=== PATIENT | female | born 1940 | race Caucasian/White ===

== ENCOUNTER → 2016-06-17 | Outpatient (CLI) | payer OTHER ==
[~2016-06-17] MED LIST: ALBU1AER9 PO; ATOR10TA82 PO; CLCC1250 PO; ERGO1CAP35 PO; FLM4 PO; LEVO100T PO; LOSA100T33 PO; METF1000 PO; PXL20 PO; SENN-65 PO
--- NOTE | 2016-06-18 12:46 | MAMMOGRAPHY REPORT ---
BILATERAL DIGITAL SCREENING MAMMOGRAM TOMOSYNTHESIS WITH CAD: 06/17/2016 CLINICAL HISTORY: Asymptomatic. Personal history of breast cancer. TECHNIQUE: Breast tomosynthesis in addition to standard 2D mammography was performed. Current study was also evaluated with a Computer Aided Detection (CAD) system. COMPARISON: Comparison is made to exams dated: 07/10/2015 mammogram, 07/10/2015 stereotactic biopsy, mammogram, 06/15/2015 mammogram, and 06/14/2014 mammogram - [facility]. BREAST COMPOSITION: The tissue of both breasts is almost entirely fatty. FINDINGS: A linear scar marker overlies the upper outer quadrant of the left breast. There is expec abiodun architectural distortion at the site of prior lumpectomy. A metallic biopsy marker is seen with in the architecture distortion, denoting the site of recent benign biopsy of calcifications. There is stable nodularity in the upper outer quadrant of the right breast. No new suspicious mass, archi tectural distortion or cluster of microcalcifications is seen. IMPRESSION: ACR BI-RADS CATEGORY 1: NEGATIVE There is no mammographic evidence of malignancy. A 1 year screening mammogram is recommended. The p atient will receive written notification of the results. Approximately 10% of breast cancers are not detected with mammography. A negative mammographic repor t should not delay biopsy if a clinically suggestive mass is present. Mitzi Encarnacion M.D. ay/:06/17/2016 16:51:39 Judge: Mary Jane ADAME(Rik)(Sherif), [facility] letter sent: Normal 1/2 BI-RADS Code: ACR BI-RADS Category 1: Negative
== END | disposition home or self-care (01) ==
LOC: C.MAMM 08:16
PROVIDERS: ATTEND Family Medicine
DX: Z12.31 Encounter for screening mammogram for malignant neoplasm of breast (principal); Z85.3 Personal history of malignant neoplasm of breast

== ENCOUNTER → 2017-06-19 | Outpatient (CLI) | payer OTHER ==
--- NOTE | 2017-06-22 07:45 | MAMMOGRAPHY REPORT ---
BILATERAL DIGITAL SCREENING MAMMOGRAM TOMOSYNTHESIS WITH CAD: 06/19/2017 CLINICAL HISTORY: Routine screening. Patient has no complaints. TECHNIQUE: Breast tomosynthesis in addition to standard 2D mammography was performed. Current study was also evaluated with a Computer Aided Detection (CAD) system. COMPARISON: Comparison is made to exams dated: 06/17/2016 mammogram, 07/10/2015 mammogram, 07/10/2015 surinder reotactic biopsy, 07/02/2015 mammogram, 06/15/2015 mammogram, and 06/14/2014 mammogram - [facility]. BREAST COMPOSITION: The tissue of both breasts is almost entirely fatty. FINDINGS: No suspicious masses, calcifications, or areas of architectural distortion are noted in ei ther breast. There has been no significant interval change compared to prior exams. There are stable postsurgical changes in the left upper outer quadrant from prior lumpectomy. A biopsy clip is also noted in the left upper outer quadrant. Scattered bilateral benign-appearing calcifications are note d. Small circumscribed benign-appearing masses within the right upper outer quadrant are stable. IMPRESSION: ACR BI-RADS CATEGORY 2: BENIGN There is no mammographic evidence of malignancy. A 1 year screening mammogram is recommended. The pa tient will receive written notification of the results. Approximately 10% of breast cancers are not detected with mammography. A negative mammographic report should not delay biopsy if a clinically suggestive mass is present. Madhavi Sun M.D. /:06/19/2017 13:01:29 Fourdrinier Machine Operator: Camelia MORENO)(Sherif), [facility] letter sent: Normal 1/2 BI-RADS Code: ACR BI-RADS Category 2: Benign
== END | disposition home or self-care (01) ==
LOC: C.MAMM 08:22
PROVIDERS: ATTEND Family Medicine
DX: Z12.31 Encounter for screening mammogram for malignant neoplasm of breast (principal)

== ENCOUNTER 2024-03-09 23:06 | Observation (INO) ==
--- OUTSIDE RECORDS SUMMARY | 2024-03-09 23:13 | External Medical Summary | Summary of Care ---
Author Name Unknown Organization [facility] Address [address] [place] [address] Phone [phone] Care Team Providers Care Medical Record Coder Name Role Phone Briseno Wing Edwardschelo Primary Care Provider Reason for Visit * Reason Comments Outpatient Testing Encounter Details Date Type Department Care Team (Late st Contact Info) Description 01/28/2024 11:10 AM EST Laboratory Laboratory, [facility] [address] [place] [address] [facility] [address] [place] [address] DYSLIPIDEMIA, GOAL LDL BELOW 100; Type 2 diabetes mellitus with hemoglobin A1c goal of less than 7.0% ([facility]); Stage 3b chronic kidney disease ([facility]); Vitamin D deficiency; Hypothyroidism due to acquired atrophy of thyroid; Routine medical exam; Encounter for long-term (current) use of medications; Hyperparathyroidism, secondary renal ([facility]); Type 2 diabetes mellitus with diabetic neuropathy, without long-term current use of insulin ([facility]) Allergies Active Allergy Reactions Criticality Noted Date Comments Mayur Inhibitors 12/25/2003 Made her head funny Bupropion Hcl Hives Low 01/07/2008 documented as of this encounter (statuses as of 01/29/2024) Medications LORAzepam (ATIVAN) 0.5 MG TabletIndication s:Panic disorder 1/2 pill by mouth 3 times a day as needed for anxiety 20 Tab 0 6 Active Aspirin 81 MG Tablet Take 1 Tablet by mouth in the morning. Active Blood Glucose Monitoring Suppl ([address] ST[address]IO) w/Device KIT Use as directed. 1 Kit 8 Active ONETOUCH DELICA LANCETS 33G MISC TEST ONCE DAILY UNLESS READING IS TOO HIGH, THEN TEST TWICE DAILY. DX: E11.9 & E11.40 100 Each 5 8 Active Additional Information Patient not taking.Reported on 01/28/2024 Azelaic Acid (FINACEA) 15 % gelIndications:R osacea Apply daily to skin 50 g 10 0 Active Additional Information Patient not taking.Reported on 01/28/2024 Magnesium 500 MG Oral Capsule Take 1 Capsule by mouth in the morning. Active DermLinkTouch Verio In Vitro Strip (Glucose Blood) TEST ONCE DAILY UNLESS READING IS TOO HIGH, THEN TEST TWICE DAILY 100 Strip 2 3 Active Additional Information Patient not taking.Reported on 01/28/2024 Levothyroxine Sodium 100 MCG Oral Tablet (Levoxyl)Indicat ions:Hypothyroid ism due to acquired atrophy of thyroid TAKE 1 TABLET BY MOUTH ONCE DAILY (AT LEAST 30 MINUTES PRIOR TO BREAKFAST OR OTHER MEDS) 90 Tablet 3 4 Active Losartan Potassium 50 MG Oral Tablet (Cozaar) Take 1 Tablet by mouth in the morning. 90 Tablet 2 4 Active Atorvastatin Calcium 40 MG Oral Tablet (Lipitor) Take 1 Tablet by mouth in the morning. 90 Tablet 2 4 Active PARoxetine HCl 20 MG Oral Tablet (pAXil) TAKE 1 TABLET BY MOUTH IN THE MORNING 90 Tablet 3 4 Active hydroCHLOROthiaz rebeca 12.5 MG Oral Tablet TAKE 1 TABLET BY MOUTH EVERY MORNING 90 Tablet 1 4 Active Potassium Citrate ER 10 MEQ (1080 MG) Oral Tablet Extended Release (Urocit-K) TAKE 2 TABLETS BY MOUTH IN THE MORNING 180 Tablet 2 4 Active Ozempic (1 MG/DOSE) 4 MG/3ML Subcutaneous Solution Pen-injector (Semaglutide (1 MG/DOSE))Indicat ions:Type 2 diabetes mellitus with hemoglobin A1c goal of less than 7.0% ([facility]),Type 2 diabetes mellitus with diabetic neuropathy, without long-term current use of insulin ([facility]),Type 2 diabetes mellitus with stage 4 chronic kidney disease, without long-term current use of insulin (HCC) Inject 1 mg under the skin once a week. 9 mL 3 4 Active Allopurinol 100 MG Oral Tablet (Zyloprim)Indica tions:Elevated uric acid in blood Take 1 Tablet by mouth in the morning. 90 Tablet 3 4 Active documented as of this encounter (statuses as of 01/29/2024) Active Problems Problem Noted Date Diagnosed Date Moderate episode of recurrent major depressive d isorder 07/31/2022 Stage 3b chronic kidney disease 05/31/2020 Type 2 diabetes mellitus wit h diabetic neuropathy, without long-term current use of insulin 08/17/2018 Hypertensive kidney disease with stage 4 chronic kidney disease 08/17/2018 History of breast cancer 08/06/2018 Type 2 diabetes mellitus wit h stage 4 chronic kidney disease, without long-term current use of insulin 06/01/2018 Essential tremor 02/26/2018 Personal history of fall 02/26/2018 Hyperparathyroidism, secondary renal 12/23/2017 Hypothyroidism due to acquired atrophy of thyroi d 08/18/2016 Essential and other specified forms of tremor DYSLIPIDEMIA, GOAL LDL BELOW 100 02/15/2009 Overview (02/15/2009): Per Lipid Taxonomy. Type 2 diabetes mellitus wit h hemoglobin A1c goal of less than 7.0% 01/04/2009 Overview (07/03/2015): Per Diabetes Taxonomy. ICD-10 update of inactive term lactose intolerance Panic disorder Gout Nephrolithiasis, uric acid Diabetic neuropathy associat ed with type 2 diabetes mellitus documented as of this encounter (statuses as of 01/29/2024) Resolved Problems Problem Noted Date Diagnosed Date Resolved Date CKD (chronic kidney disease) stage 4, GFR 15-29 ml/min 02/20/2016 07/21/2018 KIDNEY DZ,CHRONIC (GFR>30-59) STAGE III 06/11/2010 02/20/2016 CKD (chronic kidney disease) stage 4, GFR 15-29 ml/min 04/01/2007 06/11/2010 Overview (04/01/2007): Based on GFR of 52.5 on 12/02/06. ADVANCE DIRECTIVE INFORMATION 11/24/2006 01/11/2024 Overview (10/06/2006): No, Advance Directive brochure given to patient at a previous visit. Carcinoma in situ of breast 10/06/2006 08/06/2018 Type 1 diabetes mellitus wit h hemoglobin A1c goal of less than 8.5% 09/03/1999 01/04/2009 Overview (07/03/2015): Per Diabetes Taxonomy. ICD-10 update of inactive term BENIGN HYPERTENSION 05/25/19 08 HYPERLIPIDEMIA NEC-NOS 02/15 Overview (02/15/2009): Per Lipid Taxonomy. Type 2 diabetes mellitus wit h goal of symptom management 02/22/2019 documented as of this encounter (statuses as of 01/29/2024) Immunizations Name Administration Dates Next Due COVID-19 mRNA, LNP-s, No Pre serve, 2-Dose Series (Kashless) 06/22/2020,06/01/2020 Diptheria/Tetanus (Adult) 03/09/1993 Pneumococcal Conjugate Vacc, 13 Valent (Prevnar) 08/17/2014 Pneumococcal Polysaccharide PPV23 (Pneumovax) 11/27/2003 Seasonal Influenza Vac., MDV , IM, 0.5 mL (Fluzone) 01/06/2014,01/03/2013,12/19/2011,12/16,12/28/2009 Seasonal Influenza, High Dos e, Trivalent, PF, IM (Fluzone HD) 01/28/2024 Seasonal Influenza, PF, 6 M & above, IM , (FluLaval or Fluzone) 02/26/2018,02/23/2017 Seasonal Influenza, Quadriva lent Hd (Fluzone Hd) 03/23/2023,01/17/2022,01/08/2021 Seasonal Influenza, Quadriva lent Hd, 65+ Yrs 12/16/2019 Seasonal Influenza, Quadriva lent, No Preserve, IM 02/18/2016,01/08/2015 Seasonal Influenza, Trivalen t, Adjuvanted, 65+ YRS, PF, (Fluad) 03/07/2019 TD, Preservative Free 06/08/2009 TDAP (age 10 and older)(Boostrix) 08/25/2017 Zoster Vaccine Recombinant (Shingrix) 03/07/2019 ,02/26/2018 documented as of this encounter Social History Tobacco Use Types Packs/Day Years Used Date Smoking Tobacco: Never Smokeless Tobacco: Never Alcohol Use Standard Drinks/Week Comments No 0 (1 standard drink = 0.6 oz pur e alcohol) PHQ-2 Answer Date Recorded PHQ Adult Total Score 0 01/28/2024 Hunger Vital Sign Answer Date Recorded Worried About Running Out of Food in the Last Ye ar Never true 09/12/2019 Ran Out of Food in the Last Year Never true 09/12/2019 Comments No Sex and Gender Information Value Date Recorded Sex Assigned at Female 09/12/2019 1:54 PM EDT Legal Sex Female 6:01 AM EST Gender Identity Female 09/12/2019 1:54 PM EDT Sexual Orientation Straight 09/12/2019 1: 54 PM EDT documented as of this encounter Plan of Treatment Upcoming Encounters Date Type Department Care Team (Late st Contact Info) Description 02/10/2024 9:40 AM EST Office Visit [facility] [address] [place] [address] Lj Gill MD [address] [place] [address] 07/28/2024 10:20 AM EDT Office Visit [facility] [address] [address] Wing Briseno, [address] [address] 02/06/2025 11:40 AM EST Office Visit [facility] [address] [address] Wing Brisneo, [address] [address] Pending Results Name Type Priority Associated Diagnoses Date /Time ALBUMIN / CREATININE RATIO, URINE Lab Routine Stage 3b chronic kidney disease (HCC) 01/29/2024 7:18 AM EST Health Maintenance Due Date Last Done Comments Adult Wellness Visit 2004 Diabetic Eye Exam 01/15/2023 01/15/2022, , 12/28/2019, Additional history exists COVID-19 Vaccine ( season) 2023 06/22/2020, 06/01/2020 Albumin/Creatinine Ratio 04/14/2024 024, 09/22/2022, 01/17/2022, Additional history exists HbA1c 07/27/2024 01/28/2024, 02/0 08/2023, 01/17/2022, Additional history exists Depression Monitoring 01/27/2025 01/28/2024 Diabetic Foot Exam 01/27/2025 01/28/2024, 0 07/31/2022, 07/09/2021, Additional history exists TSH 01/27/2025 01/28/2024, 02/0 08/2023, 07/04/2021, Additional history exists DTap/Tdap Vaccines (2 - Td or Tdap) 08/26/2027 08/25/2017, 06/08/2009, 03/09/1993 Pneumococcal Vaccine: 65+ Years Completed 08/17/2014, 11/27/2003 Zoster Vaccines Completed 03/07/2019, 02/26/2018 Nephrology Referral Discontinued 02/10/2023 Influenza Vaccine (FLU shot) Completed 01/28/2024, 03/23/2023, 01/17/2022, Additional history exists HPV (Gardasil) Vaccine Aged Out No lo nger eligible based on patient's age to complete this topic Hepatitis B Vaccine Aged Out No longe r eligible based on patient's age to complete this topic MENINGOCOCCAL (MENACTRA/MENVEO) Aged Out No longer eligible based on patient's age to complete this topic documented as of this encounter Medical Devices Implanted Type Area Trestle Mechanic Device Identifier Shelf Expiration Date Model / Serial / Lot Inlay [place] Ureteral Stent Implanted:Qty: 1 on 04/07/2014 by Sigrid Zhang MD at OR [facility] Left: Ureter [employer] 06/06/2018 [id number] / / [id number] Lens Intraoc 23.0 - [id number] - [id number] Implanted:Qty: 1 on 06/08/2018 by Wolfgang Powers MD at OR [facility] Left: Eye [employer] 11/06/2022 [id number] / [id number] / Lens Intraoc 19.5 - [id number] - [id number] Implanted:Qty: 1 on 06/22/2018 by Wolfgang Powers MD at OR [facility] Right: Eye [employer] 01/06/2023 [id number] / [id number] / documented as of this encounter Procedures Procedure Name Priority Date/Time Associated Diagnosis Comments TSH WITH FREE T4 IF INDICATED Routine 01/28/2024 10:37 AM EST Hypothyroidism due to acquired atrophy of thyroid LIPID PANEL WITH DIRECT LDL IF TG IS HIGH Routine 01/28/2024 10:37 AM EST DYSLIPIDEMIA, GOAL LDL BELOW 100 25-HYDROXY VITAMIN D Routine 01/28/2024 10:37 AM EST Vitamin D deficiency HEMOGLOBIN A1C Routine 01/28/2024 10:37 AM EST Type 2 diabetes mellitus with hemoglobin A1c goal of less than 7.0% (HCC) COMPREHENSIVE METABOLIC PANEL Routine 01/28/2024 10:37 AM EST DYSLIPIDEMIA, GOAL LDL BELOW 100 PHOSPHORUS Routine 01/28/2024 10:37 AM EST Hyperparathyroidis m, secondary renal (HCC) PTH Routine 01/28/2024 10:37 AM EST Hypothyroidism due to acquired atrophy of thyroid MAGNESIUM Routine 01/28/2024 10:37 AM EST Stage 3b chronic kidney disease (HCC) documented in this encounter Results * PHOSPHORUS (01/28/2024 10:37 AM EST) Phosphorus 3.2 2.5 - 4.8 mg/dL 01/28/2024 10:32 PM EST [facility] Blood Venous blood specimen / Unknown Venipuncture / Unknown 01/28/2024 10:37 AM EST 01/28/2024 10:37 AM EST us Wing Briseno DO LAB BLOOD ORDERABLES Fi nal Result Performing Organization Address [facility] de Phone Number [facility] [address] [place] [address] * TSH WITH FREE T4 IF INDICATED (01/28/2024 10:37 AM EST) TSH 0.41 0.27 - 4.20 uIU/mL 01/28/2024 11:34 PM EST [facility] Blood Venous blood specimen / Unknown Venipuncture / Unknown 01/28/2024 10:37 AM EST 01/28/2024 10:37 AM EST us Wing Briseno DO LAB BLOOD ORDERABLES Fi nal Result Performing Organization Address [facility] Phone Number [facility] [address] [place] [address] * PTH (01/28/2024 10:37 AM EST) PTH 65 15 - 65 pg/mL 01/28/2024 11:34 PM EST [facility] Blood Venous blood specimen / Unknown Venipuncture / Unknown 01/28/2024 10:37 AM EST 01/28/2024 10:37 AM EST Wing Briseno DO LAB BLOOD ORDERABLES Fi nal Result Performing Organization Address [facility] Co de Phone Number [facility] [address] [place] [address] * 25-HYDROXY VITAMIN D (01/28/2024 10:37 AM EST) 25-Hydroxy Vitamin D 28 >19 ng/mL 01/28/2024 11:34 PM EST [facility] Blood Venous blood specimen / Unknown Venipuncture / Unknown 01/28/2024 10:37 AM EST 01/28/2024 10:37 AM EST Narrative [facility] - 01/28/2024 11:34 PM EST Deficient: <20 ng/mL Insufficient: 20-29 ng/mL Recommended/Optimum:30-50 ng/mL Vitamin D intoxication is rare. If suspicious of Vitamin D toxicity, evaluation of serum Calcium and PTH is recommended. Wing Briseno DO LAB BLOOD ORDERABLES Fi nal Result Performing Organization Address City/[facility]/ZIP Co de Phone Number LABORATORY [address] [address] * MAGNESIUM (01/28/2024 10:37 AM EST) Magnesium 1.7 1.5 - 2.6 mg/dL 01/28/2024 10:32 PM EST [facility] Blood Venous blood specimen / Unknown Venipuncture / Unknown 01/28/2024 10:37 AM EST 01/28/2024 10:37 AM EST Wing Briseno DO LAB BLOOD ORDERABLES Fi nal Result Performing Organization Address [facility]/ZIP Co de Phone Number LABORATORY [address] [address] * (ABNORMAL) LIPID PANEL WITH DIRECT LDL IF TG IS HIGH (01/28/2024 10:37 AM EST) Triglycerides 138 <=174 mg/dL 01/28/2024 10:32 PM EST [facility] Comment: Triglyceride Reference Ranges (mg/dL): <150 Acceptable 150-174 Borderline high 175-499 High >=500 Very high Cholesterol 147 <200 mg/dL 01/28/2024 10:32 PM EST [facility] Comment: Total Cholesterol Reference Ranges (mg/dL): <200 Desirable 200-239 Borderline high >=240 High HDL Cholesterol 49(L) >49 mg/dL 10:32 PM EST [facility] Comment: HDL Cholesterol Reference Ranges (mg/dL): >=60 High (Desirable) <50 Low (Undesirable) For Females <40 Low (Undesirable) For Males Non-HDL Cholesterol 98 <=159 mg/dL 01/28/2024 10:32 PM EST [facility] Comment: Non-HDL Cholesterol Reference Range (mg/dL): <100 Target level for high risk ASCVD patient <130 Optimal for general population 130-159 Near optimal for general population 160-189 Borderline High 190-219 High >=220 Very High LDL Cholesterol 70 <=129 mg/dL 01/28/2024 10:32 PM EST [facility] Comment: LDL Cholesterol Reference Ranges (mg/dL): <70 Target level for high risk ASCVD patient <100 Optimal for general population 100-129 Near optimal for general population 130-159 Borderline high 160-189 High >=190 Very high Blood Venous blood specimen / Unknown Venipuncture / Unknown 01/28/2024 10:37 AM EST 01/28/2024 10:37 AM EST Wing Briseno DO LAB BLOOD ORDERABLES Fi nal Result Performing Organization Address [facility] Phone Number [facility] [place] [address] [place] [address] * (ABNORMAL) HEMOGLOBIN A1C (01/28/2024 10:37 AM EST) Hemoglobin A1C 6.9(H) 4.0 - 5.6 % 01/28/2024 7:56 PM EST [facility] Comment:The use of HbA1c to monitor glycemic status is based on normal hemoglobin and HbA composition. This test should not be used in patients with abnormal hemoglobin that affects the half life of the red blood cell or the in vivo glycation rates. Estimated Average Glucose 151(H) <126 mg/dL 01/28/2024 7:56 PM EST [facility] Blood Venous blood specimen / Unknown Venipuncture / Unknown 01/28/2024 10:37 AM EST 01/28/2024 10:37 AM EST Wing Briseno DO LAB BLOOD ORDERABLES Fi nal Result Performing Organization Address [facility] de Phone Number [facility] [place] [address] [place] [address] * (ABNORMAL) COMPREHENSIVE METABOLIC PANEL (01/28/2024 10:37 AM EST) BUN 22(H) 6 - 20 mg/dL 01/28/2024 12:54 PM EST [facility] [place] 57-10 CREATININE 1.6(H) 0.5 - 1.0 mg/dL 01/28/2024 12:54 PM EST [facility] [place] 57-10 EGFR 32(L) >=60 mL/min 01/28/2024 12:54 PM EST [facility] [place] 57-10 Comment:eGFR is calculated b ased on the CKD-EPI 2020 equation. SODIUM 139 135 - 146 mmol/L 01/28/2024 12:54 PM EST [facility] [place] [facility]-10 POTASSIUM 4.4 3.5 - 5.1 mmol/L 01/28/2024 12:54 PM EST [facility] [place] 57-10 CHLORIDE 100 98 - 107 mmol/L 01/28/2024 12:54 PM EST [facility] [place] 57-10 CO2 31 22 - 32 mmol/L 01/28/2024 12:54 PM EST [facility] [place] 57-10 ANION GAP 8 7 - 15 mmol/L 01/28/2024 12:54 PM EST [facility] [place] 57-10 GLUCOSE 109 70 - 120 mg/dL 01/28/2024 12:54 PM EST [facility] [place] 57-10 Albumin 4.1 3.8 - 5.0 g/dL 01/28/2024 12:54 PM EST [facility] [place] 57-10 AST 18 10 - 35 U/L 01/28/2024 12:54 PM EST [facility] [place] 57-10 Alkaline Phosphatase 102 35 - 130 U/L 01/28/2024 12:54 PM EST [facility] [place] 57-10 Bilirubin, Total 0.8 <=1.2 mg/dL 01/28/2024 12:54 PM EST [facility] [place] 57-10 CALCIUM 9.6 8.4 - 10.2 mg/dL 01/28/2024 12:54 PM EST [facility] [place] 57-10 Protein 7.3 6.0 - 8.3 g/dL 01/28/2024 12:54 PM EST [facility] [place] 57-10 ALT 15 10 - 35 U/L 01/28/2024 12:54 PM EST [facility] [place] 57-10 Blood Venous blood specimen / Unknown Venipuncture / Unknown 01/28/2024 10:37 AM EST 01/28/2024 10:37 AM EST Wing Briseno DO LAB BLOOD ORDERABLES Fi nal Result [facility] [place] [address] documented in this encounter Visit Diagnoses Diagnosis DYSLIPIDEMIA, GOAL LDL BELOW 100 Other and unspecified hyperlipidemia Type 2 diabetes mellitus with hemoglobin A1c goal of less than 7.0% (HCC) Stage 3b chronic kidney disease (HCC) Vitamin D deficiency Unspecified vitamin D deficiency Hypothyroidism due to acquired atrophy of thyroid Routine medical exam Routine general medical examination at a health care facility Encounter for long-term (current) use of medications Encounter for long-term (current) use of other medications Hyperparathyroidism, secondary renal (HCC) Secondary hyperparathyroidism (of renal origin) Type 2 diabetes mellitus with diabetic neuropathy, without long-term current use of insulin (HCC) documented in this encounter Advance Directives * Full Code (Latest Code Status on File) Date Activated Date Inactivated Comments 04/07/2014 7:37 AM 04/07/2014 3:40 PM This order r eflects the patients wishes and were consensually agreed upon. Care Teams Medical Record Coder Relationship Specialty Start Date End Date Wing Briseno DO [address] [place] [address] PCP - General Family Medicine 04/04/19 documented as of this encounter
--- OUTSIDE RECORDS SUMMARY | 2024-03-09 23:13 | External Medical Summary | Summary of Care ---
Author Name Unknown Organization [facility] Address [address] [place] [address] Phone [phone] Care Team Providers Care Technical Solutions Engineer Name Role Phone Navin Briseno DO Primary Care Provider Reason for Visit * Reason Comments eRx-Medication Refill Encounter Details Date Type Department Care Team (Late st Contact Info) Description 02/09/2024 Refill Family Practice [facility] [address] [place] [id number] Navin Briseno DO [address] [place] [id number] Allergies Active Allergy Reactions Criticality Noted Date Comments Mayur Inhibitors 12/25/2003 Made her head funny Bupropion Hcl Hives Low 01/07/2008 documented as of this encounter (statuses as of 02/10/2024) Medications LORAzepam (ATIVAN) 0.5 MG TabletIndicatio ns:Panic disorder 1/2 pill by mouth 3 times a day as needed for anxiety 20 Tab 0 04/06/19 Active Aspirin 81 MG Tablet Take 1 Tablet by mouth in the morning. Active Blood Glucose Monitoring Suppl (ONETOUCH VERIO) w/Device KIT Use as directed. 1 Kit 01/23/20 Active ONETOUCH DELICA LANCETS 33G MISC TEST ONCE DAILY UNLESS READING IS TOO HIGH, THEN TEST TWICE DAILY. DX: E11.9 & E11.40 100 Each 5 01/23/20 Active Additional Information Patient not taking.Reported on 01/28/2024 Azelaic Acid (FINACEA) 15 % gelIndications: Rosacea Apply daily to skin 50 g 10 03/21/19 Active Additional Information Patient not taking.Reported on 01/28/2024 Magnesium 500 MG Oral Capsule Take 1 Capsule by mouth in the morning. Active OneTouch Verio In Vitro Strip (Glucose Blood) TEST ONCE DAILY UNLESS READING IS TOO HIGH, THEN TEST TWICE DAILY 100 Strip 2 01/18/20 23 Active Additional Information Patient not taking.Reported on 01/28/2024 Atorvastatin Calcium 40 MG Oral Tablet (Lipitor) Take 1 Tablet by mouth in the morning. 90 Tablet 2 08/18/19 24 Active PARoxetine HCl 20 MG Oral Tablet (pAXil) TAKE 1 TABLET BY MOUTH IN THE MORNING 90 Tablet 3 11/11/19 24 Active hydroCHLOROthia zide 12.5 MG Oral Tablet TAKE 1 TABLET BY MOUTH EVERY MORNING 90 Tablet 1 11/24/19 24 Active Potassium Citrate ER 10 MEQ (1080 MG) Oral Tablet Extended Release (Urocit-K) TAKE 2 TABLETS BY MOUTH IN THE MORNING 180 Tablet 2 01/26/20 24 Active Ozempic (1 MG/DOSE) 4 MG/3ML Subcutaneous Solution Pen-injector (Semaglutide (1 MG/DOSE))Indica tions:Type 2 diabetes mellitus with hemoglobin A1c goal of less than 7.0% (HCC),Type 2 diabetes mellitus with diabetic neuropathy, without long-term current use of insulin (HCC),Type 2 diabetes mellitus with stage 4 chronic kidney disease, without long-term current use of insulin ([facility]) Inject 1 mg under the skin once a week. 9 mL 3 01/28/20 24 Active Allopurinol 100 MG Oral Tablet (Zyloprim)Indic ations:Elevated uric acid in blood Take 1 Tablet by mouth in the morning. 90 Tablet 3 01/28/20 24 Active Levothyroxine Sodium 100 MCG Oral Tablet (Levoxyl)Indica tions:Hypothyro idism due to acquired atrophy of thyroid TAKE 1 TABLET BY MOUTH ONCE DAILY (AT LEAST 30 MINUTES PRIOR TO BREAKFAST OR OTHER MEDS) 90 Tablet 3 02/01/20 24 Active Losartan Potassium 50 MG Oral Tablet (Cozaar) Take 1 Tablet by mouth in the morning. 90 Tablet 3 02/10/20 24 Active Losartan Potassium 50 MG Oral Tablet (Cozaar) Take 1 Tablet by mouth in the morning. 90 Tablet 2 08/11/19 24 024 Discontinued documented as of this encounter (statuses as of 02/10/2024) Active Problems Problem Noted Date Diagnosed Date [...] as of this encounter (statuses as of 02/10/2024) Resolved Problems Problem Noted Date Diagnosed Date [...] as of this encounter (statuses as of 02/10/2024) Immunizations Name Administration Dates Next Due COVID-19 mRNA, LNP-s, No Pre serve, 2-Dose Series (Pfizer) 06/22/2020,06/01/2020 Pneumococcal Conjugate Vacc, 13 Valent (Prevnar) 08/17/2014 Seasonal Influenza Vac., MDV , IM, 0.5 mL (Fluzone) 01/06/2014,01/03/2013,12/19/2011,2010,12/28/2009 Seasonal Influenza, High Dos e, Trivalent, PF, [...] PM EDT documented as of this encounter Miscellaneous Notes * Telephone Encounter - Suzanna Millan RPh - 02/10/2024 8:19 PM ESTSigned Prescriptions: Disp Refills Losartan Potassium 50 MG Oral Tablet (Coza*90 Tab*3 Sig: Take 1Tablet by mouth in the morning.Authorizing Provider: NAVIN BRISENOOrderxochitl User: Bebo MILLAN documented in this encounter Plan of Treatment Upcoming Encounters Date Type Department Care Team (Late st Contact Info) Description 07/28/2024 10:20 AM EDT Office Visit [facility] [address] [place] [address] Navin Briseno, [address] [place] [address] 01/12/2025 2:20 PM EST [facility] [address] [place] [address] Lj Gill MD [address] [place] [address] 02/06/2025 11:40 AM EST Office Visit [facility] [address] [place] [address] Navin Briseno, [address] [place] [address] Health Maintenance Due Date Last Done Comments Adult Wellness Visit 2004 Diabetic Eye Exam 01/15/2023 01/15/2022, , 12/28/2019, Additional history exists COVID-19 Vaccine ( season) 2023 06/22/2020, 06/01/2020 HbA1c 07/27/2024 01/28/2024, 02/0 08/2023, 01/17/2022, Additional history exists Depression Monitoring 01/27/2025 01/28/2024 Diabetic Foot Exam 01/27/2025 01/28/2024, 0 07/31/2022, 07/09/2021, Additional history exists TSH 01/27/2025 01/28/2024, 02/0 08/2023, 07/04/2021, Additional history exists Albumin/Creatinine Ratio 01/28/2025 024, 04/14/2023, 09/22/2022, Additional history exists DTap/Tdap Vaccines (2 - Td or Tdap) 08/26/2027 08/25/2017, 06/08/2009, 03/09/1993 Pneumococcal Vaccine: 65+ Years Completed 08/17/2014, 11/27/2003 Zoster Vaccines Completed 03/07/2019, 02/26/2018 Influenza Vaccine (FLU shot) Completed 01/28/2024, 03/23/2023, 01/17/2022, Additional history exists Nephrology Referral Discontinued 02/10/2024 HPV (Gardasil) Vaccine Aged Out No lo nger eligible based on patient's age to complete this topic Hepatitis B Vaccine Aged Out No longe r eligible based on patient's age to complete this topic MENINGOCOCCAL (MENACTRA/MENVEO) Aged Out No longer eligible based on patient's age to complete this topic documented as of this encounter Medical Devices Implanted Type Area Artist Mannequin Coloring Device Identifier Shelf Expiration Date Model / Serial / Lot Inlay [place] Ureteral Stent Implanted:Qty: 1 on 04/07/2014 by Sigrid Zhang MD at OR [facility] Left: Ureter [employer] 06/06/2018 [id number] / / [id number] Lens Intraoc 23.0 - [id number] - [id number] Implanted:Qty: 1 on 06/08/2018 by Wolfgang Powers MD at OR [facility] Left: Eye [employer] 11/06/2022 [id number] / [id number] / Lens Intraoc 19.5 - [id number] - [id number] Implanted:Qty: 1 on 06/22/2018 by Wolfgang Powers MD at OR [facility] Right: Eye [employer] 01/06/2023 [id number] / [id number] / documented as of this encounter Advance Directives * Full Code (Latest Code Status on File) Date Activated Date Inactivated Comments 04/07/2014 7:37 AM 04/07/2014 3:40 PM This order r eflects the patients wishes and were consensually agreed upon. Care Teams Technical Solutions Engineer Relationship Specialty Start Date End Date Navin Briseno DO [address] [place] [id number] PCP - General Family Medicine 04/04/19 documented as of this encounter
--- OUTSIDE RECORDS SUMMARY | 2024-03-09 23:13 | External Medical Summary | Summary of Care ---
Author Name Unknown Organization [facility] Address [address] [place] [address] Phone [phone] Care Team Providers Care Adjunct Sociology Professor Name Role Phone Finn Wing Edwardschelo Primary Care Provider Reason for Visit * Reason Comments Chronic Kidney Disease (CKD) Encounter Details Date Type Department Care Team (Late st Contact Info) Description 02/10/2024 9:40 AM EST Office Visit [facility] [address] [place] [address] Lj Gill MD [address] [place] [address] Stage 3b chronic kidney disease (HCC)*; Type 2 diabetes mellitus with stage 4 chronic kidney disease, without long-term current use of insulin (HCC); Nephrolithiasis, uric acid Allergies Active Allergy Reactions Criticality Noted Date Comments Mayur Inhibitors 12/25/2003 Made her head funny Bupropion Hcl Hives Low 01/07/2008 documented as of this encounter (statuses as of 02/10/2024) Medications LORAzepam (ATIVAN) 0.5 MG TabletIndication s:Panic [...] Additional Information Patient not taking.Reported on 01/28/2024 Losartan Potassium 50 MG Oral Tablet (Cozaar) [...] hemoglobin A1c goal of less than 7.0% ([facility]),Type 2 diabetes mellitus with diabetic neuropathy, without long-term current use of insulin ([facility]),Type 2 diabetes mellitus with stage 4 chronic kidney disease, without long-term current use of insulin ([facility]) Inject 1 mg under the skin once a week. 9 mL 3 4 Active Allopurinol 100 MG Oral Tablet (Zyloprim)Indica tions:Elevated uric acid in blood Take 1 Tablet by mouth in the morning. 90 Tablet 3 4 Active Levothyroxine Sodium 100 MCG Oral Tablet (Levoxyl)Indicat ions:Hypothyroid ism due to acquired atrophy of thyroid TAKE 1 TABLET BY MOUTH ONCE DAILY (AT LEAST 30 MINUTES PRIOR TO BREAKFAST OR OTHER MEDS) 90 Tablet 3 4 Active documented as [...] PM EDT documented as of this encounter Last Filed Vital Signs Vital Sign Reading Time Taken Comments Blood Pressure 150/63 02/10/2024 9:58 AM EST Pulse 61 02/10/2024 9:58 AM EST Temperature 36.6 C (97.8 F) 02/10/2024 9:58 AM ES T Respiratory Rate 18 02/10/2024 9:58 AM EST Oxygen Saturation 98% 02/10/2024 9:58 AM EST Inhaled Oxygen Concentration - - Weight 70.8 kg (156 lb) 02/10/2024 9:58 AM EST Height - - Body Mass Index 24.43 03/23/2023 11:48 AM EST documented in this encounter Progress Notes * Lj Gill MD - 02/10/2024 10:02 AM EST REASON FOR VISIT: CKD 3B HPI: Lorelei Gil is a 83 year old female seen in follow-up in the [facility] Nephrology office. Past medical history of CKD stage 3B without proteinuria secondary to DM and HTN here for follow up. Patient with dm and hypertension for 25 years-without retinopathy. Checks bp at home occasionally. PMH also includes nephrolithiasis with uric acid stones-on potassium citrate and no more stones. Also withgout and on allopurinol. H/o BRCA with partial masectomy 6 years ago. No chemo or radiation. No tobacco. Last office visit was in -- no new health issues. She does get tired as her has worsening dementia and has to take care of him. Having some arthritic pain but otherwise no symptoms. Nourinary symptoms. No leg swelling. No kidney stone infections hospitalization or emergency. 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 Diabetic neuropathy associated with type 2 diabetes mellitus ([facility]) Dyslipidemia, goal to be determined Essential and other specified forms of tremor 04/06/2015 Essential tremor 02/26/2018 Gout HTN, goal below 140/90 Hypothyroidism Hypothyroidism Intestinal disaccharidase deficiency Nephrolithiasis, uric acid Panic disorder Personal history of fall 02/26/2018 Type 1 diabetes mellitus with hemoglobin A1c goal of less than 8.5% ([facility]) 09/03/1999 Per Diabetes Taxonomy. ICD-10 update of inactive term Type 2 diabetes mellitus with goal of symptom management ([facility]) Review of Systems: General ROS: negative for - chills or fever Psychological ROS: negative for - mood swings ENT ROS: negative for - nasal congestion or nasal discharge Endocrine ROS: negative Respiratory ROS: no cough, shortness of breath, or wheezing Cardiovascular ROS: no chest pain or dyspnea on exertion Gastrointestinal ROS: no abdominal pain, change in bowel habits, or black or bloody stools Genito-Urinary ROS: no dysuria, trouble voiding, or hematuria Musculoskeletal ROS: negative for - muscle pain Neurological ROS: no TIA or stroke symptoms Dermatological ROS: negative for rash Family History Problem Relation Name Age of Onset Heart Disorder Mother Diabetes Mother Hypertension Mother Mental Disorder Mother panic attacks Heart Disorder Father Hypertension Sister Hypertension Sister Cancer Brother lung Lung Disorder Brother emphysema, smoker Social History Socioeconomic History Marital status: Spouse name: Not on file Number of children: Not on file Years of education: Not on file Highest education level: Not on file Occupational History Not on file Social Needs Financial resource strain: Not on file Food insecurity: Worry: Not on file Inability: Not on file Transportation needs: Medical: Not on file Non-medical: Not on file Tobacco Use Smoking status: Never Smoker Smokeless tobacco: Never Used Substance and Sexual Activity Alcohol use: No Drug use: No Sexual activity: Yes Partners: Male Lifestyle Physical activity: Days per week: Not on file Minutes per session: Not on file Stress: Not on file Relationships Social connections: Talks on phone: Not on file Gets together: Not on file Attends mandaeism service: Not on file Active member of club or organization: Not on file Attends meetings of clubs or organizations: Not on file Relationship status: Not on file Intimate partner violence: Fear of current or ex partner: Not on file Emotionally abused: Not on file Physically abused: Not on file Forced sexual activity: Not on file Other Topics Concern Not on file Social History Narrative Not on file Current Outpatient Medications Medication Sig Dispense Refill LORAzepam (ATIVAN) 0.5 MG Tablet 1/2 pill by mouth 3 times a day as needed for anxiety 20 Tab 0 Aspirin 81 MG Tablet Take 1 Tablet by mouth in the morning. Magnesium 500 MG Oral Capsule Take 1 Capsule by mouth in the morning. Losartan Potassium 50 MG Oral Tablet (Cozaar) Take 1 Tablet by mouth in the morning. 90 Tablet 2 Atorvastatin Calcium 40 MG Oral Tablet (Lipitor) Take 1 Tablet by mouth in the morning. 90 Tablet 2 PARoxetine HCl 20 MG Oral Tablet (pAXil) TAKE 1 TABLET BY MOUTH IN THE MORNING 90 Tablet 3 hydroCHLOROthiazide 12.5 MG Oral Tablet TAKE 1 TABLET BY MOUTH EVERY MORNING 90 Tablet 1 Potassium Citrate ER 10 MEQ (1080 MG) Oral Tablet Extended Release (Urocit-K) TAKE 2 TABLETS BY MOUTH IN THE MORNING 180 Tablet 2 Ozempic (1 MG/DOSE) 4 MG/3ML Subcutaneous Solution Pen-injector (Semaglutide (1 MG/DOSE)) Inject 1 mg under the skin once a week. 9 mL 3 Allopurinol 100 MG Oral Tablet (Zyloprim) Take 1 Tablet by mouth in the morning. 90 Tablet 3 Levothyroxine Sodium 100 MCG Oral Tablet (Levoxyl) TAKE 1 TABLET BY MOUTH ONCE DAILY (AT LEAST 30 MINUTES PRIOR TO BREAKFAST OR OTHER MEDS) 90 Tablet 3 Blood Glucose Monitoring Suppl (SaqinaUCH VERIO) w/Device KIT Use as directed. 1 Kit 0 Northcore TechnologiesTOUCH DELICA LANCETS 33G MISC TEST ONCE DAILY UNLESS READING IS TOO HIGH, THEN TEST TWICE DAILY.DX: E11.9 & E11.40 (Patient not taking: Reported on 01/28/2024) 100 Each 5 Azelaic Acid (FINACEA) 15 % gel Apply daily to skin (Patient not taking: Reported on 01/28/2024) 50g 10 OneTouch Verio In Vitro Strip (Glucose Blood) TEST ONCE DAILY UNLESS READING IS TOO HIGH, THEN TESTTWICE DAILY (Patient not taking: Reported on 01/28/2024) 100 Strip 2 No current facility-administered medications for this visit. Filed Vitals: 02/10/24 0958 BP: 150/63 Pulse: 61 Resp: 18 Temp: 36.6 C (97.8 F) SpO2: 98% Weight: 70.8 kg (156 lb) PHYSICAL EXAM: GENERAL: Alert, in no acute distress. EYES: PERRL, conjunctivae anicteric. ENT: Mucous membranes moist, oropharynx clear. NECK: Supple, no JVD. LYMPH: No cervical or supraclavicular lymphadenopathy. LUNGS: Clear to auscultation bilaterally, no respiratory distress. CARDIAC: Regular rate and rhythm, normal S1/S2, no murmurs, rubs, or gallops. ABDOMEN: Soft, non-tender, non-distended, bowel sounds present. EXT/MSK: No clubbing, cyanosis, or edema. SKIN: No rash, no jaundice. NEURO: No tremor, no asterixis. LABS/STUDIES: NEPH-FLOW Latest Ref Rng & Units 12/23/2017 02/26/2018 07/06/2018 Bun 6 - 20 mg/dL 32 (H) 34 (H) 39 (H) Cr 0.5 - 1.0 mg/dL 1.8 (H) 1.7 (H) 1.7 (H) eGFR >60 mL/min eGFR >60 26.8 (L) 28.4 (L) 28.2 (L) K 3.5 - 5.1 mmol/L 4.7 4.6 4.8 Hb 12.0 - 15.3 g/dL Microalb/cr ratio <30 mg/g creat NEPH-FLOW Latest Ref Rng & Units 03/07/2019 09/12/2019 12/26/2019 Bun 6 - 20 mg/dL 31 (H) 32 (H) 22 (H) Cr 0.5 - 1.0 mg/dL 1.6 (H) 1.6 (H) 1.4 (H) eGFR >60 mL/min eGFR >60 30.3 (L) 31.3 (L) 34.6 (L) K 3.5 - 5.1 mmol/L 4.1 4.7 4.6 Hb 12.0 - 15.3 g/dL 14.5 13.9 Microalb/cr ratio <30 mg/g creat <8 NEPH-FLOW Latest Ref Rng & Units 09/12/2019 Bun 6 - 20 mg/dL 32 (H) BUN 6 - 20 mg/dL Cr 0.5 - 1.0 mg/dL 1.6 (H) CREATININE 0.5 - 1.0 mg/dL eGFR >60 mL/min eGFR >60 31.3 (L) EGFR >=60.0 mL/min K 3.5 - 5.1 mmol/L 4.7 POTASSIUM 3.5 - 5.1 mmol/L Hb 12.0 - 15.3 g/dL 13.9 HGB 12.0 - 15.3 g/dL Microalb/cr ratio <30 mg/g creat <8 ALBUMIN / CREATININE RATIO, URINE <30 mg/g Creat NEPH-FLOW Latest Ref Rng & Units 12/26/2019 Bun 6 - 20 mg/dL 22 (H) BUN 6 - 20 mg/dL Cr 0.5 - 1.0 mg/dL 1.4 (H) CREATININE 0.5 - 1.0 mg/dL eGFR >60 mL/min eGFR >60 34.6 (L) EGFR >=60.0 mL/min K 3.5 - 5.1 mmol/L 4.6 POTASSIUM 3.5 - 5.1 mmol/L Hb 12.0 - 15.3 g/dL HGB 12.0 - 15.3 g/dL Microalb/cr ratio <30 mg/g creat ALBUMIN / CREATININE RATIO, URINE <30 mg/g Creat NEPH-FLOW Latest Ref Rng & Units 05/31/2020 Bun 6 - 20 mg/dL BUN 6 - 20 mg/dL 27 (H) Cr 0.5 - 1.0 mg/dL CREATININE 0.5 - 1.0 mg/dL 1.6 (H) eGFR >60 mL/min eGFR >60 EGFR >=60.0 mL/min 30.0 (L) K 3.5 - 5.1 mmol/L POTASSIUM 3.5 - 5.1 mmol/L 4.3 Hb 12.0 - 15.3 g/dL HGB 12.0 - 15.3 g/dL 13.1 Microalb/cr ratio <30 mg/g creat ALBUMIN / CREATININE RATIO, URINE <30 mg/g Creat <6 NEPH-FLOW Latest Ref Rng & Units 05/31/2020 01/30/2021 07/04/2021 Bun 6 - 20 mg/dL 27 (H) 20 23 (H) Cr 0.5 - 1.0 mg/dL 1.6 (H) 1.3 (H) 1.5 (H) eGFR >=60 mL/min 30.0 (L) 38 (L) 34 (L) eGFR >60 K 3.5 - 5.1 mmol/L 4.3 4.6 4.6 Hb 12.0 - 15.3 g/dL 13.1 13.5 13.6 Pro/Cr ratio <150 mg/g 95 Microalb/cr ratio <30 mg/g creat Recent Labs Units 01/28/24 1037 04/14/23 1018 02/10/23 1359 SODIUM - [facility] mmol/L 139 141 141 POTASSIUM - [facility] mmol/L 4.4 4.1 4.4 CHLORIDE - [facility] mmol/L 100 102 103 CO2 - [facility] mmol/L 31 25 29 ESTIMATED GLOMERULAR FILTRATION RATE - [facility] mL/min 32* 33* 34* BUN - [facility] mg/dL 22* 30* 30* CREATININE - [facility] mg/dL 1.6* 1.5* 1.5* Recent Labs Units 02/10/23 1359 HGB g/dL 12.9 Recent Labs Units 01/28/24 1037 04/14/23 1018 02/10/23 1359 CALCIUM - [facility] mg/dL 9.6 9.5 9.6 PHOSPHORUS - [facility] mg/dL 3.2 3.0 2.9 25-HYDROXY VITAMIN D - [facility] ng/mL 28 -- 32 PTH - [facility] pg/mL 65 -- 63 Recent Labs Units 01/28/24 1037 04/14/23 1018 HEMOGLOBIN A1C - [facility] % 6.9* 7.2* Recent Labs Units 01/29/24 0718 04/14/23 1024 02/12/23 0728 09/22/22 0000 ALBUMIN / CREATININE RATIO, URINE - [facility] mg/g Creat 22 <6 -- -- MICROALBUMIN RATIO-OUTSIDE LAB MG/G -- -- -- 5.6 PROTEIN/ CREATININE RATIO, URINE - [facility] mg/g -- -- 56 -- ASSESSMENT AND PLAN Nephrolithiasis Stage 3b chronic kidney disease (Primary) Patient with the CKD stage 3B due to diabetes and hypertension. Her renal function has been fairly stable for the last few years with a GFR in the 30 through 35 range. Most recent blood work from January 27 was discussed with the patient and shows a GFR of 32 creatinine 1.6. This is within her baseline range for the last few years Diabetes is now fully controlled with A1c of less than 7%. Blood pressure could be slightly better but given her age and extreme stress and anxiety related with her dementia , this is an acceptable blood pressure. She knows to avoid NSAIDs and limit salt intake. She will continue to keep well hydrated. As of now hemoglobin is completely normal at 12.9 so no anemia of CKD No need of labs today. Normal exam and no symptoms. She still looks and functions very good for her age. No proteinuria on the urine test done January 2024 which is again a good prognostic marker As of now no renal osteodystrophy with acceptable vitamin-D and acceptable PTH range and normal phosphorus. All of these labs were ordered by me previously and has been discussed in detail today. Type 2 diabetes mellitus with stage 4 chronic kidney disease, without long-term current use of insulin (HCC) Last A1c was under 7%. Continue same medicines. Nephrolithiasis, uric acid Patient with history of nephrolithiasis. Recent imaging showed no kidney stones. She has not had episodes of kidney stones for the past 5 years. She will continue with adequate hydration and potassium citrate. - NEPHROLOGY FOLLOW UP APPT (DEPARTMENT USE ONLY); Future; Expected date: 08/10/2024 Labs as below to be done before the next appointment - NEPHROLOGY FOLLOW UP APPT (DEPARTMENT USE ONLY); Future; Expected date: 08/10/2024 - CBC WITH WBC DIFFERENTIAL; Future; Expected date: 02/10/2024 - RENAL FUNCTION PANEL; Future; Expected date: 02/10/2024 - PROTEIN/ CREATININE RATIO, URINE; Future; Expected date: 02/10/2024 - PTH; Future; Expected date: 02/10/2024 - 25-HYDROXY VITAMIN D; Future; Expected date: 02/10/2024 Lj Gill MD documented in this encounter Nursing Notes * Iza Gonzalez RN - 02/10/2024 10:01 AM EST Follow up visit today. Caring for a spouse with dementia. Good family support. documented in this encounter Plan of Treatment Upcoming Encounters Date Type Department Care Team (Late st Contact Info) Description 07/28/2024 10:20 AM EDT Office Visit [facility] [address] [place] [address] Wing Briseno, DO [address] [place] [address] 01/12/2025 2:20 PM EST Office Visit Nephrology [facility] [address] [facility] [place] [address] Lj Gill MD [address] [facility] [place] [address] 02/06/2025 11:40 AM EST Office Visit [facility] [address] [place] [address] Wing Briseno, [address] [place] [address] Scheduled Orders Name Type Priority Associated Diagnoses Orde r Schedule CBC WITH WBC DIFFERENTIAL Lab Routine Stage 3b chronic kidney disease (HCC) Expected: 02/10/2024 (Approximate), Expires: 08/08/2024 RENAL FUNCTION PANEL Lab Routine Stage 3b chronic kidney disease (HCC) Expected: 02/10/2024 (Approximate), Expires: 08/08/2024 PROTEIN/ CREATININE RATIO, URINE Lab Routine Stage 3b chronic kidney disease (HCC) Expected: 02/10/2024 (Approximate), Expires: 08/08/2024 PTH Lab Routine Stage 3b chronic kidney disease (HCC) Expected: 02/10/2024 (Approximate), Expires: 08/08/2024 25-HYDROXY VITAMIN D Lab Routine Stage 3b chronic kidney disease (HCC) Expected: 02/10/2024 (Approximate), Expires: 08/08/2024 Health Maintenance Due Date Last Done Comments [...] this encounter Medical Devices Implanted Type Area Cable Television Installer Device Identifier Shelf Expiration Date Model / Serial / Lot Inlay [place] Ureteral Stent Implanted:Qty: 1 on 04/07/2014 by Sigrid Zhang MD at [facility] Left: Ureter INACTIVE [employer] 06/06/2018 [id number] / / [id number] Lens Intraoc 23.0 - [id number] - [id number] Implanted:Qty: 1 on 06/08/2018 by Wolfgang Powers MD at OR [facility] Left: Eye [employer] 11/06/2022 [id number] / [id number] / Lens Intraoc 19.5 - [id number] - [id number] Implanted:Qty: 1 on 06/22/2018 by Wolfgang Powers MD at OR [facility] Right: Eye [employer]OMB 01/06/2023 [id number] / [id number] / documented as of this encounter Visit Diagnoses Diagnosis Stage 3b chronic kidney disease (HCC)- Primary Type 2 diabetes mellitus with stage 4 chronic kidney disease, without long-term current use of insulin (HCC) Nephrolithiasis, uric acid Uric acid nephrolithiasis documented in this encounter Advance Directives * Full Code (Latest Code Status on File) Date Activated Date Inactivated Comments 04/07/2014 7:37 AM 04/07/2014 3:40 PM This order r eflects the patients wishes and were consensually agreed upon. Care Teams Adjunct Sociology Professor Relationship Specialty Start Date End Date Wing Briseno DO [address] [place] [address] PCP - General Family Medicine 04/04/19 documented as of this encounter
--- OUTSIDE RECORDS SUMMARY | 2024-03-09 23:13 | External Medical Summary ---
Author Name Unknown Address Unknown Organization K01:[facility] - [address] [place] [address] Laboratory Report Ordering Provider Test Date Status GILLES HOLDEN 01/29/2024 07:18:09 Final Normal: <30 mg/g creatinine< br/>High: 30-300 mg/g creatinine
Very High: >300 mg/g creatinine
Nephrotic: >2200 mg/g creatinine Observation Date Value Abnormality Reference (Units ) Status Albumin, Urine 01/29/2024 07:18:09 4.00 (mg/dL) Final Creatinine, Urine 01/29/2024 07:18:09 184 (mg/dL) Final Albumin/Creatinine [Mass Ratio] in Urine 01/29/2024 07:18:09 22 <30 (mg/g Creat) Final Performing Location [facility] - [address] [place] [address]
--- OUTSIDE RECORDS SUMMARY | 2024-03-09 23:13 | External Medical Summary | Summary of Care ---
Author Name Unknown Organization [facility] Address [address] [place] [address] Phone [phone] Care Team Providers Care Surgical Physician Assistant Name Role Phone Navin Briseno DO Primary Care Provider Reason for Visit * Reason Comments eRx-Medication Refill Encounter Details Date Type Department Care Team (Late st Contact Info) Description 02/15/2024 Refill Family Practice [facility] [address] [place] [address] Navin Briseno DO [address] [place] [address] Allergies Active Allergy Reactions Criticality Noted Date Comments Mayur Inhibitors 12/25/2003 Made her head funny Bupropion Hcl Hives Low 01/07/2008 documented as of this encounter (statuses as of 02/16/2024) Medications LORAzepam (ATIVAN) 0.5 MG TabletIndicatio ns:Panic [...] TEST TWICE DAILY 100 Strip 2 01/18/20 Active Additional Information Patient not taking.Reported on 01/28/2024 PARoxetine HCl 20 MG Oral Tablet (pAXil) [...] hemoglobin A1c goal of less than 7.0% ([facility]),Type 2 diabetes mellitus with diabetic neuropathy, without long-term current use of insulin ([facility]),Type 2 diabetes mellitus with stage 4 chronic kidney disease, without long-term current use of insulin ([facility]) Inject 1 mg under the skin [...] morning. 90 Tablet 3 02/10/20 24 Active Atorvastatin Calcium 40 MG Oral Tablet (Lipitor) Take 1 Tablet by mouth in the morning. 90 Tablet 3 02/16/20 24 Active Atorvastatin Calcium 40 MG Oral Tablet (Lipitor) Take 1 Tablet by mouth in the morning. 90 Tablet 2 06/11/20 24 024 Discontinued documented as of this encounter (statuses as of 02/16/2024) Active Problems Problem Noted Date Diagnosed Date [...] as of this encounter (statuses as of 02/16/2024) Resolved Problems Problem Noted Date Diagnosed Date [...] as of this encounter (statuses as of 02/16/2024) Immunizations Name Administration Dates Next Due COVID-19 [...] encounter Miscellaneous Notes * Telephone Encounter - Aurora Urbina RPh - 02/16/2024 3:15 PM ESTSigned Prescriptions: Disp Refills Atorvastatin Calcium 40 MG Oral Tablet (Li*90 Tab*3 Sig: Take 1Tablet by mouth in the morning.Authorizing Provider: NAVIN BRISENOOrderxochitl User: AD URBINA documented in this encounter Plan of Treatment Upcoming Encounters Date Type Department Care Team (Late st Contact Info) Description 07/28/2024 10:20 AM EDT Office Visit [facility] [address] [place] [address] Navin Briseno, [address] [place] [address] 01/12/2025 2:20 PM EST Office Visit [facility] [address] [place] [address] Lj Gill MD [address] [place] [address] 02/06/2025 11:40 AM EST Office Visit [facility] [address] [place] [address] Navin Briseno, DO [address] [place] [address] Health Maintenance Due Date Last Done Comments Adult Wellness Visit 2004 Diabetic Eye Exam 01/15/2023 01/15/2022, , 12/28/2019, Additional history exists COVID-19 Vaccine ( season) 2023 06/22/2020, 06/01/2020 HbA1c 07/27/2024 01/28/2024, 02/0 08/2023, 01/17/2022, Additional history exists Depression Monitoring 01/27/2025 01/28/2024 Diabetic Foot Exam 01/27/2025 01/28/2024, 0 07/31/2022, 07/09/2021, Additional history exists TSH 01/27/2025 01/28/2024, 02/0 08/2023, 07/04/2021, Additional history exists Albumin/Creatinine Ratio 01/28/20252 024, 04/14/2023, 09/22/2022, Additional history exists DTap/Tdap [...] this encounter Medical Devices Implanted Type Area Technical Solutions Director Device Identifier Shelf Expiration Date Model / Serial / Lot Inlay [place] Ureteral Stent Implanted:Qty: 1 on 04/07/2014 by Sigrid Zhang MD at OR [facility] Left: Ureter INACTIVE [employer] 06/06/2018 [id number] / / [id number] Lens Intraoc 23.0 - [id number] - [id number] Implanted:Qty: 1 on 06/08/2018 by Wolfgang Powers MD at OR [facility] Left: Eye [employer] 11/06/2022 [id number] / [id number] / Lens Intraoc 19.5 - [id number] - [id number] Implanted:Qty: 1 on 06/22/2018 by Wolfgang Powers MD at OR [facility] Right: Eye [employer] 01/06/2023 [id number] / [id number] / documented as of this encounter Advance Directives * Full Code (Latest Code Status on File) Date Activated Date Inactivated Comments 04/07/2014 7:37 AM 04/07/2014 3:40 PM This order r eflects the patients wishes and were consensually agreed upon. Care Teams Surgical Physician Assistant Relationship Specialty Start Date End Date Navin Briseno DO [address] [place] [address] PCP - General Family Medicine 04/04/19 documented as of this encounter
--- OUTSIDE RECORDS SUMMARY | 2024-03-09 23:13 | External Medical Summary | Summary of Care ---
Author Name Unknown Organization [facility] Address [address] [place] [address] Phone [phone] Care Team Providers Care Horse Farm Manager Name Role Phone Wing Briseno DO Primary Care Provider Encounter Details Date Type Department Care Team (Late st Contact Info) Description 03/08/2024 Orders Only Family Practice [facility] [address] [place] [address] Wing Briseno DO [address] [place] [address] Allergies Active Allergy Reactions Criticality Noted Date Comments Mayur Inhibitors 12/25/2003 Made her head funny Bupropion Hcl Hives Low 01/07/2008 documented as of this encounter (statuses as of 03/08/2024) Medications LORAzepam (ATIVAN) 0.5 MG TabletIndication s:Panic [...] hemoglobin A1c goal of less than 7.0% ([facility]),Type 2 diabetes mellitus with diabetic neuropathy, without long-term current use of insulin ([facility]),Type 2 diabetes mellitus with stage 4 chronic kidney disease, without long-term current use of insulin ([facility]) Inject 1 mg under the skin once [...] the morning. 90 Tablet 3 4 Active Atorvastatin Calcium 40 MG Oral Tablet (Lipitor) Take 1 Tablet by mouth in the morning. 90 Tablet 3 4 Active documented as of this encounter (statuses as of 03/08/2024) Active Problems Problem Noted Date Diagnosed Date [...] as of this encounter (statuses as of 03/08/2024) Resolved Problems Problem Noted Date Diagnosed Date [...] as of this encounter (statuses as of 03/08/2024) Immunizations Name Administration Dates Next Due COVID-19 [...] 07/28/2024 10:20 AM EDT Office Visit [facility] [address] [address] Wing Briseno, [address] [place] [address] 01/12/2025 2:20 PM EST Office Visit Nephrology, [facility] [address] [place] [address] Lj Gill MD [facility] [place] [address] 02/06/2025 11:40 AM EST Office Visit [facility] [address] [address] Wing Briseno, [address] [place] [address] Health Maintenance Due Date Last Done Comments Adult Wellness Visit 2004 Diabetic Eye Exam 01/15/2023 01/19/2023, , 01/07/2021, Additional history exists COVID-19 Vaccine ( season) [...] Tdap) 08/26/2027 08/25/2017, 06/08/2009, 03/09/1993 Pneumococcal Vaccine: 50+ Years Completed 08/17/2014, 11/27/2003 Zoster Vaccines Completed [...] this encounter Medical Devices Implanted Type Area Sorting Machine Attendant Device Identifier Shelf Expiration Date Model / Serial / Lot Inlay [place] Ureteral Stent Implanted:Qty: 1 on 04/07/2014 by Sigrid Zhang MD at OR [facility] Left: Ureter INACTIVE [employer] 06/06/2018 [id number] / / [id number] Lens Intraoc 23.0 - [id number] - [id number] Implanted:Qty: 1 on 06/08/2018 by Wolfgang Powers MD at OR [facility] Left: Eye [employer]OM[employer] 11/06/2022 [id number] / [id number] / Lens Intraoc 19.5 - [id number] - [id number] Implanted:Qty: 1 on 06/22/2018 by Wolfgang Powers MD at OR [facility] Right: Eye [employer] LOMB 01/06/2023 [id number] / [id number] / documented as of this encounter Procedures Procedure Name Priority Date/Time Associated Diagnosis Comments DIABETIC EYE EXAM Routine 01/19/2023 documented in this encounter Results * DIABETIC EYE EXAM (01/19/2023) 01/19/2023 us Lona Ng OD OTHER Final Result OUTSIDE LAB (SEE SCANNED REPORT) documented in this encounter Advance Directives * Full Code (Latest Code Status on File) Date Activated Date Inactivated Comments 04/07/2014 7:37 AM 04/07/2014 3:40 PM This order r eflects the patients wishes and were consensually agreed upon. Care Teams Horse Farm Manager Relationship Specialty Start Date End Date Wing Briseno DO [address] [address] PCP - General Family Medicine 04/04/19 documented as of this encounter
--- OUTSIDE RECORDS SUMMARY | 2024-03-09 23:13 | External Medical Summary | Summary of Care ---
Author Name Unknown Organization [facility] Address [address] [place] [address] Phone [phone] Care Team Providers Care General Repair Mechanic Name Role Phone Navin Briseno DO Primary Care Provider Reason for Visit * Reason Comments eRx-Medication Refill Encounter Details Date Type Department Care Team (Late st Contact Info) Description 11/10/2023 Refill Family Practice [facility] [address] [place] [address] Navin Briseno DO [address] [place] [address] Allergies Active Allergy Reactions Criticality Noted Date Comments Mayur Inhibitors 12/25/2003 Made her head funny Bupropion Hcl Hives Low 01/07/2008 documented as of this encounter (statuses as of 02/08/2024) Medications LORAzepam (ATIVAN) 0.5 MG TabletIndicati ons:Panic disorder 1/2 pill by mouth 3 times [...] on 01/28/2024 Azelaic Acid (FINACEA) 15 % gelIndications :Rosacea Apply daily to skin 50 g 10 [...] the morning. 90 Tablet 2 08/11/19 24 Active Atorvastatin Calcium 40 MG Oral Tablet (Lipitor) Take 1 Tablet by mouth in the morning. 90 Tablet 2 08/18/19 24 Active PARoxetine HCl 20 MG Oral Tablet (pAXil) TAKE 1 TABLET BY MOUTH IN THE MORNING 90 Tablet 3 11/11/19 24 Active colchicine 0.6 MG Tablet TAKE 2 TABLETS FOR 1 DOSE AT ONSET OF GOUT AND THEN 1 TABLET DAILY AFTER 12 Tab 1 01/10/20 15 024 Discontinued PARoxetine HCl 20 MG Oral Tablet (pAXil) Take 1 Tablet by mouth in the morning. 90 Tablet 3 02/13/20 23 024 Discontinued Levothyroxine Sodium 100 MCG Oral Tablet (Levoxyl)Indic ations:Hypothy roidism due to acquired atrophy of thyroid TAKE 1 TABLET BY MOUTH ONCE DAILY (AT LEAST 30 MINUTES PRIOR TO BREAKFAST OR OTHER MEDS) 90 Tablet 3 05/06/19 24 024 Discontinued hydroCHLOROthi azide 12.5 MG Oral Tablet TAKE 1 TABLET BY MOUTH EVERY MORNING 90 Tablet 2 05/27/19 24 024 Discontinued Allopurinol 100 MG Oral Tablet (Zyloprim)Mesha cations:Elevat ed uric acid in blood Take 1 Tablet by mouth in the morning. 90 Tablet 2 06/17/19 24 024 Discontinued Glimepiride 4 MG Oral Tablet (Amaryl) Take 1 Tablet by mouth daily before breakfast. For diabetes 90 Tablet 3 07/14/19 24 024 Discontinued Potassium Citrate ER 10 MEQ (1080 MG) Oral Tablet Extended Release (Urocit-K) TAKE 2 TABLETS BY MOUTH IN THE MORNING 180 Tablet 2 05/24/ 024 Discontinued Ozempic (0.25 or 0.5 MG/DOSE) 2 MG/3ML Solution Pen-injector (Semaglutide(0 .25 or 0.5MG/DOS)) INJECT 0.5 mg WEEKLY. 3 mL 5 09/01/19 24 024 Discontinued documented as of this encounter (statuses as of 02/08/2024) Active Problems Problem Noted Date Diagnosed Date [...] as of this encounter (statuses as of 02/08/2024) Resolved Problems Problem Noted Date Diagnosed Date [...] as of this encounter (statuses as of 02/08/2024) Immunizations Name Administration Dates Next Due COVID-19 mRNA, LNP-s, No Pre serve, 2-Dose Series ([employer]) 06/22/2020,06/01/2020 Diptheria/Tetanus (Adult) 03/09/1993 Pneumococcal Conjugate Vacc, [...] encounter Miscellaneous Notes * Telephone Encounter - Flor Scanlon CPhT - 02/08/2024 8:58 AM EST Pt calling to request PARoxetine HCl 20 MG Oral Tablet (pAXil) . Informed pt that RX is available at their pharmacy. Pt verbalized understanding and stated they will check with their pharmacy regarding this medication. Thank you, Ashley Scanlon CPhT [employer] [facility] [address] [place] [address] [phone] * Telephone Encounter - Fiona Christianson [facility] - 11/11/2023 5:25 PM EDT Signed Prescriptions: Disp Refills PARoxetine HCl 20 MG Oral Tablet (pAXil) 90 Tab*3 Sig: TAKE 1 TABLET BY MOUTH IN THE MORNINGAuthorizing Provider: NAVIN BRISENO User: FIONA CHRISTIANSON documented in this encounter Plan of Treatment Upcoming Encounters Date Type Department Care Team (Late st Contact Info) Description 02/10/2024 9:40 AM EST Office Visit Nephrology, [facility] [address] [place] [address] Lj Gill MD [address] [facility] [place] [address] 07/28/2024 10:20 AM EDT Office Visit [facility] [address] [place] [address] Navin Briseno, [address] [place] [address] 02/06/2025 11:40 AM EST Office Visit [facility] [address] [place] [address] Navin Briseno, [address] [place] [address] Health Maintenance Due Date Last Done Comments Adult Wellness Visit 2004 Diabetic Eye Exam 01/15/2023 01/15/2022, , 12/28/2019, Additional history exists COVID-19 Vaccine ( season) 2023 06/22/2020, 06/01/2020 HbA1c 07/27/2024 01/28/2024, 02/0 08/2023, 01/17/2022, Additional history exists Depression Monitoring 01/27/2025 01/28/2024 Diabetic Foot Exam 01/27/2025 01/28/2024, 0 07/31/2022, 07/09/2021, Additional history exists TSH 01/27/2025 01/28/2024, 02/0 08/2023, 07/04/2021, Additional history exists Albumin/Creatinine Ratio 01/28/202501/28/2 024, 04/14/2023, 09/22/2022, Additional history exists DTap/Tdap [...] this encounter Medical Devices Implanted Type Area Vp Design Device Identifier Shelf Expiration Date Model / Serial / Lot Inlay [place] Ureteral Stent Implanted:Qty: 1 on 04/07/2014 by Sigrid Zhang MD at OR [facility] Left: Ureter INACTIVE [employer] 06/06/2018 [id number] / / [id number] Lens Intraoc 23.0 - [id number] - [id number] Implanted:Qty: 1 on 06/08/2018 by Wolfgang Powers MD at OR [facility] Left: Eye [employer]OM[employer] 11/06/2022 [id number] / [id number] / Lens Intraoc 19.5 - [id number] - [id number] Implanted:Qty: 1 on 06/22/2018 by Wolfgang Powers MD at OR [facility] Right: Eye [employer] LOMB 01/06/2023 [id number] / [id number] / documented as of this encounter Advance Directives * Full Code (Latest Code Status on File) Date Activated Date Inactivated Comments 04/07/2014 7:37 AM 04/07/2014 3:40 PM This order r eflects the patients wishes and were consensually agreed upon. Care Teams General Repair Mechanic Relationship Specialty Start Date End Date Navin Briseno DO [address] [address] PCP - General Family Medicine 04/04/19 documented as of this encounter
--- OUTSIDE RECORDS SUMMARY | 2024-03-09 23:13 | External Medical Summary | Summary of Care ---
Author Name Unknown Organization [facility] Address [address] [place] [address] Phone [phone] Care Team Providers Care Chemical Blender Name Role Phone Navin Briseno DO Primary Care Provider Reason for Visit * Reason Comments eRx-Medication Refill Encounter Details Date Type Department Care Team (Late st Contact Info) Description 02/01/[address] [facility] [address] [place] [address] Navin Briseno DO [address] [place] [address] Hypothyroidism due to acquired atrophy of thyroid Allergies Active Allergy Reactions Criticality Noted Date Comments Mayur Inhibitors 12/25/2003 Made her head funny Bupropion Hcl Hives Low 01/07/2008 documented as of this encounter (statuses as of 02/01/2024) Medications LORAzepam (ATIVAN) 0.5 MG TabletIndicatio ns:Panic [...] goal of less than 7.0% ([facility]),Type 2 diabetes mellitus with diabetic neuropathy, without long-term current use of insulin ([facility]),Type 2 diabetes mellitus with stage 4 chronic kidney disease, without long-term current use of insulin ([facility]) Inject 1 mg under the skin [...] MEDS) 90 Tablet 3 02/01/20 24 Active Levothyroxine Sodium 100 MCG Oral Tablet (Levoxyl)Indica tions:Hypothyro idism due to acquired atrophy of thyroid TAKE 1 TABLET BY MOUTH ONCE DAILY (AT LEAST 30 MINUTES PRIOR TO BREAKFAST OR OTHER MEDS) 90 Tablet 3 05/06/19 24 024 Discontinued documented as of this encounter (statuses as of 02/01/2024) Active Problems Problem Noted Date Diagnosed Date [...] as of this encounter (statuses as of 02/01/2024) Resolved Problems Problem Noted Date Diagnosed Date [...] as of this encounter (statuses as of 02/01/2024) Immunizations Name Administration Dates Next Due COVID-19 mRNA, LNP-s, No Pre serve, 2-Dose Series ([employer]) 06/22/2020,06/01/2020 Pneumococcal Conjugate Vacc, 13 Valent (Prevnar) [...] encounter Miscellaneous Notes * Telephone Encounter - Juan Webb [facility] - 02/01/2024 4:36 PM ESTSigned Prescriptions: Disp Refills Levothyroxine Sodium 100 MCG Oral Tablet (*90 Tab*3 Sig: TAKE 1 TABLET BY MOUTH ONCE DAILY (AT LEAST 30 MINUTES PRIOR TO BREAKFAST OR OTHER MEDS)Authorizing Provider: NAVIN BRISENOOrderxochitl User: JUAN WEBB documented in this encounter Plan of Treatment Upcoming Encounters Date Type Department Care Team (Late st Contact Info) Description 02/10/2024 9:40 AM EST [facility] [address] [place] [address] Lj Gill MD [address] [place] [address] 07/28/2024 10:20 AM EDT Office Visit Family Practice [facility] 132 [facility] [place] [address] Navin Briseno, [address] [place] [address] 02/06/2025 11:40 AM EST Office Visit Family [facility] [address] [place] [address] Navin Briseno, [address] [place] [address] Health Maintenance Due Date Last Done Comments [...] this encounter Medical Devices Implanted Type Area Therapeutic Specialist Device Identifier Shelf Expiration Date Model / Serial / Lot Inlay [place] Ureteral Stent Implanted:Qty: 1 on 04/07/2014 by Sigrid Zhang MD at OR [facility] Left: Ureter INACTIVE [employer] 06/06/2018 [id number] / / [id number] Lens Intraoc 23.0 - [id number] - [id number] Implanted:Qty: 1 on 06/08/2018 by Wolfgang Powers MD at OR [facility] Left: Eye [employer] LOMB 11/06/2022 [id number] / [id number] / Lens Intraoc 19.5 - [id number] - [id number] Implanted:Qty: 1 on 06/22/2018 by Wolfgang Powers MD at OR [facility] Right: Eye [employer] LOMB 01/06/2023 [id number] / [id number] / documented as of this encounter Visit Diagnoses Diagnosis Hypothyroidism due to acquired atrophy of thyroid documented in this encounter Advance Directives * Full Code (Latest Code Status on File) Date Activated Date Inactivated Comments 04/07/2014 7:37 AM 04/07/2014 3:40 PM This order r eflects the patients wishes and were consensually agreed upon. Care Teams Chemical Blender Relationship Specialty Start Date End Date Navin Briseno DO [address] [address] PCP - General Family Medicine 04/04/19 documented as of this encounter
--- OUTSIDE RECORDS SUMMARY | 2024-03-09 23:14 | External Medical Summary ---
Author Name Unknown Address Unknown Organization [id number]:[facility]ORY [facility] [place] - [address] [place] [address] Laboratory Report Ordering Provider Test Date Status GILLES HOLDEN 01/28/2024 10:37:23 Final Observation Date Value Abnormality Reference (Units ) Status Parathyrin.intact [Mass/volume] in Serum or Plasma 01/28/2024 10:37:23 65 15-65 (pg/mL) Final Performing Location [facility]ORY [facility] - [address] [place] [address]
--- OUTSIDE RECORDS SUMMARY | 2024-03-09 23:14 | External Medical Summary ---
Author Name Unknown Address Unknown Organization [id number]:[facility]ORY [facility] [place] [place] - [address] [place] [address] Laboratory Report Ordering Provider Test Date Status GILLES HOLDEN 01/28/2024 10:37:23 Final Deficient: <20 ng/mL
Ins ufficient: 20-29 ng/mL
Recommended/Optimum:30-50 ng/mL

Vitamin D intoxication is rare. If suspicious of Vitamin D toxicity, evaluation of serum Calcium and PTH is recommended. Observation Date Value Abnormality Reference (Units ) Status 25-OH Vitamin D total 01/28/2024 10:37:23 28 >19 (ng/mL) Final Performing Location LAB[facility]ORY [facility] [place] - [address] [place] [address]
--- OUTSIDE RECORDS SUMMARY | 2024-03-09 23:14 | External Medical Summary ---
Author Name Unknown Address Unknown Organization K01:[facility]ATORY [facility] - [address] [place] [address] Laboratory Report Ordering Provider Test Date Status GILLES HOLDEN 01/28/2024 10:37:23 Final Observation Date Value Abnormality Reference (Units ) Status Magnesium 01/28/2024 10:37:23 1.7 1.5-2.6 (m g/dL) Final Performing Location LABORATORY [facility] - [address] [place] [place] [address]
--- OUTSIDE RECORDS SUMMARY | 2024-03-09 23:14 | External Medical Summary ---
Author Name Unknown Address Unknown Organization K01:[facility] [place] - [address] [facility] [address] Laboratory Report Ordering Provider Test Date Status GILLES HOLDEN 01/28/2024 10:37:23 Final Observation Date Value Abnormality Reference (Units ) Status Triglyceride 01/28/2024 10:37:23 138 <=174 ( mg/dL) Final Triglyceride Reference Range s (mg/dL):
<150 Acceptable
150-174 Borderline high
175-499 High
>=500 Very high Cholesterol 01/28/2024 10:37:23 147 <200 (mg /dL) Final Total Cholesterol Reference Ranges (mg/dL):
<200 Desirable
200-239 Borderline high
>=240 High HDL 01/28/2024 10:37:23 49 Below low normal >49 (mg/dL) Final HDL Cholesterol Reference Ra nges (mg/dL):
>=60 High (Desirable)
<50 Low (Undesirable) For Females
<40 Low (Undesirable) For Males NON-HDL CHOLESTEROL 01/28/2024 10:37:23 98 <=159 (mg/dL) Final Non-HDL Cholesterol Referenc e Range (mg/dL):
<100 Target level for high risk ASCVD patient
<130 Optimal for general population
130-159 Near optimal for general population
160-189 Borderline High
190-219 High
>=220 Very High LDL, (calculated) 01/28/2024 10:37:23 70 <= 129 (mg/dL) Final LDL Cholesterol Reference Ra nges (mg/dL):
<70 Target level for high risk ASCVD patient
<100 Optimal for general population
100-129 Near optimal for general population
130-159 Borderline high
160-189 High
>=190 Very high Performing Location [facility]ORY [facility] [place] - [address] [facility] [address]
--- OUTSIDE RECORDS SUMMARY | 2024-03-09 23:14 | External Medical Summary ---
Author Name Unknown Address Unknown Organization K01:LAB[facility]ORY [facility] [place] - [address] [facility] [address] Laboratory Report Ordering Provider Test Date Status NAVIN,CAMPOVERDE 01/28/2024 10:37:23 Final Observation Date Value Abnormality Reference (Units ) Status HbA1C 01/28/2024 10:37:23 6.9 Above high normal 4. 0-5.6 (%) Final The use of HbA1c to monitor glycemic status is based on normal hemoglobin and HbA composition. This test should not be used in patients with abnormal hemoglobin that affects the half life of the red blood cell or the in vivo glycation rates. Glucose, estimated average 01/28/2024 10:37:23 151 Above high normal <126 (mg/dL) Mil sagastume Performing Location LABORATORY [facility] [place] - [address] [facility] [address]
--- OUTSIDE RECORDS SUMMARY | 2024-03-09 23:14 | External Medical Summary | Summary of Care ---
Author Name Unknown Organization [facility] Address [address] [place] [address] Phone [phone] Care Team Providers Care Postage Machine Operator Name Role Phone Wing Briseno DO Primary Care Provider Reason for Visit * Reason Comments Return Visit Pt here for 6 mo ret ileana DM. Pt accompanied by Kirstin Cain. No concerns voiced. Encounter Details Date Type Department Care Team (Latest Contact Info) Description 01/28/2024 10:20 AM EST [facility] [place] [address] Wing Briseno DO [address] [facility] [place] [address] Type 2 diabetes mellitus with hemoglobin A1c goal of less than 7.0% (HCC)*; Type 2 diabetes mellitus with diabetic neuropathy, without long-term current use of insulin (HCC); Hyperparathyroidism, secondary renal (HCC); Diabetic polyneuropathy associated with type 2 diabetes mellitus (HCC); DYSLIPIDEMIA, GOAL LDL BELOW 100; Type 2 diabetes mellitus with stage 4 chronic kidney disease, without long-term current use of insulin (HCC); Stage 3b chronic kidney disease (HCC); Moderate episode of recurrent major depressive disorder (HCC); Elevated uric acid in blood; Hypertensive kidney disease with stage 4 chronic kidney disease (HCC); Vitamin D deficiency; Need for influenza vaccination Allergies Active Allergy Reactions Criticality Noted Date Comments Mayur Inhibitors 12/25/2003 Made her head funny Bupropion Hcl Hives Low 01/07/2008 documented as of this encounter (statuses as of 01/28/2024) Medications LORAzepam (ATIVAN) 0.5 MG TabletIndicatio ns:Panic disorder 1/2 pill by mouth 3 times a day as needed for anxiety 20 Tab 0 04/06/19 16 Active Aspirin 81 MG Tablet Take 1 Tablet by mouth in the morning. Active Blood Glucose Monitoring Suppl (ID Watchdog VERIO) w/Device KIT Use as directed. 1 Kit 01/23/20 Active Interactions CorporationTOUCH DELBreather LANCETS 33G MISC TEST ONCE DAILY UNLESS [...] Capsule by mouth in the morning. Active FeedVisorTouch VerAnswer.To In Vitro Strip (Glucose Blood) TEST ONCE DAILY UNLESS READING IS TOO HIGH, THEN TEST TWICE DAILY 100 Strip 2 01/18/20 Active Additional Information Patient not taking.Reported on 01/28/2024 Levothyroxine Sodium 100 MCG Oral Tablet (Levoxyl)Indica tions:Hypothyro idism due to acquired atrophy of thyroid TAKE 1 TABLET BY MOUTH ONCE DAILY (AT LEAST 30 MINUTES PRIOR TO BREAKFAST OR OTHER MEDS) 90 Tablet 3 05/06/19 24 Active Losartan Potassium 50 MG Oral [...] morning. 90 Tablet 3 01/28/20 24 Active colchicine 0.6 MG Tablet TAKE 2 TABLETS FOR 1 DOSE AT ONSET OF GOUT AND THEN 1 TABLET DAILY AFTER 12 Tab 1 01/10/20 15 2023 Discontinued Glimepiride 4 MG Oral Tablet (Amaryl) Take 1 Tablet by mouth daily before breakfast. For diabetes 90 Tablet 3 07/14/19 24 2023 Discontinued Ozempic (0.25 or 0.5 MG/DOSE) 2 MG/3ML Solution Pen-injector (Semaglutide(0. 25 or 0.5MG/DOS)) INJECT 0.5 mg WEEKLY. 3 mL 5 09/01/19 24 2023 Discontinued Allopurinol 100 MG Oral Tablet (Zyloprim)Indic ations:Elevated uric acid in blood Take 1 Tablet by mouth in the morning. 90 Tablet 12/17/19 24 2023 Discontinued(R efill) documented as of this encounter (statuses as of 01/28/2024) Active Problems Problem Noted Date Diagnosed Date [...] as of this encounter (statuses as of 01/28/2024) Resolved Problems Problem Noted Date Diagnosed Date [...] as of this encounter (statuses as of 01/28/2024) Immunizations Name Administration Dates Next Due COVID-19 mRNA, LNP-s, No Pre serve, 2-Dose Series ([place]) 06/22/2020,06/01/2020 Pneumococcal Conjugate Vacc, 13 Valent (Prevnar) [...] Sign Reading Time Taken Comments Blood Pressure 120/68 01/28/2024 9:55 AM EST Pulse 64 01/28/2024 9:55 AM EST Temperature 35.9 C (96.6 F) 01/28/2024 9:55 AM ES T Respiratory Rate 16 01/28/2024 9:55 AM EST Oxygen Saturation 96% 01/28/2024 9:55 AM EST Inhaled Oxygen Concentration - - Weight 71.5 kg (157 lb 9 oz) 01/28/2024 9:55 AM EST Height - - Body Mass Index 24.68 03/23/2023 11:48 AM EST documented in this encounter Patient Instructions * Patient Instructions* Vita Ramírez LPN - 01/28/2024 9:53 AM EST Diabetes: Keeping Feet Healthy Inspect your feet every day for signs of a problem. Diabetes can damage nerves in your feet and cause neuropathy. This condition makes it hard for you to feel injuries or sore spots. Diabetes can also change blood flow, making it harder for small problems, like a blister, to heal properly. In fact, minor injuries can quickly become serious infections that send you to the hospital. Practice self-care to protect your feet and keep them healthy. Take Special Care Inspect your feet daily for problems such as redness, blisters, cracks, dry skin, or numbness. Use a mirror to see the bottoms of your feet. Or, ask for help. Manage your diabetes. Monitor and control your blood sugar. Take all your medications as prescribed. Avoid walking barefoot, even indoors. Wash your feet with warm water and mild soap. Dry well, especially between toes. Dont treat corns or calluses yourself. Talk to your doctor or manager meat (a doctor who specializes in foot care) if you need assistance trimming your toenails. Use moisturizing cream or lotion if you have dry skin, but dont use it between toes. Dont use heating pads on your feet. If you have neuropathy, you could get a burn and not feel it. Stop smoking. Smoking restricts blood flow and can make it harder for wounds to heal. Have Regular Checkups Foot problems can develop quickly. So be sure to follow your healthcare teams schedule for regular checkups. During office visits, take off your shoes and socks as soon as you get in the exam room. Ask your healthcare provider to examine your feet for problems. This will make it easier to find and treat small skin irritations before they get worse. Regular checkups can also help keep track of the blood flow and feeling in your feet. If you have neuropathy, you may need to have checkups more often. Wear Proper Footwear Wearing proper footwear is very important. If areas of your feet have been damaged by too much pressure, your healthcare provider may recommend changing your footwear. In some cases, avoiding high heels or tight work boots may be all thats needed. Or, your healthcare provider may recommend special shoes or custom inserts. These help protect your feet and keep existing irritations from getting worse. If you need special footwear, ask your healthcare provider if you qualify for [employer] diabetic shoe program. Make Sure Shoes and Socks Fit Any pair of shoes--new or old--should feel comfortable as soon as you put them on. There shouldnt be any rubbing when you walk. Wear the right shoe for any activity. For instance, a running shoe is designed to keep your feet injury-free while jogging. Buy shoes at the end of the day, when your feet are larger. Make sure they provide support without feeling too loose. Make sure your socks fit, t oo. Wear soft, seamless, well-padded socks for activity. Cotton or microfiber socks are best to help to absorb sweat. To protect your feet, avoid shoes that are open-toed or open-heeled. If you have questions about what kinds of shoes and socks are best, talk to your healthcare team. Get Regular Exercise Regular exercise improves blood flow in your feet. It also increases foot strength and flexibility.Gentle exercises, like walking or riding a stationary bicycle, are best. You can also do special foot exercises. Just be sure to talk with your healthcare provider before starting any exercise program. Also mention if any exercise causes pain, redness, or other signs of foot problems. Note: If you have any kind of break in the skin of your foot or ankle, keep the area clean. Then call your doctor--especially if the area doesnt appear to be healing. [id number] [employer], [address] [place] [address], [place] [address]. All rights reserved. This information is not intended as a substitute for professional medical care. Always follow your healthcare professional's instructions. documented in this encounter Progress Notes * Vita Ramírez, ROOM COOLER INSTALLER - 01/28/2024 9:53 AM EST Images from the original note were not included. Diabetic Retinopathy: Evaluating Your Eyes Diabetic retinopathy is a condition that happens when diabetes damages blood vessels in the rear ofthe eye. It can lead to vision loss. To help catch it early, have a complete dilated eye exam at least once a year. During the exam, the eye healthcare provider will review your medical history, examine your eyes, and check your vision. Women who are and have pre-existing type 1 or type 2 diabetes have an increased risk of retinopathy. Women with diabetes should have an eye exam before or in the first trimester. They should continue to be monitored every trimester and for 1 year after delivery, depending on the severity of the retinopathy. The retina is the light-sensitive part of the eye that allows you to see. High blood sugar can damage blood vessels of the retina and cause them to leak or bleed. This damage can lead to abnormal blood vessel growth. This condition is called diabetic retinopathy. You may not have symptoms early in the disease. Later, there may be floaters, blurred vision, or poor night vision. There may also be partial or complete vision loss. Early cases of diabetic retinopathy can be treated by carefully controlling blood sugar, blood pressure, and cholesterol. Surgery or laser treatments may help restore lost vision. Laser surgery can shrink abnormal blood vessels or close ones that are leaking. Medicines injected in the eye can help decrease swelling of the retina. Home care Take all medicines, including insulin or oral diabetic medicine, exactly as prescribed. Follow the diet advised by your healthcare provider. If you have high cholesterol, follow a low-fat, low-cholesterol diet. Monitor blood sugars as advised. Try to achieve your ideal weight. If you smoke, quit smoking. Tobacco use worsens the effect of diabetes on your blood vessels. If you have high blood pressure, consider buying an automatic blood pressure machine. These are available at most pharmacies. Use this to monitor your blood pressure. Report your blood pressure readings to your healthcare provider. Exercise regularly. Follow-up care Follow up with your healthcare provider, or as advised. You must have a complete eye exam at least once a year, more often if needed. Untreated diabetic retinopathy can lead to complete loss of vision. Occupational therapists can help you adapt to any vision loss you have, including learning techniques to safely administer insulin. When to seek medical advice Call your healthcare provider right away if any of these occur. Increasing blurriness or any sudden changes in your vision Sudden flashes of light inside your eye New floaters (small dots or strings that seem to be moving across your field of vision) Eye pain, redness, or discharge from your eyelid New dark spots appearing in your field of vision Halos around lights Dimness of vision Partial or complete loss of vision Women with diabetes should have a complete eye exam before becoming , or as soon as possible when they find out they are . Retinopathy sometimes worsens during . Your eye exam Your eye healthcare provider uses an eye chart and other tools to check your vision. Then he or sheexamines your eyes for signs of disease. You are given eye drops to widen (dilate) your pupils. Youmay have one or more of the following tests: Tonometry to measure fluid pressure inside the eye. Slit lamp exam to allow the healthcare provider to view the structures of your eye. Ultrasound to create an image of the eye using sound waves. Ultrasound may be used if blood is found in the clear gel that fills the eye (vitreous). Ocular coherence tomography (OCT) to create an image of the retina using light waves. This shows ifthere is fluid leaking into certain parts of the eye. It can also measure the thickness of the retina. Fluorescein angiography This test may be done to check the health of the inside lining of the eye (retina). It also checks the tiny blood vessels (capillaries) that carry blood to the retina. During the test: Photographs are taken of the retina. A dye is then injected into the bloodstream through the arm or hand. The dye travels to the capillaries in the eye. More photographs are taken of the retina. The dye causes the capillaries to stand out on the photographs. You may feel brief nausea during the procedure. For a few hours after the test, your skin, eyes, and urine may appear yellow. Talk with your healthcare provider for more information about this test. Date Last Reviewed: 08/08/2015 Pt unavailable for diabetic foot exam. Had left prior to test. Urine albumin/creatinine ratio ordered today. Provider aware. * Wing Briseno, DO - 01/28/2024 9:52 AM EST Images from the original note were not included. Assessment and Plan Assessment & Plan Type 2 Diabetes Mellitus Patient on Ozempic and Glimepiride. Reports of occasional dizziness, possibly due to hypoglycemia (from Glimepiride?). Plan to increase Ozempic dose and discontinue Glimepiride. -Increase Ozempic to 1mg weekly. -Discontinue Glimepiride. -Order labs to monitor blood glucose levels. Gout No recent episodes. Patient on Allopurinol and has PRN Colchicine. -Continue Allopurinol. -Discontinue Colchicine. Hyperparathyroidism Labs pending Stage 3b CKD Labs pending today Elevated uric acid Controlled on allopurinol General Health Maintenance Patient reports balance issues and recent near fall. -Advise patient to avoid climbing on steps or engaging in activities that may increase fall risk. -Schedule follow-up appointment with shipping receiving clerk. -Order labs as needed by shipping receiving clerk to avoid multiple blood draws. History of Present Illness Lorelei Gil is a 83 year old female that presents for Return Visit (Pt here for 6 mo return DM. Pt accompanied by Kirstin Cain. No concerns voiced.) History of Present Illness The patient, with a history of diabetes and gout, presents with balance issues and a recent fall. She reports feeling dizzy at times, which may be related to her diabetes medication, glimepiride. Thepatient's diabetes is currently being managed with Ozempic and glimepiride, and the doctor is considering discontinuing glimepiride due to potential hypoglycemic events. The patient's gout has been well controlled for a couple of years with allopurinol, and she has not had any recent gout issues. Physical Exam Vitals: 01/28/24 0955 Temp: 96.6 F (35.9 C) Pulse: 64 Resp: 16 SpO2: 96% BP: 120/68 Physical Exam Constitutional: Appearance: Normal appearance. HENT: Head: Normocephalic and atraumatic. Eyes: Extraocular Movements: Extraocular movements intact. Pupils: Pupils are equal, round, and reactive to light. Cardiovascular: Rate and Rhythm: Normal rate and regular rhythm. Pulmonary: Effort: Pulmonary effort is normal. Breath sounds: Normal breath sounds. Neurological: General: No focal deficit present. Mental Status: She is alert and oriented to person, place, and time. Psychiatric: Mood and Affect: Mood normal. Behavior: Behavior normal. Wrap-Up Time: Total time today was 42 minutes excluding any time spent in the performance of separately billed services. Text in this note was generated using an ambient documentation service. I discussed the use of a device to record and summarize our discussion today. All persons present during the encounter consented to its use. documented in this encounter Plan of Treatment Upcoming Encounters Date Type Department Care Team (Late st Contact Info) Description 01/28/2024 11:10 AM EST [facility] [address] [place] [id number] [facility]ly [facility] 132 [facility] [place] [address] DYSLIPIDEMIA, GOAL LDL BELOW 100; Type 2 diabetes mellitus with hemoglobin A1c goal of less than 7.0% (HCC); Stage 3b chronic kidney disease (HCC); Vitamin D deficiency; Hypothyroidism due to acquired atrophy of thyroid; Routine medical exam; Encounter for long-term (current) use of medications; Hyperparathyroidism, secondary renal (HCC); Type 2 diabetes mellitus with diabetic neuropathy, without long-term current use of insulin (HCC) 02/10/2024 9:40 AM EST Office Visit Nephrology, [facility] [address] [facility] [place] [address] Lj Gill MD [address] [facility] [place] [address] 07/28/2024 10:20 AM EDT Office Visit [facility] [address] [place] [address] Wing Briseno DO [address] [place] [address] 02/06/2025 11:40 AM EST Office Visit Family Practice [facility] [address] [place] [address] Wing Briseno DO [address] [place] [address] Pending Results Name Type Priority Associated Diagnoses Date /Time PHOSPHORUS Lab Routine Hyperparathyroidism, secondary renal (HCC) 01/28/2024 10:37 AM EST Scheduled Orders Name Type Priority Associated Diagnoses Orde r Schedule ALBUMIN / CREATININE RATIO, URINE Lab Routine Type 2 diabetes mellitus with diabetic neuropathy, without long-term current use of insulin (HCC) Expected: 01/28/2024, Expires: 01/27/2025 PHOSPHORUS Lab Routine Hyperparathyroidism, secondary renal (HCC) Expected: 01/28/2024 (Approximate), Expires: 01/27/2025 ALBUMIN / CREATININE RATIO, URINE Lab Routine Type 2 diabetes mellitus with diabetic neuropathy, without long-term current use of insulin (HCC) Expected: 01/28/2024 (Approximate), Expires: 01/27/2025 Health Maintenance Due Date Last Done Comments Adult Wellness Visit 2004 Diabetic Eye Exam 01/15/2023 01/15/2022, , 12/28/2019, Additional history exists HbA1c 10/13/2023 04/14/2023, 01/07, 07/04/2021, Additional history exists COVID-19 Vaccine ( season) 2023 06/22/2020, 06/01/2020 Albumin/Creatinine Ratio 04/14/2024 024, 09/22/2022, 01/17/2022, Additional history exists TSH 04/14/2024 04/14/2023, 04/10/2021, 05/31/2020, Additional history exists Depression Monitoring 01/27/2025 01/28/2024 Diabetic Foot Exam 01/27/2025 01/28/2024, 0 07/31/2022, 07/09/2021, Additional history exists DTap/Tdap Vaccines (2 - [...] this encounter Medical Devices Implanted Type Area Patient Registration Clerk Device Identifier Shelf Expiration Date Model / Serial / Lot Inlay Canova Ureteral Stent Implanted:Qty: 1 on 04/07/2014 by Sigrid Zhang MD at [facility] Left: Ureter [employer] 06/06/2018 [id number] / / [id number] Lens Intraoc 23.0 - [id number] - [id number] Implanted:Qty: 1 on 06/08/2018 by Wolfgang Powers MD at [facility] Left: Eye [employer] 11/06/2022 [id number] / [id number] / Lens Intraoc 19.5 - [id number] - [id number] Implanted:Qty: 1 on 06/22/2018 by Wolfgang Powers MD at [facility] Right: Eye [employer] 01/06/2023 [id number] / [id number] / documented as of this encounter Visit Diagnoses Diagnosis Type 2 diabetes mellitus with hemoglobin A1c goal of less than 7.0% (HCC)- Primary Type 2 diabetes mellitus with diabetic neuropathy, without long-term current use of insulin (HCC) Hyperparathyroidism, secondary renal (HCC) Secondary hyperparathyroidism (of renal origin) Diabetic polyneuropathy associated with type 2 diabetes mellitus (HCC) DYSLIPIDEMIA, GOAL LDL BELOW 100 Other and unspecified hyperlipidemia Type 2 diabetes mellitus with stage 4 chronic kidney disease, without long-term current use of insulin (HCC) Stage 3b chronic kidney disease (HCC) Moderate episode of recurrent major depressive disorder (HCC) Elevated uric acid in blood Other abnormal blood chemistry Hypertensive kidney disease with stage 4 chronic kidney disease (HCC) Vitamin D deficiency Unspecified vitamin D deficiency Need for influenza vaccination Need for prophylactic vaccination and inoculation against influenza DYSLIPIDEMIA, GOAL LDL BELOW 100 Other and [...] and were consensually agreed upon. Care Teams Postage Machine Operator Relationship Specialty Start Date End Date Wing Briseno DO [address] [place] [address] PCP - General Family Medicine 04/04/19 documented as of this encounter
--- OUTSIDE RECORDS SUMMARY | 2024-03-09 23:14 | External Medical Summary ---
Author Name Unknown Address Unknown Organization K01:[facility] - [address] [place] [address] Laboratory Report Ordering Provider Test Date Status GILLES HOLDEN 01/28/2024 10:37:23 Final Observation Date Value Abnormality Reference (Units ) Status Phosphate 01/28/2024 10:37:23 3.2 2.5-4.8 (m g/dL) Final Performing Location [facility] - [address] [place] [place] [address]
--- OUTSIDE RECORDS SUMMARY | 2024-03-09 23:14 | External Medical Summary | Summary of Care ---
Author Name Unknown Organization [facility] Address [address] [place] [address] Phone [phone] Care Team Providers Care Rn Night Name Role Phone Navin Briseno DO Primary Care Provider Reason for Visit * Reason Comments eRx-Medication Refill Encounter Details Date Type Department Care Team (Late st Contact Info) Description 12/15/2023 Refill Family Practice [facility] [address] [place] [address] Navin Briseno DO [address] [place] [address] Routine medical exam*; Elevated uric acid in blood; Encounter for long-term (current) use of medications; Type 2 diabetes mellitus with hemoglobin A1c goal of less than 7.0% ([facility]) Allergies Active Allergy Reactions Criticality Noted Date Comments Mayur Inhibitors 12/25/2003 Made her head funny Bupropion Hcl Hives Low 01/07/2008 documented as of this encounter (statuses as of 12/17/2023) Medications Medication Sig Dispensed Refills Start Date End Date Status colchicine 0.6 MG Tablet TAKE 2 TABLETS FOR 1 DOSE AT ONSET OF GOUT AND THEN 1 TABLET DAILY AFTER 12 Tab 1 01/09/2015 Active LORAzepam (ATIVAN) 0.5 MG TabletIndication s:Panic disorder 1/2 pill by mouth 3 times a day as needed for anxiety 20 Tab 0 04/06/2015 Active Aspirin 81 MG Tablet Take 1 Tablet by mouth in the morning. Active Blood Glucose Monitoring Suppl (RNDOMN VERIO) w/Device KIT Use as directed. 1 Kit 01/22/2018 Active ONETOUCH DELICA LANCETS 33G MISC TEST ONCE DAILY UNLESS READING IS TOO HIGH, THEN TEST TWICE DAILY. DX: E11.9 & E11.40 100 Each 5 01/22/2018 Active Azelaic Acid (FINACEA) 15 % gelIndications:R osacea Apply daily to skin 50 g 10 03/21/2019 Active Magnesium 500 MG Oral Capsule Take 1 Capsule by mouth in the morning. Active OneTouch Verio In Vitro Strip (Glucose Blood) TEST ONCE DAILY UNLESS READING IS TOO HIGH, THEN TEST TWICE DAILY 100 Strip 2 01/17/2023 Active Levothyroxine Sodium 100 MCG Oral Tablet (Levoxyl)Indicat ions:Hypothyroid ism due to acquired atrophy of thyroid TAKE 1 TABLET BY MOUTH ONCE DAILY (AT LEAST 30 MINUTES PRIOR TO BREAKFAST OR OTHER MEDS) 90 Tablet 3 05/06/2023 Active Glimepiride 4 MG Oral Tablet (Amaryl) Take 1 Tablet by mouth daily before breakfast. For diabetes 90 Tablet 3 07/14/2023 Active Potassium Citrate ER 10 MEQ (1080 MG) Oral Tablet Extended Release (Urocit-K) TAKE 2 TABLETS BY MOUTH IN THE MORNING 180 Tablet 2 07/31/2023 Active Losartan Potassium 50 MG Oral Tablet (Cozaar) Take 1 Tablet by mouth in the morning. 90 Tablet 2 08/11/2023 Active Atorvastatin Calcium 40 MG Oral Tablet (Lipitor) Take 1 Tablet by mouth in the morning. 90 Tablet 2 08/18/2023 Active Ozempic (0.25 or 0.5 MG/DOSE) 2 MG/3ML Solution Pen-injector (Semaglutide(0.2 5 or 0.5MG/DOS)) INJECT 0.5 mg WEEKLY. 3 mL 5 09/01/2023 Active PARoxetine HCl 20 MG Oral Tablet (pAXil) TAKE 1 TABLET BY MOUTH IN THE MORNING 90 Tablet 3 11/11/2023 Active hydroCHLOROthiaz rebeca 12.5 MG Oral Tablet TAKE 1 TABLET BY MOUTH EVERY MORNING 90 Tablet 1 11/24/2023 Active Allopurinol 100 MG Oral Tablet (Zyloprim)Indica tions:Elevated uric acid in blood Take 1 Tablet by mouth in the morning. 90 Tablet 12/17/2023 Active Allopurinol 100 MG Oral Tablet (Zyloprim)Indica tions:Elevated uric acid in blood Take 1 Tablet by mouth in the morning. 90 Tablet 2 06/17/2023 4 Discontinued documented as of this encounter (statuses as of 12/17/2023) Active Problems Problem Noted Date Diagnosed Date [...] tremor DYSLIPIDEMIA, GOAL LDL BELOW 100 02/15/2009 Overview: Per Lipid Taxonomy. Type 2 diabetes mellitus wit h hemoglobin A1c goal of less than 7.0% 01/04/2009 Overview: Per Diabetes Taxonomy. ICD-10 update of inactive term ADVANCE DIRECTIVE INFORMATION 11/24/2006 Overview: No, Advance Directive brochure given to patient at a previous visit. lactose intolerance Panic disorder Gout Nephrolithiasis, uric acid Diabetic neuropathy associat ed with type 2 diabetes mellitus documented as of this encounter (statuses as of 12/17/2023) Resolved Problems Problem Noted Date Diagnosed Date Resolved Date CKD (chronic kidney disease) stage 4, GFR 15-29 ml/min 02/20/2016 07/21/2018 KIDNEY DZ,CHRONIC (GFR>30-59) STAGE III 06/11/2010 02/20/2016 CKD (chronic kidney disease) stage 4, GFR 15-29 ml/min 04/01/2007 06/11/2010 Overview: Based on GFR of 52.5 on 12/02/06. Carcinoma in situ of breast 10/06/2006 08/06/2018 Type 1 diabetes mellitus wit h hemoglobin A1c goal of less than 8.5% 09/03/1999 01/04/2009 Overview: Per Diabetes Taxonomy. ICD-10 update of inactive term BENIGN HYPERTENSION 05/25/19 08 HYPERLIPIDEMIA NEC-NOS 02/15 Overview: Per Lipid Taxonomy. Type 2 diabetes mellitus wit h goal of symptom management 02/22/2019 documented as of this encounter (statuses as of 12/17/2023) Immunizations Name Administration Dates Next Due COVID-19 mRNA, LNP-s, No Pre serve, 2-Dose Series (Pfizer) 06/22/2020,06/01/2020 Pneumococcal Conjugate Vacc, 13 Valent (Prevnar) 08/17/2014 Seasonal Influenza Vac., MDV , IM, 0.5 mL (Fluzone) 01/06/2014,01/03/2013,12/19/2011,2010,12/28/2009 Seasonal Influenza, PF, 6 M & above, [...] Date Recorded PHQ Adult Total Score 0 07/31/2022 Hunger Vital Sign Answer Date Recorded Worried About Running Out of Food in the Last Ye ar Never true 09/12/2019 Ran Out of Food in the Last Year Never true 09/12/2019 Utilities Answer Date Recorded Do you have trouble paying y our heating, water, or electric bill? (Adult - for ages 18 years and over) Not on file 08/25/2023 Is your family able to pay t he heat, water, or electric bill? (Household - for ages 0-17 years) Not on file 08/25/2023 Does your family have access to good internet? (Household - for ages 0-17 years) Not on file 08/25/2023 Social Connections Answer Date Recorded How often do you feel lonely or isolated from those around you? (Adult - for ages 18 years and over) Not on file 08/25/2023 Sex and Gender Information Value Date Recorded Sex Assigned at Female 09/12/2019 1:54 PM EDT Gender Identity Female 09/12/2019 1:54 PM EDT Sexual Orientation Straight 09/12/2019 1: 54 PM EDT Job Start Date Occupation Industry Not on file Not on file Not on file documented as of this encounter Miscellaneous Notes * Telephone Encounter - Krishan Troy RPh - 12/17/2023 11:31 AM EDT Signed Prescriptions: Disp Refills Allopurinol 100 MG Oral Tablet (Zyloprim) 90 Tab*0 Sig: Take 1 Tablet by mouth in the morning.Authorizing Provider: NAVIN BRISENOOrderxochitl User: KRISHAN TROY documented in this encounter Plan of Treatment Upcoming Encounters Date Type Department Care Team (Late st Contact Info) Description 01/28/2024 10:20 AM EST Office Visit Family Practice [facility] [address] [address] Navin Briseno, [address] [place] [address] 02/10/2024 9:40 AM EST Office Visit [facility] [address] [place] [address] Lj Gill MD [address] [place] [address] 07/28/2024 10:20 AM EDT Office Visit Family [facility] [address] [place] [address] Navin Briseno DO [address] [place] [address] Scheduled Orders Name Type Priority Associated Diagnoses Orde r Schedule HEMOGLOBIN A1C Lab Routine Routine medical exam Encounter for long-term (current) use of medications Type 2 diabetes mellitus with hemoglobin A1c goal of less than 7.0% (HCC) Expected: 12/31/2023 (Approximate), Expires: 12/17/2024 Health Maintenance Due Date Last Done Comments Adult Wellness Visit 2004 Diabetic Eye Exam 01/15/2023 01/15/2022, , 12/28/2019, Additional history exists Depression Monitoring 08/01/2023 07/31/2022 Diabetic Foot Exam 08/01/2023 07/31/2022, 0 07/09/2021, 07/04/2020, Additional history exists HbA1c 10/13/2023 04/14/2023, 01/07, 07/04/2021, Additional history exists COVID-19 Vaccine ( season) 2023 06/22/2020, 06/01/2020 Influenza Vaccine (FLU shot) (#1) 2023 03/23/2023, 01/17/2022, 01/08/2021, Additional history exists Albumin/Creatinine Ratio 04/14/2024 024, 09/22/2022, 01/17/2022, Additional history exists TSH 04/14/2024 04/14/2023, 06/08, 05/31/2020, Additional history exists DTap/Tdap Vaccines (2 - Td or Tdap) 08/26/2027 08/25/2017, 06/08/2009, 03/09/1993 Pneumococcal Vaccine: 65+ Years Completed 08/17/2014, 11/27/2003 Zoster Vaccines Completed 03/07/2019, 02/26/2018 Nephrology Referral Discontinued 02/10/2023 HPV (Gardasil) Vaccine Aged Out No lo nger eligible based on patient's age to complete this topic Hepatitis B Vaccine Aged Out No longe r eligible based on patient's age to complete this topic MENINGOCOCCAL (MENACTRA/MENVEO) Aged Out No longer eligible based on patient's age to complete this topic documented as of this encounter Medical Devices Implanted Type Area Equity Sales Assistant Device Identifier Shelf Expiration Date Model / Serial / Lot Inlay Charlton Ureteral Stent Implanted:Qty: 1 on 04/07/2014 by Sigrid Zhang MD at [facility] Left: Ureter INACTIVE [employer] 06/06/2018 [id number] / / [id number] Lens Intraoc 23.0 - [id number] - [id number] Implanted:Qty: 1 on 06/08/2018 by Wolfgang Powers MD at OR [facility] Left: Eye [employer]OM[employer] 11/06/2022 [id number] / [id number] / Lens Intraoc 19.5 - [id number] - [id number] Implanted:Qty: 1 on 06/22/2018 by Wolfgang Powers MD at [facility] Right: Eye BAUSCH [employer] LOMB 01/06/2023 [id number] / [id number] / documented as of this encounter Visit Diagnoses Diagnosis Routine medical exam- Primary Routine general medical examination at a health care facility Elevated uric acid in blood Other abnormal blood chemistry Encounter for long-term (current) use of medications Encounter for long-term (current) use of other medications Type 2 diabetes mellitus with hemoglobin A1c goal of less than 7.0% (HCC) documented in this encounter Advance Directives * Full Code (Latest Code Status on File) Date Activated Date Inactivated Comments 04/07/2014 7:37 AM 04/07/2014 3:40 PM This order r eflects the patients wishes and were consensually agreed upon. Care Teams Rn Night Relationship Specialty Start Date End Date Navin Briseno DO [address] [place] [address] PCP - General Family Medicine 04/04/19 documented as of this encounter
--- OUTSIDE RECORDS SUMMARY | 2024-03-09 23:14 | External Medical Summary ---
Author Name Unknown Address Unknown Organization [facility] [address] [place] [address] Laboratory Report Ordering Provider Test Date Status GILLES HOLDEN 01/28/2024 10:37:23 Final Observation Date Value Abnormality Reference (Units ) Status BUN 01/28/2024 10:37:23 22 Above high normal 6-20 (mg/dL) Final Creatinine 01/28/2024 10:37:23 1.6 Above high normal 0.5-1.0 (mg/dL) Final Glomerular filtration rate/1.73 sq M.predicted [Volume Rate/Area] in Serum, Plasma or Blood by Creatinine-based formula (CKD-EPI) 01/28/2024 10:37:23 32 Below low normal >=60 (mL/min) Final eGFR is calculated based on the CKD-EPI 2020 equation. Sodium 01/28/2024 10:37:23 139 135-146 (m mol/L) Final Potassium 01/28/2024 10:37:23 4.4 3.5-5.1 (m mol/L) Final Cl 01/28/2024 10:37:23 100 98-107 (mm ol/L) Final CO2 01/28/2024 10:37:23 31 22-32 (mmo l/L) Final Anion gap 01/28/2024 10:37:23 8 7-15 (mmol /L) Final Glucose 01/28/2024 10:37:23 109 70-120 (mg /dL) Final Albumin 01/28/2024 10:37:23 4.1 3.8-5.0 (g /dL) Final AST (Aspartate aminotransferase) 01/28/2024 10:37:23 18 10-35 (U/L) Final Alk Phos 01/28/2024 10:37:23 102 35-130 (U/ L) Final Bilirubin, Total 01/28/2024 10:37:23 0.8 <=1 .2 (mg/dL) Final Calcium 01/28/2024 10:37:23 9.6 8.4-10.2 ( mg/dL) Final Protein 01/28/2024 10:37:23 7.3 6.0-8.3 (g /dL) Final ALT (Alanine aminotransferase) 01/28/2024 10:37:23 15 10-35 (U/L) Final Performing Location [facility] [facility] [place] [address]
--- OUTSIDE RECORDS SUMMARY | 2024-03-09 23:14 | External Medical Summary | Summary of Care ---
Author Name Unknown Organization [facility] Address [address] [place] [address] Phone [phone] Care Team Providers Care Animal Care Supervisor Name Role Phone Wing Briseno Primary Care Provider Reason for Visit * Reason Comments eRx-Medication Refill Encounter Details Date Type Department Care Team (Late st Contact Info) Description 01/25/2024 Refill Nephrology, [facility] [address] [place] [address] Josep Gill MD [address] [place] [address] Allergies Active Allergy Reactions Criticality Noted Date Comments Mayur Inhibitors 12/25/2003 Made her head funny Bupropion Hcl Hives Low 01/07/2008 documented as of this encounter (statuses as of 01/26/2024) Medications colchicine 0.6 MG Tablet TAKE 2 TABLETS FOR 1 DOSE AT ONSET OF GOUT AND THEN 1 TABLET DAILY AFTER 12 Tab 1 01/10/20 15 Active LORAzepam (ATIVAN) 0.5 MG TabletIndicati ons:Panic disorder 1/2 pill by mouth 3 times a day as needed for anxiety 20 Tab 0 04/06/19 16 Active Aspirin 81 MG Tablet Take 1 Tablet by mouth in the morning. Active Blood Glucose Monitoring Suppl (ONETOUCH VERIO) w/Device KIT Use as directed. 1 Kit 01/23/20 18 Active ONETOUCH DELICA LANCETS 33G MISC TEST ONCE DAILY UNLESS READING IS TOO HIGH, THEN TEST TWICE DAILY. DX: E11.9 & E11.40 100 Each 5 01/23/20 18 Active Azelaic Acid (FINACEA) 15 % gelIndications :Rosacea Apply daily to skin 50 g 03/21/19 Active Magnesium 500 MG Oral Capsule Take 1 Capsule by mouth in the morning. Active OneTouch Verio In Vitro Strip (Glucose Blood) TEST ONCE DAILY UNLESS READING IS TOO HIGH, THEN TEST TWICE DAILY 100 Strip 2 01/18/20 23 Active Levothyroxine Sodium 100 MCG Oral Tablet (Levoxyl)Indic ations:Hypothy roidism due to acquired atrophy of thyroid TAKE 1 TABLET BY MOUTH ONCE DAILY (AT LEAST 30 MINUTES PRIOR TO BREAKFAST OR OTHER MEDS) 90 Tablet 3 05/06/19 24 Active Glimepiride 4 MG Oral Tablet (Amaryl) Take 1 Tablet by mouth daily before breakfast. For diabetes 90 Tablet 3 07/14/19 24 Active Losartan Potassium 50 MG Oral Tablet (Cozaar) Take 1 Tablet by mouth in the morning. 90 Tablet 2 08/11/19 24 Active Atorvastatin Calcium 40 MG Oral Tablet (Lipitor) Take 1 Tablet by mouth in the morning. 90 Tablet 2 08/18/19 24 Active Ozempic (0.25 or 0.5 MG/DOSE) 2 MG/3ML Solution Pen-injector (Semaglutide(0 .25 or 0.5MG/DOS)) INJECT 0.5 mg WEEKLY. 3 mL 5 09/01/19 24 Active PARoxetine HCl 20 MG Oral Tablet (pAXil) TAKE 1 TABLET BY MOUTH IN THE MORNING 90 Tablet 3 11/11/19 24 Active hydroCHLOROthi azide 12.5 MG Oral Tablet TAKE 1 TABLET BY MOUTH EVERY MORNING 90 Tablet 1 11/24/19 24 Active Allopurinol 100 MG Oral Tablet (Zyloprim)Mesha cations:Elevat ed uric acid in blood Take 1 Tablet by mouth in the morning. 90 Tablet 12/17/19 24 Active Potassium Citrate ER 10 MEQ (1080 MG) Oral Tablet Extended Release (Urocit-K) TAKE 2 TABLETS BY MOUTH IN THE MORNING 180 Tablet 2 01/26/20 24 Active Potassium Citrate ER 10 MEQ (1080 MG) Oral Tablet Extended Release (Urocit-K) TAKE 2 TABLETS BY MOUTH IN THE MORNING 180 Tablet 2 07/31/19 24 024 Discontinued documented as of this encounter (statuses as of 01/26/2024) Active Problems Problem Noted Date Diagnosed Date [...] as of this encounter (statuses as of 01/26/2024) Resolved Problems Problem Noted Date Diagnosed Date [...] as of this encounter (statuses as of 01/26/2024) Immunizations Name Administration Dates Next Due COVID-19 [...] years and over) Not on file 08/25/2023 Comments No Sex and Gender Information Value Date Recorded Sex Assigned at Female 09/12/2019 1:54 PM EDT Legal Sex Female 6:01 AM EST Gender Identity Female 09/12/2019 1:54 PM EDT Sexual Orientation Straight 09/12/2019 1: 54 PM EDT documented as of this encounter Miscellaneous Notes * Telephone Encounter - Josep Gill MD - 01/26/2024 9:08 AM ESTSigned Prescriptions: Disp Refills Potassium Citrate ER 10 MEQ (1080 MG) Oral*180 Ta*2 Sig: TAKE 2 TABLETS BY MOUTH IN THE MORNING Authorizing Provider: JOSEP GILL * Telephone Encounter - Alma Cardozo LPN - 01/25/2024 4:20 PM ESTPending Prescriptions: Disp Refills Potassium Citrate ER 10 MEQ (1080 MG) Oral*180 Ta*2 Sig: TAKE 2 TABLETS BY MOUTH IN THE MORNING * Telephone Encounter - Alma Cardozo LPN - 01/25/2024 3:58 PM EST Rx pended Message sent to provider for approval Last OV 02/10/23 Next OV 02/10/24 documented in this encounter Plan of Treatment Upcoming Encounters Date Type Department Care Team (Late st Contact Info) Description 01/28/2024 10:20 AM EST Office Visit [facility] [address] [address] Wing Briseno, DO [address] [address] 02/10/2024 9:40 AM EST Office Visit [facility] [address] [place] [address] Josep Gill MD [address] [facility] [place] [address] 07/28/2024 10:20 AM EDT Office Visit [facility] [address] [address] Wing Briseno, [address] [place] [address] Health Maintenance Due Date Last Done Comments [...] this encounter Medical Devices Implanted Type Area Certified Nurse Midwife Device Identifier Shelf Expiration Date Model / Serial / Lot Inlay Blue Bell Ureteral Stent Implanted:Qty: 1 on 04/07/2014 by Sigrid Zhang MD at [facility] Left: Ureter INACTIVE [employer] 06/06/2018 [id number] / / [id number] Lens Intraoc 23.0 - [id number] - [id number] Implanted:Qty: 1 on 06/08/2018 by Wolfgang Powers MD at OR [facility] Left: Eye [employer]CH [employer] LOMB 11/06/2022 [id number] / [id number] / Lens Intraoc 19.5 - [id number] - [id number] Implanted:Qty: 1 on 06/22/2018 by Wolfgang Powers MD at [facility] Right: Eye BAUSCH & LOMB 01/06/2023 [id number] / [id number] / documented as of this encounter Advance Directives * Full Code (Latest Code Status on File) Date Activated Date Inactivated Comments 04/07/2014 7:37 AM 04/07/2014 3:40 PM This order r eflects the patients wishes and were consensually agreed upon. Care Teams Animal Care Supervisor Relationship Specialty Start Date End Date Wing Briseno DO [address] [place] [address] PCP - General Family Medicine 04/04/19 documented as of this encounter
--- OUTSIDE RECORDS SUMMARY | 2024-03-09 23:14 | External Medical Summary | Summary of Care ---
Author Name Unknown Organization [facility] Address [address] [place] [address] Phone [phone] Care Team Providers Care Paver Installer Name Role Phone Briseno Wing Edwardschelo Primary Care Provider Reason for Visit * Reason Comments Outpatient Testing Encounter Details Date Type Department Care Team (Late st Contact Info) Description 01/28/2024 11:10 AM EST Laboratory Laboratory, [facility] [address] [place] [address] [facility] [address] [place] [address] DYSLIPIDEMIA, GOAL LDL BELOW 100; Type 2 diabetes mellitus with hemoglobin A1c goal of less than 7.0% ([facility]); Stage 3b chronic kidney disease ([facility]); Vitamin D deficiency; Hypothyroidism due to acquired atrophy of thyroid; Routine medical exam; Encounter for long-term (current) use of medications; Hyperparathyroidism, secondary renal ([facility]); Type 2 diabetes mellitus with diabetic neuropathy, without long-term current use of insulin ([facility]) Allergies Active Allergy Reactions Criticality Noted Date Comments Mayur Inhibitors 12/25/2003 Made her head funny Bupropion Hcl Hives Low 01/07/2008 documented as of this encounter (statuses as of 01/28/2024) Medications LORAzepam (ATIVAN) 0.5 MG TabletIndication s:Panic disorder 1/2 pill by mouth 3 times a day as needed for anxiety 20 Tab 0 6 Active Aspirin 81 MG Tablet Take 1 Tablet by mouth in the morning. Active Blood Glucose Monitoring Suppl (TheGridTOUCH VERIO) w/Device KIT Use as directed. 1 [...] Capsule by mouth in the morning. Active 1SDKTouch Verio In Vitro Strip (Glucose Blood) TEST [...] mRNA, LNP-s, No Pre serve, 2-Dose Series (BitLit) 06/22/2020,06/01/2020 Pneumococcal Conjugate Vacc, 13 Valent (Prevnar) [...] [facility] [address] [facility] [address] Lj Gill MD [address] [facility] [address] 07/28/2024 10:20 AM EDT Office Visit [facility] [address] [address] Wing Briseno, [address] [address] 02/06/2025 11:40 AM EST Office Visit [facility] [address] [address] Wing Briseno, [address] [address] Pending Results Name Type Priority Associated Diagnoses Date /Time COMPREHENSIVE METABOLIC PANEL Lab Routine DYSLIPIDEMIA, GOAL LDL BELOW 100 01/28/2024 10:37 AM EST HEMOGLOBIN A1C Lab Routine Type 2 diabetes mellitus with hemoglobin A1c goal of less than 7.0% ([facility]) 01/28/2024 10:37 AM EST LIPID PANEL WITH DIRECT LDL IF TG IS HIGH Lab Routine DYSLIPIDEMIA, GOAL LDL BELOW 100 01/28/2024 10:37 AM EST MAGNESIUM Lab Routine Stage 3b chronic kidney disease (HCC) 01/28/2024 10:37 AM EST 25-HYDROXY VITAMIN D Lab Routine Vitamin D deficiency 01/28/2024 10:37 AM EST PTH Lab Routine Hypothyroidism due to acquired atrophy of thyroid 01/28/2024 10:37 AM EST TSH WITH FREE T4 IF INDICATED Lab Routine Hypothyroidism due to acquired atrophy of thyroid 01/28/2024 10:37 AM EST PHOSPHORUS Lab Routine Hyperparathyroidism, secondary renal (HCC) 01/28/2024 10:37 AM EST Health Maintenance Due Date Last Done Comments Adult Wellness Visit 2004 Diabetic Eye Exam 01/15/2023 01/15/2022, , 12/28/2019, Additional history exists HbA1c 10/13/2023 04/14/2023, 01/07, 07/04/2021, Additional history exists COVID-19 Vaccine ( season) 2023 06/22/2020, 06/01/2020 Albumin/Creatinine Ratio 04/14/2024 024, 09/22/2022, 01/17/2022, Additional history exists TSH 04/14/2024 04/14/2023, 0410/2021, 05/31/2020, Additional history exists Depression Monitoring 01/27/2025 [...] this encounter Medical Devices Implanted Type Area Brake Operator Device Identifier Shelf Expiration Date Model / Serial / Lot Inlay [place] Ureteral Stent Implanted:Qty: 1 on 04/07/2014 by Sigrid Zhang MD at OR [facility] Left: Ureter INACTIVE [employer] 06/06/2018 [id number] / / [id number] Lens Intraoc 23.0 - [id number] - [id number] Implanted:Qty: 1 on 06/08/2018 by Wolfgang Powers MD at OR [facility] Left: Eye [employer]USCH [employer] LOMB 11/06/2022 [id number] / [id number] / Lens Intraoc 19.5 - [id number] - [id number] Implanted:Qty: 1 on 06/22/2018 by Wolfgang Powers MD at OR [facility] Right: Eye BAUSCH & LOMB 01/06/2023 [id number] / [id number] / documented as of this encounter Visit Diagnoses Diagnosis DYSLIPIDEMIA, GOAL [...] and were consensually agreed upon. Care Teams Paver Installer Relationship Specialty Start Date End Date Wing Briseno DO [facility] [address] [place] [address] PCP - General Family Medicine 04/04/19 documented as of this encounter
--- OUTSIDE RECORDS SUMMARY | 2024-03-09 23:14 | External Medical Summary | Summary of Care ---
Author Name Unknown Organization [facility] Address [address] [place] [address] Phone [phone] Care Team Providers Care Public Works Technician Name Role Phone Navin Briseno DO Primary Care Provider Reason for Visit * Reason Comments eRx-Medication Refill Encounter Details Date Type Department Care Team (Late st Contact Info) Description 11/10/2023 Refill Family Practice [facility] [address] [place] [address] Navin Briseno DO [address] [place] [address] Allergies Active Allergy Reactions Criticality Noted Date Comments Mayur Inhibitors 12/25/2003 Made her head funny Bupropion Hcl Hives Low 01/07/2008 documented as of this encounter (statuses as of 11/11/2023) Medications Medication Sig Dispensed Refills Start Date [...] OTHER MEDS) 90 Tablet 3 05/06/2023 Active hydroCHLOROthiaz rebeca 12.5 MG Oral Tablet TAKE 1 TABLET BY MOUTH EVERY MORNING 90 Tablet 2 05/27/2023 Active Allopurinol 100 MG Oral Tablet (Zyloprim)Indica tions:Elevated uric acid in blood Take 1 Tablet by mouth in the morning. 90 Tablet 2 06/17/2023 Active Glimepiride 4 MG Oral Tablet (Amaryl) [...] THE MORNING 90 Tablet 3 11/11/2023 Active PARoxetine HCl 20 MG Oral Tablet (pAXil) Take 1 Tablet by mouth in the morning. 90 Tablet 3 02/12/2023 4 Discontinued documented as of this encounter (statuses as of 11/11/2023) Active Problems Problem Noted Date Diagnosed Date [...] as of this encounter (statuses as of 11/11/2023) Resolved Problems Problem Noted Date Diagnosed Date [...] as of this encounter (statuses as of 11/11/2023) Immunizations Name Administration Dates Next Due COVID-19 mRNA, LNP-s, No Pre serve, 2-Dose Series (Pfizer) 06/22/2020,06/01/2020 Pneumococcal Conjugate Vacc, 13 Valent (Prevnar) 08/17/2014 Seasonal Influenza, PF, 6 M & above, IM , (FluLaval or Fluzone) 02/26/2018,02/23/2017 Seasonal Influenza, Quadriva lent Hd (Fluzone Hd) 03/23/2023,01/17/2022,01/08/2021 Seasonal Influenza, Quadriva lent Hd, 65+ Yrs 12/16/2019 Seasonal Influenza, Quadriva lent, No Preserve, IM 02/18/2016,01/08/2015 Seasonal Influenza, Trivalen t, (IIV3), with Preserv, (Fluzone) 01/06/2014,01/03/2013,12/19/2011,2010,12/28/2009 Seasonal Influenza, Trivalen t, Adjuvanted, 65+ YRS, [...] encounter Miscellaneous Notes * Telephone Encounter - Fiona Christianson ned - 11/11/2023 5:25 PM EDT Signed Prescriptions: Disp Refills PARoxetine HCl 20 MG Oral Tablet (pAXil) 90 Tab*3 Sig: TAKE 1 TABLET BY MOUTH IN THE MORNINGAuthorizing Provider: NAVIN BRISENOOrderxochitl User: FIONA CHRISTIANSON documented in this encounter Plan of Treatment Upcoming Encounters Date Type Department Care Team (Late st Contact Info) Description 01/28/2024 10:20 AM EST Office Visit Family Practice [facility] [address] [place] [address] Navin Briseno, [address] [place] [address] 02/10/2024 9:40 AM EST Office Visit [facility] [address] [place] [address] Lj Gill MD [address] [place] [address] 07/28/2024 10:20 AM EDT Office Visit Family Practice [facility] [address] [place] [address] Navin Briseno DO [address] [place] [address] Health Maintenance Due Date Last Done Comments Adult Wellness Visit 2004 Diabetic Eye Exam 01/15/2023 01/15/2022, , 12/28/2019, Additional history exists Depression Monitoring 08/01/2023 07/31/2022 Diabetic Foot Exam 08/01/2023 07/31/2022, 0 07/09/2021, 07/04/2020, Additional history exists GFR 10/13/2023 04/14/2023, 12/0 07/2022, 09/22/2022, Additional history exists HbA1c 10/13/2023 04/14/2023, 01/07, 07/04/2021, Additional history exists COVID-19 Vaccine ( season) 2023 06/22/2020, 06/01/2020 Influenza Vaccine (FLU shot) (#1) 2023 03/23/2023, 01/17/2022, 01/08/2021, Additional history exists Albumin/Creatinine Ratio 04/14/2024 024, 09/22/2022, 01/17/2022, Additional history exists TSH 04/14/2024 04/14/2023, 04/2 10/2021, 05/31/2020, Additional history exists DTap/Tdap Vaccines (2 [...] this encounter Medical Devices Implanted Type Area Blood Bank Worker Device Identifier Shelf Expiration Date Model / Serial / Lot Inlay Mink[place] Ureteral Stent Implanted:Qty: 1 on 04/07/2014 by Sigrid Zhang MD at OR [facility] Left: Ureter INACTIVE [employer] 06/06/2018 [id number] / / [id number] Lens Intraoc 23.0 - [id number] - [id number] Implanted:Qty: 1 on 06/08/2018 by Wolfgang Powers MD at OR [facility] Left: Eye [employer]OM[employer] 11/06/2022 [id number] / [id number] / Lens Intraoc 19.5 - [id number] - [id number] Implanted:Qty: 1 on 06/22/2018 by Wolfgang Powers MD at OR [facility] Right: Eye BA[employer] LOMB 01/06/2023 [id number] / [id number] / documented as of this encounter Advance Directives * Full Code (Latest Code Status on File) Date Activated Date Inactivated Comments 04/07/2014 7:37 AM 04/07/2014 3:40 PM This order r eflects the patients wishes and were consensually agreed upon. Care Teams Public Works Technician Relationship Specialty Start Date End Date Navin Briseno DO [facility] [address] [place] [id number] PCP - General Family Medicine 04/04/19 documented as of this encounter
--- OUTSIDE RECORDS SUMMARY | 2024-03-09 23:14 | External Medical Summary | Summary of Care ---
Author Name Unknown Organization [facility] Address [address] [place] [address] Phone [phone] Care Team Providers Care Client Application Support Specialist Name Role Phone Navin Briseno DO Primary Care Provider Reason for Visit * Reason Comments eRx-Medication Refill Encounter Details Date Type Department Care Team (Late st Contact Info) Description 11/23/[address] [facility] [address] [place] [address] Navin Briseno DO [address] [place] [address] Allergies Active Allergy Reactions Criticality Noted Date Comments Mayur Inhibitors 12/25/2003 Made her head funny Bupropion Hcl Hives Low 01/07/2008 documented as of this encounter (statuses as of 11/24/2023) Medications Medication Sig Dispensed Refills Start Date [...] OTHER MEDS) 90 Tablet 3 05/06/2023 Active Allopurinol 100 MG Oral Tablet (Zyloprim)Indica [...] EVERY MORNING 90 Tablet 1 11/24/2023 Active hydroCHLOROthiaz rebeca 12.5 MG Oral Tablet TAKE 1 TABLET BY MOUTH EVERY MORNING 90 Tablet 2 05/27/2023 4 Discontinued documented as of this encounter (statuses as of 11/24/2023) Active Problems Problem Noted Date Diagnosed Date [...] as of this encounter (statuses as of 11/24/2023) Resolved Problems Problem Noted Date Diagnosed Date [...] as of this encounter (statuses as of 11/24/2023) Immunizations Name Administration Dates Next Due COVID-19 [...] encounter Miscellaneous Notes * Telephone Encounter - Javier Borrego RPh - 11/24/2023 2:55 PM EDTSigned Prescriptions: Disp Refills hydroCHLOROthiazide 12.5 MG Oral Tablet 90 Tab*1 Sig: TAKE 1 TABLET BY MOUTH EVERY MORNINGAuthorizing Provider: NAVIN BRISENOOrderxochitl User: JAVIER BORREGO documented in this encounter Plan of Treatment Upcoming Encounters Date Type Department Care Team (Late st Contact Info) Description 01/28/2024 10:20 AM EST Office Visit Family Practice [facility] [address] [address] Navin Briseno, [address] [address] 02/10/2024 9:40 AM EST [facility] [address] [place] [address] Lj Gill MD [address] [place] [address] 07/28/2024 10:20 AM EDT Office Visit Family Practice [facility] [address] [place] [address] Navin Briseno DO [address] [place] [address] Health Maintenance Due Date Last Done Comments [...] 01/17/2022, Additional history exists TSH 04/14/2024 04/14/2023, 042 10/2021, 05/31/2020, Additional history exists DTap/Tdap Vaccines [...] this encounter Medical Devices Implanted Type Area Tank Builder Helper Device Identifier Shelf Expiration Date Model / Serial / Lot Inlay [place] Ureteral Stent Implanted:Qty: 1 on 04/07/2014 by Sigrid Zhang MD at OR [facility] Left: Ureter INACTIVE [employer] 06/06/2018 [id number] / / [id number] Lens Intraoc 23.0 - [id number] - [id number] Implanted:Qty: 1 on 06/08/2018 by Wolfgang Powers MD at OR [facility] Left: Eye [employer]OMB 11/06/2022 [id number] / [id number] / Lens Intraoc 19.5 - [id number] - [id number] Implanted:Qty: 1 on 06/22/2018 by Wolfgang Powers MD at OR [facility] Right: Eye BAUSCH [employer] LOMB 01/06/2023 [id number] / [id number] / documented as of this encounter Advance Directives * Full Code (Latest Code Status on File) Date Activated Date Inactivated Comments 04/07/2014 7:37 AM 04/07/2014 3:40 PM This order r eflects the patients wishes and were consensually agreed upon. Care Teams Client Application Support Specialist Relationship Specialty Start Date End Date Navin Briseno DO [address] [place] [address] PCP - General Family Medicine 04/04/19 documented as of this encounter
[2024-03-10 00:44] LABS: Basophils # (auto) 0.01 K/uL (0.00-0.20); Basophils % (auto) 0.1 %; Eosinophils # (auto) 0.03 K/uL (0.00-0.50); Eosinophils % (auto) 0.4 %; Hematocrit (blood only) 39.9 % (37.0-47.0); Hemoglobin 13.5 g/dl (12.0-16.0); Immature Granulocytes # (auto) 0.03 K/uL (0.01-0.20); Immature Granulocytes % (auto) 0.4 %; Lymphocytes # (auto) 0.63 K/uL (1.20-3.40); Lymphocytes % (auto) 7.9 %; Mean Corpuscular Hemoglobin 30.7 pg (25.0-34.0); Mean Corpuscular Hgb Conc 33.8 g/dL (32.0-36.0); Mean Corpuscular Volume 90.7 fL (80.0-100.0); Mean Platelet Volume 10.4 fL (9.4-12.4); Monocytes # (auto) 0.57 K/uL (0.11-0.59); Monocytes % (auto) 7.2 %; Neutrophils # (auto) 6.67 K/uL (1.40-6.50); Platelet Count 167 K/uL (130-400); RDW Coefficient of Variation 13.2 % (11.5-14.5); RDW Standard Deviation 43.8 fL (36.4-46.3); White Blood Count 7.94 K/ul (4.8-10.8)
[2024-03-10 00:52] LABS: Albumin Level 3.8 gm/dl (3.4-5.0); BUN Creatinine Ratio 15.9 (10-20); Bilirubin,Total 1.1 mg/dl (0.2-1.0); Calcium 8.8 mg/dl (8.6-10.3); Globulin 3.7 gm/dl (2.5-4.0); Potassium 3.9 mmol/L (3.5-5.1); Total Protein 7.5 gm/dl (6.0-8.3)
[2024-03-10 01:08] LABS: Thyroid Stimulating Hormone 0.483 uIu/ml (0.300-4.500)
[2024-03-10 01:31] LABS: Adenovirus PCR Not Detected (NotDetected); Bordetella parapertussis PCR Not Detected (NotDetected); Bordetella pertussis PCR Not Detected (NotDetected); Chlamydia pneumoniae PCR Not Detected (NotDetected); Coronavirus 229E PCR Not Detected (NotDetected); Coronavirus CoV-2 (COVID19)PCR Not Detected (NotDetected); Coronavirus HKU1 PCR Not Detected (NotDetected); Coronavirus NL63 PCR Not Detected (NotDetected); Coronavirus OC43PCR Not Detected (NotDetected); Human Metapneumovirus PCR DETECTED (NotDetected); Influenza A PCR Not Detected (NotDetected); Influenza B PCR Not Detected (NotDetected); Mycoplasma pneumoniae PCR Not Detected (NotDetected); Parainfluenza Virus 1 PCR Not Detected (NotDetected); Parainfluenza Virus 2 PCR Not Detected (NotDetected); Parainfluenza Virus 3 PCR Not Detected (NotDetected); Parainfluenza Virus 4 PCR Not Detected (NotDetected); Respiratory Syncytial VirusPCR Not Detected (NotDetected); Rhinovirus/Enterovirus PCR Not Detected (NotDetected)
--- NOTE | 2024-03-10 01:49 | XRay Report ---
EXAM: XR chest 1V portable CLINICAL HISTORY: WEAKNESS JMF TECHNIQUE: An X-ray image of the chest is obtained in AP portable projection. COMPARISON: 03/19/2020 CR FINDINGS: Pulmonary Parenchyma: Bilateral perihilar interstitial thickening. No evidence of consolidation, collapse, or focal opacities. No pulmonary nodules are identified. No evidence of pleural effusion or pleural thickening. Heart and Mediastinum: Heart size and shape are normal. No mediastinal widening or masses. No hilar or mediastinal lymphadenopathy. Bony Thorax: Bony thorax appears intact without fractures or deformities. Soft Tissues: Soft tissues overlying the chest wall are unremarkable. IMPRESSION: 1. Bilateral perihilar interstitial thickening, likely due to chronic bronchial inflammation/others, clinical correlation is advised. 2. No significant interval changes. Electronically signed by Juan Pablo Breaux 03-10-2024 01:49 AM
[2024-03-10] MEDS: OPTIRAY 320 125ml IV ONE (02:05)
[2024-03-10] MEDS: SODIUM CHLORIDE 0.9% 500 ML IV ONE (02:12)
--- NOTE | 2024-03-10 02:55 | CT Scan Report ---
EXAM: CT angio head w con CLINICAL HISTORY: neuro deficit, acute stroke suspected, 118 [address] 320 TECHNIQUE: Contrast enhanced thin slice CT angiography scan of the cerebral vessels was performed with intravenous contrast. Angiographic images were processed, 3D MIP images were acquired for interpretation. Contiguous axial images were obtained. Reformatted coronal and sagittal images were also reviewed. If IV contrast material had not been administered, the likelihood of detecting abnormalities relevant to the patients condition would have been substantially decreased. CT scan was performed according to ALARA (as low as reasonable achievable). COMPARISON: none. FINDINGS: Atherosclerotic calcifications are noted involving cavernous, clinoid and supraclinoid segment of bilateral internal carotid artery. Bilateral internal carotid arteries show normal course, calibre and opacification in the canalicular and cavernous part. Their division into the anterior cerebral artery and middle cerebral artery is defined. A1, A2 and M1, M2 segments are normal on both the sides. Bilateral vertebral arteries are seen to unite the form the basilar artery in a normal fashion. Basilar artery shows normal course, caliber and opacification. Its division into the posterior cerebral arteries is defined. Bilateral P1 and P2 segments are normal. Visualized venous structures show normal opacification. No evidence of intracranial aneurysm or AV malformation is seen. IMPRESSION: Atherosclerotic calcifications are noted involving cavernous, clinoid and supraclinoid segment of bilateral internal carotid artery. 1. No evidence of stenosis or aneurysm. No evidence of dissection. Electronically signed by Juaquin Jeffers 03-10-2024 02:54 AM
--- NOTE | 2024-03-10 02:57 | CT Scan Report ---
EXAM: CT head/brain wo con CLINICAL HISTORY: None TECHNIQUE: Multiple axial images are obtained from the skull base to the vertex without contrast. CT scan was performed according to ALARA (as low as reasonable achievable). COMPARISON: None. FINDINGS: There is cerebral atrophy. No evidence of space occupying lesion, hemorrhage, edema, mass effect, midline shift, extra axial collection, or hydrocephalus is noted. Basal cisterns are symmetric and normal in size and configuration. There are scattered periventricular hypodensities as can be seen with chronic microvascular ischemic changes. The roblero-white matter differentiation is preserved. Left maxillary and bilateral ethmoid sinusitis. Visualized rest of the paranasal sinuses and mastoid air cells are well aerated. Orbital contents are within normal limits. Bony structures are intact. IMPRESSION: 1. No evidence of acute intracranial abnormality is demonstrated. 2. Chronic microvascular ischemic changes. 3. Cerebral atrophy. 4. CT scan is negative for large territorial ischemic / hemorrhagic stroke. 5. Non contrast CT can be negative in the setting of hyperacute infarct/small ischemic infarct and further evaluation with diffusion weighted MRI is recommended as clinically appropriate. Electronically signed by Juaquin Jeffers 03-10-2024 02:57 AM
--- NOTE | 2024-03-10 03:00 | CT Scan Report ---
EXAM: CT angio neck with con CLINICAL HISTORY: neuro deficit, acute stroke suspected, [address]AY 320 TECHNIQUE: Contrast enhanced thin slice CT angiography scan of the carotid vessels was performed with intravenous contrast. Angiographic images were processed, 3D MIP images were acquired for interpretation.Contiguous axial images were obtained. Reformatted coronal and sagittal images were also reviewed. If IV contrast material had not been administered, the likelihood of detecting abnormalities relevant to the patients condition would have been substantially decreased. CT scan was performed according to ALARA (as low as reasonable achievable). COMPARISON: None. FINDINGS: Atheromatous calcific plaque is noted involving left carotid bulb causing its severe ( 80%-90% ) luminal narrowing. Atheromatous calcific plaque is noted involving right carotid bulb causing its moderate ( 40%-45%) luminal narrowing. Calcified plaques are also noted involving bilateral vertebral artery origin causing mild luminal narrowing. Included great vessels of the aortic arch are grossly unremarkable. Common carotid artery, internal carotid artery , and origin of the external carotid artery are well opacified. Calcified plaque is noted at the origin of the right vertebral artery causing mild stenosis (approximately 20-30%). Distal perfusion is well noted. Right vertebral artery appears small in caliber as compared to the left side. Calcified plaque is also noted at the origin of left vertebral artery causing mild (approximately 20%-30%) stenosis. However, distal perfusion is well seen. Jugular veins are well opacified. Included lung apices are grossly unremarkable. Thyroid gland appears unremarkable. IMPRESSION: 1. Atheromatous calcific plaque is noted involving left carotid bulb causing its severe (80%-90% ) luminal narrowing. 2. Atheromatous calcific plaque is noted involving right carotid bulb causing its moderate (40%-50%) luminal narrowing. 3. Calcified plaque is noted at the origin of the right vertebral artery causing mild (approximately 20%-30%). Distal perfusion is well noted. Right vertebral artery appears small in caliber as compared to the left side. 4. Calcified plaque is also noted at the origin of left vertebral artery causing mild (approximately 20%-30%) stenosis. However, distal perfusion is well seen. Electronically signed by Juaquin Jeffers 03-10-2024 03:00 AM
[2024-03-10] MEDS: MECLIZINE HCL 25 MG TAB PO STA (03:12)
[2024-03-10 03:48] LABS: Appearance Urine Clear (Clear); Bacteria Urine Automated None Seen (None Seen); Bilirubin Urine Negative (Negative); Blood Urine Negative (Negative); Color Urine Yellow; Epithelial Cell Urine Auto 0-2 /hpf (0-2); Glucose Urine UA Negative (Negative); Ketones Urine 1+ (Negative); Leukocyte Esterase Urine Negative (Negative); Nitrite Urine Negative (Negative); Protein Urine Trace (Negative); RBC Urine Automated 0-2 /hpf (0-2); Specific Gravity Urine 1.045 (1.000-1.030); Urobilinogen Urine Negative (Negative); WBC Urine Automated 0-5 /hpf (0-5)
--- NOTE | 2024-03-10 03:53 | Emergency Department Note ---
Impression & Plan Infection due to human metapneumovirus (hMPV), Dehydration, Vertigo Admit to the [facility] ED Provider Note NAME: MARIBEL TRACY AGE: 83 SEX: Female INFORMANT: Patient ED PROVIDER(S): Emeli Drew DO CHIEF COMPLAINT: Weakness PLAN: Disposition: admit to the [facility] MEDICAL DECISION MAKING: this is a 83-year-old female patient who has been feeling weak with a dry cough over the past 4 days. Today, the patient symptoms worsened and she developed nausea, vomiting and diarrhea. She became so weak tonight around 9 PM that she slid off of the toilet and hit her head off the wall. Family had to help her up. Her dizziness has worsened. patient was treated with IV normal saline along with oral meclizine. Labs revealed an elevated BUN and creatinine with ketones in the urine. Glucose was elevated at 215. CBC was normal. Bio fire testing was positive for human metapneumovirus. This is most likely the initial cause of the patient's symptoms. Patient seemed to have some improvement in her symptoms after receiving the meclizine and the IV fluids. She was able to drink clear liquids. However, staff attempted to ambulate the patient but she continued to have persistent symptoms And difficulty with ambulation. I discussed the case with the [facility] and they will evaluate for further inpatient care. Care/management discussed with: manager ccu and [facility] Triage Nursing notes: reviewed and agree With them. Vital Signs: reviewed and remarkable for hypertension Additional History obtained from: family members at the bedside Differential Diagnosis: acute viral illness, vertigo, dehydration, pneumonia, UTI Diagnostics, independently interpreted by me: ECG: normal sinus rhythm at a rate of 78 with first-degree AV block. There is no ST segment elevation or signs of ischemia. There is no ectopy. Cardiac Monitoring: Normal sinus rhythm at a rate of 77 Medical decision rules: none Imaging studies: portable chest x-ray: No acute pulmonary infiltrates or consolidation as per my independent interpretation CT scan of the brain: As per Imb[facility] CT a of the brain: As per [facility] CTA of the neck: As per [facility] HPI: 83 year old Female arrives for evaluation of weakness and vomiting. the patient has been having weakness and dry cough over the past 4 days. Tonight, the patient developed vomiting and nausea.. She became increasingly weak to the point that she slid off the toilet around 9 PM this evening. Family explains that the patient has been unable to eat and drink for the past 2 days. PAST MEDICAL HISTORY: See Below, PAST SURGICAL HISTORY: See Below, SOCIAL HISTORY: See Below, HOME MEDICATIONS: See list ALLERGIES: none VITALS: See Below PHYSICAL EXAMINATION: HEENT: Head - normocephalic and atraumatic. Pupils are equal, round, and reactive to light. Extraocular eye muscles are intact, and sclera are anicteric. Patient has lateral nystagmus. Nose - Dry nasal mucosa without discharge. Mouth - drybuccal mucosa. Oropharynx is nonerythematous and there is no tonsillar exudate or edema noted. Neck: Supple; No cervical lymphadenopathy or nuchal rigidity. Heart: Regular rate and rhythm. There is a normal S1 and S2 with no murmurs, clicks, or gallops appreciated. Lungs: Clear to auscultation bilaterally with no wheezes, rales, or rhonchi. Abdomen: Soft, completely nontender, nondistended, with good bowel sounds. There are no palpable pulsatile masses or hepatosplenomegaly. There is no guarding, rigidity, or rebound noted. Extremities: No evidence of cyanosis, clubbing, or edema. There are easily palpable peripheral pulses. Skin: warm and dry with good turgor and no rashes. Emergency Department course: The patient was evaluated in room C-12. A complete history and physical was performed. An order was placed for continuous cardiac monitoring. The patient was in a normal sinus rhythm at a rate of 77. A twelve-lead EKG was obtained as described above. IV lock was initiated and labs are drawn as above. patient had an upper respiratory bio fire test performed.Patient was bolused with IV normal saline solution. She was given an oral dose of meclizine. Patient was able to drink clear liquids. I did review laboratory studies and CT scans with the patient and her family. Family did attempt to get the patient up along with nursing staff to the bathroom But the patient was still quite dizzy and unsteady on her feet. I discussed the case with the hospitalist so they could admit her. 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, and L central lumpectomy 11/16/06" Hypothyroidism Nephrolithiasis (03/25/14) Panic disorder Surgical History History of partial mastectomy of left breast "s/p L partial mastectomy 03/23/06, L breast DCIS excision 10/19/06, and L central lumpectomy 11/16/06" Social History Smoking Status: Never smoker Hx Alcohol Use: No Hx Substance Use: No Preferred Language: Tunisian Communication Ability: Effective Flatwork Feeder Required: No Beliefs That Will Affect Care: None Current Living Situation: Spouse Current Living Situation Comment: with who has dementia, 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 Other Information That Helps Us Care for You: No Feels Safe at Home: Yes Safety Concerns: Feels Safe At This Time Assistive Devices: Walker Assistive Devices Comment: per pt-she is supposed to use a walker but does not at home Allergies Allergies Allergy/AdvReac Type Severity Reaction Status Date / Time No Known Allergies Allergy Mild OTHER Unverified 03/25/14 08:07 Home Meds Home Medications Medication Instructions Recorded Confirmed allopurinol 100 mg tablet 100 mg PO DIRECTED 03/19/20 03/10/24 atorvastatin 40 mg tablet 40 mg PO DIRECTED 03/19/20 03/10/24 hydrochlorothiazide 12.5 mg tablet 12.5 mg PO DIRECTED 03/19/20 03/10/24 levothyroxine 100 mcg tablet 100 mcg PO DIRECTED 03/19/20 03/10/24 losartan 50 mg tablet 50 mg PO DIRECTED 03/19/20 03/10/24 paroxetine HCl 20 mg tablet 20 mg PO DIRECTED 03/19/20 03/10/24 potassium citrate 10 mEq (1,080 10 meq PO DIRECTED 03/19/20 03/10/24 mg) tablet,extended release aspirin 81 mg tablet 81 mg PO DAILY 03/10/24 03/10/24 lorazepam 0.5 mg tablet (Ativan) 0.5 mg PO 3XD PRN Anxiety 03/10/24 03/10/24 semaglutide 0.25 mg or 0.5 mg (2 1 mg subcut WK diabetes 03/10/24 03/10/24 mg/3 mL) subcutaneous pen injector (Ozempic) Previous Rx's Medication Instructions Recorded meclizine 25 mg tablet 25 mg PO TID PRN dizziness #20 tabs 03/10/24 Results & Data (ED) Vital Signs Vital Signs - 24 hr 03/09/24 23:19 03/09/24 23:26 03/09/24 23:27 Temperature 36.4 C L Temperature Source Oral Pulse Rate 79 86 Pulse Rate [Apical] Pulse Rate from SpO2 Sensor Respiratory Rate 20 Respiratory Effort / Characteristics Non-Labored Spontaneous Respiratory Depth Normal Respiratory Pattern Blood Pressure 141/73 H Blood Pressure [Left Arm] Blood Pressure Mean 95 Blood Pressure Mean [Left Arm] Blood Pressure Position Lying Blood Pressure Position [Left Arm] Pulse Oximetry 96 97 Oxygen Delivery Method Room Air Room Air Sepsis Recent Fever Within 48 Hours No Sepsis New/Unexplained Change in Mental Status N/A Sepsis Action Taken by Nursing No Action Required 03/10/24 00:33 03/10/24 00:33 03/10/24 02:14 Temperature Temperature Source Pulse Rate 75 Pulse Rate [Apical] 74 77 Pulse Rate from SpO2 Sensor Respiratory Rate 18 16 20 Respiratory Effort / Characteristics Non-Labored Spontaneous Non-Labored Spontaneous Respiratory Depth Normal Normal Respiratory Pattern Regular Regular Blood Pressure Blood Pressure [Left Arm] 127/73 151/73 H Blood Pressure Mean Blood Pressure Mean [Left Arm] 91 99 Blood Pressure Position Blood Pressure Position [Left Arm] Sitting Lying Pulse Oximetry 95 94 96 Oxygen Delivery Method Room Air Room Air Room Air Sepsis Recent Fever Within 48 Hours Sepsis New/Unexplained Change in Mental Status Sepsis Action Taken by Nursing 03/10/24 02:30 03/10/24 02:31 03/10/24 03:15 Temperature Temperature Source Pulse Rate 78 78 Pulse Rate [Apical] Pulse Rate from SpO2 Sensor 79 78 Respiratory Rate 18 19 Respiratory Effort / Characteristics Respiratory Depth Respiratory Pattern Blood Pressure 169/69 H 162/75 H Blood Pressure [Left Arm] Blood Pressure Mean 105 104 Blood Pressure Mean [Left Arm] Blood Pressure Position Blood Pressure Position [Left Arm] Pulse Oximetry 94 96 Oxygen Delivery Method Room Air Room Air Sepsis Recent Fever Within 48 Hours Sepsis New/Unexplained Change in Mental Status Sepsis Action Taken by Nursing Laboratory Data 03/11/24 05:46 03/11/24 05:46 Lab Results 03/09/24 03/10/24 Range/Units 23:20 03:17 WBC 7.94 (4.8-10.8) K/ul RBC 4.40 (4.20-5.40) M/uL Hgb 13.5 (12.0-16.0) g/dl Hct 39.9 (37.0-47.0) % MCV 90.7 (80.0-100.0) fL MCH 30.7 (25.0-34.0) pg MCHC 33.8 (32.0-36.0) g/dL RDW Std Deviation 43.8 (36.4-46.3) fL RDW Coeff of [place]ibr[place] 13.2 (11.5-14.5) % Plt Count 167 (130-400) K/uL MPV 10.4 (9.4-12.4) fL Immature Gran % (Auto) 0.4 % Neut % (Auto) 84.0 % Lymph % (Auto) 7.9 % [place] % (Auto) 7.2 % Eos % (Auto) 0.4 % Baso % (Auto) 0.1 % Neut # (Auto) 6.67 H (1.40-6.50) K/uL Lymph # (Auto) 0.63 L (1.20-3.40) K/uL [place] # (Auto) 0.57 (0.11-0.59) K/uL Eos # (Auto) 0.03 (0.00-0.50) K/uL Baso # (Auto) 0.01 (0.00-0.20) K/uL Immature Gran # (Auto) 0.03 (0.01-0.20) K/uL Sodium 132 L (136-145) mmol/L Potassium 3.9 (3.5-5.1) mmol/L Chloride 95 L (98-107) mmol/L Carbon Dioxide 26 (21-32) mmol/L Anion Gap 11 (3-11) BUN 29 H (6-23) mg/dl Creatinine 1.82 H (0.6-1.2) mg/dl Est Cr Clr Drug Dosing 22.0 ml/min eGFR 26.91 BUN/Creatinine Ratio 15.9 (10-20) Glucose 215 H (70-99(Fasting)) mg/dl Calcium 8.8 (8.6-10.3) mg/dl Phosphorus 3.5 (2.5-4.9) mg/dl Magnesium 1.3 L (1.7-2.4) mg/dl Total Bilirubin 1.1 H (0.2-1.0) mg/dl AST 16 (13-39) U/L ALT 10 (7-52) U/L Alkaline Phosphatase 75 (34-104) U/L Total Protein 7.5 (6.0-8.3) gm/dl Albumin 3.8 (3.4-5.0) gm/dl Globulin 3.7 (2.5-4.0) gm/dl Albumin/Globulin Ratio 1.0 (0.9-2) TSH 0.483 (0.300-4.500) uIu/ml Urine Color Yellow Urine Appearance Clear (Clear) Urine pH 5.0 (4.5-7.5) Ur Specific [place] 1.045 H (1.000-1.030) Urine Protein Trace H (Negative) Urine Glucose (UA) Negative (Negative) Urine Ketones 1+ H (Negative) Urine Blood Negative (Negative) Urine Nitrite Negative (Negative) Urine Bilirubin Negative (Negative) Urine Urobilinogen Negative (Negative) Ur Leukocyte Esterase Negative (Negative) Urine WBC (Auto) 0-5 (0-5) /hpf Urine RBC (Auto) 0-2 (0-2) /hpf U Hyaline Cast (Auto) 3-5 H (0-2) /lpf U Epithel Cells (Auto) 0-2 (0-2) /hpf Urine Bacteria (Auto) None Seen (None Seen) Adenovirus (PCR) Not Detected (NotDetected) B. pertussis DNA (PCR) Not Detected (NotDetected) B.parapertussis DNA PCR Not Detected (NotDetected) C. pneumoniae DNA (PCR) Not Detected (NotDetected) Coronavirus OC43 (PCR) Not Detected (NotDetected) Coronavirus HKU1 (PCR) Not Detected (NotDetected) Coronavirus 229E (PCR) Not Detected (NotDetected) SARS-CoV-2 (PCR) Not Detected (NotDetected) Coronavirus NL63 (PCR) Not Detected (NotDetected) Human Metapneumovir PCR DETECTED A (NotDetected) Influenza Type A (PCR) Not Detected (NotDetected) Influenza Type B (PCR) Not Detected (NotDetected) M. pneumoniae (PCR) Not Detected (NotDetected) Parainfluenza 1 (PCR) Not Detected (NotDetected) Parainfluenza 2 (PCR) Not Detected (NotDetected) Parainfluenza 3 (PCR) Not Detected (NotDetected) Parainfluenza 4 (PCR) Not Detected (NotDetected) RSV (PCR) Not Detected (NotDetected) Entero/Rhino (PCR) Not Detected (NotDetected) Administered Medications Allopurinol (Allopurinol 100 Mg Tab) 100 mg PO DAILY [facility] Stop: 04/09/24 08:59 Last Admin: 03/11/24 07:28 Dose: 100 mg Documented By: Admin: 03/10/24 08:56 Dose: 100 mg Documented By: [facility] Aspirin (Aspirin 81 Mg Ectab) 81 mg PO DAILY [facility] Stop: 04/09/24 08:59 Last Admin: 03/11/24 07:28 Dose: 81 mg Documented By: Admin: 03/10/24 08:55 Dose: 81 mg Documented By: [facility] Atorvastatin Calcium (Atorvastatin 40 Mg Tab) 40 mg PO DAILY [facility] Stop: 04/09/24 08:59 Last Admin: 03/11/24 07:28 Dose: 40 mg Documented By: Admin: 03/10/24 08:55 Dose: 40 mg Documented By: [facility] Potassium Chloride/Sodium Chloride (Normal Saline W/20 Meq Kcl) 20 meq in 1,000 mls @ 100 mls/hr IV .Q10H [facility] Stop: 03/11/24 18:29 Last Admin: 03/11/24 05:34 Dose: 100 mls/hr Documented By: [id number] Infusion: 03/11/24 05:34 Dose: Infused Documented By: [id number] Admin: 03/10/24 20:02 Dose: 100 mls/hr Documented By: [id number] Infusion: 03/10/24 20:02 Dose: Infused Documented By: [id number] Admin: 03/10/24 12:24 Dose: 100 mls/hr Documented By: MICHAEL Insulin Aspart (Insulin Aspart Per Unit Charge) 0 units SC ACHS [facility] Stop: 04/09/24 07:59 Last Admin: 03/10/24 22:10 Dose: Not Given Documented By: [id number] Admin: 03/10/24 18:49 Dose: Not Given Documented By: Admin: 03/10/24 13:52 Dose: 3 units Documented By: FRANK Co-signed By: THERESE Admin: 03/10/24 10:48 Dose: 1 units Documented By: MICHAEL Co-signed By: LUISA Levothyroxine Sodium (Levothyroxine Sodium 100 Mcg Tablet) [facility]: 04/09/24 07:59 Last Admin: 03/11/24 05:34 Dose: 100 mcg Documented By: [id number] Admin: 03/10/24 08:55 Dose: 100 mcg Documented By: MICHAEL Paroxetine HCl (Paroxetine Hcl 20 Mg Tab) 20 mg PO DAILY [facility] Stop: 04/09/24 08:59 Last Admin: 03/11/24 07:27 Dose: 20 mg Documented By: Admin: 03/10/24 08:40 Dose: 20 mg Documented By: MICHAEL Discontinued Medications Sodium Chloride (Nss) 500 mls @ 999 mls/hr IV .Q31M ONE Stop: 03/10/24 01:57 Last Infusion: 03/10/24 02:54 Dose: Infused Documented By: Admin: 03/10/24 02:12 Dose: 999 mls/hr Documented By: Potassium Chloride/Sodium Chloride (Normal Saline W/20 Meq Kcl) 20 meq in 1,000 mls @ 60 mls/hr IV .[id number] ONE Stop: 03/10/24 22:30 Last Infusion: 03/10/24 12:55 Dose: Infused Documented By: Infusion: 03/10/24 12:24 Dose: 0 mls/hr Documented By: Infusion: 03/10/24 12:24 Dose: 0 mls/hr Documented By: Admin: 03/10/24 06:19 Dose: 60 mls/hr Documented By: LINSEY Magnesium Sulfate/Dextrose (Magnesium Sulfate / D5w) 1 gm in 100 mls @ 50 mls/hr IV Q2H [facility] Stop: 03/10/24 13:59 Last Infusion: 03/10/24 17:00 Dose: Infused Documented By: Admin: 03/10/24 14:30 Dose: 50 mls/hr Documented By: Infusion: 03/10/24 13:16 Dose: Infused Documented By: [facility] Admin: 03/10/24 11:16 Dose: 50 mls/hr Documented By: Infusion: 03/10/24 11:15 Dose: Infused Documented By: [facility] Admin: 03/10/24 08:58 Dose: 50 mls/hr Documented By: [facility] Ioversol (Optiray 320 125ml) 125 ml IV ONCE ONE Stop: 03/10/24 02:06 Last Admin: 03/10/24 02:05 Dose: 118 ml Documented By: RADHA Meclizine HCl (Meclizine Hcl 25 Mg Tab) 25 mg PO NOW STA Stop: 03/10/24 02:58 Last Admin: 03/10/24 03:12 Dose: 25 mg Documented By: LINSEY Imaging Data Radiologist's Impression: Chest X-Ray 03/10/24 00:31 EXAM: XR chest 1V portable CLINICAL HISTORY: WEAKNESS JMF TECHNIQUE: An X-ray image of the chest is obtained in AP portable projection. COMPARISON: 03/19/2020 CR FINDINGS: Pulmonary Parenchyma: Bilateral perihilar interstitial thickening. No evidence of consolidation, collapse, or focal opacities. No pulmonary nodules are identified. No evidence of pleural effusion or pleural thickening. Heart and Mediastinum: Heart size and shape are normal. No mediastinal widening or masses. No hilar or mediastinal lymphadenopathy. Bony Thorax: Bony thorax appears intact without fractures or deformities. Soft Tissues: Soft tissues overlying the chest wall are unremarkable. IMPRESSION: 1. Bilateral perihilar interstitial thickening, likely due to chronic bronchial inflammation/others, clinical correlation is advised. 2. No significant interval changes. Electronically signed by Juan Pablo Breaux 03-10-2024 01:[address] 03/10/24 01:51 EXAM: CT head/brain wo con CLINICAL HISTORY: None TECHNIQUE: Multiple axial images are obtained from the skull base to the vertex without contrast. CT scan was performed according to ALARA (as low as reasonable achievable). COMPARISON: None. FINDINGS: There is cerebral atrophy. No evidence of space occupying lesion, hemorrhage, edema, mass effect, midline shift, extra axial collection, or hydrocephalus is noted. Basal cisterns are symmetric and normal in size and configuration. There are scattered periventricular hypodensities as can be seen with chronic microvascular ischemic changes. The roblero-white matter differentiation is preserved. Left maxillary and bilateral ethmoid sinusitis. Visualized rest of the paranasal sinuses and mastoid air cells are well aerated. Orbital contents are within normal limits. Bony structures are intact. IMPRESSION: 1. No evidence of acute intracranial abnormality is demonstrated. 2. Chronic microvascular ischemic changes. 3. Cerebral atrophy. 4. CT scan is negative for large territorial ischemic / hemorrhagic stroke. 5. Non contrast CT can be negative in the setting of hyperacute infarct/small ischemic infarct and further evaluation with diffusion weighted MRI is recommended as clinically appropriate. Electronically signed by Juaquin Jeffers 03-10-2024 02:57 AM Head CTA 03/10/24 01:51 EXAM: CT angio head w con CLINICAL HISTORY: neuro deficit, acute stroke suspected, 118 [address] 320 TECHNIQUE: Contrast enhanced thin slice CT angiography scan of the cerebral vessels was performed with intravenous contrast. Angiographic images were processed, 3D MIP images were acquired for interpretation. Contiguous axial images were obtained. Reformatted coronal and sagittal images were also reviewed. If IV contrast material had not been administered, the likelihood of detecting abnormalities relevant to the patients condition would have been substantially decreased. CT scan was performed according to ALARA (as low as reasonable achievable). COMPARISON: none. FINDINGS: Atherosclerotic calcifications are noted involving cavernous, clinoid and supraclinoid segment of bilateral internal carotid artery. Bilateral internal carotid arteries show normal course, calibre and opacification in the canalicular and cavernous part. Their division into the anterior cerebral artery and middle cerebral artery is defined. A1, A2 and M1, M2 segments are normal on both the sides. Bilateral vertebral arteries are seen to unite the form the basilar artery in a normal fashion. Basilar artery shows normal course, caliber and opacification. Its division into the posterior cerebral arteries is defined. Bilateral P1 and P2 segments are normal. Visualized venous structures show normal opacification. No evidence of intracranial aneurysm or AV malformation is seen. IMPRESSION: Atherosclerotic calcifications are noted involving cavernous, clinoid and supraclinoid segment of bilateral internal carotid artery. 1. No evidence of stenosis or aneurysm. No evidence of dissection. Electronically signed by Juaquin Jeffers 03-10-2024 02:54 AM Neck CTA 03/10/24 01:51 EXAM: CT angio neck with con CLINICAL HISTORY: neuro deficit, acute stroke suspected, [address]AY 320 TECHNIQUE: Contrast enhanced thin slice CT angiography scan of the carotid vessels was performed with intravenous contrast. Angiographic images were processed, 3D MIP images were acquired for interpretation.Contiguous axial images were obtained. Reformatted coronal and sagittal images were also reviewed. If IV contrast material had not been administered, the likelihood of detecting abnormalities relevant to the patients condition would have been substantially decreased. CT scan was performed according to ALARA (as low as reasonable achievable). COMPARISON: None. FINDINGS: Atheromatous calcific plaque is noted involving left carotid bulb causing its severe ( 80%-90% ) luminal narrowing. Atheromatous calcific plaque is noted involving right carotid bulb causing its moderate ( 40%-45%) luminal narrowing. Calcified plaques are also noted involving bilateral vertebral artery origin causing mild luminal narrowing. Included great vessels of the aortic arch are grossly unremarkable. Common carotid artery, internal carotid artery , and origin of the external carotid artery are well opacified. Calcified plaque is noted at the origin of the right vertebral artery causing mild stenosis (approximately 20-30%). Distal perfusion is well noted. Right vertebral artery appears small in caliber as compared to the left side. Calcified plaque is also noted at the origin of left vertebral artery causing mild (approximately 20%-30%) stenosis. However, distal perfusion is well seen. Jugular veins are well opacified. Included lung apices are grossly unremarkable. Thyroid gland appears unremarkable. IMPRESSION: 1. Atheromatous calcific plaque is noted involving left carotid bulb causing its severe (80%-90% ) luminal narrowing. 2. Atheromatous calcific plaque is noted involving right carotid bulb causing its moderate (40%-50%) luminal narrowing. 3. Calcified plaque is noted at the origin of the right vertebral artery causing mild (approximately 20%-30%). Distal perfusion is well noted. Right vertebral artery appears small in caliber as compared to the left side. 4. Calcified plaque is also noted at the origin of left vertebral artery causing mild (approximately 20%-30%) stenosis. However, distal perfusion is well seen. Electronically signed by Juaquin Jeffers 03-10-2024 03:00 AM Discharge Plan Visit Data Chief Complaint: Weakness Stated Complaint: Weakness ED Provider: Emeli Drew Discharge Problem: Infection due to human metapneumovirus (hMPV), Dehydration, Vertigo Patient Disposition: Admitted As Inpatient Discharge Instructions Interventions: ED Discharge Assessment Last Done: 03/10/24 07:50
[2024-03-10] MEDS: NSS + 20MEQ KCL 20 MEQ/1,000 ML BAG IV ONE (06:19)
--- NOTE | 2024-03-10 06:51 | History & Physical Report ---
Date of Service March 10, 2024 Assessment & Plan (1) Dizziness: Plan: Dizziness rule out orthostasis Vertiginous component as per patient history Secondary to human metapneumovirus infection Hypomagnesemia possibly contributory hypertension, elevated Carotid artery disease on imaging ARF on CKD secondary to illness DM2 on Ozempic, well-controlled as of recent hemoglobin A1c of 6.16 January 2024 hypothyroidism, euthyroid as of today TSH left breast cancer status post surgery, in remission anxiety/mood disorder, stable Medical telemetry Replace electrolytes Check orthostatic vitals Meclizine as needed vertigo Monitor creatinine response to IVF, hold home diuretic/lisinopril until creatinine back to baseline Outpatient vascular surgery consultation for carotid artery disease ISS BG goal 1 10-1 40, carb count coverage PT OT eval DVT prophylaxis. SCDs re: recent head trauma Full code Patient requests for son to be given updates regarding care. Mr. Amador Gil, contact #[phone]. Text document was generated using [employer] voice recognition software. It may contain grammatical or spelling errors. Kindly contact undersigned for clarification of any documentation item in question. History of Present Illness Chief Complaint: Dizziness, weakness Primary Care Provider: Wing Briseno, DO History obtained from patient and records. Medical history significant for hypertension, CRI (baseline creatinine 1.5-1.6), DM2 on Ozempic, hypothyroidism, left breast cancer status post surgery, chronic tremors, anxiety/mood disorder, gout, urolithiasis. Last confinement 2014 for urolithiasis status post and placement. Patient not feeling well the last few days. Dry cough symptoms associated with nausea/vomiting/diarrhea symptoms. Not sure about sick contacts. Denies headache, chest pain, SOB. Dizziness described as spinning from time to time. Patient seen off the toilet hitting the back of her head against the wall last night. Patient unable to ambulate without dizziness at the ER. Patient lethargic post meclizine administration at the ER. Medical History as above Surgical History : Urologic procedures, partial left mastectomy, cataract surgeries Family History : Heart disease, COPD, mood disorder, DM, lung cancer Personal/Social history : Non-smoker, no EtOH intake, retired [employer] employee Allergies Allergy/AdvReac Type Severity Reaction Status Date / Time No Known Allergies Allergy Mild OTHER Unverified 03/25/14 08:07 Home Medications Medication Instructions Recorded Confirmed Type allopurinol 100 mg tablet 100 mg PO DIRECTED 03/19/20 03/10/24 History atorvastatin 40 mg tablet 40 mg PO DIRECTED 03/19/20 03/10/24 History hydrochlorothiazide 12.5 mg tablet 12.5 mg PO DIRECTED 03/19/20 03/10/24 History levothyroxine 100 mcg tablet 100 mcg PO DIRECTED 03/19/20 03/10/24 History losartan 50 mg tablet 50 mg PO DIRECTED 03/19/20 03/10/24 History paroxetine HCl 20 mg tablet 20 mg PO DIRECTED 03/19/20 03/10/24 History potassium citrate 10 mEq (1,080 10 meq PO DIRECTED 03/19/20 03/10/24 History mg) tablet,extended release aspirin 81 mg tablet 81 mg PO DAILY 03/10/24 03/10/24 History lorazepam 0.5 mg tablet (Ativan) 0.5 mg PO 3XD PRN Anxiety 03/10/24 03/10/24 History meclizine 25 mg tablet 25 mg PO TID PRN dizziness #20 tabs 03/10/24 Rx semaglutide 0.25 mg or 0.5 mg (2 1 mg subcut WK diabetes 03/10/24 03/10/24 History mg/3 mL) subcutaneous pen injector (Ozempic) 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, and L central lumpectomy 11/16/06" Hypothyroidism Nephrolithiasis (03/25/14) Panic disorder Surgical History History of partial mastectomy of left breast "s/p L partial mastectomy 03/23/06, L breast DCIS excision 10/19/06, and L central lumpectomy 11/16/06" Social History Smoking Status: Never smoker Preferred Language: Vietnamese Feels Safe at Home: Yes Review of Systems Review of Systems: As per HPI, all other systems reviewed and negative Physical Exam Physical Exam: GENERAL: Lethargic, no respiratory distress SKIN: Normal color, warm HEENT: [place] palpebral conjunctivae, no ptosis, dry buccal mucosa NECK : Supple, no tenderness CHEST : Decreased breath sounds, no tenderness HEART : RRR, no obvious murmurs ABDOMEN: Some distention, nontender EXTREMITIES : No LE swelling/tenderness, no other conspicuous deformities noted NEUROLOGIC : Lethargic, no facial asymmetry, gait and stance not assessed Results & Data Results & Data Vital Signs (Past 12 Hours) Vital Signs Temp Pulse Pulse Resp BP BP Pulse Ox 03/10/24 06:39 68 20 140/74 93 03/10/24 06:00 72 18 151/76 H 95 03/10/24 04:30 72 20 144/80 H 93 03/10/24 04:13 71 03/10/24 04:00 71 18 149/76 H 94 03/10/24 03:30 71 16 167/108 H 97 03/10/24 03:15 78 19 162/75 H 96 03/10/24 02:31 169/69 H 03/10/24 02:30 78 18 94 03/10/24 02:14 77 20 151/73 H 96 03/10/24 00:33 75 16 94 03/10/24 00:33 74 18 127/73 95 03/09/24 23:27 86 03/09/24 23:26 97 03/09/24 23:19 36.4 C L 79 20 141/73 H 96 O2 Del Method 03/10/24 06:39 Room Air 03/10/24 06:00 Room Air 03/10/24 04:30 Room Air 03/10/24 04:13 03/10/24 04:00 Room Air 03/10/24 03:30 Room Air 03/10/24 03:15 Room Air 03/10/24 02:31 03/10/24 02:30 Room Air 03/10/24 02:14 Room Air 03/10/24 00:33 Room Air 03/10/24 00:33 Room Air 03/09/24 23:27 03/09/24 23:26 Room Air 03/09/24 23:19 Room Air Laboratory Results Laboratory Results WBC 7.94 K/ul (4.8-10.8) 03/09/24 23:20 RBC 4.40 M/uL (4.20-5.40) 03/09/24 23:20 Hgb 13.5 g/dl (12.0-16.0) 03/09/24 23:20 Hct 39.9 % (37.0-47.0) 03/09/24 23:20 MCV 90.7 fL (80.0-100.0) 03/09/24 23:20 MCH 30.7 pg (25.0-34.0) 03/09/24 23:20 MCHC 33.8 g/dL (32.0-36.0) 03/09/24 23:20 RDW Std Deviation 43.8 fL (36.4-46.3) 03/09/24 23:20 RDW Coeff of [place]ibr[place] 13.2 % (11.5-14.5) 03/09/24 23:20 Plt Count 167 K/uL (130-400) 03/09/24 23:20 MPV 10.4 fL (9.4-12.4) 03/09/24 23:20 Immature Gran % (Auto) 0.4 % 03/09/24 23:20 Neut % (Auto) 84.0 % 03/09/24 23:20 Lymph % (Auto) 7.9 % 03/09/24 23:20 [place] % (Auto) 7.2 % 03/09/24 23:20 Eos % (Auto) 0.4 % 03/09/24 23:20 Baso % (Auto) 0.1 % 03/09/24 23:20 Neut # (Auto) 6.67 K/uL (1.40-6.50) H 03/09/24 23:20 Lymph # (Auto) 0.63 K/uL (1.20-3.40) L 03/09/24 23:20 [place] # (Auto) 0.57 K/uL (0.11-0.59) 03/09/24 23:20 Eos # (Auto) 0.03 K/uL (0.00-0.50) 03/09/24 23:20 Baso # (Auto) 0.01 K/uL (0.00-0.20) 03/09/24 23:20 Immature Gran # (Auto) 0.03 K/uL (0.01-0.20) 03/09/24 23:20 Sodium 132 mmol/L (136-145) L 03/09/24 23:20 Potassium 3.9 mmol/L (3.5-5.1) 03/09/24 23:20 Chloride 95 mmol/L (98-107) L 03/09/24 23:20 Carbon Dioxide 26 mmol/L (21-32) 03/09/24 23:20 Anion Gap 11 (3-11) 03/09/24 23:20 BUN 29 mg/dl (6-23) H 03/09/24 23:20 Creatinine 1.82 mg/dl (0.6-1.2) H 03/09/24 23:20 Est Cr Clr Drug Dosing 22.0 ml/min 03/09/24 23:20 eGFR 26.91 03/09/24 23:20 BUN/Creatinine Ratio 15.9 (10-20) 03/09/24 23:20 Glucose 215 mg/dl (70-99(Fasting)) H 03/09/24 23:20 Calcium 8.8 mg/dl (8.6-10.3) 03/09/24 23:20 Total Bilirubin 1.1 mg/dl (0.2-1.0) H 03/09/24 23:20 AST 16 U/L (13-39) 03/09/24 23:20 ALT 10 U/L (7-52) 03/09/24 23:20 Alkaline Phosphatase 75 U/L (34-104) 03/09/24 23:20 Total Protein 7.5 gm/dl (6.0-8.3) 03/09/24 23:20 Albumin 3.8 gm/dl (3.4-5.0) 03/09/24 23:20 Globulin 3.7 gm/dl (2.5-4.0) 03/09/24 23:20 Albumin/Globulin Ratio 1.0 (0.9-2) 03/09/24 23:20 TSH 0.483 uIu/ml (0.300-4.500) 03/09/24 23:20 Urine Color Yellow 03/10/24 03:17 Urine Appearance Clear (Clear) 03/10/24 03:17 Urine pH 5.0 (4.5-7.5) 03/10/24 03:17 Ur Specific [place] 1.045 (1.000-1.030) H 03/10/24 03:17 Urine Protein Trace (Negative) H 03/10/24 03:17 Urine Glucose (UA) Negative (Negative) 03/10/24 03:17 Urine Ketones 1+ (Negative) H 03/10/24 03:17 Urine Blood Negative (Negative) 03/10/24 03:17 Urine Nitrite Negative (Negative) 03/10/24 03:17 Urine Bilirubin Negative (Negative) 03/10/24 03:17 Urine Urobilinogen Negative (Negative) 03/10/24 03:17 Ur Leukocyte Esterase Negative (Negative) 03/10/24 03:17 Urine WBC (Auto) 0-5 /hpf (0-5) 03/10/24 03:17 Urine RBC (Auto) 0-2 /hpf (0-2) 03/10/24 03:17 U Hyaline Cast (Auto) 3-5 /lpf (0-2) H 03/10/24 03:17 U Epithel Cells (Auto) 0-2 /hpf (0-2) 03/10/24 03:17 Urine Bacteria (Auto) None Seen (None Seen) 03/10/24 03:17 Adenovirus (PCR) Not Detected (NotDetected) 03/09/24 23:20 B. pertussis DNA (PCR) Not Detected (NotDetected) 03/09/24 23:20 B.parapertussis DNA PCR Not Detected (NotDetected) 03/09/24 23:20 C. pneumoniae DNA (PCR) Not Detected (NotDetected) 03/09/24 23:20 Coronavirus OC43 (PCR) Not Detected (NotDetected) 03/09/24 23:20 Coronavirus HKU1 (PCR) Not Detected (NotDetected) 03/09/24 23:20 Coronavirus 229E (PCR) Not Detected (NotDetected) 03/09/24 23:20 SARS-CoV-2 (PCR) Not Detected (NotDetected) 03/09/24 23:20 Coronavirus NL63 (PCR) Not Detected (NotDetected) 03/09/24 23:20 Human Metapneumovir PCR DETECTED (NotDetected) A 03/09/24 23:20 Influenza Type A (PCR) Not Detected (NotDetected) 03/09/24 23:20 Influenza Type B (PCR) Not Detected (NotDetected) 03/09/24 23:20 M. pneumoniae (PCR) Not Detected (NotDetected) 03/09/24 23:20 Parainfluenza 1 (PCR) Not Detected (NotDetected) 03/09/24 23:20 Parainfluenza 2 (PCR) Not Detected (NotDetected) 03/09/24 23:20 Parainfluenza 3 (PCR) Not Detected (NotDetected) 03/09/24 23:20 Parainfluenza 4 (PCR) Not Detected (NotDetected) 03/09/24 23:20 RSV (PCR) Not Detected (NotDetected) 03/09/24 23:20 Entero/Rhino (PCR) Not Detected (NotDetected) 03/09/24 23:20 Impressions Chest X-Ray 03/10/24 00:31 EXAM: XR chest 1V portable CLINICAL HISTORY: WEAKNESS JMF TECHNIQUE: An X-ray image of the chest is obtained in AP portable projection. COMPARISON: 03/19/2020 CR FINDINGS: Pulmonary Parenchyma: Bilateral perihilar interstitial thickening. No evidence of consolidation, collapse, or focal opacities. No pulmonary nodules are identified. No evidence of pleural effusion or pleural thickening. Heart and Mediastinum: Heart size and shape are normal. No mediastinal widening or masses. No hilar or mediastinal lymphadenopathy. Bony Thorax: Bony thorax appears intact without fractures or deformities. Soft Tissues: Soft tissues overlying the chest wall are unremarkable. IMPRESSION: 1. Bilateral perihilar interstitial thickening, likely due to chronic bronchial inflammation/others, clinical correlation is advised. 2. No significant interval changes. Electronically signed by Juan Pablo Breaux 03-10-2024 01:[address] 03/10/24 01:51 EXAM: CT head/brain wo con CLINICAL HISTORY: None TECHNIQUE: Multiple axial images are obtained from the skull base to the vertex without contrast. CT scan was performed according to ALARA (as low as reasonable achievable). COMPARISON: None. FINDINGS: There is cerebral atrophy. No evidence of space occupying lesion, hemorrhage, edema, mass effect, midline shift, extra axial collection, or hydrocephalus is noted. Basal cisterns are symmetric and normal in size and configuration. There are scattered periventricular hypodensities as can be seen with chronic microvascular ischemic changes. The roblero-white matter differentiation is preserved. Left maxillary and bilateral ethmoid sinusitis. Visualized rest of the paranasal sinuses and mastoid air cells are well aerated. Orbital contents are within normal limits. Bony structures are intact. IMPRESSION: 1. No evidence of acute intracranial abnormality is demonstrated. 2. Chronic microvascular ischemic changes. 3. Cerebral atrophy. 4. CT scan is negative for large territorial ischemic / hemorrhagic stroke. 5. Non contrast CT can be negative in the setting of hyperacute infarct/small ischemic infarct and further evaluation with diffusion weighted MRI is recommended as clinically appropriate. Electronically signed by Juaquin Jeffers 03-10-2024 02:57 AM Head CTA 03/10/24 01:51 EXAM: CT angio head w con CLINICAL HISTORY: neuro deficit, acute stroke suspected, 118 [address] 320 TECHNIQUE: Contrast enhanced thin slice CT angiography scan of the cerebral vessels was performed with intravenous contrast. Angiographic images were processed, 3D MIP images were acquired for interpretation. Contiguous axial images were obtained. Reformatted coronal and sagittal images were also reviewed. If IV contrast material had not been administered, the likelihood of detecting abnormalities relevant to the patients condition would have been substantially decreased. CT scan was performed according to ALARA (as low as reasonable achievable). COMPARISON: none. FINDINGS: Atherosclerotic calcifications are noted involving cavernous, clinoid and supraclinoid segment of bilateral internal carotid artery. Bilateral internal carotid arteries show normal course, calibre and opacification in the canalicular and cavernous part. Their division into the anterior cerebral artery and middle cerebral artery is defined. A1, A2 and M1, M2 segments are normal on both the sides. Bilateral vertebral arteries are seen to unite the form the basilar artery in a normal fashion. Basilar artery shows normal course, caliber and opacification. Its division into the posterior cerebral arteries is defined. Bilateral P1 and P2 segments are normal. Visualized venous structures show normal opacification. No evidence of intracranial aneurysm or AV malformation is seen. IMPRESSION: Atherosclerotic calcifications are noted involving cavernous, clinoid and supraclinoid segment of bilateral internal carotid artery. 1. No evidence of stenosis or aneurysm. No evidence of dissection. Electronically signed by Juaquin Jeffers 03-10-2024 02:54 AM Neck CTA 03/10/24 01:51 EXAM: CT angio neck with con CLINICAL HISTORY: neuro deficit, acute stroke suspected, [address]AY 320 TECHNIQUE: Contrast enhanced thin slice CT angiography scan of the carotid vessels was performed with intravenous contrast. Angiographic images were processed, 3D MIP images were acquired for interpretation.Contiguous axial images were obtained. Reformatted coronal and sagittal images were also reviewed. If IV contrast material had not been administered, the likelihood of detecting abnormalities relevant to the patients condition would have been substantially decreased. CT scan was performed according to ALARA (as low as reasonable achievable). COMPARISON: None. FINDINGS: Atheromatous calcific plaque is noted involving left carotid bulb causing its severe ( 80%-90% ) luminal narrowing. Atheromatous calcific plaque is noted involving right carotid bulb causing its moderate ( 40%-45%) luminal narrowing. Calcified plaques are also noted involving bilateral vertebral artery origin causing mild luminal narrowing. Included great vessels of the aortic arch are grossly unremarkable. Common carotid artery, internal carotid artery , and origin of the external carotid artery are well opacified. Calcified plaque is noted at the origin of the right vertebral artery causing mild stenosis (approximately 20-30%). Distal perfusion is well noted. Right vertebral artery appears small in caliber as compared to the left side. Calcified plaque is also noted at the origin of left vertebral artery causing mild (approximately 20%-30%) stenosis. However, distal perfusion is well seen. Jugular veins are well opacified. Included lung apices are grossly unremarkable. Thyroid gland appears unremarkable. IMPRESSION: 1. Atheromatous calcific plaque is noted involving left carotid bulb causing its severe (80%-90% ) luminal narrowing. 2. Atheromatous calcific plaque is noted involving right carotid bulb causing its moderate (40%-50%) luminal narrowing. 3. Calcified plaque is noted at the origin of the right vertebral artery causing mild (approximately 20%-30%). Distal perfusion is well noted. Right vertebral artery appears small in caliber as compared to the left side. 4. Calcified plaque is also noted at the origin of left vertebral artery causing mild (approximately 20%-30%) stenosis. However, distal perfusion is well seen. Electronically signed by Juaquin Jeffers 03-10-2024 03:00 AM Diagnostic Findings EKG as per my interpretation :Rate 80, NSR, 1 AVB, no ischemia Code Status & VTE Plan VTE Prophylaxis Plan VTE Prophylaxis will be ordered: Yes
[2024-03-10 06:59] LABS: Magnesium 1.3 mg/dl (1.7-2.4)
[2024-03-10] MEDS ORDERED: MECLIZINE 12.5 MG TAB PO PRN (07:40)
[2024-03-10] MEDS ORDERED: LORazepam 0.5 MG TAB PO PRN (07:40)
[2024-03-10] MEDS ORDERED: ACETAMINOPHEN 325 MG TAB PO PRN (07:42)
[2024-03-10] MEDS ORDERED: oxyCODONE HCL IR 5 MG TAB (IMMEDIATE RELEASE) PO PRN (07:42)
[2024-03-10] MEDS ORDERED: PROMETHAZINE 6.25 MG/50.25 ML BAG IV PRN (07:42)
[2024-03-10] MEDS ORDERED: DEXTROSE 50% 50 ML SYRINGE IV PRN (07:49)
[2024-03-10] MEDS ORDERED: GLUCOSE 40% GEL 15 GM TUBE PO PRN (07:49)
[2024-03-10] MEDS ORDERED: CARBOHYDRATES FOR HYPOGLYCEMIA PO PRN (07:49)
[2024-03-10] MEDS ORDERED: GLUCAGON FOR INJ 1 MG VIAL SQ PRN (07:49)
[2024-03-10] MEDS ORDERED: GLUCOSE 10 TAB/TUBE PO PRN (07:49)
[2024-03-10] MEDS: PARoxetine HCL 20 MG TAB PO SCH (08:40)
[2024-03-10] MEDS: LEVOTHYROXINE SODIUM 100 MCG TABLET PO SCH (08:55)
[2024-03-10] MEDS: ASPIRIN 81 MG ECTAB PO SCH (08:55)
[2024-03-10] MEDS: ATORVASTATIN 40 MG TAB PO SCH (08:55)
[2024-03-10] MEDS: allopurinoL 100 MG TAB PO SCH (08:56)
[2024-03-10] MEDS: MAGNESIUM SULFATE / D5W 1 GM/100 ML BAG IV SCH (08:58)
[2024-03-10] MEDS: INSULIN ASPART PER UNIT CHARGE SC SCH (10:48)
[2024-03-10] MEDS: NSS + 20MEQ KCL 20 MEQ/1,000 ML BAG IV SCH (12:24)
--- NOTE | 2024-03-10 12:59 | Electrocardiogram Report ---
Test Reason : Blood Pressure : */* mmHG Vent. Rate : 78 BPM Atrial Rate : 78 BPM P-R Int : 222 ms QRS Dur : 90 ms QT Int : 396 ms P-R-T Axes : 85 7 71 degrees QTcB Int : 451 ms Sinus rhythm with 1st degree A-V block Otherwise normal ECG When compared with ECG of 19-Mar-2020 09:21, No significant change was found Confirmed by Felipe Ledezma ([id number]) on 03/10/2024 12:58:42 PM Referred By: REFERRED SELF Confirmed By: Felipe Ledezma
--- NOTE | 2024-03-10 16:51 | Communication Note ---
Date of Service: March 10, 2024 The patient was seen and examined in emergency room. She was admitted with not feeling well for the last few days with some cough and associated nausea vo miting and diarrhea noted to have metapneumovirus virus infection also dehydration. She has been complaining of dizziness as well with a history of fall. She has been feeling better since admission and will a full progress note tomorrow. DR Sherif Caruso
[2024-03-11 06:36] LABS: Basophils # (auto) 0.02 K/uL (0.00-0.20); Basophils % (auto) 0.4 %; Eosinophils # (auto) 0.22 K/uL (0.00-0.50); Hematocrit (blood only) 34.8 % (37.0-47.0); Hemoglobin 11.8 g/dl (12.0-16.0); Immature Granulocytes # (auto) 0.02 K/uL (0.01-0.20); Immature Granulocytes % (auto) 0.4 %; Lymphocytes # (auto) 1.37 K/uL (1.20-3.40); Lymphocytes % (auto) 24.6 %; Mean Corpuscular Hemoglobin 30.3 pg (25.0-34.0); Mean Corpuscular Hgb Conc 33.9 g/dL (32.0-36.0); Mean Corpuscular Volume 89.2 fL (80.0-100.0); Mean Platelet Volume 10.3 fL (9.4-12.4); Monocytes # (auto) 0.41 K/uL (0.11-0.59); Monocytes % (auto) 7.4 %; Neutrophils # (auto) 3.52 K/uL (1.40-6.50); Neutrophils % (auto) 63.2 %; Platelet Count 173 K/uL (130-400); RDW Coefficient of Variation 13.2 % (11.5-14.5); RDW Standard Deviation 43.4 fL (36.4-46.3); White Blood Count 5.56 K/ul (4.8-10.8)
[2024-03-11 06:57] LABS: BUN Creatinine Ratio 16.7 (10-20); Calcium 7.9 mg/dl (8.6-10.3); Creatinine Clr Calc Pharmacy 33.3 ml/min; Magnesium 1.7 mg/dl (1.7-2.4); Phosphorus 2.3 mg/dl (2.5-4.9); Potassium 3.9 mmol/L (3.5-5.1)
[2024-03-11] MEDS: LOSARTAN POTASSIUM 50 MG TAB PO SCH (09:18)
[2024-03-11] MEDS: POT PHOSPHATE MONOBASIC W/ SOD TAB PO SCH (09:19)
--- NOTE | 2024-03-11 14:55 | Hospitalist Progress Note ---
Date of Service March 11, 2024 Assessment & Plan (1) Dizziness: (2) Infection due to human metapneumovirus (hMPV): Plan: This is an 83yo F with PMH of hypothyroidism, panic disorder, DM II, CKD III and admitted for dizziness and weakness 2/2 human metapneumovirus infection. Improving with fluids, dizziness has resolved since admission H/o vertigo - Meclizine PRN Still with loose stool - stool culture and c diff pending. If negative, will start Imodium PT/OT for evaluation given weakness Lyte repletion PRN (3) HTN (hypertension): Plan: Losartan and hctz initially held with elevated Cr - has returned to baseline Resumed losartan given elevated BP Consider resuming hctz once tolerate diet (4) Acute kidney injury superimposed on CKD: Plan: Initial Cr 1.82 in setting of URI, GI losses and poor PO intake (baseline Cr ~mid1s) Cr returned to 1.2 today Daily BMP (5) DM II (diabetes mellitus, type II), controlled: Plan: A1c 6.9 in Jan 2024 PCP discontinued glimeperide in Jan due to dizziness/lightheadedness, still on Ozempic SSI while in-patient [facility]G AC HS (6) Hypothyroidism: Plan: Euthyroid on admission. Continue levothyroxine (7) Carotid arterial disease: Plan: Neck CTA demonstrated bilateral carotid artery disease. Dizziness on admission has resolved with fluids PCP to follow up on possible outpatient vasc surgery consultation for carotid artery disease (8) Panic disorder: Plan: Stable; continue paroxetine DVT Ppx: SCDs (2/2 recent head trauma per admission note) Code status: FULL PCP: Finn Dispo: admitted to med/tele I spent a total of 55 minutes coordinating, documenting, and providing care for this patient excluding time spent in the performance of separately billed services. Updated son, Amador Gil, over the phone today ([phone]) Admission and Anticipated Discharge Date Admission Date: March 10, 2024 Supervising Physician Co-Signing Physician Notes Attending addendum: The patient was seen and examined in the medical telemetry unit She has been having diarrhea and the stool loss negative for any C. difficile Her weakness is persisting and she will need to have physical therapy Denies any other significant symptoms On examination Lying in bed without any apparent distress Afebrile and is hemodynamically stable Other system examination remain unremarkable Her labs, medications and imaging studies reviewed Has human metapneumovirus with generalized weakness Has been having diarrhea and will try Imodium since C. difficile has been negative Reviewed with assessment plan as outlined above by Evy Patricia PA-C and take the full responsibility of care in the hospital Dr Sherif Caruso Subjective Seen and examined in 250 bed 2. Feeling better today-last week, cough improved, hungry for regular diet. Dizziness improved but has not gotten out of bed to work with PT/OT yet. However still having loose bowel movements every few hours. 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 Denies any fever, chills, headache, chest pain, shortness of breath or abdominal pain. Review of Systems Review of Systems: At least ten systems reviewed and negative except as noted in the HPI. Physical Exam Physical Exam: Gen: WD/WN, NAD, resting in bed comfortably, A&Ox3 HEENT: Normocephalic, atraumatic, conjunctivae moist, sclerae anicteric, mucous membranes moist Lung: Clear to Auscultation bilaterally Heart: Regular rate, regular rhythm Abdomen: Soft, NT, ND +BS x 4 Extremities: no edema Skin: Warm, no rash Results & Data Results & Data Vital Signs (Past 12 Hours) Vital Signs Temp Pulse Pulse Resp BP Pulse Ox O2 Del Method 03/11/24 14:38 72 03/11/24 11:33 36.4 C L 66 18 123/69 95 Room Air 03/11/24 09:41 Room Air 03/11/24 07:39 70 03/11/24 07:26 36.5 C 83 18 160/82 H 95 Room Air 03/11/24 04:15 37.0 C 70 18 140/73 93 Room Air Laboratory Results Short CBC 03/11/24 Range/Units 05:46 WBC 5.56 (4.8-10.8) K/ul Hgb 11.8 L (12.0-16.0) g/dl Hct 34.8 L (37.0-47.0) % Plt Count 173 (130-400) K/uL BMP 03/11/24 05:46 Sodium 136 Potassium 3.9 Chloride 107 Carbon Dioxide 24 BUN 20 Creatinine 1.20 D Glucose 112 H Calcium 7.9 L Diagnostic Findings Chest X-Ray 03/10/24 00:31 EXAM: XR chest 1V portable CLINICAL HISTORY: WEAKNESS JMF TECHNIQUE: An X-ray image of the chest is obtained in AP portable projection. COMPARISON: 03/19/2020 CR FINDINGS: Pulmonary Parenchyma: Bilateral perihilar interstitial thickening. No evidence of consolidation, collapse, or focal opacities. No pulmonary nodules are identified. No evidence of pleural effusion or pleural thickening. Heart and Mediastinum: Heart size and shape are normal. No mediastinal widening or masses. No hilar or mediastinal lymphadenopathy. Bony Thorax: Bony thorax appears intact without fractures or deformities. Soft Tissues: Soft tissues overlying the chest wall are unremarkable. IMPRESSION: 1. Bilateral perihilar interstitial thickening, likely due to chronic bronchial inflammation/others, clinical correlation is advised. 2. No significant interval changes. Electronically signed by Juan Pablo Breaux 03-10-2024 01:[address] 03/10/24 01:51 EXAM: CT head/brain wo con CLINICAL HISTORY: None TECHNIQUE: Multiple axial images are obtained from the skull base to the vertex without contrast. CT scan was performed according to ALARA (as low as reasonable achievable). COMPARISON: None. FINDINGS: There is cerebral atrophy. No evidence of space occupying lesion, hemorrhage, edema, mass effect, midline shift, extra axial collection, or hydrocephalus is noted. Basal cisterns are symmetric and normal in size and configuration. There are scattered periventricular hypodensities as can be seen with chronic microvascular ischemic changes. The roblero-white matter differentiation is preserved. Left maxillary and bilateral ethmoid sinusitis. Visualized rest of the paranasal sinuses and mastoid air cells are well aerated. Orbital contents are within normal limits. Bony structures are intact. IMPRESSION: 1. No evidence of acute intracranial abnormality is demonstrated. 2. Chronic microvascular ischemic changes. 3. Cerebral atrophy. 4. CT scan is negative for large territorial ischemic / hemorrhagic stroke. 5. Non contrast CT can be negative in the setting of hyperacute infarct/small ischemic infarct and further evaluation with diffusion weighted MRI is recommended as clinically appropriate. Electronically signed by Juaquin Jeffers 03-10-2024 02:57 AM Head CTA 03/10/24 01:51 EXAM: CT angio head w con CLINICAL HISTORY: neuro deficit, acute stroke suspected, 118 [address] 320 TECHNIQUE: Contrast enhanced thin slice CT angiography scan of the cerebral vessels was performed with intravenous contrast. Angiographic images were processed, 3D MIP images were acquired for interpretation. Contiguous axial images were obtained. Reformatted coronal and sagittal images were also reviewed. If IV contrast material had not been administered, the likelihood of detecting abnormalities relevant to the patients condition would have been substantially decreased. CT scan was performed according to ALARA (as low as reasonable achievable). COMPARISON: none. FINDINGS: Atherosclerotic calcifications are noted involving cavernous, clinoid and supraclinoid segment of bilateral internal carotid artery. Bilateral internal carotid arteries show normal course, calibre and opacification in the canalicular and cavernous part. Their division into the anterior cerebral artery and middle cerebral artery is defined. A1, A2 and M1, M2 segments are normal on both the sides. Bilateral vertebral arteries are seen to unite the form the basilar artery in a normal fashion. Basilar artery shows normal course, caliber and opacification. Its division into the posterior cerebral arteries is defined. Bilateral P1 and P2 segments are normal. Visualized venous structures show normal opacification. No evidence of intracranial aneurysm or AV malformation is seen. IMPRESSION: Atherosclerotic calcifications are noted involving cavernous, clinoid and supraclinoid segment of bilateral internal carotid artery. 1. No evidence of stenosis or aneurysm. No evidence of dissection. Electronically signed by Juaquin Jeffers 03-10-2024 02:54 AM Neck CTA 03/10/24 01:51 EXAM: CT angio neck with con CLINICAL HISTORY: neuro deficit, acute stroke suspected, [address]AY 320 TECHNIQUE: Contrast enhanced thin slice CT angiography scan of the carotid vessels was performed with intravenous contrast. Angiographic images were processed, 3D MIP images were acquired for interpretation.Contiguous axial images were obtained. Reformatted coronal and sagittal images were also reviewed. If IV contrast material had not been administered, the likelihood of detecting abnormalities relevant to the patients condition would have been substantially decreased. CT scan was performed according to ALARA (as low as reasonable achievable). COMPARISON: None. FINDINGS: Atheromatous calcific plaque is noted involving left carotid bulb causing its severe ( 80%-90% ) luminal narrowing. Atheromatous calcific plaque is noted involving right carotid bulb causing its moderate ( 40%-45%) luminal narrowing. Calcified plaques are also noted involving bilateral vertebral artery origin causing mild luminal narrowing. Included great vessels of the aortic arch are grossly unremarkable. Common carotid artery, internal carotid artery , and origin of the external carotid artery are well opacified. Calcified plaque is noted at the origin of the right vertebral artery causing mild stenosis (approximately 20-30%). Distal perfusion is well noted. Right vertebral artery appears small in caliber as compared to the left side. Calcified plaque is also noted at the origin of left vertebral artery causing mild (approximately 20%-30%) stenosis. However, distal perfusion is well seen. Jugular veins are well opacified. Included lung apices are grossly unremarkable. Thyroid gland appears unremarkable. IMPRESSION: 1. Atheromatous calcific plaque is noted involving left carotid bulb causing its severe (80%-90% ) luminal narrowing. 2. Atheromatous calcific plaque is noted involving right carotid bulb causing its moderate (40%-50%) luminal narrowing. 3. Calcified plaque is noted at the origin of the right vertebral artery causing mild (approximately 20%-30%). Distal perfusion is well noted. Right vertebral artery appears small in caliber as compared to the left side. 4. Calcified plaque is also noted at the origin of left vertebral artery causing mild (approximately 20%-30%) stenosis. However, distal perfusion is well seen. Electronically signed by Juaquin Jeffers 03-10-2024 03:00 AM
[2024-03-11] MEDS ORDERED: SODIUM CHLORIDE 0.9% 500 ML IV SCH (15:45)
[2024-03-11 15:56] LABS: Adenovirus F 40/41 PCR Not Detected (NotDetected); Astrovirus PCR Not Detected (NotDetected); Campylobacter PCR Not Detected (NotDetected); Cryptosporidium PCR Not Detected (NotDetected); Cyclospora cayetanensis PCR Not Detected (NotDetected); Entamoeba histolytica PCR Not Detected (NotDetected); Enteroaggregative E.coli(EAEC) Not Detected (NotDetected); Enteropathogenic E.coli (EPEC) Not Detected (NotDetected); Enterotoxigenic E.coli (ETEC) Not Detected (NotDetected); Giardia lamblia PCR Not Detected (NotDetected); Norovirus GI/GII PCR Not Detected (NotDetected); Plesiomonas shigelloides PCR Not Detected (NotDetected); Rotavirus A PCR Not Detected (NotDetected); Salmonella PCR Not Detected (NotDetected); Sapovirus PCR Not Detected (NotDetected); Shiga-like Toxin E.coli (STEC) Not Detected (NotDetected); Shigella/Enteroinvasive E.coli Not Detected (NotDetected); Vibrio cholerae PCR Not Detected (NotDetected); Vibrio species PCR Not Detected (NotDetected); Yersinia enterocolitica PCR Not Detected (NotDetected)
[2024-03-11] MEDS: LOPERAMIDE HCL 2 MG CAP PO PRN (16:05)
[2024-03-11] MEDS: PSYLLIUM or GUAR GUM FIBER 4GM PACKET PO PRN (21:43)
[2024-03-12 06:54] LABS: Hematocrit (blood only) 33.5 % (37.0-47.0); Hemoglobin 11.4 g/dl (12.0-16.0); Mean Corpuscular Hemoglobin 30.5 pg (25.0-34.0); Mean Corpuscular Volume 89.6 fL (80.0-100.0); Mean Platelet Volume 9.6 fL (9.4-12.4); Platelet Count 183 K/uL (130-400); RDW Coefficient of Variation 13.1 % (11.5-14.5); RDW Standard Deviation 42.8 fL (36.4-46.3); Red Blood Count 3.74 M/uL (4.20-5.40); White Blood Count 5.18 K/ul (4.8-10.8)
[2024-03-12 07:35] LABS: Albumin Globulin Ratio 1.1 (0.9-2); Albumin Level 3.1 gm/dl (3.4-5.0); BUN Creatinine Ratio 12.9 (10-20); Bilirubin,Total 0.6 mg/dl (0.2-1.0); Calcium 7.8 mg/dl (8.6-10.3); Creatinine Clr Calc Pharmacy 34.5 ml/min; Globulin 2.9 gm/dl (2.5-4.0); Potassium 3.6 mmol/L (3.5-5.1)
--- NOTE | 2024-03-12 07:47 | Hospitalist Progress Note ---
Date of Service March 12, 2024 Assessment & Plan (1) Dizziness: (2) Infection due to human metapneumovirus (hMPV): Plan: This is an 83yo F with PMH of hypothyroidism, panic disorder, DM II, CKD III and admitted for dizziness and weakness 2/2 human metapneumovirus infection. Improving with fluids, dizziness has resolved since admission H/o vertigo - Meclizine PRN Still with loose stool - stool culture and c diff pending. If negative, will start Imodium PT/OT for evaluation given weakness Lyte repletion PRN (3) HTN (hypertension): Plan: Losartan and hctz initially held with elevated Cr - has returned to baseline Resumed losartan given elevated BP Consider resuming hctz once tolerate diet (4) Acute kidney injury superimposed on CKD: Plan: Initial Cr 1.82 in setting of URI, GI losses and poor PO intake (baseline Cr ~mid1s) Cr returned to 1.2 today Daily BMP (5) DM II (diabetes mellitus, type II), controlled: Plan: A1c 6.9 in Jan 2024 PCP discontinued glimeperide in Jan due to dizziness/lightheadedness, still on Ozempic SSI while in-patient BSG AC HS (6) Hypothyroidism: Plan: Euthyroid on admission. Continue levothyroxine (7) Carotid arterial disease: Plan: Neck CTA demonstrated bilateral carotid artery disease. Dizziness on admission has resolved with fluids PCP to follow up on possible outpatient vasc surgery consultation for carotid artery disease (8) Panic disorder: Plan: Stable; continue paroxetine DVT Ppx: SCDs (2/2 recent head trauma per admission note) Code status: FULL PCP: Finn Dispo: admitted to med/tele I spent a total of 55 minutes coordinating, documenting, and providing care for this patient excluding time spent in the performance of separately billed services. Updated son, Amador Gil, over the phone today ([phone]) Admission and Anticipated Discharge Date Admission Date: March 10, 2024 Supervising Physician Co-Signing Physician Notes 03/12/2024 The patient was seen and examined in medical telemetry unit She feels lot better and wants to go home today Has not had the physical therapy yet and awaiting PT before discharge On examination Lying in bed without any acute distress Remains hemodynamically stable Other system examination is unremarkable Her labs and medications reviewed Remains medically stable with recent human metapneumovirus infection Following PT evaluation she will be discharged home this afternoon Agree with assessment and plan as outlined above by Carol RICCI and take the full responsibility of care in the hospital Dr Sherif Caruso Results & Data Results & Data Vital Signs (Past 12 Hours) Vital Signs Temp Pulse Pulse Resp BP BP Pulse Ox 03/12/24 07:17 62 03/12/24 02:15 36.6 C 68 18 144/71 H 94 03/11/24 22:56 36.7 C 67 16 163/78 H 96 03/11/24 21:43 66 O2 Del Method 03/12/24 07:17 03/12/24 02:15 Room Air 03/11/24 22:56 Room Air 03/11/24 21:43 Laboratory Results Short CBC 03/12/24 Range/Units 06:37 WBC 5.18 (4.8-10.8) K/ul Hgb 11.4 L (12.0-16.0) g/dl Hct 33.5 L (37.0-47.0) % Plt Count 183 (130-400) K/uL BMP 03/12/24 06:37 Sodium 137 Potassium 3.6 Chloride 106 Carbon Dioxide 26 BUN 15 Creatinine 1.16 Glucose 95 Calcium 7.8 L Liver Function 03/12/24 Range/Units 06:37 Total Bilirubin 0.6 (0.2-1.0) mg/dl AST 16 (13-39) U/L ALT 9 (7-52) U/L Alkaline Phosphatase 61 (34-104) U/L Albumin 3.1 L (3.4-5.0) gm/dl
[2024-03-12 08:26] VITALS: RESP 20
[2024-03-12] MEDS ORDERED: NON-FORMULARY MEDICATION (Magnesium 500 mg Tablet) PO SCH (09:00)
[2024-03-12 11:32] VITALS: TEMP 97.3; O2SAT 91
--- NOTE | 2024-03-12 15:07 | Discharge Summary ---
Date of Service March 12, 2024 Admission HPI Per Admitting Provider History obtained from patient and records. Medical history significant for hypertension, CRI (baseline creatinine 1.5-1.6), DM2 on Ozempic, hypothyroidism, left breast cancer status post surgery, chronic tremors, anxiety/mood disorder, gout, urolithiasis. Last confinement 2014 for urolithiasis status post and placement. Patient not feeling well the last few days. Dry cough symptoms associated with nausea/vomiting/diarrhea symptoms. Not sure about sick contacts. Denies headache, chest pain, SOB. Dizziness described as spinning from time to time. Patient seen off the toilet hitting the back of her head against the wall last night. Patient unable to ambulate without dizziness at the ER. Patient lethargic post meclizine administration at the ER. Medical History as above Surgical History : Urologic procedures, partial left mastectomy, cataract surgeries Family History : Heart disease, COPD, mood disorder, DM, lung cancer Personal/Social history : Non-smoker, no EtOH intake, retired [employer] employee Admission Exam Per Admitting Provider GENERAL: Lethargic, no respiratory distress SKIN: Normal color, warm HEENT: [place] palpebral conjunctivae, no ptosis, dry buccal mucosa NECK : Supple, no tenderness CHEST : Decreased breath sounds, no tenderness HEART : RRR, no obvious murmurs ABDOMEN: Some distention, nontender EXTREMITIES : No LE swelling/tenderness, no other conspicuous deformities noted NEUROLOGIC : Lethargic, no facial asymmetry, gait and stance not assessed Principal Diagnosis dizziness Discharge Exam Neuro: AAOx4, PERRLA, no aphagia, memory changes, CNII-XII grossly intact HEENT: head normocephalic, moist mucus membranes CV: S1/S2, (-) M/G/R, (-) edema, cap refill < 3 seconds Resp: Lungs decreased in all meneses. On RA GI: Abdomen S/NT/ND, Ax4 bowel sounds, (-) CVA tenderness Musculoskeletal: 5/5 B/L UE strength, 5/5 B/L LE strength. uses a walker for ambulation Skin: (-) rashes , (-) erythema. Psych: euthymic mood Discharge Data Allergies Allergy/AdvReac Type Severity Reaction Status Date / Time No Known Allergies Allergy Mild OTHER Unverified 03/25/14 08:07 Consultations 03/10/24 05:38 ED Decision to Admit Stat Ordered Studies CXR on 03/10/24 IMPRESSION: 1. Bilateral perihilar interstitial thickening, likely due to chronic bronchial inflammation/others, clinical correlation is advised. 2. No significant interval changes. Head CT 03/10/24 IMPRESSION: 1. No evidence of acute intracranial abnormality is demonstrated. 2. Chronic microvascular ischemic changes. 3. Cerebral atrophy. 4. CT scan is negative for large territorial ischemic / hemorrhagic stroke. 5. Non contrast CT can be negative in the setting of hyperacute infarct/small ischemic infarct and further evaluation with diffusion weighted MRI is recommended as clinically appropriate. Head/Neck CTA 03/10/24 IMPRESSION: Atherosclerotic calcifications are noted involving cavernous, clinoid and supraclinoid segment of bilateral internal carotid artery. 1. No evidence of stenosis or aneurysm. No evidence of dissection. IMPRESSION: 1. Atheromatous calcific plaque is noted involving left carotid bulb causing its severe (80%-90% ) luminal narrowing. 2. Atheromatous calcific plaque is noted involving right carotid bulb causing its moderate (40%-50%) luminal narrowing. 3. Calcified plaque is noted at the origin of the right vertebral artery causing mild (approximately 20%-30%). Distal perfusion is well noted. Right vertebral artery appears small in caliber as compared to the left side. 4. Calcified plaque is also noted at the origin of left vertebral artery causing mild (approximately 20%-30%) stenosis. However, distal perfusion is well seen. Hospital Course (1) Dizziness: (2) Infection due to human metapneumovirus (hMPV): (3) HTN (hypertension): (4) Acute kidney injury superimposed on CKD: (5) DM II (diabetes mellitus, type II), controlled: (6) Carotid arterial disease: Plan This is an 83yo F with PMH of hypothyroidism, panic disorder, DM II, CKD III and admitted for dizziness and weakness 2/2 human metapneumovirus infection. She underwent diagnostic imaging that included the following outlined below. Her symptoms improved with IV fluids, dizziness and vertigo. After receiving IV fluids her symptoms did improve. She was having loose stool and CDiff were both negative. She was diagnosed with hMNV and was treated conservatively. Improving with fluids, dizziness has resolved since admission . She takes losartan/HCTZ at home and they were initially held due to her elevated creatinine of 1.82. This was assumed to be in the setting of a URI and GI losses with poor p.o. intake combination. Her baseline creatinine was in the mid ones. Her creatinine has since returned to normal and her blood pressure medications have been resumed. As outlined below her neck CTA demonstrated bilateral carotid artery disease. As indicated in her discharge instructions for the patient her PCP should follow-up on the possibility of an outpatient vascular surgery consultation for further evaluation. CXR on 03/10/24 IMPRESSION: 1. Bilateral perihilar interstitial thickening, likely due to chronic bronchial inflammation/others, clinical correlation is advised. 2. No significant interval changes. Head CT 03/10/24 IMPRESSION: 1. No evidence of acute intracranial abnormality is demonstrated. 2. Chronic microvascular ischemic changes. 3. Cerebral atrophy. 4. CT scan is negative for large territorial ischemic / hemorrhagic stroke. 5. Non contrast CT can be negative in the setting of hyperacute infarct/small ischemic infarct and further evaluation with diffusion weighted MRI is recommended as clinically appropriate. Head/Neck CTA 03/10/24 IMPRESSION: Atherosclerotic calcifications are noted involving cavernous, clinoid and supraclinoid segment of bilateral internal carotid artery. 1. No evidence of stenosis or aneurysm. No evidence of dissection. IMPRESSION: 1. Atheromatous calcific plaque is noted involving left carotid bulb causing its severe (80%-90% ) luminal narrowing. 2. Atheromatous calcific plaque is noted involving right carotid bulb causing its moderate (40%-50%) luminal narrowing. 3. Calcified plaque is noted at the origin of the right vertebral artery causing mild (approximately 20%-30%). Distal perfusion is well noted. Right vertebral artery appears small in caliber as compared to the left side. 4. Calcified plaque is also noted at the origin of left vertebral artery causing mild (approximately 20%-30%) stenosis. However, distal perfusion is well seen. Total Time Total Time Spent Total Time Spent (In Minutes): I spent a total of 56 minutes coordinating, documenting, and providing care for this patient excluding time spent in the performance of separately billed services. All of the aforementioned completed while collaborating with the assigned attending physician for a full treatment plan. Please see their addendum for further details. Discharge Plan Discharge Items Patient Disposition: Home - Self-Care Reason For Visit: DIZZINESS Discharge Diagnosis: Dizziness and ambulatory dysfunction Activity: Resume your previous activity Non-emergency contact: Primary Care Provider Call non-emergency contact if: you have any medication questions, your pain is not controlled and your temperature is above 101 Follow-up/Referrals: Wing Briseno DO [Primary Care Provider] - Diet: Heart Healthy Addtl Attending Provider Instructions: Giovanni Msoeley presented to the [facility] with dizziness and weakness on March 10, 2024 and you were admitted for further evaluation of your dizziness and weakness. You were incidentally found to have human metapneumovirus (hMPV) for which you were treated conservatively and your dizziness symptoms resolved with intravenous fluids. You were also experiencing loose stools for which we were able to rule out an infection in your stool and was able to determine that you did not have C-Diff. Your kidney function was elevated, so we held some of your blood pressure medications while you were inpatient since these medications can cause worsening of your kidney; this has since resolved and you have resumed taking your home blood pressure medications. In the Emergency Room, you underwent a few different diagnostic imaging studies as outlined below. Based on the findings of the head/neck CTA it is recommended that your PCP discuss the possibility of arranging an evaluation with a vascular surgeon as an outpatient for further investigation of your coronary artery disea se. You were see and evaluated by Physical Therapy today and they suggested that you should utilize a wheeled walker while ambulating at home to ensure safely navigating your home; it sounds like you have a good support system in place with your adult children while you recover. It is recommended that you or others around you wear a mask for 4-5 days at home as you could continue to shed virus for up to 10 days. It is important to practice good hand washing and cleaning of common spaces with disinfectant. SUMMARY OF TEST RESULTS: CXR on 03/10/24 IMPRESSION: 1. Bilateral perihilar interstitial thickening, likely due to chronic bronchial inflammation/others, clinical correlation is advised. 2. No significant interval changes. Head CT 03/10/24 IMPRESSION: 1. No evidence of acute intracranial abnormality is demonstrated. 2. Chronic microvascular ischemic changes. 3. Cerebral atrophy. 4. CT scan is negative for large territorial ischemic / hemorrhagic stroke. 5. Non contrast CT can be negative in the setting of hyperacute infarct/small ischemic infarct and further evaluation with diffusion weighted MRI is recommended as clinically appropriate. Head/Neck CTA 03/10/24 IMPRESSION: Atherosclerotic calcifications are noted involving cavernous, clinoid and supraclinoid segment of bilateral internal carotid artery. 1. No evidence of stenosis or aneurysm. No evidence of dissection. IMPRESSION: 1. Atheromatous calcific plaque is noted involving left carotid bulb causing its severe (80%-90% ) luminal narrowing. 2. Atheromatous calcific plaque is noted involving right carotid bulb causing its moderate (40%-50%) luminal narrowing. 3. Calcified plaque is noted at the origin of the right vertebral artery causing mild (approximately 20%-30%). Distal perfusion is well noted. Right vertebral artery appears small in caliber as compared to the left side. 4. Calcified plaque is also noted at the origin of left vertebral artery causing mild (approximately 20%-30%) stenosis. However, distal perfusion is well seen. RECOMMENDATIONS FOR FOLLOW-UP: 1. It is recommended that you follow up with your PCP within one week of being discharged. Since you are being discharged on the weekend, someone will contact you on Tuesday 03/14 to notify you about a scheduled follow up appointment. It is recommended that you or others around you wear a mask for 4-5 days at home with folks within three feet of you as you could continue to shed virus for up to 10 days. It is important to practice good hand washing and cleaning of common spaces with disinfectant. OTHER INSTRUCTIONS: Seek medical attention if you have: * temperature above 101 * chest pain or trouble breathing * abdominal pain, nausea, vomiting * diarrhea, dark stools or bloody stools * any unanswered questions or concerns Call 911 if symptoms are severe. Please take good care of yourself. It has been a pleasure taking care of you. Please take care of yourself. If you have any questions regarding your recent hospitalization please contact [facility] and request Derekevelyneshan Kaylin @ [phone]. Pending Studies at Discharge: No Stand-Alone Forms: My [facility], Smoking Cessation Medications and DC Order Prescriptions: Continued losartan 50 mg tablet 50 mg PO DAILY atorvastatin 40 mg tablet 40 mg PO DAILY allopurinol 100 mg tablet 100 mg PO DAILY levothyroxine 100 mcg tablet 100 mcg PO DAILY potassium citrate 10 mEq (1,080 mg) tablet extended release 20 meq PO DAILY paroxetine HCl 20 mg tablet 20 mg PO DAILY hydrochlorothiazide 12.5 mg tablet 12.5 mg PO DAILY Ozempic 0.25 mg or 0.5 mg (2 mg/3 mL) pen injector 1 mg SUBCUT WK Rx Instructions: (1 MG/DOSE)) Inject 1 mg under the skin once a week. lorazepam [Ativan] 0.5 mg Tablet 0.5 mg PO 3XD PRN (Reason: Anxiety) aspirin 81 mg Tablet 81 mg PO DAILY magnesium 500 mg Tablet 15 mg PO DAILY Discharge Orders: Discharge Order (Routine); Ordered 03/12/24 Ordered By: Carol Aguirre Admission Data Admit Date/Time: 03/10/24 05:57 Attending Provider: Fco Caruso Admit Provider: Musa Schmidt Primary Care Provider: Wing Briseno Other Providers: Musa Schmidt Other Interventions: Discharge Summary Assessment (RN) Last Done: 03/12/24 16:06 Supervising Physician Co-Signing Physician Notes Attending addendum: The patient was seen and examined in medical telemetry unit She has been feeling a lot better and complains to have some weakness Awaiting PT evaluation prior to discharge home On examination Lying in bed without any acute distress Remained hemodynamically stable with blood pressure on the upper side at 163/78 Other system examinations were unremarkable Her labs and medications reviewed Significant weakness secondary to human metapneumovirus infection Condition improved with supportive care and hydration Agree with assessment and plan as outlined above by Carol RICCI and take the full responsibility of care in the hospital Dr Sherif Caruso
[2024-03-12 16:07] VITALS: BP 163/78; PULSE 68
== END 2024-03-12 16:40 | disposition home or self-care (01) ==
LOC: ED 23:06 → EDINP 23:06 → 2W 03-10 07:50

== ENCOUNTER 2024-04-23 18:01 | Inpatient (IN) ==
--- OUTSIDE RECORDS SUMMARY | 2024-04-23 18:06 | External Medical Summary | Summary of Care ---
Author Name Unknown Organization [facility] Address [address] [place] [address] Phone [phone] Care Team Providers Care Behavioral Technician Name Role Phone Wing Briseno Primary Care Provider Reason for Visit * Reason Onset Date Comments Hospital Follow-Up 03/14/2024 [facility] dc 03/12 Encounter Details Date Type Department Care Team (Late st Contact Info) Description 03/14/2024 Telephone Family Practice [facility] [address] [id number] Georgette Perrin, RN Hospital Follow-Up ([facility] dc 03/12) Allergies Active Allergy Reactions Criticality Noted Date Comments Mayur Inhibitors 12/25/2003 Made her head funny Bupropion Hcl Hives Low 01/07/2008 documented as of this encounter (statuses as of 03/14/2024) Medications LORAzepam (ATIVAN) 0.5 MG TabletIndication s:Panic [...] goal of less than 7.0% ([facility]),Type 2 diabetes mellitus with diabetic neuropathy, without long-term current use of insulin ([facility]),Type 2 diabetes mellitus with stage 4 chronic kidney disease, without long-term current use of insulin ([facility]) Inject 1 mg under the skin [...] as of this encounter (statuses as of 03/14/2024) Active Problems Problem Noted Date Diagnosed Date [...] as of this encounter (statuses as of 03/14/2024) Resolved Problems Problem Noted Date Diagnosed Date [...] as of this encounter (statuses as of 03/14/2024) Immunizations Name Administration Dates Next Due COVID-19 [...] encounter Miscellaneous Notes * Telephone Encounter - Georgette Perrin RN - 03/14/2024 2:19 PM EST Transitions of Care Note Reason for Referral:Recent Admission Phone visit for follow up: DAJA Admitted to: [facility], Date: 03/09 Discharged to: home, Date: 03/12 Diagnosis driving hospitalization: Dizziness and ambulatory dysfunction Source/Contact: Patient SUBJECTIVE Consent: Verbal consent for review of hospital discharge: Yes REVIEW OF SYSTEMS Patient/Other Reports: Current patient/caregiver problems or concerns: Family has been having problems convincing the patient to eat and drink. They report this is not a new problem and she is not having N/V/D. They have tried multiple drinks, water, pedialyte, 7 up, and are going to try Propel water next. She is a pickyeater and will only eat a few bites of whatever is offered. Son has made homemade beef vegetable azul p and is hoping she will eat some when she wakes up from her nap. CV: Denies problems Pulmonary: Denies problems Chills/Sweats/Fever:Denies chills/sweats Denies fever Appetite:never has a good appetite Current diet: as before Bowel: hasn't moved her bowels yet but has also not eaten more than a few bites of anything Bladder: denies problems Wound (If applicable): N/A Pain:Denies Sleep:Denies problems FUNCTIONAL STATUS: ADL'S: Needs Assistance With:N/A as pt is independent IADL'S: Needs Assistance With:N/A as pt is independent Cognitive and Mental Health: denies problems, alert and oriented x 3, and able to communicate, understand instructions, process information. MEDICATION RECONCILIATION Medications: No new medications or medication changes OBJECTIVE ASSESSMENT Medication Risk Assessment: No risks identified Did patient fail outpatient treatment? No Discharge instructions available for review? Yes PLAN Symptom Monitoring Interventions:Member/caregiver education - signs and symptoms to contact PrimaryCare (DO NOT DELETE-Three muñoz symptoms patient is to report to PCP) 1. syncope 2. Feeling dizzy 3. 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 Educated patient/caregiver on patient right to have input on DAJA plan of care. Verification of Home Health/DME if indicated: NO Identified Care Gaps: Yes Care Gaps closed this call: Appointment made or confirmed, Medication adherence, and Transition of Care follow-up communication Re-evaluation of Plan of Care and progress towards goals achievement: Patient education this visit: Verbal, as before Plan to follow-up as previously scheduled, instructed to call Primary Care Provider with change in symptoms or as needed before next follow-up, discharge needs met, verbalizes understanding and agrees with plan. Georgette Perrin RN documented in this encounter Plan of Treatment Upcoming Encounters Date Type Department Care Team (Late st Contact Info) Description 03/17/2024 11:20 AM EST Office Visit [facility] [address] [id number] Jenni Quinn MD [address] [id number] 07/28/2024 10:20 AM EDT Office Visit [facility] [address] [id number] Wing Briseno DO [address] [address] 01/12/2025 2:20 PM EST Office Visit Nephrology, [facility] [address] [address] Lj Gill MD [address] [place] [id number] 02/06/2025 11:40 AM EST Office Visit Family Practice [facility] [address] [place] [address] Wing Briseno, [address] [place] [id number] Health Maintenance Due Date Last Done Comments Adult Wellness Visit 2004 COVID-19 Vaccine ( season) 2023 06/22/2020, 06/01/2020 Diabetic Eye Exam 01/20/2024 01/19/2023, , 01/07/2021, Additional history exists HbA1c 07/27/2024 01/28/2024, 02/0 [...] this encounter Medical Devices Implanted Type Area Zone Manager Device Identifier Shelf Expiration Date Model / Serial / Lot Inlay [place] Ureteral Stent Implanted:Qty: 1 on 04/07/2014 by Sigrid Zhang MD at OR [facility] Left: Ureter [employer] 06/06/2018 [id number] / / [id number] Lens Intraoc 23.0 - [id number] - [id number] Implanted:Qty: 1 on 06/08/2018 by Wolfgang Powers MD at OR [facility] Left: Eye [employer] 11/06/2022 [id number] / [id number] / Lens Intraoc 19.5 - [id number] - [id number] Implanted:Qty: 1 on 06/22/2018 by Wolfgang Powers MD at OR [facility] Right: Eye [employer] 01/06/2023 [id number] / [id number] / documented as of this encounter Advance Directives * Full Code (Latest Code Status on File) Date Activated Date Inactivated Comments 04/07/2014 7:37 AM 04/07/2014 3:40 PM This order r eflects the patients wishes and were consensually agreed upon. Care Teams Behavioral Technician Relationship Specialty Start Date End Date Wing Briseno DO [address] [place] [id number] PCP - General Family Medicine 04/04/19 documented as of this encounter
--- OUTSIDE RECORDS SUMMARY | 2024-04-23 18:06 | External Medical Summary | Summary of Care ---
Author Name Unknown Organization [facility] Address [address] [place] [address] Phone [phone] Care Team Providers Care Senior Java Data Architect Name Role Phone Wing Briseno DO Primary Care Provider Reason for Referral * Evaluate & Treat - Unlimited Visits (Within 30 days (routine)) - Authorized Specialty Diagnoses / Procedures Referred By Phuong samaniego Referred To Contact Physical Therapy / Physical Medicine And Rehab Diagnoses Ambulatory dysfunction Wing Briseno DO [address] [place] [address] Phone: tel: fax: Referral ID Status Reason Start Date Expiration Date Visits Requested Visits Authorized [id number] Authorized Specialty Services Required 03/14/[phone] Question Answer Referral Priority Within 30 days (routine) Where should this appointment be scheduled? External Comments Family is requesting in home PT to help pt with ambulatory dysfunction. Reason for Visit * Reason Onset Date Comments FYI 03/14/2024 Encounter Details Date Type Department Care Team (Late st Contact Info) Description 03/14/2024 Telephone Family Practice [facility] [address] [place] [address] Wing Briseno DO [address] [place] [address] FYI Allergies Active Allergy Reactions Criticality Noted Date [...] the morning. Active Blood Glucose Monitoring Suppl ([employer]) w/Device KIT Use as directed. 1 [...] goal of less than 7.0% ([facility]),Type 2 diabetes mellitus with diabetic neuropathy, without long-term current use of insulin ([facility]),Type 2 diabetes mellitus with stage 4 chronic [...] No Pre serve, 2-Dose Series (Pfizer) 06/22/2020,06/01/2020 Diptheria/Tetanus (Adult) 03/09/1993 Pneumococcal Conjugate Vacc, [...] Encounter - Georgette Perrin RN - 03/14/2024 2:46 PM EST Spoke to son who is in town from [place] to help out while pt was in the hospital. She went in with dizziness and syncope from dehydration. She has a hospital follow up with Dr Quinn on 03/17. Son expressed frustration with ongoing problem convincing patient to eat and drink. This has been ongoingand is no worse or better than before. They are trying to push fluids and are experimenting to see which ones she will drink. They have also requested a home PT eval. They report she is very unsteady on her feet. She was senthome from the hospital with a rolling walker which she only uses occasionally. Referral placed for PT and faxed to [facility]. FYI Dr Briseno and Dr Quinn. documented in this encounter Plan of Treatment Upcoming Encounters Date Type Department Care Team (Late st Contact Info) Description 03/17/2024 11:20 AM EST Office Visit [facility] [address] [place] [address] Jenni Quinn MD [address] [place] [address] 07/28/2024 10:20 AM EDT Office Visit [facility] [address] [place] [address] Wing Briseno, [address] [place] [address] 01/12/2025 2:20 PM EST Office Visit Nephrology, [facility] [address] [facility] [place] [address] Lj Gill MD [address] [place] [address] 02/06/2025 11:40 AM EST Office Visit [facility] [address] [place] [address] Wing Briseno, DO [address] [place] [address] Scheduled Referrals Name Type Priority Associated Diagnoses Orde r Schedule PHYSICAL THERAPY REFERRAL OP Referral Within 30 days (routine) Ambulatory dysfunction Ordered: 03/14/2024 Health Maintenance Due Date Last Done Comments [...] this encounter Medical Devices Implanted Type Area Services Manager Device Identifier Shelf Expiration Date Model / Serial / Lot Inlay [place] Ureteral Stent Implanted:Qty: 1 on 04/07/2014 by Sigrid Zhang MD at [facility] Left: Ureter INACTIVE [employer] 06/06/2018 [id number] / / [id number] Lens Intraoc 23.0 - [id number] - [id number] Implanted:Qty: 1 on 06/08/2018 by Wolfgang Powers MD at [facility] Left: Eye [employer]OM[employer] 11/06/2022 [id number] / [id number] / Lens Intraoc 19.5 - [id number] - [id number] Implanted:Qty: 1 on 06/22/2018 by Wolfgang Powers MD at [facility] Right: Eye [employer]CH [employer] LOMB 01/06/2023 [id number] / [id number] / documented as of this encounter Visit Diagnoses Diagnosis Ambulatory dysfunction- Primary documented in this encounter Advance Directives * Full Code (Latest Code Status on File) Date Activated Date Inactivated Comments 04/07/2014 7:37 AM 04/07/2014 3:40 PM This order r eflects the patients wishes and were consensually agreed upon. Care Teams Senior Java Data Architect Relationship Specialty Start Date End Date Wing Briseno DO [address] [place] [address] PCP - General Family Medicine 04/04/19 documented as of this encounter
--- OUTSIDE RECORDS SUMMARY | 2024-04-23 18:06 | External Medical Summary | Summary of Care ---
Author Name Unknown Organization [facility] Address [address] [place] [address] Phone [phone] Care Team Providers Care Teacher Of Gifted Students Name Role Phone Wing Briseno DO Primary Care Provider Reason for Referral * Evaluate & Treat - Unlimited Visits (Within 30 days (routine)) - Authorized Specialty Diagnoses / Procedures Referred By Phuong samaniego Referred To Contact Physical Therapy / Physical Medicine And Rehab Diagnoses Ambulatory dysfunction Wing Briseno DO [address] [place] [address] Phone: tel: fax: Referral ID Status Reason Start Date Expiration Date Visits Requested Visits Authorized [id number] Authorized Specialty Services Required 03/14/[phone] Question Answer Referral Priority Within 30 days (routine) Where should this appointment be scheduled? External Comments Family is requesting in home PT to help pt with ambulatory dysfunction. Reason for Visit * Reason Onset Date Comments FYI 03/14/2024 Encounter Details Date Type Department Care Team (Late st Contact Info) Description 03/14/2024 Telephone Family Practice [facility] [address] [place] [address] Wing Briseno DO [address] [place] [address] FYI Allergies Active Allergy Reactions Criticality Noted [...] the morning. Active Blood Glucose Monitoring Suppl ([employer]CH VERIO) w/Device KIT Use as directed. 1 [...] hemoglobin A1c goal of less than 7.0% ([facility]),Type 2 diabetes mellitus with diabetic neuropathy, without long-term current use of insulin ([facility]),Type 2 diabetes mellitus with [...] encounter Miscellaneous Notes * Telephone Encounter - Jenni Quinn MD - 03/14/2024 4:51 PM EST noted * Telephone Encounter - Georgette Perrin RN - 03/14/2024 2:46 PM EST Spoke to son who is in town from [place] to help out while pt was in [...] for PT and faxed to [facility]. RENEA Briseno and Dr Quinn. documented in this encounter Plan of Treatment Upcoming Encounters Date Type Department Care Team (Late st Contact Info) Description 03/17/2024 11:20 AM EST Office Visit [facility] [address] [place] [address] Jenni Quinn MD [address] [place] [address] 07/28/2024 10:20 AM EDT Office Visit [facility] [address] [place] [address] Wing Briseno, [address] [place] [address] 01/12/2025 2:20 PM EST Office Visit Nephrology, [facility] [address] [place] [address] Lj Gill MD [address] [place] [address] 02/06/2025 11:40 AM EST Office Visit [facility] [address] [place] [address] Wing Briseno, [address] [place] [address] Scheduled Referrals Name Type Priority Associated Diagnoses [...] this encounter Medical Devices Implanted Type Area Roof Panel Hanger Device Identifier Shelf Expiration Date Model / Serial / Lot Inlay [place] Ureteral Stent Implanted:Qty: 1 on 04/07/2014 by Sigrid Zhang MD at [facility] Left: Ureter INACTIVE [employer] 06/06/2018 [id number] / / [id number] Lens Intraoc 23.0 - [id number] - [id number] Implanted:Qty: 1 on 06/08/2018 by Wolfgang Powers MD at [facility] Left: Eye BAUSCH [employer] LOMB 11/06/2022 [id number] / [id number] / Lens Intraoc 19.5 - [id number] - [id number] Implanted:Qty: 1 on 06/22/2018 by Wolfgang Powers MD at [facility] Right: Eye BA[employer]CH [employer] LOMB 01/06/2023 [id number] / [id number] / documented as of this encounter Visit Diagnoses Diagnosis Ambulatory dysfunction- Primary documented in this encounter Advance Directives * Full Code (Latest Code Status on File) Date Activated Date Inactivated Comments 04/07/2014 7:37 AM 04/07/2014 3:40 PM This order r eflects the patients wishes and were consensually agreed upon. Care Teams Teacher Of Gifted Students Relationship Specialty Start Date End Date Wing Briseno DO [address] [place] [address] PCP - General Family Medicine 04/04/19 documented as of this encounter
--- OUTSIDE RECORDS SUMMARY | 2024-04-23 18:06 | External Medical Summary | Summary of Care ---
Author Name Unknown Organization [facility] Address [address] [place] [address] Phone [phone] Care Team Providers Care Wafer Fabrication Operator Name Role Phone Wing Briseno DO Primary Care Provider Reason for Referral * Evaluate & Treat - Unlimited Visits (Within 30 days (routine)) - Authorized Specialty Diagnoses / Procedures Referred By Phuogn samaniego Referred To Contact Physical Therapy / Physical Medicine And Rehab Diagnoses Ambulatory dysfunction Wing Briseno DO [address] [place] [address] Phone: tel: fax: Referral ID Status Reason Start Date Expiration Date Visits Requested Visits Authorized [id number] Authorized Specialty Services Required 03/14/[phone] Question Answer Referral Priority Within 30 days (routine) Where should this appointment be scheduled? External Comments Family is requesting in home PT to help pt with ambulatory dysfunction. Reason for Visit * Reason Onset Date Comments Referral 03/14/2024 Encounter Details Date Type Department Care Team (Late st Contact Info) Description 03/14/2024 Telephone Family Practice [facility] [address] [place] [address] Wing Briseno DO [address] [place] [address] Referral Allergies Active Allergy Reactions Criticality Noted Date [...] the morning. Active Blood Glucose Monitoring Suppl ([employer] VER[employer]) w/Device KIT Use as directed. 1 Kit 8 Active FlipasteTOUCH DELICA LANCETS 33G MISC TEST ONCE DAILY [...] goal of less than 7.0% ([facility]),Type 2 diabetes mellitus with diabetic neuropathy, without long-term current use of insulin ([facility]),Type 2 diabetes mellitus with stage 4 chronic [...] to son who is in town from [place] to help out while pt was in [...] Description 03/17/2024 11:20 AM EST Office Visit [facility] [address] [place] [address] Jenni Quinn MD [address] [place] [address] 07/28/2024 10:20 AM EDT Office Visit [facility] [address] [place] [address] Wing Briseno, [address] [place] [address] 01/12/2025 2:20 PM EST Office Visit Nephrology, [facility] [address] [facility] [place] [address] Lj Gill MD [address] [facility] [place] [address] 02/06/2025 11:40 AM EST Office Visit [facility] [address] [place] [address] Wing Briseno DO [address] [place] [address] Scheduled Referrals Name Type Priority Associated Diagnoses [...] this encounter Medical Devices Implanted Type Area Data Migration Lead Device Identifier Shelf Expiration Date Model / Serial / Lot Inlay [place] Ureteral Stent Implanted:Qty: 1 on 04/07/2014 by Sigrid Zhang MD at OR [facility] Left: Ureter INACTIVE [employer] 06/06/2018 [id number] / / [id number] Lens Intraoc 23.0 - [id number] - [id number] Implanted:Qty: 1 on 06/08/2018 by Wolfgang Powers MD at OR [facility] Left: Eye BAUSCH [employer] LOMB 11/06/2022 [id number] / [id number] / Lens Intraoc 19.5 - [id number] - [id number] Implanted:Qty: 1 on 06/22/2018 by Wolfgang Powers MD at OR [facility] Right: Eye BAUSCH [employer] LOMB 01/06/2023 [id number] / [id number] / documented as of this encounter Visit Diagnoses Diagnosis Ambulatory dysfunction- Primary documented in this encounter Advance Directives * Full Code (Latest Code Status on File) Date Activated Date Inactivated Comments 04/07/2014 7:37 AM 04/07/2014 3:40 PM This order r eflects the patients wishes and were consensually agreed upon. Care Teams Wafer Fabrication Operator Relationship Specialty Start Date End Date Wing Briseno DO [address] [place] [address] PCP - General Family Medicine 04/04/19 documented as of this encounter
--- OUTSIDE RECORDS SUMMARY | 2024-04-23 18:06 | External Medical Summary | Summary of Care ---
Author Name Unknown Organization [facility] Address [address] [place] [address] Phone [phone] Care Team Providers Care Quality Control Microbiology Supervisor Name Role Phone Finn Wingterrance Edwardschelo Primary Care Provider Reason for Referral * Evaluate & Treat - Unlimited Visits (Within 30 days (routine)) - Authorized Specialty Diagnoses / Procedures Referred By Contact Referred To Contact Vascular Surgery / Cardiovascular Surgery Diagnoses Asymptomatic stenosis of left carotid artery Jenni Quinn MD [address] [place] [address] Phone: tel: fax: Referral ID Status Reason Start Date Expiration Date Visits Requested Visits Authorized [id number] Authorized Specialty Services Required 03/17/[phone] Question Answer Referral Priority Within 30 days (routine) Where should this appointment be scheduled? [facility] What condition is the patient being seen for? Carotid stenosis / Bruit / TIA / CVA - severe L carotid stenosis Reason for Visit * Reason Onset Date Comments Hospital Follow-Up 03/09-03/12 [facility] Dizziness and ambulatory dysfunction. Persistent cough, weakness and lack of appetite. Hospital Follow-Up 03/17/2024 Encounter Details Date Type Department Care Team (Late st Contact Info) Description 03/17/2024 11:20 AM EST Office Visit Family [facility] [address] [place] [address] Jenni Quinn MD [address] [place] [address] Hospital discharge follow-up*; Type 2 diabetes mellitus with stage 4 chronic kidney disease, without long-term current use of insulin ([facility]); Moderate episode of recurrent major depressive disorder ([facility]); Stage 3b chronic kidney disease ([facility]); Asymptomatic stenosis of left carotid artery Allergies Active Allergy Reactions Criticality Noted Date Comments Mayur Inhibitors 12/25/2003 Made her head funny Bupropion Hcl Hives Low 01/07/2008 documented as of this encounter (statuses as of 03/17/2024) Medications LORAzepam (ATIVAN) 0.5 MG TabletIndication s:Panic [...] 18 Active Azelaic Acid (FINACEA) 15 % gelIndications:R osacea Apply daily to skin 50 g 10 03/21/19 20 Active Magnesium 500 MG Oral Capsule Take 1 Capsule by mouth in the morning. Active OneTouch Verio In Vitro Strip (Glucose Blood) TEST ONCE DAILY UNLESS READING IS TOO HIGH, THEN TEST TWICE DAILY 100 Strip 2 01/18/20 23 Active PARoxetine HCl 20 MG Oral Tablet (pAXil) TAKE 1 TABLET BY MOUTH IN THE MORNING 90 Tablet 3 11/11/19 24 Active Potassium Citrate ER 10 MEQ [...] 24 Active Allopurinol 100 MG Oral Tablet (Zyloprim)Indica [...] morning. 90 Tablet 3 02/16/20 24 Active hydroCHLOROthiaz rebeca 12.5 MG Oral Tablet TAKE 1 TABLET BY MOUTH EVERY MORNING 90 Tablet 1 11/24/19 24 025 Discontinued documented as of this encounter (statuses as of 03/17/2024) Active Problems Problem Noted Date Diagnosed Date Asymptomatic stenosis of left carotid artery 11/2024 Moderate episode of recurrent major depressive d [...] as of this encounter (statuses as of 03/17/2024) Resolved Problems Problem Noted Date Diagnosed Date [...] as of this encounter (statuses as of 03/17/2024) Immunizations Name Administration Dates Next Due COVID-19 [...] Date Smoking Tobacco: Never Smokeless Tobacco: Never Tobacco Cessation:Counseling Given: Not Answered Alcohol Use Standard Drinks/Week Comments No 0 [...] Sign Reading Time Taken Comments Blood Pressure 116/70 03/17/2024 11:51 AM EST Pulse 80 03/17/2024 11:51 AM EST Temperature - - Respiratory Rate - - Oxygen Saturation 95% 03/17/2024 11: 51 AM EST Inhaled Oxygen Concentration - - Weight 67.9 kg (149 lb 12.8 oz) 025 11:51 AM EST Height - - Body Mass Index 23.46 03/23/2023 11:48 AM EST documented in this encounter Patient Instructions * Patient Instructions* Jenni Quinn MD - 03/17/2024 12:39 PM EST Next Steps: -- stop HCTZ - this will help raise your blood pressure and hopefully less urination -- take 2nd metamucil earlier in the day so you aren't chugging water at bedtime -- the CT angiogram of head and neck showed a severe blockage in the left carotid artery. This is arisk factor for stroke. I placed a referral, you can schedule when you are ready. -- drink more fluids! 5 glasses a day please. documented in this encounter Progress Notes * Jenni Quinn MD - 03/17/2024 12:14 PM EST SUBJECTIVE: Lorelei Gil is a 83 year old female. Chief Complaint Patient presents with Hospital Follow-Up 03/09-03/12 [facility] Dizziness and ambulatory dysfunction. Persistent cough, weakness and lack of appetite. Hospital Follow-Up Recent Admission: Patient was recently admitted to [facility] 03/10/24. The date of discharge was 03/12/24. Discharge report received and reviewed. Accompanied today by two granddaughters, both in health care field. HPI: Admitted for dizziness, human metapneumovirus infection, hypertension, RAIMUNDO on CKD, diabetes. Symptoms improved with IV fluids. Loose stools noted, C diff negative. Losartan HCTZ initially held due toAKI, resumed on discharge. Recommended Vascular Surgery consultation as outpatient. Head CT - cerebral atrophy, chronic microvascular ischemic changes Chest x-ray - chronic bronchial inflammation Head and neck CTA - severe plaque left carotid bulb, moderate plaque right carotid bulb, mild plaque right vertebral artery and left vertebral artery Diabetes - Ozempic 1 mg, increased end of January, glimepiride stopped due to possible dizziness. Emotionally annoyed by restrictions. Tried climbing stairs last night, was really hard. 24hr care with family. Living with . Moved bedroom set downstairs. Half bath downstairs, hasto climb stairs to use bathtub. a bit better with mobility, dementia. 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 PT comes tomorrow. Not drinking enough liquids - never thirsty. 36 ounces/day. Propel. Appetite, not much. Depends on food. Doesn't think Ozempic impacts appetite. Patient Active Problem List Diagnosis lactose intolerance Panic disorder Type 2 diabetes mellitus with hemoglobin A1c goal of less than 7.0% ([facility]) DYSLIPIDEMIA, GOAL LDL BELOW 100 Gout Nephrolithiasis, uric acid Diabetic neuropathy associated with type 2 diabetes mellitus ([facility]) Essential and other specified forms of tremor Hypothyroidism due to acquired atrophy of thyroid Hyperparathyroidism, secondary renal ([facility]) Essential tremor Personal history of fall Type 2 diabetes mellitus with stage 4 chronic kidney disease, without long-term current use of insulin ([facility]) History of breast cancer Type 2 diabetes mellitus with diabetic neuropathy, without long-term current use of insulin ([facility]) Hypertensive kidney disease with stage 4 chronic kidney disease ([facility]) Stage 3b chronic kidney disease ([facility]) Moderate episode of recurrent major depressive disorder ([facility]) Asymptomatic stenosis of left carotid artery Current Outpatient Medications Medication Sig Dispense Refill Aspirin 81 MG Tablet Take 1 Tablet by mouth in the morning. Blood Glucose Monitoring Suppl ([employer] VERIO) w/Device KIT Use as directed. 1 Kit 0 [employer] DELICA LANCETS 33G MISC TEST ONCE DAILY UNLESS READING IS TOO HIGH, THEN TEST TWICE DAILY.DX: E11.9 & E11.40 100 Each 5 Azelaic Acid (FINACEA) 15 % gel Apply daily to skin 50 g 10 Magnesium 500 MG Oral Capsule Take 1 Capsule by mouth in the morning. UXCamio In Vitro Strip (Glucose Blood) TEST ONCE DAILY UNLESS READING IS TOO HIGH, THEN TESTTWICE DAILY 100 Strip 2 PARoxetine HCl 20 MG Oral Tablet (pAXil) TAKE 1 TABLET BY MOUTH IN THE MORNING 90 Tablet 3 Potassium Citrate ER 10 MEQ (1080 MG) [...] BREAKFAST OR OTHER MEDS) 90 Tablet 3 Losartan Potassium 50 MG Oral Tablet (Cozaar) Take 1 Tablet by mouth in the morning. 90 Tablet 3 Atorvastatin Calcium 40 MG Oral Tablet (Lipitor) Take 1 Tablet by mouth in the morning. 90 Tablet 3 LORAzepam (ATIVAN) 0.5 MG Tablet 1/2 pill by mouth 3 times a day as needed for anxiety 20 Tab 0 No current facility-administered medications for this visit. Current and discharge medications have been reconciled. Review of patient's allergies indicates: Allergen Reactions Mayur Inhibitors Made her head funny Wellbutrin [Bupropion Hcl] Hives OBJECTIVE: BP 116/70 (BP Site: Left Arm, BP Position: Sitting, BP Cuff Size: Regular) | Pulse 80 | Wt 149 lb 12.8 oz (67.9 kg) | SpO2 95% | BMI 23.46 kg/m | BSA 1.79 m REVIEW OF SYSTEMS: Review of Systems Constitutional: Positive for fatigue. Negative for fever. HENT: Negative for sore throat. Nasal congestion Respiratory: Positive for cough (occasional, junky or dry). Negative for shortness of breath and wheezing. Cardiovascular: Negative for chest pain, palpitations and leg swelling. Gastrointestinal: Negative for blood in stool, constipation, diarrhea, nausea and vomiting. Endocrine: Negative for polydipsia. No dry mouth Genitourinary: Negative for dysuria and hematuria. Musculoskeletal: Negative for arthralgias and joint swelling. Skin: Negative for rash. Neurological: Negative for headaches. Psychiatric/Behavioral: Negative for sleep disturbance. PHYSICAL EXAM: BP 116/70 (BP Site: Left Arm, BP Position: Sitting, BP Cuff Size: Regular) | Pulse 80 | Wt 149 lb 12.8 oz (67.9 kg) | SpO2 95% | BMI 23.46 kg/m | BSA 1.79 m Physical Exam Constitutional: General: She is not in acute distress. Appearance: Normal appearance. She is not ill-appearing. Comments: walker HENT: Head: Normocephalic and atraumatic. Mouth/Throat: Mouth: Mucous membranes are dry. Pharynx: Oropharynx is clear. No oropharyngeal exudate. Eyes: General: No scleral icterus. Extraocular Movements: Extraocular movements intact. Pupils: Pupils are equal, round, and reactive to light. Cardiovascular: Rate and Rhythm: Normal rate and regular rhythm. Heart sounds: No murmur heard. Pulmonary: Effort: Pulmonary effort is normal. Breath sounds: Normal breath sounds. Abdominal: General: There is no distension. Palpations: Abdomen is soft. Tenderness: There is no abdominal tenderness. There is no guarding. Musculoskeletal: Right lower leg: No edema. Left lower leg: No edema. Lymphadenopathy: Cervical: No cervical adenopathy. Skin: Coloration: Skin is not jaundiced or pale. Neurological: General: No focal deficit present. Mental Status: She is alert. Psychiatric: Mood and Affect: Mood normal. Behavior: Behavior normal. ASSESSMENT: Hospital discharge follow-up (Primary) - DISCH MED RECON CUR MED LIS Type 2 diabetes mellitus with stage 4 chronic kidney disease, without long-term current use of insulin ([facility]) Moderate episode of recurrent major depressive disorder ([facility]) Stage 3b chronic kidney disease ([facility]) Asymptomatic stenosis of left carotid artery - VASCULAR SURGERY REFERRAL OP Follow Up: Return in about 6 weeks (around 04/28/2024) for f/u with Esthela or Finn. | For: f/u withEsthela or Finn Patient Instructions Next Steps: -- stop HCTZ - this will help raise your blood pressure and hopefully less urination -- take 2nd metamucil earlier in the day so you aren't chugging water at bedtime -- the CT angiogram of head and neck showed a severe blockage in the left carotid artery. This is arisk factor for stroke. I placed a referral, you can schedule when you are ready. -- drink more fluids! 5 glasses a day please. I spent a total of 30-39 minutes (exact time 36 mins) minutes on the date of service in preparation, delivery, and documentation of the care provided to Lorelei Gil excluding any time spent in performance of separately billed services. Jenni Quinn MD documented in this encounter Plan of Treatment Upcoming Encounters Date Type Department Care Team (Late st Contact Info) Description 04/28/2024 3:00 PM EST Office Visit [facility] [address] [place] [id number] Anastacia Proctor CRNP [address] [place] [address] 07/28/2024 10:20 AM EDT Office Visit [facility] [address] [place] [address] Wing Briseno, DO [address] [place] [id number] 01/12/2025 2:20 PM EST Office Visit Nephrology, [facility] [address] [facility] [place] [address] Lj Gill MD [address] [facility] [place] [address] 02/06/2025 11:40 AM EST Office Visit [facility] [address] [place] [address] Wing Briseno, DO [address] [place] [address] Scheduled Referrals Name Type Priority Associated Diagnoses Orde r Schedule VASCULAR SURGERY REFERRAL OP Referral Within 30 days (routine) Asymptomatic stenosis of left carotid artery Ordered: 03/17/2024 Health Maintenance Due Date Last Done Comments Adult Wellness Visit 2004 HbA1c 07/27/2024 01/28/2024, 02/0 08/2023, 01/17/2022, Additional history exists Depression Monitoring 01/27/2025 01/28/2024 Diabetic Foot Exam 01/27/2025 01/28/2024, 0 07/31/2022, 07/09/2021, Additional history exists TSH 01/27/2025 01/28/2024, 02/0 08/2023, 07/04/2021, Additional history exists Albumin/Creatinine Ratio 01/28/2025 024, 04/14/2023, 09/22/2022, Additional history exists Diabetic Eye Exam 03/08/2025 03/08/2024 (Do ne elsewhere), 01/19/2023, 01/15/2022, Additional history exists DTap/Tdap Vaccines (2 - Td or Tdap) 08/26/2027 08/25/2017, 06/08/2009, 03/09/1993 Pneumococcal Vaccine: 50+ Years Completed 08/17/2014, 11/27/2003 Zoster Vaccines Completed 03/07/2019, 02/26/2018 COVID-19 Vaccine Discontinued 06/22/2020, 06/01/2020 Influenza Vaccine (FLU shot) Completed 01/28/2024, 03/23/2023, [...] this encounter Medical Devices Implanted Type Area Drafting Detailer Device Identifier Shelf Expiration Date Model / Serial / Lot Inlay [place] Ureteral Stent Implanted:Qty: 1 on 04/07/2014 by Sigrid Zhang MD at [facility] Left: Ureter [employer] 06/06/2018 [id number] / / [id number] Lens Intraoc 23.0 - [id number] - [id number] Implanted:Qty: 1 on 06/08/2018 by Wolfgang Powers MD at OR [facility] Left: Eye [employer] 11/06/2022 [id number] / [id number] / Lens Intraoc 19.5 - [id number] - [id number] Implanted:Qty: 1 on 06/22/2018 by Wolfgang Powers MD at OR [facility] Right: Eye [employer] 01/06/2023 [id number] / [id number] / documented as of this encounter Visit Diagnoses Diagnosis Hospital discharge follow-up- Primary Other follow-up examination Type 2 diabetes mellitus with stage 4 chronic kidney disease, without long-term current use of insulin ([facility]) Moderate episode of recurrent major depressive disorder (HCC) Stage 3b chronic kidney disease ([facility]CC) Asymptomatic stenosis of left carotid artery documented in this encounter Advance Directives * Full Code (Latest Code Status on File) Date Activated Date Inactivated Comments 04/07/2014 7:37 AM 04/07/2014 3:40 PM This order r eflects the patients wishes and were consensually agreed upon. Care Teams Quality Control Microbiology Supervisor Relationship Specialty Start Date End Date Wing Briseno DO [address] [place] [address] PCP - General Family Medicine 04/04/19 documented as of this encounter"
--- NOTE | 2024-04-23 18:13 | Emergency Department Note ---
Impression & Plan Closed hip fracture ADMIT ED Provider Note HPI: History obtained from patient and EMS report. The patient is a 83-year-old female who presents the emergency department with a chief complaint of left hip pain after ground-level fall. Trauma alert was activated in the field secondary to the patient's left lower extremity malformation. Patient states that she was in her kitchen and she fell when turning around onto her left hip. Patient does have a shortened and internally rotated left lower extremity on arrival. Patient denies any head injury, denies any other focal complaint of pain. On arrival here to the ED the patient is alert, she appears to be in mild distress secondary to pain in the left hip. ROS: - Per HPI Differential Diagnosis: Left hip fracture, pelvic fracture, femur fracture, intracranial injury to include subdural hematoma, cervical spine fracture, amongst other potential pathologies. *Outpatient medications and allergy history reviewed. PE: General: Alert, frail-appearing HEENT: Normocephalic, trachea midline Eyes: Extraocular eye movement is intact, no scleral erythema Pulmonary: Clear to auscultation bilaterally, no wheezing Cardio: Regular rate and rhythm GI: Abdomen is soft to palpation : No suprapubic tenderness MSK: Left lower extremity is shortened and internally rotated, there is a palpable dorsalis pedis pulse in the left lower extremity, otherwise no evidence of malformation of the extremities Skin: No evidence of rash Neuro: Alert, no focal deficits Psychiatric: Cooperative PRIMARY SURVEY: Airway-intact, patient is speaking in full sentences Respiratory-clear bilateral breath sounds Circulation-2+ DP pulses bilaterally, 2+ radial pulses bilaterally Neurologic-patient is alert and answering questions 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 X-ray imaging of the pelvis does show evidence of a left-sided femoral neck fracture. CT imaging of the head and cervical spine does not show any evidence of any acute traumatic pathology. Patient's lab work otherwise does not show any evidence of leukocytosis, hemoglobin is normal, platelet count is normal. CMP does not show any evidence of any critical findings. Routine consultation was placed for orthopedics, case was discussed with the on- call hospitalist, Dr. Brandon, and the patient was placed for admission in stable condition. I did update the patient's family in regards to the hip fracture, they are at the bedside on my reassessment. Patient was also in agreement for admission. Patient stated that her pain was much improved following IV morphine and IV Zofran here in the ED on my reassessment prior to admission. Consultants/Discussions held with other healthcare providers: -Hospitalist, Dr. Brandon Disposition discussion held by myself with: -Patient's family at the bedside Diagnosis: 1. Left-sided hip fracture, acute, closed 2. Mechanical fall, acute Disposition: Admission Yong Brewer DO Emergency Medicine Past Med/Surg History Problem List (Updated 04/23/24 @ 21:54 by Yong Brewer DO) Closed hip fracture (Acute) Closed left femoral fracture Acute kidney injury superimposed on CKD Dizziness Vertigo (Acute) Dehydration (Acute) Infection due to human metapneumovirus (hMPV) (Acute) Lactose intolerance (Chronic) Diabetic neuropathy (Chronic) Renal colic (Acute) Pancreatitis (Acute) Vomiting (Acute) Medical History (Updated 04/23/24 @ 21:54 by Yong Brewer DO) Carotid arterial disease HTN (hypertension) DM II (diabetes mellitus, type II), controlled Nephrolithiasis (03/25/14) Breast cancer in situ "s/p L partial mastectomy 03/23/06, L breast DCIS excision 10/19/06, and L central lumpectomy 11/16/06" Surgical History History of partial mastectomy of left breast "s/p L partial mastectomy 03/23/06, L breast DCIS excision 10/19/06, and L central lumpectomy 11/16/06" Social History Smoking Status: Never smoker Hx Alcohol Use: No Hx Substance Use: No Preferred Language: Uzbek Communication Ability: Effective Clinical Informatics Spec Required: No Beliefs That Will Affect Care: None Current Living Situation: Spouse Current Living Situation Comment: with who has dementia, 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 Safe at Home: Yes Assistive Devices: None Allergies Allergies Allergy/AdvReac Type Severity Reaction Status Date / Time No Known Allergies Allergy Mild OTHER Unverified 03/25/14 08:07 Home Meds Home Medications Medication Instructions Recorded Confirmed allopurinol 100 mg tablet 100 mg PO DAILY 03/19/20 04/23/24 atorvastatin 40 mg tablet 40 mg PO DAILY 03/19/20 04/23/24 hydrochlorothiazide 12.5 mg tablet 12.5 mg PO DAILY 03/19/20 04/23/24 levothyroxine 100 mcg tablet 100 mcg PO DAILY 03/19/20 04/23/24 losartan 50 mg tablet 50 mg PO DAILY 03/19/20 04/23/24 paroxetine HCl 20 mg tablet 20 mg PO DAILY 03/19/20 04/23/24 potassium citrate 10 mEq (1,080 20 meq PO DAILY 03/19/20 04/23/24 mg) tablet,extended release aspirin 81 mg tablet 81 mg PO DAILY 03/10/24 04/23/24 semaglutide 0.25 mg or 0.5 mg (2 1 mg subcut WK diabetes 03/10/24 04/23/24 mg/3 mL) subcutaneous pen injector (Ozempic) Results & Data (ED) Vital Signs Vital Signs - 24 hr 04/23/24 18:11 04/23/24 18:11 04/23/24 18:12 Temperature 36.6 C 36.4 C L Temperature Source Temporal Artery Scan Pulse Rate 79 81 80 Pulse Rate [Apical] Pulse Strength [Bilateral] Normal Respiratory Rate 18 18 Respiratory Effort / Characteristics Respiratory Depth Respiratory Pattern Blood Pressure 156/92 H 156/92 H Blood Pressure [Right Arm] Blood Pressure Mean 113 Blood Pressure Mean [Right Arm] Blood Pressure Position [Right Arm] Pulse Oximetry 98 98 Oxygen Delivery Method Nasal Cannula Nasal Cannula Oxygen Flow Rate 2 2 Sepsis Recent Fever Within 48 Hours No Sepsis New/Unexplained Change in Mental Status N/A Sepsis Action Taken by Nursing No Action Required 04/23/24 18:57 04/23/24 19:02 04/23/24 20:00 Temperature Temperature Source Pulse Rate Pulse Rate [Apical] 80 81 Pulse Strength [Bilateral] Respiratory Rate 16 18 Respiratory Effort / Characteristics Respiratory Depth Respiratory Pattern Blood Pressure Blood Pressure [Right Arm] 171/92 H 162/105 H Blood Pressure Mean Blood Pressure Mean [Right Arm] 118 124 Blood Pressure Position [Right Arm] Lying Pulse Oximetry 97 100 98 Oxygen Delivery Method Nasal Cannula Nasal Cannula Nasal Cannula Oxygen Flow Rate 2 2 2 Sepsis Recent Fever Within 48 Hours Sepsis New/Unexplained Change in Mental Status Sepsis Action Taken by Nursing 04/23/24 21:00 Temperature Temperature Source Pulse Rate Pulse Rate [Apical] 80 Pulse Strength [Bilateral] Respiratory Rate 16 Respiratory Effort / Characteristics Non-Labored Spontaneous Respiratory Depth Normal Respiratory Pattern Regular Blood Pressure Blood Pressure [Right Arm] 190/108 H Blood Pressure Mean Blood Pressure Mean [Right Arm] 135 Blood Pressure Position [Right Arm] Pulse Oximetry 97 Oxygen Delivery Method Room Air Oxygen Flow Rate Sepsis Recent Fever Within 48 Hours Sepsis New/Unexplained Change in Mental Status Sepsis Action Taken by Nursing Laboratory Data 04/23/24 18:11 04/23/24 18:11 Lab Results 04/23/24 04/23/24 04/23/24 Range/Units 18:11 18:34 18:52 WBC 7.69 (4.8-10.8) K/ul RBC 3.98 L (4.20-5.40) M/uL Hgb 12.2 (12.0-16.0) g/dl POC Hgb 12.6 (12.0-16.0) g/dl Hct 36.7 L (37.0-47.0) % POC Hct 37 (37-47) % MCV 92.2 (80.0-100.0) fL MCH 30.7 (25.0-34.0) pg MCHC 33.2 (32.0-36.0) g/dL RDW Std Deviation 46.7 H (36.4-46.3) fL RDW Coeff of Librado 13.8 (11.5-14.5) % Plt Count 184 (130-400) K/uL MPV 10.4 (9.4-12.4) fL Immature Gran % (Auto) 0.7 % Neut % (Auto) 69.9 % Lymph % (Auto) 20.7 % Montgomery % (Auto) 6.2 % Eos % (Auto) 2.0 % Baso % (Auto) 0.5 % Neut # (Auto) 5.38 (1.40-6.50) K/uL Lymph # (Auto) 1.59 (1.20-3.40) K/uL Montgomery # (Auto) 0.48 (0.11-0.59) K/uL Eos # (Auto) 0.15 (0.00-0.50) K/uL Baso # (Auto) 0.04 (0.00-0.20) K/uL Immature Gran # (Auto) 0.05 (0.01-0.20) K/uL PT 11.2 (9.0-12.0) Seconds INR 1.0 (0.9-1.1) APTT 26 (21-31) Seconds PTT Ratio 1.0 POC Sodium 141 (135-144) mmol/L Sodium 139 (136-145) mmol/L POC Potassium 3.9 (3.3-5.0) mmol/L Potassium 4.0 (3.5-5.1) mmol/L POC Chloride 105 (101-112) mmol/L Chloride 106 (98-107) mmol/L Carbon Dioxide 29 (21-32) mmol/L POC Total CO2 28 (24-31) mmol/L Anion Gap 4 (3-11) POC Anion Gap 14.0 L (16-25) mmol/L POC BUN 22 H (7-18) mg/dl BUN 22 (6-23) mg/dl Creatinine 1.30 H (0.6-1.2) mg/dl POC Creatinine 1.4 H (0.6-1.3) mg/dl Est Cr Clr Drug Dosing 30.7 ml/min eGFR 40.30 BUN/Creatinine Ratio 16.9 (10-20) Glucose 151 H (70-99(Fasting)) mg/dl POC Glucose (other) 150 H (70-99) mg/dl Calcium 8.6 (8.6-10.3) mg/dl POC Ioniz Calcium Jolene 1.10 L (1.12-1.32) mmol/l Total Bilirubin 0.7 (0.2-1.0) mg/dl AST 19 (13-39) U/L ALT 14 (7-52) U/L Alkaline Phosphatase 69 (34-104) U/L Total Protein 6.7 (6.0-8.3) gm/dl Albumin 3.8 (3.4-5.0) gm/dl Globulin 2.9 (2.5-4.0) gm/dl Albumin/Globulin Ratio 1.3 (0.9-2) Lipase 83 H (11-82) U/L Urine Color Yellow Urine Appearance Clear (Clear) Urine pH 5.5 (4.5-7.5) Ur Specific Venus 1.029 (1.000-1.030) Urine Protein Trace H (Negative) Urine Glucose (UA) Negative (Negative) Urine Ketones Trace H (Negative) Urine Blood Negative (Negative) Urine Nitrite Negative (Negative) Urine Bilirubin Negative (Negative) Urine Urobilinogen Negative (Negative) Ur Leukocyte Esterase Negative (Negative) Urine WBC (Auto) 0-5 (0-5) /hpf Urine RBC (Auto) 6-10 H (0-2) /hpf U Hyaline Cast (Auto) 6-10 H (0-2) /lpf U Epithel Cells (Auto) 3-5 H (0-2) /hpf Urine Bacteria (Auto) None Seen (None Seen) Administered Medications Discontinued Medications Hydromorphone HCl (Hydromorphone Inj 0.5 Mg/0.5 Ml Syr) 0.5 mg IV NOW STA Stop: 04/23/24 20:36 Last Admin: 04/23/24 20:57 Dose: 0.5 mg Documented By: ALYSHA Morphine Sulfate (Morphine Sulfate 4 Mg/Ml 1 Ml Carp\\Vial) 4 mg IV NOW STA Stop: 04/23/24 18:12 Last Admin: 04/23/24 18:29 Dose: 4 mg Documented By: MULUGETA Ondansetron HCl (Ondansetron Inj 2 Mg/Ml 2 Ml Vial) 4 mg IV NOW STA Stop: 04/23/24 18:12 Last Admin: 04/23/24 18:24 Dose: 4 mg Documented By: MULUGETA Imaging Data Radiologist's Impression: Hip/Pelvis X-Ray 04/23/24 18:10 HISTORY: Fall with left hip pain. TECHNIQUE: Pelvis and bilateral hip radiographs, 5 views. COMPARISON: None. FINDINGS: Acute displaced left femoral neck fracture. Mild osteoarthritis of both hips. The right femoral head and proximal femur appear intact. The pelvic and obturator rings appear intact. No widening of the pubic symphysis or sacroiliac joints. Degenerative spondylosis of the lower lumbar spine. Enthesophyte formation about the iliac crest. IMPRESSION: Acute displaced left femoral neck fracture. Electronically signed by Antonio Edwards 04-23-2024 6:[address] 04/23/24 18:11 HISTORY: Trauma due to fall with neck pain. TECHNIQUE: CT imaging of the cervical spine was performed without the use of IV contrast.Images are presented in axial, sagittal, and coronal reformats. COMPARISON: None FINDINGS: Straightening of cervical curvature. Minimal grade 1 anterolisthesis of C5 on C6 measures 2 mm. The vertebral body heights are maintained without compression deformity. No evidence of acute cervical spine fractures identified. Multilevel degenerative disc disease is most pronounced and severe at C6-7. Posteriorly directed disc osteophyte complex at C5-6 and C6-7 resulting in mild central canal stenosis. Uncovertebral and facet arthrosis resulting in severe neuroforaminal stenosis at multiple levels. The included lung apices are clear. No prevertebral edema or hematoma. Moderate atherosclerotic calcification at the carotid bifurcations. The soft tissues of the neck are otherwise unremarkable. IMPRESSION: 1. No evidence of acute cervical spine fracture. 2. Advanced multilevel degenerative spondylosis of the cervical spine with multilevel central canal and neural foraminal stenosis. 3. Moderate atherosclerotic plaque at the carotid bifurcations. [facility]. Electronically signed by Antonio Edwards 04-23-2024 7:23 PM Chest X-Ray 04/23/24 18:11 HISTORY: Trauma due to fall with hip fracture. TECHNIQUE: Portable AP radiograph of the chest. COMPARISON: Chest radiograph dated 03/10/2024. FINDINGS: Low lung volumes with pulmonary vascular crowding. Mild left basilar opacity favoring atelectasis. No focal right lung opacity. No pneumothorax or effusion. Top normal heart size. Left-sided aortic arch contains atherosclerotic calcification. Midline trachea. No acute osseous abnormality. Included upper abdomen is unremarkable. IMPRESSION: 1. No acute cardiopulmonary findings. 2. Low lung volumes with pulmonary vascular crowding. 3. Mild left basilar opacity is similar to the prior study and may represent atelectasis or scarring. Electronically signed by Antonio Edwards 04-23-2024 6:[address] 04/23/24 18:11 HISTORY: Trauma due to fall. TECHNIQUE: CT imaging of the head was performed without the use of IV contrast. Images are presented in axial, sagittal, and coronal reformats. COMPARISON: Head CT dated 03/10/2024. FINDINGS: No evidence of acute intracranial hemorrhage, abnormal extra-axial fluid collection, mass effect, or midline shift. Mild chronic microvascular ischemic changes. Ventricular caliber is appropriate. Fourth ventricle is midline. The basal cisterns are patent. [place]-white differentiation appears grossly maintained. The soft tissues about the skull base and scalp are unremarkable. The globes and orbits are unremarkable. Completely opacified and expanded left maxillary sinus suggesting mucocele. The mastoid air cells are well aerated. No acute calvarial fracture. IMPRESSION: 1. No acute intracranial findings. 2. Mild chronic microvascular ischemic changes. 3. Chronic complete opacification of the left maxillary sinus with expansion suggesting mucocele. Increased density of secretions may represent fungal colonization or inspissated secretions. Electronically signed by Antonio Edwards 04-23-2024 7:09 PM Discharge Plan Visit Data Chief Complaint: Trauma Stated Complaint: FALL, L HIP PAIN ED Provider: Yong Brewer Discharge Problem: Closed hip fracture Forms Stand Alone Forms: [facility] Prescriptions Prescriptions: No Action losartan 50 mg tablet 50 mg PO DAILY atorvastatin 40 mg tablet 40 mg PO DAILY allopurinol 100 mg tablet 100 mg PO DAILY levothyroxine 100 mcg tablet 100 mcg PO DAILY potassium citrate 10 mEq (1,080 mg) tablet extended release 20 meq PO DAILY paroxetine HCl 20 mg tablet 20 mg PO DAILY hydrochlorothiazide 12.5 mg tablet 12.5 mg PO DAILY Ozempic 0.25 mg or 0.5 mg (2 mg/3 mL) pen injector 1 mg SUBCUT WK Rx Instructions: (1 MG/DOSE)) Inject 1 mg under the skin once a week on sundays. aspirin 81 mg Tablet 81 mg PO DAILY Referrals Referrals: Wing Briseno DO [Primary Care Provider] -
[2024-04-23] MEDS: ONDANSETRON INJ 2 MG/ML 2 ML VIAL IV STA (18:24)
[2024-04-23 18:27] LABS: Basophils # (auto) 0.04 K/uL (0.00-0.20); Basophils % (auto) 0.5 %; Eosinophils # (auto) 0.15 K/uL (0.00-0.50); Hematocrit (blood only) 36.7 % (37.0-47.0); Hemoglobin 12.2 g/dl (12.0-16.0); Immature Granulocytes # (auto) 0.05 K/uL (0.01-0.20); Immature Granulocytes % (auto) 0.7 %; Lymphocytes # (auto) 1.59 K/uL (1.20-3.40); Lymphocytes % (auto) 20.7 %; Mean Corpuscular Hemoglobin 30.7 pg (25.0-34.0); Mean Corpuscular Hgb Conc 33.2 g/dL (32.0-36.0); Mean Corpuscular Volume 92.2 fL (80.0-100.0); Mean Platelet Volume 10.4 fL (9.4-12.4); Monocytes # (auto) 0.48 K/uL (0.11-0.59); Monocytes % (auto) 6.2 %; Neutrophils # (auto) 5.38 K/uL (1.40-6.50); Neutrophils % (auto) 69.9 %; Platelet Count 184 K/uL (130-400); RDW Coefficient of Variation 13.8 % (11.5-14.5); RDW Standard Deviation 46.7 fL (36.4-46.3); Red Blood Count 3.98 M/uL (4.20-5.40); White Blood Count 7.69 K/ul (4.8-10.8)
[2024-04-23] MEDS: MoRPHine SULFATE 4 MG/ML 1 ML CARP\\VIAL IV STA (18:29)
[2024-04-23 18:38] LABS: Partial Thromboplastin Time 26 Seconds (21-31); Prothrombin Time 11.2 Seconds (9.0-12.0)
[2024-04-23 18:41] LABS: Albumin Level 3.8 gm/dl (3.4-5.0); Bilirubin,Total 0.7 mg/dl (0.2-1.0); Calcium 8.6 mg/dl (8.6-10.3)
[2024-04-23 18:46] LABS: iSTAT Creatinine 1.4 mg/dl (0.6-1.3); iSTAT Hemoglobin 12.6 g/dl (12.0-16.0); iSTAT Ionized Calcium 1.1 mmol/l (1.12-1.32); iSTAT Potassium 3.9 mmol/L (3.3-5.0)
[2024-04-23 18:47] LABS: Albumin Globulin Ratio 1.3 (0.9-2); BUN Creatinine Ratio 16.9 (10-20); Creatinine Clr Calc Pharmacy 30.7 ml/min; Globulin 2.9 gm/dl (2.5-4.0); Total Protein 6.7 gm/dl (6.0-8.3)
--- NOTE | 2024-04-23 18:50 | XRay Report ---
HISTORY: Trauma due to fall with hip fracture. TECHNIQUE: Portable AP radiograph of the chest. COMPARISON: Chest radiograph dated 03/10/2024. FINDINGS: Low lung volumes with pulmonary vascular crowding. Mild left basilar opacity favoring atelectasis. No focal right lung opacity. No pneumothorax or effusion. Top normal heart size. Left-sided aortic arch contains atherosclerotic calcification. Midline trachea. No acute osseous abnormality. Included upper abdomen is unremarkable. IMPRESSION: 1. No acute cardiopulmonary findings. 2. Low lung volumes with pulmonary vascular crowding. 3. Mild left basilar opacity is similar to the prior study and may represent atelectasis or scarring. Electronically signed by Antonio Edwards 04-23-2024 6:50 PM
--- NOTE | 2024-04-23 18:52 | XRay Report ---
HISTORY: Fall with left hip pain. TECHNIQUE: Pelvis and bilateral hip radiographs, 5 views. COMPARISON: None. FINDINGS: Acute displaced left femoral neck fracture. Mild osteoarthritis of both hips. The right femoral head and proximal femur appear intact. The pelvic and obturator rings appear intact. No widening of the pubic symphysis or sacroiliac joints. Degenerative spondylosis of the lower lumbar spine. Enthesophyte formation about the iliac crest. IMPRESSION: Acute displaced left femoral neck fracture. Electronically signed by Antonio Edwards 04-23-2024 6:52 PM
--- NOTE | 2024-04-23 19:10 | CT Scan Report ---
HISTORY: Trauma due to fall. TECHNIQUE: CT imaging of the head was performed without the use of IV contrast. Images are presented in axial, sagittal, and coronal reformats. COMPARISON: Head CT dated 03/10/2024. FINDINGS: No evidence of acute intracranial hemorrhage, abnormal extra-axial fluid collection, mass effect, or midline shift. Mild chronic microvascular ischemic changes. Ventricular caliber is appropriate. Fourth ventricle is midline. The basal cisterns are patent. [place]-white differentiation appears grossly maintained. The soft tissues about the skull base and scalp are unremarkable. The globes and orbits are unremarkable. Completely opacified and expanded left maxillary sinus suggesting mucocele. The mastoid air cells are well aerated. No acute calvarial fracture. IMPRESSION: 1. No acute intracranial findings. 2. Mild chronic microvascular ischemic changes. 3. Chronic complete opacification of the left maxillary sinus with expansion suggesting mucocele. Increased density of secretions may represent fungal colonization or inspissated secretions. Electronically signed by Antonio Edwards 04-23-2024 7:09 PM
--- NOTE | 2024-04-23 19:24 | CT Scan Report ---
HISTORY: Trauma due to fall with neck pain. TECHNIQUE: CT imaging of the cervical spine was performed without the use of IV contrast.Images are presented in axial, sagittal, and coronal reformats. COMPARISON: None FINDINGS: Straightening of cervical curvature. Minimal grade 1 anterolisthesis of C5 on C6 measures 2 mm. The vertebral body heights are maintained without compression deformity. No evidence of acute cervical spine fractures identified. Multilevel degenerative disc disease is most pronounced and severe at C6-7. Posteriorly directed disc osteophyte complex at C5-6 and C6-7 resulting in mild central canal stenosis. Uncovertebral and facet arthrosis resulting in severe neuroforaminal stenosis at multiple levels. The included lung apices are clear. No prevertebral edema or hematoma. Moderate atherosclerotic calcification at the carotid bifurcations. The soft tissues of the neck are otherwise unremarkable. IMPRESSION: 1. No evidence of acute cervical spine fracture. 2. Advanced multilevel degenerative spondylosis of the cervical spine with multilevel central canal and neural foraminal stenosis. 3. Moderate atherosclerotic plaque at the carotid bifurcations. [facility]. Electronically signed by Antonio Edwards 04-23-2024 7:23 PM
[2024-04-23 19:44] LABS: Appearance Urine Clear (Clear); Bacteria Urine Automated None Seen (None Seen); Bilirubin Urine Negative (Negative); Blood Urine Negative (Negative); Color Urine Yellow; Glucose Urine UA Negative (Negative); Ketones Urine Trace (Negative); Leukocyte Esterase Urine Negative (Negative); Nitrite Urine Negative (Negative); Protein Urine Trace (Negative); Specific Gravity Urine 1.029 (1.000-1.030); Urobilinogen Urine Negative (Negative); WBC Urine Automated 0-5 /hpf (0-5); pH Urine 5.5 (4.5-7.5)
--- NOTE | 2024-04-23 20:54 | History & Physical Report ---
Date of Service April 23, 2024 Assessment & Plan (1) Closed left femoral fracture: Plan: 83-year-old female with past medical history significant for type 2 diabetes, diabetic neuropathy, hyperparathyroidism secondary renal disease, CKD stage IV, lactose intolerance, dyslipidemia, gout, hypothyroidism due to acquired atrophy of thyroid, asymptomatic stenosis of left carotid artery, nephrolithiasis, essential tremor, panic disorder, history of breast cancer, depression who lives at home with her comes because of fall and found to have left hip fracture. She is walking in the kitchen when she turned she fell down. CT head and CT cervical spine no acute findings. Her balance is not great as per son. She has cane and walker but not using. Denies any chest pain or shortness. Has chronic headache.No fevers. No cough. No runny nose or sore throat. Eating and drinking okay. No nausea. No abdominal pain. Normal bowel and bladder movements. Hemodynamics are okay. Closed left femoral fracture Status post fall seems mechanical Chest x-ray and EKG okay Labs okay Patient should be at acceptable risk to proceed with surgery N.p.o. after midnight IV fluids Pain control Ortho consult in a.m. History of diabetes Hold medications Sliding scale Will monitor CKD stage IV Baseline creatinine 0.5-1.6 Presented creatinine of 1.3 Will follow labs Hypothyroidism On Synthyroid Carotid artery stenosis 80 to 90% left carotid bulb stenosis 40 to 50% right carotid bulb stenosis Supposed to follow-up with vascular surgery not followed yet On aspirin and statin History of gout On allopurinol Hypertension On losartan Currently HCTZ is stopped as outpatient Will monitor Depression panic disorder On paroxetine History of nephrolithiasis uric acid On potassium citrate Chronic maxillary Sinusitis Evaluation once stable. DVT prophylaxis SCDs on right leg Further anticoagulation as per orthopedics Disposition Medical floor Code status Full code if chance of recover per discussion with family History of Present Illness Chief Complaint: Status post fall and left hip fracture Primary Care Provider: Wing Briseno DO 83-year-old female with past medical history significant for type 2 diabetes, diabetic neuropathy, hyperparathyroidism secondary renal disease, CKD stage IV, lactose intolerance, dyslipidemia, gout, hypothyroidism due to acquired atrophy of thyroid, asymptomatic stenosis of left carotid artery, nephrolithiasis, essential tremor, panic disorder, history of breast cancer, depression who lives at home with her comes because of fall and found to have left hip fracture. She is walking in the kitchen when she turned she fell down. CT he ad and CT cervical spine no acute findings. Her balance is not great as per son. She has cane and walker but not using. Denies any chest pain or shortness. Has chronic headache.No fevers. No cough. No runny nose or sore throat. Eating and drinking okay. No nausea. No abdominal pain. Normal bowel and bladder movements. Hemodynamics are okay. Past medical history. As mentioned above Past surgical history. Breast biopsy. Colonoscopy. Cystoscopy uteroscopy with lithotripsy, cystoscopy, partial mastectomy left, bilateral cataracts. Social history. . No smoking. No alcohol use. No drug use Family history. Mother had lung cancer. Heart disorder. Hypertension. Panic attacks. Father had heart disorder. Sister has hypertension. Brother has emphysema. Allergies Allergy/AdvReac Type Severity Reaction Status Date / Time No Known Allergies Allergy Mild OTHER Unverified 03/25/14 08:07 Home Medications Medication Instructions Recorded Confirmed Type allopurinol 100 mg tablet 100 mg PO DAILY 03/19/20 04/23/24 History atorvastatin 40 mg tablet 40 mg PO DAILY 03/19/20 04/23/24 History hydrochlorothiazide 12.5 mg tablet 12.5 mg PO DAILY 03/19/20 04/23/24 History levothyroxine 100 mcg tablet 100 mcg PO DAILY 03/19/20 04/23/24 History losartan 50 mg tablet 50 mg PO DAILY 03/19/20 04/23/24 History paroxetine HCl 20 mg tablet 20 mg PO DAILY 03/19/20 04/23/24 History potassium citrate 10 mEq (1,080 20 meq PO DAILY 03/19/20 04/23/24 History mg) tablet,extended release aspirin 81 mg tablet 81 mg PO DAILY 03/10/24 04/23/24 History semaglutide 0.25 mg or 0.5 mg (2 1 mg subcut WK diabetes 03/10/24 04/23/24 History mg/3 mL) subcutaneous pen injector (Ozempic) Past Med/Surg History Problem List Closed hip fracture (Acute) Closed left femoral fracture Acute kidney injury superimposed on CKD Dizziness Vertigo (Acute) Dehydration (Acute) Infection due to human metapneumovirus (hMPV) (Acute) Lactose intolerance (Chronic) Diabetic neuropathy (Chronic) Renal colic (Acute) Pancreatitis (Acute) Vomiting (Acute) Medical History Carotid arterial disease HTN (hypertension) DM II (diabetes mellitus, type II), controlled Nephrolithiasis (03/25/14) Breast cancer in situ "s/p L partial mastectomy 03/23/06, L breast DCIS excision 10/19/06, and L central lumpectomy 11/16/06" Surgical History History of partial mastectomy of left breast "s/p L partial mastectomy 03/23/06, L breast DCIS excision 10/19/06, and L central lumpectomy 11/16/06" Social History Smoking Status: Never smoker Hx Alcohol Use: No Hx Substance Use: No Preferred Language: Sammarinese Communication Ability: Effective Coil Maker Required: No Beliefs That Will Affect Care: None Current Living Situation: Spouse Current Living Situation Comment: 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 ENT- oropharynx clear Neck- supple, no JVD. Lungs- clear to auscultation no wheezing or crackles. Heart- regular rate and rhythm; no murmur, no gallop. Abdomen- normal bowel sounds, soft, nontender, no distension. Extremities- no pretibial edema, Left lower extremity is shortened and externally rotated Neuro- alert, oriented ; EOMI; no facial palsy; no dysarthria; obeys simple commands Results & Data Results & Data Vital Signs (Past 12 Hours) Vital Signs Temp Pulse Pulse Resp BP BP Pulse Ox 04/23/24 20:00 81 18 162/105 H 98 04/23/24 19:02 80 16 171/92 H 100 04/23/24 18:57 97 04/23/24 18:12 80 04/23/24 18:11 36.4 C L 81 18 156/92 H 98 04/23/24 18:11 36.6 C 79 18 156/92 H 98 O2 Del Method O2 Flow Rate 04/23/24 20:00 Nasal Cannula 2 04/23/24 19:02 Nasal Cannula 2 04/23/24 18:57 Nasal Cannula 2 04/23/24 18:12 04/23/24 18:11 Nasal Cannula 2 04/23/24 18:11 Nasal Cannula 2 Diagnostic Findings Laboratory Results WBC 7.69 K/ul (4.8-10.8) 04/23/24 18:11 RBC 3.98 M/uL (4.20-5.40) L 04/23/24 18:11 Hgb 12.2 g/dl (12.0-16.0) 04/23/24 18:11 POC Hgb 12.6 g/dl (12.0-16.0) 04/23/24 18:34 Hct 36.7 % (37.0-47.0) L 04/23/24 18:11 POC Hct 37 % (37-47) 04/23/24 18:34 MCV 92.2 fL (80.0-100.0) 04/23/24 18:11 MCH 30.7 pg (25.0-34.0) 04/23/24 18:11 MCHC 33.2 g/dL (32.0-36.0) 04/23/24 18:11 RDW Std Deviation 46.7 fL (36.4-46.3) H 04/23/24 18:11 RDW Coeff of [place] 13.8 % (11.5-14.5) 04/23/24 18:11 Plt Count 184 K/uL (130-400) 04/23/24 18:11 MPV 10.4 fL (9.4-12.4) 04/23/24 18:11 Immature Gran % (Auto) 0.7 % 04/23/24 18:11 Neut % (Auto) 69.9 % 04/23/24 18:11 Lymph % (Auto) 20.7 % 04/23/24 18:11 [place] % (Auto) 6.2 % 04/23/24 18:11 Eos % (Auto) 2.0 % 04/23/24 18:11 Baso % (Auto) 0.5 % 04/23/24 18:11 Neut # (Auto) 5.38 K/uL (1.40-6.50) 04/23/24 18:11 Lymph # (Auto) 1.59 K/uL (1.20-3.40) 04/23/24 18:11 [place] # (Auto) 0.48 K/uL (0.11-0.59) 04/23/24 18:11 Eos # (Auto) 0.15 K/uL (0.00-0.50) 04/23/24 18:11 Baso # (Auto) 0.04 K/uL (0.00-0.20) 04/23/24 18:11 Immature Gran # (Auto) 0.05 K/uL (0.01-0.20) 04/23/24 18:11 PT 11.2 Seconds (9.0-12.0) 04/23/24 18:11 INR 1.0 (0.9-1.1) 04/23/24 18:11 APTT 26 Seconds (21-31) 04/23/24 18:11 PTT Ratio 1.0 04/23/24 18:11 POC Sodium 141 mmol/L (135-144) 04/23/24 18:34 Sodium 139 mmol/L (136-145) 04/23/24 18:11 POC Potassium 3.9 mmol/L (3.3-5.0) 04/23/24 18:34 Potassium 4.0 mmol/L (3.5-5.1) 04/23/24 18:11 POC Chloride 105 mmol/L (101-112) 04/23/24 18:34 Chloride 106 mmol/L (98-107) 04/23/24 18:11 Carbon Dioxide 29 mmol/L (21-32) 04/23/24 18:11 POC Total CO2 28 mmol/L (24-31) 04/23/24 18:34 Anion Gap 4 (3-11) 04/23/24 18:11 POC Anion Gap 14.0 mmol/L (16-25) L 04/23/24 18:34 POC BUN 22 mg/dl (7-18) H 04/23/24 18:34 BUN 22 mg/dl (6-23) 04/23/24 18:11 Creatinine 1.30 mg/dl (0.6-1.2) H 04/23/24 18:11 POC Creatinine 1.4 mg/dl (0.6-1.3) H 04/23/24 18:34 Est Cr Clr Drug Dosing 30.7 ml/min 04/23/24 18:11 eGFR 40.30 04/23/24 18:11 BUN/Creatinine Ratio 16.9 (10-20) 04/23/24 18:11 Glucose 151 mg/dl (70-99(Fasting)) H 04/23/24 18:11 POC Glucose (other) 150 mg/dl (70-99) H 04/23/24 18:34 Calcium 8.6 mg/dl (8.6-10.3) 04/23/24 18:11 POC Ioniz Calcium Jolene 1.10 mmol/l (1.12-1.32) L 04/23/24 18:34 Total Bilirubin 0.7 mg/dl (0.2-1.0) 04/23/24 18:11 AST 19 U/L (13-39) 04/23/24 18:11 ALT 14 U/L (7-52) 04/23/24 18:11 Alkaline Phosphatase 69 U/L (34-104) 04/23/24 18:11 Total Protein 6.7 gm/dl (6.0-8.3) 04/23/24 18:11 Albumin 3.8 gm/dl (3.4-5.0) 04/23/24 18:11 Globulin 2.9 gm/dl (2.5-4.0) 04/23/24 18:11 Albumin/Globulin Ratio 1.3 (0.9-2) 04/23/24 18:11 Lipase 83 U/L (11-82) H 04/23/24 18:11 Urine Color Yellow 04/23/24 18:52 Urine Appearance Clear (Clear) 04/23/24 18:52 Urine pH 5.5 (4.5-7.5) 04/23/24 18:52 Ur Specific [place] 1.029 (1.000-1.030) 04/23/24 18:52 Urine Protein Trace (Negative) H 04/23/24 18:52 Urine Glucose (UA) Negative (Negative) 04/23/24 18:52 Urine Ketones Trace (Negative) H 04/23/24 18:52 Urine Blood Negative (Negative) 04/23/24 18:52 Urine Nitrite Negative (Negative) 04/23/24 18:52 Urine Bilirubin Negative (Negative) 04/23/24 18:52 Urine Urobilinogen Negative (Negative) 04/23/24 18:52 Ur Leukocyte Esterase Negative (Negative) 04/23/24 18:52 Urine WBC (Auto) 0-5 /hpf (0-5) 04/23/24 18:52 Urine RBC (Auto) 6-10 /hpf (0-2) H 04/23/24 18:52 U Hyaline Cast (Auto) 6-10 /lpf (0-2) H 04/23/24 18:52 U Epithel Cells (Auto) 3-5 /hpf (0-2) H 04/23/24 18:52 Urine Bacteria (Auto) None Seen (None Seen) 04/23/24 18:52 Impressions Hip/Pelvis X-Ray 04/23/24 18:10 HISTORY: Fall with left hip pain. TECHNIQUE: Pelvis and bilateral hip radiographs, 5 views. COMPARISON: None. FINDINGS: Acute displaced left femoral neck fracture. Mild osteoarthritis of both hips. The right femoral head and proximal femur appear intact. The pelvic and obturator rings appear intact. No widening of the pubic symphysis or sacroiliac joints. Degenerative spondylosis of the lower lumbar spine. Enthesophyte formation about the iliac crest. IMPRESSION: Acute displaced left femoral neck fracture. Electronically signed by Antonio Edwards 04-23-2024 6:[address] 04/23/24 18:11 HISTORY: Trauma due to fall with neck pain. TECHNIQUE: CT imaging of the cervical spine was performed without the use of IV contrast.Images are presented in axial, sagittal, and coronal reformats. COMPARISON: None FINDINGS: Straightening of cervical curvature. Minimal grade 1 anterolisthesis of C5 on C6 measures 2 mm. The vertebral body heights are maintained without compression deformity. No evidence of acute cervical spine fractures identified. Multilevel degenerative disc disease is most pronounced and severe at C6-7. Posteriorly directed disc osteophyte complex at C5-6 and C6-7 resulting in mild central canal stenosis. Uncovertebral and facet arthrosis resulting in severe neuroforaminal stenosis at multiple levels. The included lung apices are clear. No prevertebral edema or hematoma. Moderate atherosclerotic calcification at the carotid bifurcations. The soft tissues of the neck are otherwise unremarkable. IMPRESSION: 1. No evidence of acute cervical spine fracture. 2. Advanced multilevel degenerative spondylosis of the cervical spine with multilevel central canal and neural foraminal stenosis. 3. Moderate atherosclerotic plaque at the carotid bifurcations. [facility]. Electronically signed by Antonio Edwards 04-23-2024 7:23 PM Chest X-Ray 04/23/24 18:11 HISTORY: Trauma due to fall with hip fracture. TECHNIQUE: Portable AP radiograph of the chest. COMPARISON: Chest radiograph dated 03/10/2024. FINDINGS: Low lung volumes with pulmonary vascular crowding. Mild left basilar opacity favoring atelectasis. No focal right lung opacity. No pneumothorax or effusion. Top normal heart size. Left-sided aortic arch contains atherosclerotic calcification. Midline trachea. No acute osseous abnormality. Included upper abdomen is unremarkable. IMPRESSION: 1. No acute cardiopulmonary findings. 2. Low lung volumes with pulmonary vascular crowding. 3. Mild left basilar opacity is similar to the prior study and may represent atelectasis or scarring. Electronically signed by Antonio Edwards 04-23-2024 6:[address] 04/23/24 18:11 HISTORY: Trauma due to fall. TECHNIQUE: CT imaging of the head was performed without the use of IV contrast. Images are presented in axial, sagittal, and coronal reformats. COMPARISON: Head CT dated 03/10/2024. FINDINGS: No evidence of acute intracranial hemorrhage, abnormal extra-axial fluid collection, mass effect, or midline shift. Mild chronic microvascular ischemic changes. Ventricular caliber is appropriate. Fourth ventricle is midline. The basal cisterns are patent. [place]-white differentiation appears grossly maintained. The soft tissues about the skull base and scalp are unremarkable. The globes and orbits are unremarkable. Completely opacified and expanded left maxillary sinus suggesting mucocele. The mastoid air cells are well aerated. No acute calvarial fracture. IMPRESSION: 1. No acute intracranial findings. 2. Mild chronic microvascular ischemic changes. 3. Chronic complete opacification of the left maxillary sinus with expansion suggesting mucocele. Increased density of secretions may represent fungal colonization or inspissated secretions. Electronically signed by Antonio Edwards 04-23-2024 7:09 PM ECG Additional Comments: ECG. Sinus rhythm first-degree AV block with occasional PVCs with rate of 79. QTc 456. Code Status & VTE Plan VTE Prophylaxis Plan VTE Prophylaxis will be ordered: Yes
[2024-04-23] MEDS: HYDROmorphone INJ 0.5 MG/0.5 ML SYR IV STA (20:57)
[2024-04-23] MEDS ORDERED: POLYETHYLENE (MIRALAX) 17 GM PACK PO PRN (23:45)
[2024-04-23] MEDS ORDERED: HYDROmorphone INJ 0.5 MG/0.5 ML SYR IV PRN (23:45)
[2024-04-24] MEDS: SODIUM CHLORIDE 0.9% 1,000 ML IV SCH (00:10)
[2024-04-24] MEDS: LEVOTHYROXINE SODIUM 100 MCG TABLET PO SCH (05:24)
[2024-04-24 05:40] LABS: Basophils # (auto) 0.04 K/uL (0.00-0.20); Basophils % (auto) 0.5 %; Eosinophils # (auto) 0.11 K/uL (0.00-0.50); Eosinophils % (auto) 1.4 %; Hematocrit (blood only) 36.4 % (37.0-47.0); Hemoglobin 11.8 g/dl (12.0-16.0); Immature Granulocytes # (auto) 0.03 K/uL (0.01-0.20); Immature Granulocytes % (auto) 0.4 %; Lymphocytes # (auto) 1.79 K/uL (1.20-3.40); Lymphocytes % (auto) 22.2 %; Mean Corpuscular Hemoglobin 29.9 pg (25.0-34.0); Mean Corpuscular Hgb Conc 32.4 g/dL (32.0-36.0); Mean Corpuscular Volume 92.4 fL (80.0-100.0); Mean Platelet Volume 10.3 fL (9.4-12.4); Monocytes # (auto) 0.56 K/uL (0.11-0.59); Monocytes % (auto) 6.9 %; Neutrophils # (auto) 5.53 K/uL (1.40-6.50); Neutrophils % (auto) 68.6 %; Platelet Count 175 K/uL (130-400); RDW Coefficient of Variation 13.9 % (11.5-14.5); RDW Standard Deviation 47.6 fL (36.4-46.3); Red Blood Count 3.94 M/uL (4.20-5.40); White Blood Count 8.06 K/ul (4.8-10.8)
[2024-04-24 06:33] LABS: BUN Creatinine Ratio 17.9 (10-20); Calcium 8.3 mg/dl (8.6-10.3); Creatinine Clr Calc Pharmacy 34.1 ml/min; Magnesium 1.3 mg/dl (1.7-2.4); Potassium 4.1 mmol/L (3.5-5.1)
--- NOTE | 2024-04-24 07:18 | Electrocardiogram Report ---
Test Reason : Blood Pressure : */* mmHG Vent. Rate : 79 BPM Atrial Rate : 79 BPM P-R Int : 218 ms QRS Dur : 88 ms QT Int : 398 ms P-R-T Axes : 75 44 59 degrees QTcB Int : 456 ms Sinus rhythm with 1st degree A-V block with occasional Premature ventricular complexes Abnormal ECG When compared with ECG of 09-Mar-2024 23:16, Premature ventricular complexes are now Present Confirmed by Jason Harris ([id number]) on 04/24/2024 7:17:58 AM Referred By: REFERRED SELF Confirmed By: Jason Harris
--- NOTE | 2024-04-24 07:55 | Orthopedic Consultation ---
Date of Service April 24, 2024 Assessment & Plan (1) Closed left femoral fracture: NPO. Plan is for a cemented left hip bipolar hemiarthroplasty today with Dr. Vazquez. Procedure explained with her and she wants to proceed with surgery to fix her hip. History of Present Illness Reason for Consultation: . Requesting Physician: . Attending Physician: Ramos Grossman MD .Lorelei is a 83 year old patient who was walking in her kitchen yesterday and fell, injuring her left hip. Complains of left hip pain at this time. No other complaints. No hip pain prior to the fall. She uses a cane regularly for ambulation. Allergies Allergy/AdvReac Type Severity Reaction Status Date / Time No Known Allergies Allergy Mild OTHER Unverified 03/25/14 08:07 Home Medications Medication Instructions Recorded Confirmed Type allopurinol 100 mg tablet 100 mg PO DAILY 03/19/20 04/23/24 History atorvastatin 40 mg tablet 40 mg PO DAILY 03/19/20 04/23/24 History levothyroxine 100 mcg tablet 100 mcg PO DAILY 03/19/20 04/23/24 History losartan 50 mg tablet 50 mg PO DAILY 03/19/20 04/23/24 History paroxetine HCl 20 mg tablet 20 mg PO DAILY 03/19/20 04/23/24 History potassium citrate 10 mEq (1,080 20 meq PO DAILY 03/19/20 04/23/24 History mg) tablet,extended release aspirin 81 mg tablet 81 mg PO DAILY 03/10/24 04/23/24 History semaglutide 0.25 mg or 0.5 mg (2 1 mg subcut WK diabetes 03/10/24 04/23/24 History mg/3 mL) subcutaneous pen injector (Ozempic) Past Med/Surg History Problem List Closed hip fracture (Acute) Closed left femoral fracture Acute kidney injury superimposed on CKD Dizziness Vertigo (Acute) Dehydration (Acute) Infection due to human metapneumovirus (hMPV) (Acute) Lactose intolerance (Chronic) Diabetic neuropathy (Chronic) Renal colic (Acute) Pancreatitis (Acute) Vomiting (Acute) Medical History Carotid arterial disease HTN (hypertension) DM II (diabetes mellitus, type II), controlled Nephrolithiasis (03/25/14) Breast cancer in situ "s/p L partial mastectomy 03/23/06, L breast DCIS excision 10/19/06, and L central lumpectomy 11/16/06" Surgical History History of partial mastectomy of left breast "s/p L partial mastectomy 03/23/06, L breast DCIS excision 10/19/06, and L central lumpectomy 11/16/06" Social History Smoking Status: Never smoker Hx Alcohol Use: No Hx Substance Use: No Preferred Language: Wolof Communication Ability: Effective Community Engagement Manager Required: No Beliefs That Will Affect Care: None Current Living Situation: Spouse Current Living Situation Comment: 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 Physical Exam . alert NAD Left leg: shortened and externally rotated. No motion of her hip done today. She can dorsiflex and plantarflex. NVI Results & Data Results & Data Laboratory Results . Diagnostic Findings .xrays of the hip and pelvis show a displaced left femoral neck fracture PG Care Time/CCT Total # of Minutes Spent Total Time Spent with Patient: Total time spent is greater than 50% in coordination of care (as documented) at patient's floor/unit and/or counseling patient: Supervising Physician Co-Signing Physician Notes Patient was seen and examined. Agree with the physician graduate research assistant note. There is a displaced femoral neck fracture that is best treated with a bipolar hemiarthroplasty with cement as soon as medically reasonable. She appears to be cleared for proceed. I reviewed the risks, benefits, and alternatives to surgical treatment of a femoral neck fracture, in detail with the patient and her family. Informed consent was reviewed and confirmed to proceed. Coding Level of Care Code 57532 IN/OBS CONSULT LVL 4,60M (57 - DECISION FOR SURGERY) Diagnoses Closed left femoral fracture S72.92XA
[2024-04-24] MEDS: MAGNESIUM SULFATE / D5W 1 GM/100 ML BAG IV SCH (08:15)
[2024-04-24] MEDS ORDERED: SUGAMMADEX SODIUM 200 MG/2 ML VIAL IV ONE (08:17)
[2024-04-24] MEDS ORDERED: DEXAMETHASONE SOD INJ 4 MG/ML VIAL ONE (08:17)
[2024-04-24] MEDS ORDERED: ONDANSETRON INJ 2 MG/ML 2 ML VIAL ONE (08:17)
[2024-04-24] MEDS ORDERED: PROPOFOL IV EMULSION 10 MG/ML 20 ML VIAL IV ONE (08:17)
[2024-04-24] MEDS ORDERED: ROCURONIUM BROMIDE 10 MG/ML 5 ML VIAL IV ONE (08:17)
[2024-04-24] MEDS ORDERED: fentaNYL citrate PF 100 MCG/2 ML VIAL ONE (08:17)
[2024-04-24] MEDS: LOSARTAN POTASSIUM 50 MG TAB PO SCH (08:35)
--- NOTE | 2024-04-24 09:05 | Anesthesiology Consultation ---
Date of Service April 24, 2024 Assessment & Plan Chart Review Chart Review: Acceptable Risk for Surgery and Patient NOT seen in Pre Admission Testing Consults Requested none ASA ASA4 Proposed Anesthesia Anesthesia Type: General Anesthesia Line Insertion: Arterial line History Surgery Operation Date: 04/24/24 09:00 Proposed Procedures p Left Bipolar Hip Prosthesis(Left) - Julio Vazquez MD Height/Weight Height: 5 ft 4 in Weight: 71.7 kg Allergies Allergy/AdvReac Type Severity Reaction Status Date / Time No Known Allergies Allergy Mild OTHER Unverified 03/25/14 08:07 Medications Home Medications Medication Instructions Recorded Confirmed Last Taken allopurinol 100 mg tablet 100 mg PO DAILY 03/19/20 04/23/24 03/09/24 atorvastatin 40 mg tablet 40 mg PO DAILY 03/19/20 04/23/24 03/09/24 levothyroxine 100 mcg tablet 100 mcg PO DAILY 03/19/20 04/23/24 03/09/24 losartan 50 mg tablet 50 mg PO DAILY 03/19/20 04/23/24 03/09/24 paroxetine HCl 20 mg tablet 20 mg PO DAILY 03/19/20 04/23/24 03/09/24 potassium citrate 10 mEq (1,080 20 meq PO DAILY 03/19/20 04/23/24 Unknown mg) tablet,extended release aspirin 81 mg tablet 81 mg PO DAILY 03/10/24 04/23/24 04/22/24 09:00 semaglutide 0.25 mg or 0.5 mg (2 1 mg subcut WK diabetes 03/10/24 04/23/24 Unknown mg/3 mL) subcutaneous pen injector (Ozempic) Active Medications Generic Name Dose Route Start Last Admin Trade Name Freq PRN Reason Stop Dose Admin Sodium Chloride 1,000 mls @ 100 mls/hr 04/23/24 23:45 04/24/24 00:10 Nss IV 04/24/24 23:44 100 mls/hr .Q10H LORENE Administration Magnesium Sulfate/Dextrose 1 gm in 100 mls @ 50 mls/hr 04/24/24 08:00 04/24/24 08:15 Magnesium Sulfate / D5w IV 04/24/24 11:59 50 mls/hr Q2H LORENE Administration Levothyroxine Sodium 100 mcg 04/24/24 06:30 04/24/24 05:24 Levothyroxine Sodium 100 Mcg Tablet PO 05/24/24 06:29 100 mcg DAILYBB LORENE Administration Losartan Potassium 50 mg 04/24/24 09:00 04/24/24 08:35 Losartan Potassium 50 Mg Tab PO 05/24/24 08:59 Not Given DAILY LORENE Past Medical History Medical History Carotid arterial disease HTN (hypertension) DM II (diabetes mellitus, type II), controlled Nephrolithiasis (03/25/14) Breast cancer in situ "s/p L partial mastectomy 03/23/06, L breast DCIS excision 10/19/06, and L central lumpectomy 11/16/06" ASCVD AO/Carotids HLD Diabetic PN Gout Anemia Hx/o vertigo CKD Hx/o pancreatitis Hypothyroidism Exercise / Class Metabolic Activity II 4-5 Yardwork/Stairs/Walk up hill Past Surgical History Surgical History History of partial mastectomy of left breast "s/p L partial mastectomy 03/23/06, L breast DCIS excision 10/19/06, and L central lumpectomy 11/16/06" Past Anesthesia History No Hx of Anesthesia Complications and No Family Hx of Anesthesia Complications History of PONV No Hx of PONV and No Hx of Motion Sickness Social History Smoking Status: Never smoker Hx Alcohol Use: No Hx Substance Use: No substance use type: does not use Physical Exam Vital Signs Last Vital Signs Temp 36.8 C 04/24/24 07:07 Pulse 92 H 04/24/24 07:07 Resp 18 04/24/24 07:07 BP 173/83 H 04/24/24 07:07 Pulse Ox 96 04/24/24 07:07 O2 Del Method Nasal Cannula 04/24/24 07:07 O2 Flow Rate 2 04/24/24 07:07 Testing Laboratory Results 04/24/24 05:21 04/24/24 05:21 PT 11.2 Seconds (9.0-12.0) 04/23/24 18:11 INR 1.0 (0.9-1.1) 04/23/24 18:11 APTT 26 Seconds (21-31) 04/23/24 18:11 Urine Color Yellow 04/23/24 18:52 Urine Appearance Clear (Clear) 04/23/24 18:52 Urine pH 5.5 (4.5-7.5) 04/23/24 18:52 Ur Specific [place] 1.029 (1.000-1.030) 04/23/24 18:52 Urine Protein Trace (Negative) H 04/23/24 18:52 Urine Glucose (UA) Negative (Negative) 04/23/24 18:52 Urine Ketones Trace (Negative) H 04/23/24 18:52 Urine Nitrite Negative (Negative) 04/23/24 18:52 Ur Leukocyte Esterase Negative (Negative) 04/23/24 18:52 Urine WBC (Auto) 0-5 /hpf (0-5) 04/23/24 18:52 Urine RBC (Auto) 6-10 /hpf (0-2) H 04/23/24 18:52 U Hyaline Cast (Auto) 6-10 /lpf (0-2) H 04/23/24 18:52 U Epithel Cells (Auto) 3-5 /hpf (0-2) H 04/23/24 18:52 Urine Bacteria (Auto) None Seen (None Seen) 04/23/24 18:52 04/24/24 07:04 POC Glucose 129 H Electrocardiogram Date: 04/23/24 Findings: + NSR @ (@ 77 w/ 1st degree AVB w/ occas. PVC's) Chest X-Ray Date: 04/23/24 Findings: + atelectasis (mild left basilar opacity favoring atelectasis) Other Testing 03/10/2024-Neck CTA-left carotid bulb-80-90% stenosis; right carotid bulb-40-50% stenosis origin of right vertebral yuihfy-71-74% stenosis origin of right vertebral [id number]-73-82% stenosis
[2024-04-24] MEDS ORDERED: ATROPINE SULFATE 0.1 MG/ML 10ML SYR IV PRN (09:12)
[2024-04-24] MEDS ORDERED: ePHEDrine sulfate 50 MG/ML AMP IV PRN (09:12)
[2024-04-24] MEDS ORDERED: HYDROmorphone INJ 1 MG/ML SYRINGE IV PRN (09:12)
[2024-04-24] MEDS ORDERED: LABETALOL HCL IV 5 MG/ML 20ML IV PRN (09:12)
[2024-04-24] MEDS ORDERED: PROMETHAZINE HCL 6.25 MG in SODIUM CHLORIDE 0.9% 50 ML IV PRN (09:12)
[2024-04-24] MEDS ORDERED: NALOXONE HCL 0.4 MG/1 ML VIAL/CARP IV PRN (09:12)
[2024-04-24] MEDS ORDERED: ONDANSETRON INJ 2 MG/ML 2 ML VIAL IV PRN (09:12)
[2024-04-24 09:55] LABS: Estimated Average Glucose 163 mg/dl; Hemoglobin A1C 7.3 % (4.5-5.6)
[2024-04-24] MEDS ORDERED: SODIUM CHLORIDE 0.9% 100 ML IV PRN (10:36)
[2024-04-24] MEDS ORDERED: SODIUM CHLORIDE 0.9% 50 ML IV PRN (10:36)
[2024-04-24] MEDS ORDERED: ceFAZolin 330 MG/ML 1 GM VIAL ONE (10:54)
[2024-04-24] MEDS: ceFAZolin 2000MG 2,000 MG/15 ML SYR IV ONE (10:57)
[2024-04-24] MEDS: TRANEXAMIC ACID / 0.7% NACL 1000MG/100ML BAG IV ONE (11:00)
[2024-04-24] MEDS: allopurinoL 100 MG TAB PO SCH (11:12)
[2024-04-24] MEDS: PARoxetine HCL 20 MG TAB PO SCH (11:13)
[2024-04-24] MEDS: POTASSIUM CITRATE 10 MEQ TAB PO SCH (11:13)
[2024-04-24] MEDS: ATORVASTATIN 40 MG TAB PO SCH (11:13)
[2024-04-24] MEDS: BUPIVACAINE/EPINEPHRINE 0.5% MPF 1:200,000 30 ML VIAL ONE (12:12)
--- NOTE | 2024-04-24 13:03 | Operative Report ---
PG Post Operative Report Pre & Post Diagnosis Operation Date: 04/24/24 09:00 Pre-Op Diagnosis: Closed, displaced left femoral neck fracture Post-Op Diagnosis: Closed, displaced left femoral neck fracture I identified the patient and participated in the time-out.: Yes Procedure Operation Date: 04/24/24 09:00 Actual Procedures p Left Bipolar Hip Cemented Hemiarthroplasty(Left) - Julio Vazquez MD Surgeon Julio Vazquez MD [employer] Carlos Marcus PA-C Estimated Blood Loss 150 Findings See Below Comminuted and displaced femoral neck fracture with signs of osteoporosis [employer] implants Stem: Cemented, size 7 standard Echo with 9 mm centralizer Shell: 50 mm Head: 28+9 mm Specimens femoral head sent for pathology Anesthesia Type General Complications none Disposition Accompanied Patient To Recovery: No Disposition: Recovery Room Indications 83-year-old female sustained fall onto her hip resulting in displaced femoral neck fracture. She is mated to the medicine team and cleared for surgery. I discussed the diagnosis and prognosis and treatment options with the patient's son in the preoperative holding area. I did recommend cemented bipolar hemiarthroplasty to return her to an ambulatory status. I reviewed the risk, benefits, and alternatives in detail, as outlined in the preoperative notes. Informed consent was obtained in the preoperative holding area as the patient and her son desire to proceed with surgical management. Description of Procedure On the day of surgery, the patient was evaluated in the preoperative holding area with informed consent was reviewed and confirmed by the patient. The the operative extremity was identified by the patient and then signed by myself. The patient was then turned over anesthesia. She was taken to the operating room, placed upon the OR table, and anesthesia was induced. The airway was secured.. The patient was then positioned for surgery in lateral decubitus with a Stulberg positioner. All bony prominences were well-padded. The operative extremity was then prepped and draped in usual sterile fashion. Surgical timeout was called by the circulating nurse and verified by all present. Laterality was confirmed and equipment was available and functional. Antibiotics had been infused. TXA was infusing. Surgery was initiated by creating a standard posterior approach to the hip with a sharp incision over the greater trochanter measuring at least 15 cm. Dissection was carried out using Bovie electrocautery for hemostasis. Skin rakes were used to assist with retracting the skin layers. The fascia was then identified and exposed using a Orosco. There was an area of subcutaneous fat hematoma and mild shear injury. The segment of the injured adipose tissue was excised. We marked the midpoint to plan for a accurate repair of the IT band. Then used a 10 blade to incise to the IT band and carried up into the muscular tissues of the gluteus eric. We spread in line with the raphe and carried the opening of the fascia down distally to approximately the gluteal sling. The Charnley self-retaining retractor was then placed to hold open the fascial incision. We then internally rotated the hip and exposed the bursa which was taken down using the Bovie. We exposed the short external rotators and the piriformis tendon, which were tagged with separate sutures. We then used a Bovie to take down the piriformis and short external rotators with caution for the nearby sciatic nerve. We internally rotated the hip to expose the hip capsule we removed soft tissue by scraping with a lap sponge. A capsulotomy was performed in a T-shaped fashion across the base of the neck and extending along the course of the neck. We tacked the corners with 0 Ethibond sutures. The femoral neck fracture was then exposed. The hematoma was evacuated. The neck cut was then planned using the proprietary template from [employer]. Bovie electrocautery was used to llio the planned neck cut approximately 1 fingerbreadth above the lesser trochanter. Sagittal saw was then used to complete this cut. We then used a rongeur to to remove excess bone on the lateral aspect of the femoral neck. We then worked to remove the femoral head first using a corkscrew and tenaculum. The ligamentum teres was resected using a Bovie. The acetabular cartilage was in good condition. Adequate hemostasis was achieved. We then sized the acetabulum using the ball shaped sizers. We had a good suction fit and fill using a 49 and even better with the 50 mm template. The Charnley retractor was then removed. The femoral trochanteric region was then exposing the femoral retractors. The double foot retractor was placed under the femoral neck. Sharp Hohmann was placed behind the abductor sling. This exposed the entrance to the femoral canal well. We used a box toe buffer to remove excess lateral femoral neck and access the intertrochanteric region. We then used a canal finder to access the canal. The lateralizing reamer was then placed into this canal and used to remove excess bone from the lateral aspect of the greater trochanter to ensure no induced varus. We then began our broach sequence. A size 7 broach was then used to initiate and find the canal. This was sunk easily. We then moved sequentially to a size 9 broach which had good fit and capture. The 10 mm broach could not be soft without excessive force. Standard neck and 48 head were trialed. There was too much shock with a standard length, so I upsized by 6 mm. Did not feel like we restored the adequate soft tissue tension, so it was upsized to plus 9 mm. This had adequate restorationist of leg length and excellent stability. External rotation with the foot in full extension was to approximately 30 degrees. The hip flexed past 90 with good stability and internally rotated approximately 45 degrees before liftoff inside the acetabulum. There was excellent mid flexion stability past 60 degrees of external rotation. We then removed our trial implants and began our canal preparation. After thorough pulse lavage of the canal, the wire brush was used down the canal followed by the irrigating aspirator. We placed a tampon suction device to clear the canal, while irrigating the acetabulum. A moist sponge protected the acetabulum from debris and cement. Cement preparation began on the back table. Two bags of cement were prepared with suction with 1-1/2 minutes of mixing. A cement restrictor was placed based on the manufacturers instructions, based on the length of the stem. A pressurized cement gun was used to retrograde fill the canal after removal of the tampon suction device. Digital pressure was used to pressurize the cement in the canal. We then placed a small amount of cement near the centralizer on the stem. We then placed the stem down in the canal and use the positioner device to ensure appropriate rotation. We then ensured the implant was down to where the collar set on the calcar. Firm, still pressure was held until the cement cured. All extraneous cement debris was then scraped out with a curette and hemostat to ensure no loose debris. Once the cement had cured on the back table and the stem appeared to be well- seated and cured, thorough irrigation was performed. The trial neck and head components were then placed on the implanted stem for final check. Stability was maintained. The final implants were then loaded onto the trunnion and tapped into place to secure the Krishnan taper. The hip was then reduced. It was taken through another trial motion. It appeared to be stable with the same parameters. The joint was thoroughly irrigated with pulse lavage. We then began our closing sequence. This involved repair of the capsule layers using side to side repair in [id number] fashion for the longitudinal cut. 2 mm drill was used with the posterior aspect of the trochanter. Marie suture passer used to pass the tagging sutures back through posterior bone. Firm knot was tied to restore the piriformis and capsular corner. This repaired the back wall of the capsule well. We irrigated once again. The IT band and fascial layer was closed with #1 PDS suture in a running and interrupted fashion. Interrupted #1 Vicryl suture was used in the deep fat and fascial fascial layers, followed by interrupted 2-0 Polysorb suture in the subcuticular layer. The final skin closure was performed with kaiden. The wound was then cleansed and dressed with sterile Xeroform, sterile gauze, and ABD. Tegaderm was used to hold the dressing. The patient tolerated procedure well, and awoke from anesthesia without complication in the operating room. The patient was transferred to the hospital bed with an abduction pillow in place, and taken to recovery in stable condition. Disposition: The patient will be weightbearing as tolerated and begin physical therapy as soon as possible. Posterior hip precautions will be instructed by PT and OT. We will use routine DVT prophylaxis consisting of oral aspirin therapy. I attest to the content of the Intraoperative Record and any orders documented therein. Any exceptions are noted below.
[2024-04-24] MEDS: fentaNYL citrate PF 100 MCG/2 ML VIAL IV PRN (13:05)
--- NOTE | 2024-04-24 14:02 | Anesthesiology Progress Note ---
Date of Service April 24, 2024 Anesthesia Post Procedure Vital Signs Vital Signs: Temp Pulse Pulse Pulse Resp BP BP 04/24/24 13:50 87 17 140/62 04/24/24 13:40 36.5 C 90 13 130/59 L 04/24/24 13:30 89 17 139/62 04/24/24 13:20 88 12 155/66 H 04/24/24 13:10 88 18 147/60 H 04/24/24 13:00 95 H 12 140/78 04/24/24 12:54 36 C L 93 H 19 177/68 H 04/24/24 07:30 04/24/24 07:07 36.8 C 92 H 18 04/24/24 05:25 04/23/24 23:30 04/23/24 23:30 36.3 C L 88 16 04/23/24 23:03 80 13 182/90 H 04/23/24 22:54 81 13 04/23/24 22:48 82 14 04/23/24 22:30 178/94 H 04/23/24 22:22 83 04/23/24 22:00 81 13 151/80 H 04/23/24 21:33 81 16 159/89 H 04/23/24 21:18 78 25 H 04/23/24 21:03 85 16 04/23/24 21:00 190/106 H 04/23/24 21:00 190/106 H 04/23/24 21:00 80 16 04/23/24 20:57 79 15 04/23/24 20:33 174/80 H 04/23/24 20:33 83 16 04/23/24 20:30 80 22 04/23/24 20:03 73 16 04/23/24 20:00 162/105 H 04/23/24 20:00 162/105 H 04/23/24 20:00 81 18 04/23/24 19:51 71 17 04/23/24 19:33 80 17 04/23/24 19:30 192/126 H 04/23/24 19:30 192/126 H 04/23/24 19:30 192/126 H 04/23/24 19:21 78 20 04/23/24 19:09 83 19 04/23/24 19:02 80 16 04/23/24 19:00 171/92 H 04/23/24 19:00 171/92 H 04/23/24 18:57 81 18 04/23/24 18:57 04/23/24 18:33 86 12 04/23/24 18:30 163/93 H 04/23/24 18:30 163/93 H 04/23/24 18:27 81 19 04/23/24 18:15 83 20 04/23/24 18:12 80 04/23/24 18:11 36.4 C L 81 18 156/92 H 04/23/24 18:11 36.6 C 79 18 156/92 H 04/23/24 18:05 156/92 H BP Pulse Ox O2 Del Method O2 Flow Rate 04/24/24 13:50 94 Nasal Cannula 2 04/24/24 13:40 93 Nasal Cannula 2 04/24/24 13:30 100 Oxymask 4 04/24/24 13:20 99 Oxymask 4 04/24/24 13:10 100 Oxymask 4 04/24/24 13:00 100 Oxymask 9 04/24/24 12:54 96 Oxymask 9 04/24/24 07:30 Nasal Cannula 2 04/24/24 07:07 173/83 H 96 Nasal Cannula 2 04/24/24 05:25 168/82 H 04/23/24 23:30 Nasal Cannula 2 04/23/24 23:30 177/75 H 97 Nasal Cannula 2 04/23/24 23:03 99 04/23/24 22:54 98 04/23/24 22:48 99 04/23/24 22:30 04/23/24 22:22 04/23/24 22:00 98 04/23/24 21:33 99 04/23/24 21:18 99 04/23/24 21:03 97 04/23/24 21:00 04/23/24 21:00 04/23/24 21:00 190/108 H 97 Room Air 04/23/24 20:57 99 04/23/24 20:33 04/23/24 20:33 99 04/23/24 20:30 98 04/23/24 20:03 98 04/23/24 20:00 04/23/24 20:00 04/23/24 20:00 162/105 H 98 Nasal Cannula 2 04/23/24 19:51 98 04/23/24 19:33 95 04/23/24 19:30 04/23/24 19:30 04/23/24 19:30 04/23/24 19:21 98 04/23/24 19:09 98 04/23/24 19:02 171/92 H 100 Nasal Cannula 2 04/23/24 19:00 04/23/24 19:00 04/23/24 18:57 98 04/23/24 18:57 97 Nasal Cannula 2 04/23/24 18:33 96 04/23/24 18:30 04/23/24 18:30 04/23/24 18:27 92 04/23/24 18:15 93 04/23/24 18:12 04/23/24 18:11 98 Nasal Cannula 2 04/23/24 18:11 98 Nasal Cannula 2 04/23/24 18:05 Pain Intensity Left Hip: Pain Intensity: 6 Transfer of Care Handoff Completed per policy Notes Mental Status: alert / awake / arousable Patient Amnestic to Procedure: Yes Nausea / Vomiting: adequately controlled Pain: adequately controlled Airway Patency, RR, SpO2: stable & adequate BP & HR: stable & adequate Hydration State: stable & adequate Anesthetic Complications: no major complications apparent
--- NOTE | 2024-04-24 14:33 | Hospitalist Progress Note ---
Date of Service April 24, 2024 Assessment & Plan (1) Closed left femoral fracture: Plan: 83-year-old female with past medical history significant for type 2 diabetes, diabetic neuropathy, hyperparathyroidism secondary renal disease, CKD stage IV, lactose intolerance, dyslipidemia, gout, hypothyroidism due to acquired atrophy of thyroid, asymptomatic stenosis of left carotid artery, nephrolithiasis, essential tremor, panic disorder, history of breast cancer, depression who lives at home with her comes because of fall and found to have left hip fracture. Closed left femoral fracture Status post surgery Continue pain control PT OT eval History of diabetes Hold medications Sliding scale Will monitor CKD stage IV Baseline creatinine 0.5-1.6 Presented creatinine of 1.3 Hypothyroidism On Synthyroid, continue Carotid artery stenosis 80 to 90% left carotid bulb stenosis 40 to 50% right carotid bulb stenosis Supposed to follow-up with vascular surgery not followed yet On aspirin and statin, continue History of gout On allopurinol, continue Hypertension On losartan, continue Currently HCTZ is stopped as outpatient Will monitor Depression panic disorder On paroxetine, continue History of nephrolithiasis uric acid On potassium citrate, conitnue Chronic maxillary Sinusitis Evaluation once stable. DVT prophylaxis SCDs For now; will need DVT prophylaxis for 35 days postoperatively Please note the above document was generated using voice recognition software. It may contain grammatical, syntax or spelling errors. Any formal questions or concerns about the content, text or information contained within the body of this dictation should be directly addressed to the provider for clarification Admission and Anticipated Discharge Date Admission Date: April 23, 2024 Subjective Patient seen after the surgery. She is comfortable; not in distress Vital signs were stable and she is saturating well in 2 L of oxygen Review of Systems Review of Systems: All systems reviewed & are unremarkable except as noted in Subjective Physical Exam Physical Exam: General- Not in distress Head- atraumatic Eyes- PERRL. ENT- oropharynx clear Neck- supple, no JVD. Lungs- clear to auscultation no wheezing or crackles. Heart- regular rate and rhythm; no murmur, no gallop. Abdomen- normal bowel sounds, soft, nontender, no distension. Extremities- Dressing in place; no drainage or soaking. Neuro- alert, oriented ; EOMI; no facial palsy; no dysarthria; obeys simple commands Results & Data Results & Data Vital Signs (Past 12 Hours) Vital Signs Temp Pulse Pulse Resp BP BP Pulse Ox 04/24/24 14:25 36.7 C 86 14 146/63 H 96 04/24/24 14:00 88 15 144/68 H 95 04/24/24 13:50 87 17 140/62 94 04/24/24 13:40 36.5 C 90 13 130/59 L 93 04/24/24 13:30 89 17 139/62 100 04/24/24 13:20 88 12 155/66 H 99 04/24/24 13:10 88 18 147/60 H 100 04/24/24 13:00 95 H 12 140/78 100 04/24/24 12:54 36 C L 93 H 19 177/68 H 96 04/24/24 07:30 04/24/24 07:07 36.8 C 92 H 18 173/83 H 96 04/24/24 05:25 168/82 H O2 Del Method O2 Flow Rate 04/24/24 14:25 Nasal Cannula 2 04/24/24 14:00 Nasal Cannula 2 04/24/24 13:50 Nasal Cannula 2 04/24/24 13:40 Nasal Cannula 2 04/24/24 13:30 Oxymask 4 04/24/24 13:20 Oxymask 4 04/24/24 13:10 Oxymask 4 04/24/24 13:00 Oxymask 9 04/24/24 12:54 Oxymask 9 04/24/24 07:30 Nasal Cannula 2 04/24/24 07:07 Nasal Cannula 2 04/24/24 05:25
--- NOTE | 2024-04-24 14:57 | XRay Report ---
EXAMINATION: X-ray hip left minimum 2 view CLINICAL HISTORY: Postop PRIORS: 04/23/2024 TECHNIQUE: Frontal and lateral view left hip FINDINGS: A left total hip arthroplasty is present, appearing in the interval. Near anatomic alignment demonstrated. No periprosthetic fracture. Skin kaiden noted with moderate subcutaneous inflammatory change and gas representing postoperative state. IMPRESSION: Left total hip arthroplasty with near anatomic alignment. Electronically signed by America Lares 04-24-2024 2:57 PM
[2024-04-24] MEDS ORDERED: GLUCOSE 10 TAB/TUBE PO PRN (14:59)
[2024-04-24] MEDS ORDERED: GLUCAGON FOR INJ 1 MG VIAL SQ PRN (14:59)
[2024-04-24] MEDS ORDERED: CARBOHYDRATES FOR HYPOGLYCEMIA PO PRN (14:59)
[2024-04-24] MEDS ORDERED: GLUCOSE 40% GEL 15 GM TUBE PO PRN (14:59)
[2024-04-24] MEDS ORDERED: DEXTROSE 50% 50 ML SYRINGE IV PRN (14:59)
[2024-04-24] MEDS: INSULIN ASPART PER UNIT CHARGE SC SCH (17:34)
[2024-04-24] MEDS: ceFAZolin 1000MG 1,000 MG/7.5 ML SYR IV SCH (18:37)
[2024-04-25] MEDS: RAPID SEQUENCE INDUCTION BAG ONE (04:07)
[2024-04-25] MEDS: ASPIRIN 81 MG ECTAB PO SCH (07:39)
[2024-04-25 07:58] LABS: Basophils # (auto) 0.01 K/uL (0.00-0.20); Basophils % (auto) 0.1 %; Hematocrit (blood only) 29.2 % (37.0-47.0); Hemoglobin 9.7 g/dl (12.0-16.0); Immature Granulocytes # (auto) 0.05 K/uL (0.01-0.20); Immature Granulocytes % (auto) 0.4 %; Lymphocytes # (auto) 1.06 K/uL (1.20-3.40); Lymphocytes % (auto) 8.3 %; Mean Corpuscular Hemoglobin 30.6 pg (25.0-34.0); Mean Corpuscular Hgb Conc 33.2 g/dL (32.0-36.0); Mean Corpuscular Volume 92.1 fL (80.0-100.0); Mean Platelet Volume 10.5 fL (9.4-12.4); Monocytes # (auto) 0.88 K/uL (0.11-0.59); Monocytes % (auto) 6.9 %; Neutrophils # (auto) 10.76 K/uL (1.40-6.50); Neutrophils % (auto) 84.3 %; Platelet Count 178 K/uL (130-400); RDW Coefficient of Variation 13.7 % (11.5-14.5); RDW Standard Deviation 46.3 fL (36.4-46.3); Red Blood Count 3.17 M/uL (4.20-5.40); White Blood Count 12.76 K/ul (4.8-10.8)
[2024-04-25 08:07] LABS: BUN Creatinine Ratio 16.3 (10-20); Calcium 8.4 mg/dl (8.6-10.3); Creatinine Clr Calc Pharmacy 32.5 ml/min; Potassium 4.5 mmol/L (3.5-5.1)
[2024-04-25] MEDS: ACETAMINOPHEN 325 MG TAB PO PRN (08:48)
--- NOTE | 2024-04-25 09:20 | Orthopedic Progress Note ---
Date of Service April 25, 2024 Assessment & Plan (1) Closed left femoral fracture: Postop day 1 from a left bipolar hip hemiarthroplasty. -Aspirin, teds, SCDs and ambulation for DVT prophylaxis -Continue to work with PT/OT for weightbearing as tolerated and posterior hip precautions. -Abduction pillow in place for posterior hip precautions -Follow-up with orthopedics from outpatient standpoint in 2 to 3 weeks. Subjective Operation Date: 04/24/24 09:00 Actual Procedures p Left Bipolar Hip Cemented Hemiarthroplasty(Left) - Julio Vazquez MD Patient is postop day 1 from a left bipolar hip cemented hemiarthroplasty. She is doing okay. She is resting in her hospital bed. She does not have any questions or concerns today. Review of Systems All systems reviewed & are unremarkable except as noted in HPI & below. Physical Exam General: Patient is alert. No acute distress today. Left hip: Dressing check satisfactory. No saturation of the dressing. It is dry and intact. She is moving her left lower extremity. Limited motion of the hip and knee. She is neurovascularly intact in the left lower extremity. Results & Data Results & Data Laboratory Results . Diagnostic Findings . PG Care Time/CCT Total # of Minutes Spent Total Time Spent with Patient: Total time spent is greater than 50% in coordination of care (as documented) at patient's floor/unit and/or counseling patient: Coding Level of Care Code 87773 Post Operative Follow-Up Diagnoses Closed left femoral fracture S72.92XA
--- NOTE | 2024-04-25 10:21 | Hospitalist Progress Note ---
Date of Service April 25, 2024 Assessment & Plan (1) Closed left femoral fracture: Plan: 83-year-old female with past medical history significant for type 2 diabetes, diabetic neuropathy, hyperparathyroidism secondary renal disease, CKD stage IV, lactose intolerance, dyslipidemia, gout, hypothyroidism due to acquired atrophy of thyroid, asymptomatic stenosis of left carotid artery, nephrolithiasis, essential tremor, panic disorder, history of breast cancer, depression who lives at home with her comes because of fall and found to have left hip fracture. Closed left femoral fracture Status post left bipolar hip hemiarthroplasty on April 24, 2024 Continue pain control PT OT eval; remove Manning after patient is assessed by PT OT DVT prophylaxis with aspirin twice daily Will likely need rehab; case management on board. History of Type 2 diabetes Hold medications Sliding scale Will monitor CKD stage IV Baseline creatinine 0.5-1.6 Presented creatinine of 1.3 Hypothyroidism On Synthyroid, continue Carotid artery stenosis 80 to 90% left carotid bulb stenosis 40 to 50% right carotid bulb stenosis On aspirin and statin, continue needs outpatient follow up with vascular surgery History of gout On allopurinol, continue Hypertension On losartan, continue Currently HCTZ is stopped as outpatient Will monitor Depression panic disorder On paroxetine, continue History of nephrolithiasis uric acid On potassium citrate, conitnue Chronic maxillary Sinusitis Evaluation once stable. DVT- aspirin bid Please note the above document was generated using voice recognition software. It may contain grammatical, syntax or spelling errors. Any formal questions or concerns about the content, text or information contained within the body of this dictation should be directly addressed to the provider for clarification Admission and Anticipated Discharge Date Admission Date: April 23, 2024 Subjective Patient seen and examined at bedside. She is comfortable; pain is well-controlled Vital signs are stable and she is saturating well on room air Review of Systems Review of Systems: All systems reviewed & are unremarkable except as noted in Subjective Physical Exam Physical Exam: General- Not in distress Head- atraumatic Eyes- PERRL. ENT- oropharynx clear Neck- supple, no JVD. Lungs- clear to auscultation no wheezing or crackles. Heart- regular rate and rhythm; no murmur, no gallop. Abdomen- normal bowel sounds, soft, nontender, no distension. Extremities- Dressing in place; no drainage or soaking. Neuro- alert, oriented ; EOMI; no facial palsy; no dysarthria; obeys simple commands Results & Data Results & Data Vital Signs (Past 12 Hours) Vital Signs Temp Pulse Resp BP Pulse Ox O2 Del Method O2 Flow Rate 04/25/24 09:30 131/71 04/25/24 07:05 36.4 C L 86 18 171/76 H 94 Room Air 04/25/24 03:11 36.8 C 89 18 160/78 H 93 Nasal Cannula 2 04/24/24 22:56 36.5 C 79 18 151/83 H 97 Nasal Cannula 2
[2024-04-25] MEDS: CHOLECALCIFEROL 125 MCG (5,000 UNITS) TAB PO SCH (11:11)
[2024-04-25] MEDS: HYDROmorphone INJ 0.5 MG/0.5 ML SYR IV PRN (14:28)
[2024-04-25] MEDS ORDERED: oxyCODONE HCL IR 5 MG TAB (IMMEDIATE RELEASE) PO PRN (15:07)
[2024-04-26 08:07] LABS: Basophils # (auto) 0.03 K/uL (0.00-0.20); Basophils % (auto) 0.3 %; Eosinophils % (auto) 1.1 %; Hematocrit (blood only) 27.5 % (37.0-47.0); Immature Granulocytes # (auto) 0.06 K/uL (0.01-0.20); Immature Granulocytes % (auto) 0.6 %; Lymphocytes # (auto) 1.27 K/uL (1.20-3.40); Lymphocytes % (auto) 13.5 %; Mean Corpuscular Hemoglobin 29.9 pg (25.0-34.0); Mean Corpuscular Hgb Conc 32.7 g/dL (32.0-36.0); Mean Corpuscular Volume 91.4 fL (80.0-100.0); Mean Platelet Volume 10.7 fL (9.4-12.4); Monocytes # (auto) 0.71 K/uL (0.11-0.59); Monocytes % (auto) 7.5 %; Neutrophils # (auto) 7.27 K/uL (1.40-6.50); Platelet Count 148 K/uL (130-400); RDW Coefficient of Variation 14.1 % (11.5-14.5); RDW Standard Deviation 46.7 fL (36.4-46.3); Red Blood Count 3.01 M/uL (4.20-5.40); White Blood Count 9.44 K/ul (4.8-10.8)
[2024-04-26 08:35] LABS: BUN Creatinine Ratio 19.1 (10-20); Calcium 8.4 mg/dl (8.6-10.3); Creatinine Clr Calc Pharmacy 34.7 ml/min; Potassium 4.2 mmol/L (3.5-5.1)
--- NOTE | 2024-04-26 10:37 | CT Scan Report ---
CT OF THE HEAD WITHOUT CONTRAST CLINICAL HISTORY: Altered mental status. COMPARISON STUDY: Head CT April 23, 2024. CT DOSE: 547.75 mGy.cm TECHNIQUE: Helical axial images of the head were obtained without IV contrast. Automated exposure con trol was utilized for the study. A dose lowering technique was utilized adhering to the principles o f ALARA. FINDINGS: No acute intracranial hemorrhage, midline shift or mass effect is present. White matter hyp odensities are unchanged and favor small vessel disease. The ventricular system is unremarkable. The basal cisterns are patent. No extra-axial collections are present. There are no findings to suggest a cute dural sinus thrombosis or acute territorial infarct. There are no calvarial fractures. As before , the left maxillary sinus is opacified. IMPRESSION: No acute intracranial findings. ACT 112: Negative or not required by law. Electronically signed by: Rick Berger M.D. 04/26/2024 10:36 AM
--- NOTE | 2024-04-26 10:42 | Orthopedic Progress Note ---
Date of Service April 26, 2024 Assessment & Plan (1) Closed left femoral fracture: Postop day 2 from a left bipolar hip hemiarthroplasty. -Aspirin, teds, SCDs and ambulation for DVT prophylaxis -Continue to work with PT/OT for weightbearing as tolerated and posterior hip precautions. -Abduction pillow in place for posterior hip precautions -Follow-up with orthopedics from outpatient standpoint in 2 to 3 weeks. Subjective . Patient is an 83-year-old female who was evaluated this morning resting comfortably in no apparent distress. She was currently resting upon my arrival today. She did not answer any of my questions when I asked her today. She does not appear to be any significant distress. She is resting in her hospital bed. She has no questions or concerns. Review of Systems All systems reviewed & are unremarkable except as noted in HPI & below. Physical Exam .General: Patient is alert. No acute distress today. Left hip: Dressing check satisfactory. No saturation of the dressing. It is dry and intact. She is moving her left lower extremity. Limited motion of the hip and knee. She is neurovascularly intact in the left lower extremity. Results & Data Results & Data Laboratory Results . Diagnostic Findings . PG Care Time/CCT Total # of Minutes Spent Total Time Spent with Patient: Total time spent is greater than 50% in coordination of care (as documented) at patient's floor/unit and/or counseling patient: Coding Level of Care Code 76403 Post Operative Follow-Up Diagnoses Closed left femoral fracture S72.92XA
--- NOTE | 2024-04-26 11:42 | Hospitalist Progress Note ---
Date of Service April 26, 2024 Assessment & Plan (1) Closed left femoral fracture: Plan: 83-year-old female with past medical history significant for type 2 diabetes, diabetic neuropathy, hyperparathyroidism secondary renal disease, CKD stage IV, lactose intolerance, dyslipidemia, gout, hypothyroidism due to acquired atrophy of thyroid, asymptomatic stenosis of left carotid artery, nephrolithiasis, essential tremor, panic disorder, history of breast cancer, depression who lives at home with her comes because of fall and found to have left hip fracture. Closed left femoral fracture Status post left bipolar hip hemiarthroplasty on April 24, 2024 Patient presented with a mechanical fall; found to have closed femoral fracture. Underwent surgery on April 24, 2024 Continue pain control Continue PT OT DVT prophylaxis with aspirin twice daily Will likely need rehab; case management on board. History of Type 2 diabetes Hold medications Sliding scale Will monitor CKD stage IV Baseline creatinine 0.5-1.6 avoid nephrotic agent. Hypothyroidism On Synthyroid, continue Carotid artery stenosis 80 to 90% left carotid bulb stenosis 40 to 50% right carotid bulb stenosis On aspirin and statin, continue needs outpatient follow up with vascular surgery History of gout On allopurinol, continue Hypertension On losartan, continue Currently HCTZ is stopped as outpatient Will monitor Depression panic disorder On paroxetine, continue History of nephrolithiasis uric acid On potassium citrate, conitnue Chronic maxillary Sinusitis Evaluation once stable. DVT- aspirin bid Please note the above document was generated using voice recognition software. It may contain grammatical, syntax or spelling errors. Any formal questions or concerns about the content, text or information contained within the body of this dictation should be directly addressed to the provider for clarification Admission and Anticipated Discharge Date Admission Date: April 23, 2024 Subjective Patient seen and examined at bedside. She is sleepy but awake evaluate voice. following commands. She denies any pain or discomfort at this time No significant events overnight Review of Systems Review of Systems: All systems reviewed & are unremarkable except as noted in Subjective Physical Exam Physical Exam: General- Patient is sleepy but awake able via voice; she is able to follow commands. Denies any pain or discomfort. Head- atraumatic Eyes- PERRL. ENT- oropharynx clear Neck- supple, no JVD. Lungs- clear to auscultation no wheezing or crackles. Heart- regular rate and rhythm; no murmur, no gallop. Abdomen- normal bowel sounds, soft, nontender, no distension. Extremities- Dressing in place; no drainage or soaking. Neuro- alert, oriented ; EOMI; no facial palsy; no dysarthria; obeys simple commands Results & Data Results & Data Vital Signs (Past 12 Hours) Vital Signs Temp Pulse Resp BP Pulse Ox O2 Del Method 04/26/24 07:51 37.0 C 77 18 162/78 H 93 Room Air
[2024-04-27 07:53] LABS: Basophils # (auto) 0.02 K/uL (0.00-0.20); Basophils % (auto) 0.2 %; Eosinophils # (auto) 0.16 K/uL (0.00-0.50); Eosinophils % (auto) 1.9 %; Hematocrit (blood only) 25.9 % (37.0-47.0); Hemoglobin 8.8 g/dl (12.0-16.0); Immature Granulocytes # (auto) 0.03 K/uL (0.01-0.20); Immature Granulocytes % (auto) 0.4 %; Lymphocytes # (auto) 1.77 K/uL (1.20-3.40); Lymphocytes % (auto) 20.8 %; Mean Corpuscular Hemoglobin 30.8 pg (25.0-34.0); Mean Corpuscular Volume 90.6 fL (80.0-100.0); Mean Platelet Volume 10.8 fL (9.4-12.4); Monocytes # (auto) 0.67 K/uL (0.11-0.59); Monocytes % (auto) 7.9 %; Neutrophils # (auto) 5.87 K/uL (1.40-6.50); Neutrophils % (auto) 68.8 %; Platelet Count 173 K/uL (130-400); RDW Coefficient of Variation 13.9 % (11.5-14.5); RDW Standard Deviation 46.6 fL (36.4-46.3); Red Blood Count 2.86 M/uL (4.20-5.40); White Blood Count 8.52 K/ul (4.8-10.8)
[2024-04-27 08:11] LABS: BUN Creatinine Ratio 21.3 (10-20); Calcium 8.2 mg/dl (8.6-10.3); Creatinine Clr Calc Pharmacy 31.4 ml/min; Potassium 4.1 mmol/L (3.5-5.1)
--- NOTE | 2024-04-27 16:35 | Hospitalist Progress Note ---
Date of Service April 27, 2024 Assessment & Plan (1) Closed left femoral fracture: Plan: 83-year-old female with past medical history significant for type 2 diabetes, diabetic neuropathy, hyperparathyroidism secondary renal disease, CKD stage IV, lactose intolerance, dyslipidemia, gout, hypothyroidism due to acquired atrophy of thyroid, asymptomatic stenosis of left carotid artery, nephrolithiasis, essential tremor, panic disorder, history of breast cancer, depression who lives at home with her comes because of fall and found to have left hip fracture. Closed left femoral fracture Status post left bipolar hip hemiarthroplasty on April 24, 2024 Patient presented with a mechanical fall; found to have closed femoral fracture. Underwent surgery on April 24, 2024 Continue pain control Continue PT OT DVT prophylaxis with aspirin twice daily Will likely need rehab; case management on board. Per CM will need P2P for [facility] [[phone] Opt 2], will call them in AM. Back up placement work in progress. History of Type 2 diabetes Hold medications Sliding scale Will monitor CKD stage IV Baseline creatinine 0.5-1.6 avoid nephrotic agent. Hypothyroidism On Synthyroid, continue Carotid artery stenosis 80 to 90% left carotid bulb stenosis 40 to 50% right carotid bulb stenosis On aspirin and statin, continue needs outpatient follow up with vascular surgery History of gout On allopurinol, continue Hypertension On losartan, continue Currently HCTZ is stopped as outpatient Will monitor Depression panic disorder On paroxetine, continue History of nephrolithiasis uric acid On potassium citrate, conitnue Chronic maxillary Sinusitis Evaluation once stable. DVT- aspirin bid Please note the above document was generated using voice recognition software. It may contain grammatical, syntax or spelling errors. Any formal questions or concerns about the content, text or information contained within the body of this dictation should be directly addressed to the provider for clarification Admission and Anticipated Discharge Date Admission Date: April 23, 2024 Subjective Patient seen and examined at bedside. She is awake and alert. following commands. She denies any pain or discomfort at this time No significant events overnight Physical Exam Physical Exam: General- awake alert. she is able to follow commands. Denies any pain or discomfort. Head- atraumatic Eyes- PERRL. ENT- oropharynx clear Neck- supple, no JVD. Lungs- clear to auscultation no wheezing or crackles. Heart- regular rate and rhythm; no murmur, no gallop. Abdomen- normal bowel sounds, soft, nontender, no distension. Extremities- Dressing in place; no drainage or soaking. Neuro- alert, oriented ; EOMI; no facial palsy; no dysarthria; obeys simple commands Results & Data Results & Data Vital Signs (Past 12 Hours) Vital Signs Temp Pulse Resp BP Pulse Ox O2 Del Method 04/27/24 15:15 36.2 C L 76 16 130/50 L 93 Room Air 04/27/24 09:00 Room Air 04/27/24 07:49 36.9 C 71 18 147/70 H 96 Room Air
[2024-04-28 07:37] LABS: Basophils # (auto) 0.02 K/uL (0.00-0.20); Basophils % (auto) 0.2 %; Eosinophils # (auto) 0.23 K/uL (0.00-0.50); Eosinophils % (auto) 2.7 %; Hematocrit (blood only) 26.9 % (37.0-47.0); Hemoglobin 9.1 g/dl (12.0-16.0); Immature Granulocytes # (auto) 0.08 K/uL (0.01-0.20); Lymphocytes # (auto) 1.57 K/uL (1.20-3.40); Lymphocytes % (auto) 18.7 %; Mean Corpuscular Hemoglobin 30.7 pg (25.0-34.0); Mean Corpuscular Hgb Conc 33.8 g/dL (32.0-36.0); Mean Corpuscular Volume 90.9 fL (80.0-100.0); Mean Platelet Volume 10.6 fL (9.4-12.4); Monocytes # (auto) 0.64 K/uL (0.11-0.59); Monocytes % (auto) 7.6 %; Neutrophils # (auto) 5.85 K/uL (1.40-6.50); Neutrophils % (auto) 69.8 %; Platelet Count 217 K/uL (130-400); RDW Coefficient of Variation 13.7 % (11.5-14.5); RDW Standard Deviation 45.9 fL (36.4-46.3); Red Blood Count 2.96 M/uL (4.20-5.40); White Blood Count 8.39 K/ul (4.8-10.8)
--- NOTE | 2024-04-28 07:56 | Orthopedic Progress Note ---
Date of Service April 28, 2024 Assessment & Plan (1) Status post hemiarthroplasty of left hip: Pain well controlled, not having pain presently. PT/OT wbat, continue hip precautions dvt prophylaxis: teds, scd's, aspirin d/c planning: awaiting d/c to [facility] for rehab follow up with ortho 2-3 weeks post op Subjective .83 year old patient POD 4 from left hip cemented bipolar hemiarthroplasty for a fracture. She was sleeping this morning. Denies hip pain. Says she is awaiting d/c to [facility] hopefully. Review of Systems All systems reviewed & are unremarkable except as noted in HPI & below. Physical Exam .alert and oriented. NAD. Left Hip: dressing clean, dry, intact. Leg well aligned. Able to dorsiflex and plantarflex. NVI. Results & Data Results & Data Laboratory Results . Diagnostic Findings . PG Care Time/CCT Total # of Minutes Spent Total Time Spent with Patient: Total time spent is greater than 50% in coordination of care (as documented) at patient's floor/unit and/or counseling patient: Coding Level of Care Code 43461 Post Operative Follow-Up Diagnoses Status post hemiarthroplasty of left hip Z96.642
[2024-04-28 08:04] LABS: BUN Creatinine Ratio 24.1 (10-20); Calcium 8.4 mg/dl (8.6-10.3); Creatinine Clr Calc Pharmacy 35.7 ml/min; Magnesium 1.4 mg/dl (1.7-2.4); Phosphorus 2.6 mg/dl (2.5-4.9)
[2024-04-28] MEDS: MAGNESIUM SULFATE / D5W 1 GM/100 ML BAG IV SCH (10:15)
--- NOTE | 2024-04-28 15:29 | Hospitalist Progress Note ---
Date of Service April 28, 2024 Assessment & Plan (1) Closed left femoral fracture: Plan: 83-year-old female with past medical history significant for type 2 diabetes, diabetic neuropathy, hyperparathyroidism secondary renal disease, CKD stage IV, lactose intolerance, dyslipidemia, gout, hypothyroidism due to acquired atrophy of thyroid, asymptomatic stenosis of left carotid artery, nephrolithiasis, essential tremor, panic disorder, history of breast cancer, depression who lives at home with her comes because of fall and found to have left hip fracture. Closed left femoral fracture Status post left bipolar hip hemiarthroplasty on April 24, 2024 Patient presented with a mechanical fall; found to have closed femoral fracture. Underwent surgery on April 24, 2024 Continue pain control Continue PT OT DVT prophylaxis with aspirin twice daily Will likely need rehab; case management on board. Carried out P2P for [facility] [[phone] Opt 2], denied. They approved for snf. History of Type 2 diabetes Hold medications Sliding scale Will monitor CKD stage IV Baseline creatinine 0.5-1.6 avoid nephrotic agent. Hypothyroidism On Synthyroid, continue Carotid artery stenosis 80 to 90% left carotid bulb stenosis 40 to 50% right carotid bulb stenosis On aspirin and statin, continue needs outpatient follow up with vascular surgery History of gout On allopurinol, continue Hypertension On losartan, continue Currently HCTZ is stopped as outpatient Will monitor Depression panic disorder On paroxetine, continue History of nephrolithiasis uric acid On potassium citrate, conitnue Chronic maxillary Sinusitis Evaluation as OP once stable. DVT- aspirin bid Please note the above document was generated using voice recognition software. It may contain grammatical, syntax or spelling errors. Any formal questions or concerns about the content, text or information contained within the body of this dictation should be directly addressed to the provider for clarification Admission and Anticipated Discharge Date Admission Date: April 23, 2024 Subjective Patient seen and examined at bedside. She is awake and alert. following commands. She denies any pain or discomfort at this time No significant events overnight Physical Exam Physical Exam: General- awake alert. she is able to follow commands. Denies any pain or discomfort. Head- atraumatic Eyes- PERRL. ENT- oropharynx clear Neck- supple, no JVD. Lungs- clear to auscultation no wheezing or crackles. Heart- regular rate and rhythm; no murmur, no gallop. Abdomen- normal bowel sounds, soft, nontender, no distension. Extremities- Dressing in place; no drainage or soaking. Neuro- alert, oriented ; EOMI; no facial palsy; no dysarthria; obeys simple commands Results & Data Results & Data Vital Signs (Past 12 Hours) Vital Signs Temp Pulse Resp BP Pulse Ox O2 Del Method 04/28/24 14:10 36.5 C 82 18 110/67 93 Room Air 04/28/24 07:15 36.6 C 72 18 144/76 H 95 Room Air
--- NOTE | 2024-04-29 08:38 | Orthopedic Progress Note ---
Date of Service April 29, 2024 Assessment & Plan (1) Status post hemiarthroplasty of left hip: Postop day 5 from a left bipolar hip hemiarthroplasty. -Aspirin, teds, SCDs and ambulation for DVT prophylaxis -Continue to work with PT/OT for weightbearing as tolerated and posterior hip precautions. -Abduction pillow in place for posterior hip precautions -Follow-up with orthopedics from outpatient standpoint in 2 to 3 weeks -d/c: Per case management addendum on 04/28/2024: They do not hear back from [facility]. Patient wanted her son to make the facility decision. Case management left a voicemail for the son and is awaiting a call back. Subjective Operation Date: 04/24/24 09:00 Actual Procedures p Left Bipolar Hip Cemented Hemiarthroplasty(Left) - Julio Vazquez MD Patient is postop day 5 from a left bipolar hip cemented hemiarthroplasty. She is doing okay. She is resting in her hospital bed. She does not have any questions or concerns today. Abduction pillow is in place Review of Systems All systems reviewed & are unremarkable except as noted in HPI & below. Physical Exam General: Patient is alert. No acute distress today. Left hip: Dressing check satisfactory. No saturation of the dressing. It is dry and intact. She is moving her left lower extremity. Limited motion of the hip and knee. She is neurovascularly intact in the left lower extremity. Results & Data Results & Data Laboratory Results . Diagnostic Findings . PG Care Time/CCT Total # of Minutes Spent Total Time Spent with Patient: Total time spent is greater than 50% in coordination of care (as documented) at patient's floor/unit and/or counseling patient: Coding Level of Care Code 68354 Post Operative Follow-Up Diagnoses Status post hemiarthroplasty of left hip Z96.642
[2024-04-29 10:28] LABS: Basophils # (auto) 0.04 K/uL (0.00-0.20); Basophils % (auto) 0.5 %; Eosinophils # (auto) 0.21 K/uL (0.00-0.50); Eosinophils % (auto) 2.9 %; Hematocrit (blood only) 30.4 % (37.0-47.0); Immature Granulocytes # (auto) 0.05 K/uL (0.01-0.20); Immature Granulocytes % (auto) 0.7 %; Lymphocytes # (auto) 1.43 K/uL (1.20-3.40); Lymphocytes % (auto) 19.6 %; Mean Corpuscular Hemoglobin 30.1 pg (25.0-34.0); Mean Corpuscular Hgb Conc 32.9 g/dL (32.0-36.0); Mean Corpuscular Volume 91.6 fL (80.0-100.0); Mean Platelet Volume 10.5 fL (9.4-12.4); Monocytes # (auto) 0.39 K/uL (0.11-0.59); Monocytes % (auto) 5.3 %; Neutrophils # (auto) 5.19 K/uL (1.40-6.50); Platelet Count 307 K/uL (130-400); RDW Coefficient of Variation 13.7 % (11.5-14.5); RDW Standard Deviation 46.5 fL (36.4-46.3); Red Blood Count 3.32 M/uL (4.20-5.40); White Blood Count 7.31 K/ul (4.8-10.8)
--- NOTE | 2024-04-29 15:06 | Hospitalist Progress Note ---
Date of Service April 29, 2024 Assessment & Plan (1) Closed left femoral fracture: Plan: 83-year-old female with past medical history significant for type 2 diabetes, diabetic neuropathy, hyperparathyroidism secondary renal disease, CKD stage IV, lactose intolerance, dyslipidemia, gout, hypothyroidism due to acquired atrophy of thyroid, asymptomatic stenosis of left carotid artery, nephrolithiasis, essential tremor, panic disorder, history of breast cancer, depression who lives at home with her comes because of fall and found to have left hip fracture. Closed left femoral fracture Status post left bipolar hip hemiarthroplasty on April 24, 2024 Patient presented with a mechanical fall; found to have closed femoral fracture. Underwent surgery on April 24, 2024 Continue pain control Continue PT OT DVT prophylaxis with aspirin twice daily Will likely need rehab; case management on board. Awating snf. History of Type 2 diabetes Hold medications Sliding scale Will monitor CKD stage IV Baseline creatinine 0.5-1.6 avoid nephrotic agent. Hypothyroidism On Synthyroid, continue Carotid artery stenosis 80 to 90% left carotid bulb stenosis 40 to 50% right carotid bulb stenosis On aspirin and statin, continue needs outpatient follow up with vascular surgery History of gout On allopurinol, continue Hypertension On losartan, continue Currently HCTZ is stopped as outpatient Will monitor Depression panic disorder On paroxetine, continue History of nephrolithiasis uric acid On potassium citrate, conitnue Chronic maxillary Sinusitis Evaluation as OP once stable. DVT- aspirin bid Please note the above document was generated using voice recognition software. It may contain grammatical, syntax or spelling errors. Any formal questions or concerns about the content, text or information contained within the body of this dictation should be directly addressed to the provider for clarification Admission and Anticipated Discharge Date Admission Date: April 23, 2024 Subjective Patient seen and examined at bedside. She is awake and alert. following commands. She denies any pain or discomfort at this time No significant events overnight Physical Exam Physical Exam: General- awake alert. she is able to follow commands. Denies any pain or discomfort. Head- atraumatic Eyes- PERRL. ENT- oropharynx clear Neck- supple, no JVD. Lungs- clear to auscultation no wheezing or crackles. Heart- regular rate and rhythm; no murmur, no gallop. Abdomen- normal bowel sounds, soft, nontender, no distension. Extremities- Dressing in place; no drainage or soaking. Neuro- alert, oriented ; EOMI; no facial palsy; no dysarthria; obeys simple commands Results & Data Results & Data Vital Signs (Past 12 Hours) Vital Signs Temp Pulse Resp BP Pulse Ox O2 Del Method 04/29/24 07:06 36.7 C 71 16 163/77 H 95 Room Air
[2024-04-29] MEDS: MAGNESIUM SULFATE / D5W 1 GM/100 ML BAG IV SCH (15:37)
[2024-04-30 07:40] LABS: Hematocrit (blood only) 28.2 % (37.0-47.0); Hemoglobin 9.4 g/dl (12.0-16.0)
[2024-05-02 07:25] LABS: Hemoglobin 9.4 g/dl (12.0-16.0)
[2024-05-02 14:15] VITALS: RESP 18
--- NOTE | 2024-05-02 15:40 | Hospitalist Progress Note ---
Date of Service May 02, 2024 Assessment & Plan (1) Closed left femoral fracture: Plan: 83-year-old female with past medical history significant for type 2 diabetes, diabetic neuropathy, hyperparathyroidism secondary renal disease, CKD stage IV, lactose intolerance, dyslipidemia, gout, hypothyroidism due to acquired atrophy of thyroid, asymptomatic stenosis of left carotid artery, nephrolithiasis, essential tremor, panic disorder, history of breast cancer, depression who lives at home with her comes because of fall and found to have left hip fracture. Closed left femoral fracture Status post left bipolar hip hemiarthroplasty on April 24, 2024 Patient presented with a mechanical fall; found to have closed femoral fracture. Underwent surgery on April 24, 2024 Continue pain control Continue PT OT DVT prophylaxis with aspirin twice daily Will likely need rehab; case management on board. Awating snf. History of Type 2 diabetes Hold medications Sliding scale Will monitor CKD stage IV Baseline creatinine 0.5-1.6 avoid nephrotic agent. Hypothyroidism On Synthyroid, continue Carotid artery stenosis 80 to 90% left carotid bulb stenosis 40 to 50% right carotid bulb stenosis On aspirin and statin, continue needs outpatient follow up with vascular surgery History of gout On allopurinol, continue Hypertension On losartan, continue Currently HCTZ is stopped as outpatient Will monitor Depression panic disorder On paroxetine, continue History of nephrolithiasis uric acid On potassium citrate, conitnue Chronic maxillary Sinusitis Evaluation as OP once stable. DVT- aspirin bid Please note the above document was generated using voice recognition software. It may contain grammatical, syntax or spelling errors. Any formal questions or concerns about the content, text or information contained within the body of this dictation should be directly addressed to the provider for clarification Admission and Anticipated Discharge Date Admission Date: April 23, 2024 Subjective Patient seen and examined at bedside. She is awake and alert. following commands. She denies any pain or discomfort at this time No significant events overnight Physical Exam Physical Exam: General- awake alert. she is able to follow commands. Denies any pain or discomfort. Head- atraumatic Eyes- PERRL. ENT- oropharynx clear Neck- supple, no JVD. Lungs- clear to auscultation no wheezing or crackles. Heart- regular rate and rhythm; no murmur, no gallop. Abdomen- normal bowel sounds, soft, nontender, no distension. Extremities- Dressing in place; no drainage or soaking. Neuro- alert, oriented ; EOMI; no facial palsy; no dysarthria; obeys simple commands Results & Data Results & Data Vital Signs (Past 12 Hours) Vital Signs Temp Pulse Pulse Resp BP Pulse Ox O2 Del Method 05/02/24 14:14 36.4 C L 65 18 129/70 96 Room Air 05/02/24 13:28 36.4 C L 80 16 124/74 97 Room Air 05/02/24 09:50 Room Air 05/02/24 07:29 36.5 C 77 16 138/64 94 Room Air
[2024-05-03 07:04] VITALS: PULSE 67; TEMP 98.1; O2SAT 94
[2024-05-03 08:05] LABS: Basophils # (auto) 0.05 K/uL (0.00-0.20); Basophils % (auto) 0.6 %; Eosinophils # (auto) 0.18 K/uL (0.00-0.50); Hematocrit (blood only) 29.2 % (37.0-47.0); Hemoglobin 9.4 g/dl (12.0-16.0); Immature Granulocytes # (auto) 0.19 K/uL (0.01-0.20); Immature Granulocytes % (auto) 2.1 %; Lymphocytes # (auto) 2.52 K/uL (1.20-3.40); Lymphocytes % (auto) 28.2 %; Mean Corpuscular Hemoglobin 29.7 pg (25.0-34.0); Mean Corpuscular Hgb Conc 32.2 g/dL (32.0-36.0); Mean Corpuscular Volume 92.4 fL (80.0-100.0); Mean Platelet Volume 9.6 fL (9.4-12.4); Monocytes # (auto) 0.64 K/uL (0.11-0.59); Monocytes % (auto) 7.2 %; Neutrophils # (auto) 5.35 K/uL (1.40-6.50); Neutrophils % (auto) 59.9 %; Platelet Count 342 K/uL (130-400); RDW Coefficient of Variation 14.2 % (11.5-14.5); RDW Standard Deviation 47.8 fL (36.4-46.3); Red Blood Count 3.16 M/uL (4.20-5.40); White Blood Count 8.93 K/ul (4.8-10.8)
[2024-05-03 08:48] VITALS: BP 129/72
--- NOTE | 2024-05-03 12:00 | Discharge Summary ---
Date of Service May 03, 2024 Admission HPI Per Admitting Provider 83-year-old female with past medical history significant for type 2 diabetes, diabetic neuropathy, hyperparathyroidism secondary renal disease, CKD stage IV, lactose intolerance, dyslipidemia, gout, hypothyroidism due to acquired atrophy of thyroid, asymptomatic stenosis of left carotid artery, nephrolithiasis, essential tremor, panic disorder, history of breast cancer, depression who lives at home with her comes because of fall and found to have left hip fracture. She is walking in the kitchen when she turned she fell down. CT head and CT cervical spine no acute findings. Her balance is not great as per son. She has cane and walker but not using. Denies any chest pain or shortness. Has chronic headache.No fevers. No cough. No runny nose or sore throat. Eating and drinking okay. No nausea. No abdominal pain. Normal bowel and bladder movements. Hemodynamics are okay. Past medical history. As mentioned above Past surgical history. Breast biopsy. Colonoscopy. Cystoscopy uteroscopy with lithotripsy, cystoscopy, partial mastectomy left, bilateral cataracts. Social history. . No smoking. No alcohol use. No drug use Family history. Mother had lung cancer. Heart disorder. Hypertension. Panic attacks. Father had heart disorder. Sister has hypertension. Brother has emphysema. Admission Exam Per Admitting Provider General- Not in distress Head- atraumatic Eyes- PERRL. ENT- oropharynx clear Neck- supple, no JVD. Lungs- clear to auscultation no wheezing or crackles. Heart- regular rate and rhythm; no murmur, no gallop. Abdomen- normal bowel sounds, soft, nontender, no distension. Extremities- no pretibial edema, Left lower extremity is shortened and externally rotated Neuro- alert, oriented ; EOMI; no facial palsy; no dysarthria; obeys simple commands Principal Diagnosis Closed left femoral fracture Status post left bipolar hip hemiarthroplasty on April 24, 2024 Discharge Exam General- awake alert. she is able to follow commands. Denies any pain or disc omfort. Head- atraumatic Eyes- PERRL. ENT- oropharynx clear Neck- supple, no JVD. Lungs- clear to auscultation no wheezing or crackles. Heart- regular rate and rhythm; no murmur, no gallop. Abdomen- normal bowel sounds, soft, nontender, no distension. Extremities- Dressing in place; no drainage or soaking. Neuro- alert, oriented ; EOMI; no facial palsy; no dysarthria; obeys simple commands Discharge Data Allergies Allergy/AdvReac Type Severity Reaction Status Date / Time No Known Allergies Allergy Mild OTHER Unverified 03/25/14 08:07 Consultations 04/23/24 19:38 Consult Orthopedic Surgery Routine 04/23/24 19:39 ED Decision to Admit Stat Procedures Performed Operation Date: 04/24/24 09:00 Actual Procedures p Left Bipolar Hip Cemented Hemiarthroplasty(Left) - Julio Vazquez MD Ordered Studies 04/23/24 18:11 CT cervical spine wo con Stat CT head/brain wo con Stat 04/26/24 09:30 CT head/brain wo con Urgent Hospital Course (1) Closed left femoral fracture: 83-year-old female with past medical history significant for type 2 diabetes, diabetic neuropathy, hyperparathyroidism secondary renal disease, CKD stage IV, lactose intolerance, dyslipidemia, gout, hypothyroidism due to acquired atrophy of thyroid, asymptomatic stenosis of left carotid artery, nephrolithiasis, essential tremor, panic disorder, history of breast cancer, depression who lives at home with her comes because of fall and found to have left hip fracture. Closed left femoral fracture Status post left bipolar hip hemiarthroplasty on April 24, 2024 Patient presented with a mechanical fall; found to have closed femoral fracture. Underwent surgery on April 24, 2024 Continue pain control Continue PT OT DVT prophylaxis with aspirin twice daily Will likely need rehab; case management on board. Today snf. History of Type 2 diabetes Hold medications Sliding scale Will monitor CKD stage IV Baseline creatinine 0.5-1.6 avoid nephrotoxic agent. Hypothyroidism On Synthyroid, continue Carotid artery stenosis 80 to 90% left carotid bulb stenosis 40 to 50% right carotid bulb stenosis On aspirin and statin, continue needs outpatient follow up with vascular surgery History of gout On allopurinol, continue Hypertension On losartan, continue Currently HCTZ is stopped as outpatient Will monitor Depression panic disorder On paroxetine, continue History of nephrolithiasis uric acid On potassium citrate, conitnue Chronic maxillary Sinusitis Evaluation as OP once stable. DVT- aspirin bid Patient is being discharged to SNF with following instructions at the point of discharge: Follow-up with your primary care physician within a week time and likely you will need labs CBC/CMP/magnesium/phosphorus. Continue to work with PT/OT for weightbearing as tolerated and posterior hip precautions. Utilize abduction pillow for posterior hip precautions. Follow-up with orthopedics in 2 to 3 weeks time upon discharge. You will be discharged on aspirin twice a day for next 24 days, then you can continue your usual dose of aspirin daily. Take your medications as prescribed. Please make sure that you are able to get your medications today by calling your pharmacy before you leave the hospital so that your treatment continuity is not broken. Please note the above document was generated using voice recognition software. It may contain grammatical, syntax or spelling errors. Any formal questions or concerns about the content, text or information contained within the body of this dictation should be directly addressed to the provider for clarification Home Health Attestation I certify that this patient is under my care and that I, or a physicians security assistant working with me, had a face to-face encounter that meets the home health [id number] encounter requirements with this patient. The encounter with the patient was in whole, or in part, for the following medical condition, which is the primary reason for home health care (list medical condition): I certify that, based on my findings, the following services are medically necessary home health services: My clinical findings support the need for the above services because: Further, I certify that my clinical findings support that this patient is homebound (i.e. absences from home require considerable and taxing effort and are for medical reasons or taoist services or infrequently or of short duration when for other reasons) because: Certification for Home Health Services: Based on the above findings, I certify that this patient is confined to the home and needs intermittent usp care, physical therapy and/or speech therapy or continues to need occupational therapy. The patient is under my care, and I have initiated the establishment of the plan of care. This patient will be followed by a physician who will periodically review the plan of care. Total Time Total Time Spent Total Time Spent (In Minutes): 35 Discharge Plan Discharge Items Patient Disposition: Transfer Halfway Fac Reason For Visit: FALL, LEFT HIP FRACTURE Discharge Diagnosis: Closed left femoral fracture Status post left bipolar hip hemiarthroplasty on April 24, 2024 Activity: As commented below Activity Comment: c/w pt/ot at rehab. Non-emergency contact: Primary Care Provider Call non-emergency contact if: you have any medication questions and your symptoms worsen Follow-up/Referrals: Wing Briseno, DO [Primary Care Provider] - Diet: Carb Consistent or DM2 and Heart Healthy Addtl Attending Provider Instructions: Follow-up with your primary care physician within a week time and likely you will need labs CBC/CMP/magnesium/phosphorus. Continue to work with PT/OT for weightbearing as tolerated and posterior hip precautions. Utilize abduction pillow for posterior hip precautions. Follow-up with orthopedics in 2 to 3 weeks time upon discharge. You will be discharged on aspirin twice a day for next 24 days, then you can continue your usual dose of aspirin daily. Take your medications as prescribed. Please make sure that you are able to get your medications today by calling your pharmacy before you leave the hospital so that your treatment continuity is not broken. Pending Studies at Discharge: No Stand-Alone Forms: [facility] Skilled Items Patient informed of condition?: Yes DNR: No Discharge Level of Care: Skilled Communicable Disease: No Discharge Prognosis: Stable Lines: None Urinary Catheter: No Medications and DC Order Prescriptions: New aspirin 81 mg Tablet,Delayed Release (Dr/Ec) 81 mg PO UD Qty: 54 0RF Rx Instructions: take 1 tab twice a day for 24 days then take 1 tab daily thereafter as prior. cholecalciferol (vitamin D3) 125 mcg (5,000 unit) Tablet 125 mcg PO QAM Qty: 30 0RF Continued losartan 50 mg tablet 50 mg PO DAILY atorvastatin 40 mg tablet 40 mg PO DAILY allopurinol 100 mg tablet 100 mg PO DAILY levothyroxine 100 mcg tablet 100 mcg PO DAILY potassium citrate 10 mEq (1,080 mg) tablet extended release 20 meq PO DAILY paroxetine HCl 20 mg tablet 20 mg PO DAILY Ozempic 0.25 mg or 0.5 mg (2 mg/3 mL) pen injector 1 mg SUBCUT WK Rx Instructions: (1 MG/DOSE)) Inject 1 mg under the skin once a week on sundays. Discontinued aspirin 81 mg Tablet 81 mg PO DAILY Discharge Orders: Discharge Order (Routine); Ordered 05/03/24 Ordered By: Brad Gaona Admission Data Admit Date/Time: 04/23/24 20:33 Attending Provider: Brad Gaona Admit Provider: Arun Brandon Primary Care Provider: Briseno,Wing S. Other Providers: Julio Vazquez; Arun Brandon; [facility]; [facility]
--- NOTE | 2024-05-04 09:08 | Coding Query ---
To promote full compliance with coding requirements relating to patient care, physician participation is requested in all cases of icd 9 coder uncertainty. Please assist us with the question(s) below: Coding Question(s): It was noted throughout the record that the patient has/is suspected to have osteoporosis. According to coding guidelines "a code for osteoporotic fracture, and not a traumatic fracture, should be used for any patient with known osteoporosis who suffers a fracture, even if the patient had a minor fall or trauma, if that fall or trauma would not usually break a normal, healthy bone." Please indicate below the type of fracture: Physician's Response(s): (x ) Likely Osteoporotic fracture of L FEMORAL NECK ( ) Traumatic fracture of L FEMORAL NECK ( ) Other, please specify MTDD
== END 2024-05-03 15:58 | DRG 522 ==
LOC: ED 18:01 → SUATTDRO 20:33 → 3W 20:33

== ENCOUNTER 2024-11-12 12:19 | Observation (INO) ==
[2024-11-12] MEDS: SODIUM CHLORIDE 0.9% 1,000 ML IV ONE (12:43)
[2024-11-12 12:49] LABS: Hematocrit (blood only) 37.6 % (37.0-47.0); Hemoglobin 12.3 g/dl (12.0-16.0); Immature Granulocytes # (auto) 0.03 K/uL (0.01-0.20); Immature Granulocytes % (auto) 0.4 %; Mean Corpuscular Hemoglobin 29.4 pg (25.0-34.0); Mean Corpuscular Volume 89.7 fL (80.0-100.0); Platelet Count 196 K/uL (130-400); RDW Standard Deviation 50.3 fL (36.4-46.3); Red Blood Count 4.19 M/uL (4.20-5.40); White Blood Count 8.12 K/ul (4.8-10.8)
--- NOTE | 2024-11-12 12:49 | Emergency Department Note ---
Impression & Plan Acute confusion, Decreased oral intake, Acute dehydration, Hypomagnesemia ED Provider Note HISTORY OF PRESENT ILLNESS: Patient is an 83-year-old female presenting with poor oral intake. Son helps provide history. Reports that the patient has not really had anything to eat or drink in the last week. He reports that she is "maybe had a sip of water" in the last 24 hours. Patient denies any chest pain or shortness of breath. Reports that she just does not have an appetite. She is still making urine and states she urinated before coming into the ER. She does have some discomfort in her upper abdomen. Denies any history of abdominal surgeries. Denies any measured fevers. Denies any chest pain or shortness of breath. Denies any dysuria or hematuria. Son at bedside reports that the patient seems more confused than her normal self. He reports that when she does not eat or drink anything, "her mind is the first thing that goes." ROS: as above PHYSICAL EXAM: Constitutional: Patient appears in no acute distress. HENT: Head: Normocephalic and atraumatic. Eyes: EOMI, PERRL Mouth/Throat: Mucous membranes moist. Neck: Trachea midline. Neck supple. Cardiovascular: RRR, No murmurs, rubs or gallops. Intact distal pulses. Pulmonary/Chest: No respiratory distress. Breath sounds clear and equal bilaterally. No wheezes or rales. Abdominal: Abdomen soft, no rebound or guarding. RUQ TTP Musculoskeletal: No edema, tenderness or deformity noted. Skin: Warm and dry. No rash, erythema, pallor or cyanosis Psychiatric: Appropriate mood and affect for situation. Neurological: Alert, but patient does seem to lose her train of thought mid- sentence. CN II-XII grossly intact, moving all extremities equally and fully. MDM: - Vitals signs showed hypertension - History obtained via patient. History as above. - Chronic conditions affecting care: DM-2; HTN; carotid disease - Differential diagnoses include, but are not limited to: UTI; cholecystitis; viral syndrome; dehydration; electrolyte abnormality - Order placed for continuous cardiac monitoring. At this time, monitor showed rate of 66 bpm with normal sinus rhythm, per my interpretation. - External medical records reviewed. - Laboratory workup interpreted by myself showed normal WBC; normal PT/INR; baseline CKD (Cr 1.3); hypomagnesemia (Mg 1.3); normal AST/ALT; elevated total bilirubin (1.3); normal CK; normal troponin - UA negative for infection - CXR image reviewed and interpreted by myself is negative for pneumonia, per my interpretation. - CT abdomen/pelvis with IV contrast is negative for acute pathology. Noted have cholelithiasis and mild gallbladder distention but without any Hal cholecystic infiltration to suggest acute cholecystitis. - Patient given 1L NS in ER and 1g IV magnesium for electrolyte replacement. - Discussed results with patient and her son at bedside. Patient does seem slightly confused and son reports this is not a typical for her when she is not eating or drinking. 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 - Discussion was had with shelter case manager about patient's case and need for admission - Hospitalist consulted for admission - Patient admitted to [facility] for further evaluation and management. ASSESSMENT AND PLAN: Diagnosis: acute confusion; decreased oral intake; acute dehydration; hypomagnesemia Plan: Admit Past Med/Surg History Problem List (Updated 11/12/24 @ 16:32 by Dunia Knutson MD) Hypomagnesemia (Acute) Acute dehydration (Acute) Decreased oral intake (Acute) Acute confusion (Acute) Status post hemiarthroplasty of left hip Closed hip fracture (Acute) Closed left femoral fracture Acute kidney injury superimposed on CKD Dizziness Vertigo (Acute) Dehydration (Acute) Infection due to human metapneumovirus (hMPV) (Acute) Lactose intolerance (Chronic) Diabetic neuropathy (Chronic) Renal colic (Acute) Pancreatitis (Acute) Vomiting (Acute) Medical History Carotid arterial disease HTN (hypertension) DM II (diabetes mellitus, type II), controlled Nephrolithiasis (03/25/14) Breast cancer in situ "s/p L partial mastectomy 03/23/06, L breast DCIS excision 10/19/06, and L central lumpectomy 11/16/06" Surgical History History of partial mastectomy of left breast "s/p L partial mastectomy 03/23/06, L breast DCIS excision 10/19/06, and L central lumpectomy 11/16/06" Social History Smoking Status: Never smoker Hx Alcohol Use: No Hx Substance Use: No Preferred Language: Guamanian Communication Ability: Effective Surgical Elastic Knitter Required: No Beliefs That Will Affect Care: None Current Living Situation: Spouse Current Living Situation Comment: who has dementia (pt is 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) Feels Safe at Home: Yes Assistive Devices: Walker Allergies Allergies Allergy/AdvReac Type Severity Reaction Status Date / Time No Known Allergies Allergy Mild OTHER Unverified 08/29/24 10:56 Home Meds Home Medications Medication Instructions Recorded Confirmed allopurinol 100 mg tablet 100 mg PO DAILY 03/19/20 11/12/24 atorvastatin 40 mg tablet 40 mg PO DAILY 03/19/20 11/12/24 levothyroxine 100 mcg tablet 100 mcg PO DAILY 03/19/20 11/12/24 losartan 50 mg tablet 50 mg PO DAILY 03/19/20 11/12/24 paroxetine HCl 20 mg tablet 20 mg PO DAILY 03/19/20 11/12/24 potassium citrate 10 mEq (1,080 20 meq PO DAILY 03/19/20 11/12/24 mg) tablet,extended release semaglutide 0.25 mg or 0.5 mg (2 1 mg subcut WK diabetes 03/10/24 11/12/24 mg/3 mL) subcutaneous pen injector (eGamesic) Previous Rx's Medication Instructions Recorded cholecalciferol (vitamin D3) 125 125 mcg PO QAM #30 tabs 05/03/24 mcg (5,000 unit) tablet miscellaneous medical supply #1 ea 05/16/24 Results & Data (ED) Vital Signs Vital Signs - 24 hr 11/12/24 12:23 11/12/24 12:38 11/12/24 12:38 Temperature 36 C L Temperature Source Temporal Artery Scan Pulse Rate 74 Pulse Rate [Apical] 67 Pulse Rate from SpO2 Sensor Pulse Rhythm [Apical] Regular Pulse Strength [Apical] Normal Respiratory Rate 18 18 Respiratory Effort / Characteristics Non-Labored Spontaneous Non-Labored Spontaneous Respiratory Depth Normal Normal Respiratory Pattern Regular Regular Blood Pressure 146/70 H Blood Pressure [Right Arm] 162/80 H Blood Pressure Mean 95 Blood Pressure Mean [Right Arm] 107 Blood Pressure Position [Right Arm] Lying Pulse Oximetry 96 97 96 Oxygen Delivery Method Room Air Room Air Room Air Sepsis Recent Fever Within 48 Hours No Sepsis New/Unexplained Change in Mental Status N/A Sepsis Action Taken by Nursing No Action Required 11/12/24 12:42 11/12/24 12:52 11/12/24 14:20 Temperature Temperature Source Pulse Rate 70 Pulse Rate [Apical] 66 Pulse Rate from SpO2 Sensor Pulse Rhythm [Apical] Regular Pulse Strength [Apical] Normal Respiratory Rate 20 Respiratory Effort / Characteristics Non-Labored Spontaneous Respiratory Depth Normal Respiratory Pattern Regular Blood Pressure Blood Pressure [Right Arm] 186/85 H Blood Pressure Mean Blood Pressure Mean [Right Arm] 118 Blood Pressure Position [Right Arm] Lying Pulse Oximetry 96 97 Oxygen Delivery Method Room Air Room Air Sepsis Recent Fever Within 48 Hours Sepsis New/Unexplained Change in Mental Status Sepsis Action Taken by Nursing 11/12/24 14:33 11/12/24 15:31 11/12/24 15:51 Temperature Temperature Source Pulse Rate 65 61 Pulse Rate [Apical] Pulse Rate from SpO2 Sensor 65 60 Pulse Rhythm [Apical] Pulse Strength [Apical] Respiratory Rate 16 19 Respiratory Effort / Characteristics Respiratory Depth Respiratory Pattern Blood Pressure 186/85 H 189/111 H 154/91 H Blood Pressure [Right Arm] Blood Pressure Mean 118 163 112 Blood Pressure Mean [Right Arm] Blood Pressure Position [Right Arm] Pulse Oximetry 97 98 Oxygen Delivery Method Sepsis Recent Fever Within 48 Hours Sepsis New/Unexplained Change in Mental Status Sepsis Action Taken by Nursing 11/12/24 16:02 Temperature Temperature Source Pulse Rate Pulse Rate [Apical] 61 Pulse Rate from SpO2 Sensor Pulse Rhythm [Apical] Regular Pulse Strength [Apical] Normal Respiratory Rate 22 Respiratory Effort / Characteristics Non-Labored Spontaneous Respiratory Depth Normal Respiratory Pattern Regular Blood Pressure Blood Pressure [Right Arm] Blood Pressure Mean Blood Pressure Mean [Right Arm] Blood Pressure Position [Right Arm] Pulse Oximetry 98 Oxygen Delivery Method Room Air Sepsis Recent Fever Within 48 Hours Sepsis New/Unexplained Change in Mental Status Sepsis Action Taken by Nursing Laboratory Data 11/12/24 12:37 11/12/24 12:37 Lab Results 11/12/24 11/12/24 11/12/24 Range/Units 12:32 12:37 14:27 WBC 8.12 (4.8-10.8) K/ul RBC 4.19 L (4.20-5.40) M/uL Hgb 12.3 (12.0-16.0) g/dl Hct 37.6 (37.0-47.0) % MCV 89.7 (80.0-100.0) fL MCH 29.4 (25.0-34.0) pg MCHC 32.7 (32.0-36.0) g/dL RDW Std Deviation 50.3 H (36.4-46.3) fL RDW Coeff of Librado 15.4 H (11.5-14.5) % Plt Count 196 (130-400) K/uL MPV 10.5 (9.4-12.4) fL Immature Gran % (Auto) 0.4 % Neut % (Auto) 64.4 % Lymph % (Auto) 27.7 % Falls % (Auto) 6.3 % Eos % (Auto) 0.7 % Baso % (Auto) 0.5 % Neut # (Auto) 5.23 (1.40-6.50) K/uL Lymph # (Auto) 2.25 (1.20-3.40) K/uL Falls # (Auto) 0.51 (0.11-0.59) K/uL Eos # (Auto) 0.06 (0.00-0.50) K/uL Baso # (Auto) 0.04 (0.00-0.20) K/uL Immature Gran # (Auto) 0.03 (0.01-0.20) K/uL PT 11.6 (9.0-12.0) Seconds INR 1.1 (0.9-1.1) Sodium 138 (136-145) mmol/L Potassium 4.0 (3.5-5.1) mmol/L Chloride 100 (98-107) mmol/L Carbon Dioxide 32 (21-32) mmol/L Anion Gap 6 (3-11) BUN 25 H (6-23) mg/dl Creatinine 1.30 H (0.6-1.2) mg/dl Est Cr Clr Drug Dosing 28.9 ml/min eGFR 40.30 BUN/Creatinine Ratio 19.2 (10-20) Glucose 132 H (70-99(Fasting)) mg/dl POC Glucose 135 H (70-99) mg/dl Lactate 0.8 (0.4-2.0) mmol/L Calcium 9.5 (8.6-10.3) mg/dl Magnesium 1.3 L (1.7-2.4) mg/dl Total Bilirubin 1.3 H (0.2-1.0) mg/dl AST 20 (13-39) U/L ALT 12 (7-52) U/L Alkaline Phosphatase 63 (34-104) U/L Total Creatine Kinase 51 (26-192) U/L Troponin I High Sens 12.4 (0-14) pg/ml Total Protein 7.4 (6.0-8.3) gm/dl Albumin 3.8 (3.4-5.0) gm/dl Globulin 3.6 (2.5-4.0) gm/dl Albumin/Globulin Ratio 1.1 (0.9-2) TSH 0.322 (0.300-4.500) uIu/ml Urine Color Urine Appearance (Clear) Urine pH (4.5-7.5) Ur Specific [place] (1.000-1.030) Urine Protein (Negative) Urine Glucose (UA) (Negative) Urine Ketones (Negative) Urine Blood (Negative) Urine Nitrite (Negative) Urine Bilirubin (Negative) Urine Urobilinogen (Negative) Ur Leukocyte Esterase (Negative) Urine WBC (Auto) (0-5) /hpf Urine RBC (Auto) (0-2) /hpf U Hyaline Cast (Auto) (0-2) /lpf U Epithel Cells (Auto) (0-2) /hpf Urine Bacteria (Auto) (None Seen) Urine Comment 11/12/24 Range/Units 15:19 WBC (4.8-10.8) K/ul RBC (4.20-5.40) M/uL Hgb (12.0-16.0) g/dl Hct (37.0-47.0) % MCV (80.0-100.0) fL MCH (25.0-34.0) pg MCHC (32.0-36.0) g/dL RDW Std Deviation (36.4-46.3) fL RDW Coeff of Librado (11.5-14.5) % Plt Count (130-400) K/uL MPV (9.4-12.4) fL Immature Gran % (Auto) % Neut % (Auto) % Lymph % (Auto) % Falls % (Auto) % Eos % (Auto) % Baso % (Auto) % Neut # (Auto) (1.40-6.50) K/uL Lymph # (Auto) (1.20-3.40) K/uL Falls # (Auto) (0.11-0.59) K/uL Eos # (Auto) (0.00-0.50) K/uL Baso # (Auto) (0.00-0.20) K/uL Immature Gran # (Auto) (0.01-0.20) K/uL PT (9.0-12.0) Seconds INR (0.9-1.1) Sodium (136-145) mmol/L Potassium (3.5-5.1) mmol/L Chloride (98-107) mmol/L Carbon Dioxide (21-32) mmol/L Anion Gap (3-11) BUN (6-23) mg/dl Creatinine (0.6-1.2) mg/dl Est Cr Clr Drug Dosing ml/min eGFR BUN/Creatinine Ratio (10-20) Glucose (70-99(Fasting)) mg/dl POC Glucose (70-99) mg/dl Lactate (0.4-2.0) mmol/L Calcium (8.6-10.3) mg/dl Magnesium (1.7-2.4) mg/dl Total Bilirubin (0.2-1.0) mg/dl AST (13-39) U/L ALT (7-52) U/L Alkaline Phosphatase (34-104) U/L Total Creatine Kinase (26-192) U/L Troponin I High Sens (0-14) pg/ml Total Protein (6.0-8.3) gm/dl Albumin (3.4-5.0) gm/dl Globulin (2.5-4.0) gm/dl Albumin/Globulin Ratio (0.9-2) TSH (0.300-4.500) uIu/ml Urine Color Yellow Urine Appearance Clear (Clear) Urine pH 8.5 H (4.5-7.5) Ur Specific [place] 1.026 (1.000-1.030) Urine Protein Negative (Negative) Urine Glucose (UA) Negative (Negative) Urine Ketones Negative (Negative) Urine Blood Negative (Negative) Urine Nitrite Negative (Negative) Urine Bilirubin Negative (Negative) Urine Urobilinogen Negative (Negative) Ur Leukocyte Esterase 1+ H (Negative) Urine WBC (Auto) 6-10 H (0-5) /hpf Urine RBC (Auto) 0-2 (0-2) /hpf U Hyaline Cast (Auto) 0-2 (0-2) /lpf U Epithel Cells (Auto) 0-2 (0-2) /hpf Urine Bacteria (Auto) None Seen (None Seen) Urine Comment Administered Medications Discontinued Medications Sodium Chloride (Nss) 1,000 mls @ 999 mls/hr IV .Q1H1M ONE Stop: 11/12/24 13:38 Last Infusion: 11/12/24 13:36 Dose: Infused Documented By: Admin: 11/12/24 12:43 Dose: 999 mls/hr Documented By: HERB Magnesium Sulfate/Dextrose (Magnesium Sulfate / D5w) 1 gm in 100 mls @ 100 mls/hr IV NOW STA Stop: 11/12/24 14:16 Last Infusion: 11/12/24 14:40 Dose: Infused Documented By: Admin: 11/12/24 13:36 Dose: 100 mls/hr Documented By: HERB Ioversol (Optiray 320 100ml) 94 ml IV ONCE ONE Stop: 11/12/24 13:18 Last Admin: 11/12/24 13:18 Dose: 94 ml Documented By: BOYD Imaging Data Radiologist's Impression: Abdomen/Pelvis CT 11/12/24 12:38 CT SCAN OF THE ABDOMEN AND PELVIS WITH IV CONTRAST CLINICAL HISTORY: Diarrhea. Right upper quadrant pain. COMPARISON STUDY: CT of the abdomen and pelvis March 25, 2014. KUB March 19, 2020. TECHNIQUE: Following the IV administration of 94 cc of Optiray 320, CT scan of the abdomen and pelvis is performed from the lung bases to the proximal femora. Images are reviewed in the axial, sagittal, and coronal planes. IV contrast was administered without complication. A dose lowering technique was utilized adhering to the principles of ALARA. CT DOSE: 712.67 mGy.cm FINDINGS: Visualized portions of the lung bases are unremarkable. Subpleural groundglass opacities within the lower lobes represent atelectasis. No pneumatosis, free air or portal venous gas is present. There are small layering gallstones within the gallbladder. The gallbladder is mildly distended. There is no pericholecystic infiltration. There is no biliary or pancreatic ductal dilatation. Spleen, adrenal glands and pancreas are unremarkable. There is a 3.1 cm left upper pole renal cyst. Numerous subcentimeter bilateral renal lesions are too small to characterize. There is no hydronephrosis. There is colonic diverticulosis without evidence for acute diverticulitis. The appendix is normal. No bowel wall thickening is evident. Images of the pelvis are degraded by streak artifact from a left hip arthroplasty. Major vasculature is patent. There is no lymphadenopathy. IMPRESSION: 1. No bowel obstruction. No bowel wall thickening. Normal appendix. 2. Colonic diverticulosis. No evidence for acute diverticulitis. 3. Cholelithiasis and mild gallbladder distention. No pericholecystic infiltration. These findings do not show suggest acute cholecystitis. However, if persistent right upper quadrant pain, ultrasound is recommended. ACT 112: Negative or not required by law. Electronically signed by: Rick Berger M.D. 11/12/2024 1:51 PM Chest X-Ray 11/12/24 12:39 XR chest 1V portable CLINICAL HISTORY: weakness COMPARISON STUDY: Chest radiograph April 23, 2024. FINDINGS: Lung volumes are normal. Lungs are clear. There is no pneumothorax or pleural effusion. Cardiac size is stable. Mediastinal contours are normal. There is no evidence for pulmonary edema. IMPRESSION: No acute cardiopulmonary findings. No significant change in appearance of the chest. ACT 112: Negative or not required by law. Electronically signed by: Rick Berger M.D. 11/12/2024 1:14 PM Discharge Plan Visit Data Chief Complaint: Weakness Stated Complaint: NOT EATING OR DRINKING, WEAKNESS ED Provider: Dunia Knutson Discharge Problem: Acute confusion, Decreased oral intake, Acute dehydration, Hypomagnesemia Condition: Fair Forms Stand Alone Forms: My [facility] Prescriptions Prescriptions: No Action (DME) miscellaneous medical supply Misc See Rx Instructions .Route Qty: 1 0RF Rx Instructions: As directed losartan 50 mg tablet 50 mg PO DAILY atorvastatin 40 mg tablet 40 mg PO DAILY allopurinol 100 mg tablet 100 mg PO DAILY levothyroxine 100 mcg tablet 100 mcg PO DAILY potassium citrate 10 mEq (1,080 mg) tablet extended release 20 meq PO DAILY paroxetine HCl 20 mg tablet 20 mg PO DAILY Ozempic 0.25 mg or 0.5 mg (2 mg/3 mL) pen injector 1 mg SUBCUT WK Rx Instructions: (1 MG/DOSE)) Inject 1 mg under the skin once a week on sundays. cholecalciferol (vitamin D3) 125 mcg (5,000 unit) Tablet 125 mcg PO QAM Qty: 30 0RF Referrals Referrals: Wing Briseno DO [Primary Care Provider] -
[2024-11-12 13:06] LABS: Alanine Aminotransferase 12.0 U/L (7-52); Albumin Globulin Ratio 1.1 (0.9-2); Alkaline Phosphatase 63.0 U/L (34-104); Anion Gap 6.0 (3-11); Bilirubin,Total 1.3 mg/dl (0.2-1.0); Blood Urea Nitrogen 25.0 mg/dl (6-23); Calcium 9.5 mg/dl (8.6-10.3); Carbon Dioxide 32.0 mmol/L (21-32); Chloride 100.0 mmol/L (98-107); Creatine Kinase 51.0 U/L (26-192); Creatinine Clr Calc Pharmacy 28.9 ml/min; Globulin 3.6 gm/dl (2.5-4.0); Glucose 132.0 mg/dl (70-99(Fasting)); Magnesium 1.3 mg/dl (1.7-2.4); Potassium 4.0 mmol/L (3.5-5.1); Sodium 138.0 mmol/L (136-145); Total Protein 7.4 gm/dl (6.0-8.3)
[2024-11-12 13:15] LABS: INR 1.1 (0.9-1.1); Prothrombin Time 11.6 Seconds (9.0-12.0)
--- NOTE | 2024-11-12 13:15 | XRay Report ---
XR chest 1V portable CLINICAL HISTORY: weakness COMPARISON STUDY: Chest radiograph April 23, 2024. FINDINGS: Lung volumes are normal. Lungs are clear. There is no pneumothorax or pleural effusion. Car diac size is stable. Mediastinal contours are normal. There is no evidence for pulmonary edema. IMPRESSION: No acute cardiopulmonary findings. No significant change in appearance of the chest. ACT 112: Negative or not required by law. Electronically signed by: Rick Berger M.D. 11/12/2024 1:14 PM
[2024-11-12] MEDS: OPTIRAY 320 100ml IV ONE (13:18)
[2024-11-12 13:23] LABS: Thyroid Stimulating Hormone 0.322 uIu/ml (0.300-4.500)
[2024-11-12] MEDS: MAGNESIUM SULFATE / D5W 1 GM/100 ML BAG IV STA (13:36)
--- NOTE | 2024-11-12 13:53 | CT Scan Report ---
CT SCAN OF THE ABDOMEN AND PELVIS WITH IV CONTRAST CLINICAL HISTORY: Diarrhea. Right upper quadrant pain. COMPARISON STUDY: CT of the abdomen and pelvis March 25, 2014. KUB March 19, 2020. TECHNIQUE: Following the IV administration of 94 cc of Optiray 320, CT scan of the abdomen and pelvi s is performed from the lung bases to the proximal femora. Images are reviewed in the axial, sagittal , and coronal planes. IV contrast was administered without complication. A dose lowering technique wa s utilized adhering to the principles of ALARA. CT DOSE: 712.67 mGy.cm FINDINGS: Visualized portions of the lung bases are unremarkable. Subpleural groundglass opacities wi thin the lower lobes represent atelectasis. No pneumatosis, free air or portal venous gas is present. There are small layering gallstones within the gallbladder. The gallbladder is mildly distended. The re is no pericholecystic infiltration. There is no biliary or pancreatic ductal dilatation. Spleen, a drenal glands and pancreas are unremarkable. There is a 3.1 cm left upper pole renal cyst. Numerous s ubcentimeter bilateral renal lesions are too small to characterize. There is no hydronephrosis. There is colonic diverticulosis without evidence for acute diverticulitis. The appendix is normal. No paige l wall thickening is evident. Images of the pelvis are degraded by streak artifact from a left hip ar throplasty. Major vasculature is patent. There is no lymphadenopathy. IMPRESSION: 1. No bowel obstruction. No bowel wall thickening. Normal appendix. 2. Colonic diverticulosis. No evidence for acute diverticulitis. 3. Cholelithiasis and mild gallbladder distention. No pericholecystic infiltration. These findings do not show suggest acute cholecystitis. However, if persistent right upper quadrant pain, ultrasound i s recommended. ACT 112: Negative or not required by law. Electronically signed by: Rick Berger M.D. 11/12/2024 1:51 PM
[2024-11-12 15:33] LABS: Appearance Urine Clear (Clear); Bacteria Urine Automated None Seen (None Seen); Cast Urine Automated 0-2 /lpf (0-2); Epithelial Cell Urine Auto 0-2 /hpf (0-2); Glucose Urine UA Negative (Negative); RBC Urine Automated 0-2 /hpf (0-2)
--- NOTE | 2024-11-12 17:15 | History & Physical Report ---
Date of Service November 12, 2024 Assessment & Plan (1) Acute dehydration: (2) Hypomagnesemia: (3) Metabolic encephalopathy: (4) Carotid arterial disease: (5) HTN (hypertension): (6) DM II (diabetes mellitus, type II), controlled: Plan 83 yo female with pmhx of CKD stage 3b, DM type 2 (on diabetic neuropathy), hx of left hip fracture (04/2024), HTN, HLD, depression presents from home for altered mental status, weakness 2/2 dehydration, ozembic use, possible UTI. #Metabolic Encephalopathy #Complicated UTI #Semaglutide Use #Mild Cognitive Impairement -patient has abdominal pain, positive UA, confusion -CT abdomen/pelvis unremarkable -likely multifactorial, UTI, ozembic use limiting appetite and desire to have fluids, dehydration Plan: -start ceftriaxone for UTI, f/u urine culture -stop ozembic on discharge -LR maintenance fluids -check B12,folic acid, vitamin D, start folic acid/thiamine -delirium precautions -replenish Mg, check phos -PT/OT, will likely benefit from personal snf on discharge, discussed with son #Depression -continue paroxetine #DM Type 2 -monitor, no SSI ordered to minimize pokes #CKD Stage 3b -continue fluids #HLD -continue atorvastatin #HLD -continue losartan I spent a total of 80 minutes in direct patient care, including [id number] time with the patient and/or family, reviewing medical records, ordering and reviewing diagnostic tests, and coordinating care with other healthcare providers. This time includes: history taking, physical examination, medical decision making, counseling, ECG interpretation, imaging interpretation, lab interpretation, orders, and education, excluding time spent in the performance of separately billed services. History of Present Illness Chief Complaint: -altered mental status, lethargy Primary Care Provider: Wing Briseno, DO 83 yo female with pmhx of CKD stage 3b, DM type 2 (on diabetic neuropathy), hx of left hip fracture (04/2024), HTN, HLD, depression presents from home for altered mental status, weakness. Last admission on 04/2024 for hip fracture now s/p hip arthroplasty. Patient seen and examined at bedside. Patient orriented to self and location, not time. Per son, who is POA and at bedside, this is slightly below her baseline. She has been getting shakes and vomiting over the past few days, also has not been eating much. On ozembic. These events occur occasionally but this is worse than normal. Per son, patient has been declining for past several months, ever since the hip fracture. No chest pain, SOB, weakness on one side or the other, burning with urination. Does have slight abdominal pain, unable to describe. Feels diffusely weak and mildly confused. Denies tobacco use, alcohol use, drug use, DNRDNI per discussion with son. Allergies Allergy/AdvReac Type Severity Reaction Status Date / Time No Known Allergies Allergy Mild OTHER Unverified 08/29/24 10:56 Home Medications Medication Instructions Recorded Confirmed Type allopurinol 100 mg tablet 100 mg PO DAILY 03/19/20 11/12/24 History atorvastatin 40 mg tablet 40 mg PO DAILY 03/19/20 11/12/24 History levothyroxine 100 mcg tablet 100 mcg PO DAILY 03/19/20 11/12/24 History losartan 50 mg tablet 50 mg PO DAILY 03/19/20 11/12/24 History paroxetine HCl 20 mg tablet 20 mg PO DAILY 03/19/20 11/12/24 History potassium citrate 10 mEq (1,080 20 meq PO DAILY 03/19/20 11/12/24 History mg) tablet,extended release semaglutide 0.25 mg or 0.5 mg (2 1 mg subcut WK diabetes 03/10/24 11/12/24 History mg/3 mL) subcutaneous pen injector (Ozempic) cholecalciferol (vitamin D3) 125 125 mcg PO QAM #30 tabs 05/03/24 11/12/24 Rx mcg (5,000 unit) tablet miscellaneous medical supply #1 ea 05/16/24 08/29/24 Rx Past Med/Surg History Problem List (Updated 11/12/24 @ 17:23 by Obi Chong MD) Metabolic encephalopathy Hypomagnesemia (Acute) Acute dehydration (Acute) Decreased oral intake (Acute) Acute confusion (Acute) Status post hemiarthroplasty of left hip Closed hip fracture (Acute) Closed left femoral fracture Acute kidney injury superimposed on CKD Dizziness Vertigo (Acute) Dehydration (Acute) Infection due to human metapneumovirus (hMPV) (Acute) Lactose intolerance (Chronic) Diabetic neuropathy (Chronic) Renal colic (Acute) Pancreatitis (Acute) Vomiting (Acute) Medical History Carotid arterial disease HTN (hypertension) DM II (diabetes mellitus, type II), controlled Nephrolithiasis (03/25/14) Breast cancer in situ "s/p L partial mastectomy 03/23/06, L breast DCIS excision 10/19/06, and L central lumpectomy 11/16/06" Surgical History History of partial mastectomy of left breast "s/p L partial mastectomy 03/23/06, L breast DCIS excision 10/19/06, and L central lumpectomy 11/16/06" Social History Smoking Status: Never smoker Hx Alcohol Use: No Hx Substance Use: No Preferred Language: Pry[place]in[place] Communication Ability: Effective 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 External ears normal. No rhinorrhea. Dry mucous membranes. Neck: Supple, full range of motion, no observable masses, No meningeal sign. Lungs: No Respiratory distress. CV: RRR, no edema. Abdomen: mild epigastric tenderness MSK: No joint swelling, no redness. Skin: No rashes, petechiae, lesions. Normal color per patient. Neuro: Normal Gait, Grossly intact. Psych: Appropriate for situation. Results & Data Results & Data Vital Signs (Past 12 Hours) Vital Signs Temp Pulse Pulse Resp BP BP Pulse Ox 11/12/24 16:02 61 22 98 11/12/24 15:51 61 19 154/91 H 98 11/12/24 15:31 189/111 H 11/12/24 14:33 65 16 186/85 H 97 11/12/24 14:20 66 20 186/85 H 97 11/12/24 12:52 70 11/12/24 12:42 96 11/12/24 12:38 67 18 162/80 H 96 11/12/24 12:38 97 11/12/24 12:23 36 C L 74 18 146/70 H 96 O2 Del Method 11/12/24 16:02 Room Air 11/12/24 15:51 11/12/24 15:31 11/12/24 14:33 11/12/24 14:20 Room Air 11/12/24 12:52 11/12/24 12:42 Room Air 11/12/24 12:38 Room Air 11/12/24 12:38 Room Air 11/12/24 12:23 Room Air Laboratory Results -personally reviewed, no leukocytosis, UA with postitive leuk esterase and urine WBC, glucose is 132, low Mg of 1.3
[2024-11-12] MEDS: FOLIC ACID 1 MG in SYRINGE 9.8 ML IV SCH (18:12)
[2024-11-12] MEDS: cefTRIAXone SODIUM 2,000 MG/50 ML BAG IV ONE (18:17)
[2024-11-12] MEDS: THIAMINE HCL 500 MG in SODIUM CHLORIDE 0.9% 50 ML IV STA (18:26)
[2024-11-12 18:27] LABS: Folate (Folic Acid),Ser orPlas 16.27 ng/ml (>5.38)
[2024-11-12 18:28] LABS: Vitamin B12 381.0 pg/ml (180-914)
[2024-11-12] MEDS: LOSARTAN POTASSIUM 50 MG TAB PO SCH (18:46)
[2024-11-12] MEDS: LACTATED RINGER'S 1,000 ML IV SCH (18:48)
[2024-11-12] MEDS: MAGNESIUM SULFATE / D5W 1 GM/100 ML BAG IV SCH (19:40)
[2024-11-12] MEDS ORDERED: ONDANSETRON INJ 2 MG/ML 2 ML VIAL IV PRN (21:53)
[2024-11-12] MEDS ORDERED: POLYETHYLENE (MIRALAX) 17 GM PACK PO PRN (21:53)
[2024-11-13] MEDS: LEVOTHYROXINE SODIUM 100 MCG TABLET PO SCH (06:09)
[2024-11-13] MEDS: THIAMINE HCL 100 MG TAB PO SCH (07:35)
[2024-11-13] MEDS: POTASSIUM CITRATE 10 MEQ TAB PO SCH (07:35)
[2024-11-13] MEDS: ATORVASTATIN 40 MG TAB PO SCH (07:36)
[2024-11-13] MEDS: CHOLECALCIFEROL 125 MCG (5,000 UNITS) TAB PO SCH (07:36)
[2024-11-13] MEDS: LOSARTAN POTASSIUM 50 MG TAB PO SCH (07:37)
[2024-11-13 09:38] LABS: Anion Gap 5.0 (3-11); Blood Urea Nitrogen 17.0 mg/dl (6-23); Calcium 9.1 mg/dl (8.6-10.3); Carbon Dioxide 30.0 mmol/L (21-32); Chloride 103.0 mmol/L (98-107); Creatinine Clr Calc Pharmacy 34.8 ml/min; Glucose 94.0 mg/dl (70-99(Fasting)); Magnesium 1.9 mg/dl (1.7-2.4); Potassium 3.6 mmol/L (3.5-5.1); Sodium 138.0 mmol/L (136-145)
[2024-11-13] MEDS: MAGNESIUM CHLORIDE W/CALCIUM 64MG DELAYED REL TAB PO SCH (10:04)
--- NOTE | 2024-11-13 13:25 | Hospitalist Progress Note ---
Date of Service November 13, 2024 Assessment & Plan (1) Acute dehydration: (2) Hypomagnesemia: (3) Metabolic encephalopathy: (4) Carotid arterial disease: (5) HTN (hypertension): (6) DM II (diabetes mellitus, type II), controlled: Plan 83 yo female with pmhx of CKD stage 3b, DM type 2 (on diabetic neuropathy), hx of left hip fracture (04/2024), HTN, HLD, depression presents from home for altered mental status, weakness 2/2 dehydration, ozembic use, possible UTI. Acute Metabolic Encephalopathy Complicated UTI Semaglutide Use Mild Cognitive Impairment Dehydration --CT ABD:No bowel obstruction. No bowel wall thickening. Normal appendix. Colonic diverticulosis. No evidence for acute diverticulitis.Cholelithiasis and mild gallbladder distention. No pericholecystic infiltration. These findings do not show suggest acute cholecystitis. However, if persistent right upper quadrant pain, ultrasound is recommended. -- LFTs within normal limits -Urine culture pending -Continue IV Rocephin Continue IV fluids Encouraged to increase oral intake Mental status back to baseline Plan to be discontinued on semaglutide PT OT prior to discharge Hypomagnesemia Replete and monitor Hypertension Blood pressure slightly elevated Continue losartan Monitor blood pressure Depression -continue paroxetine DM Type 2 Last HbA1c in May 03: 7.3 Plan to discontinue Ozempic Will consider adding insulin sliding scale if needed No tight glycemic control needed CKD Stage 3b Monitor renal function Avoid nephrotoxic agents as able HLD -continue atorvastatin DVT Px: Heparin SQ Admission and Anticipated Discharge Date Admission Date: November 12, 2024 Subjective Patient is seen and examined at bedside Mental status seem to be back to baseline Discussed in detail with patient's family at bedside Patient denies any chest pain, dyspnea, nausea, vomiting, abdominal pain, dysuria, hematuria Urine culture pending Review of Systems Review of Systems: All systems reviewed & are unremarkable except as noted in Subjective Physical Exam Physical Exam: Physical Exam: Vitals signs as noted above General Appearance:Thin, Elderly, no apparent distress Head: normocephalic, Atraumatic Eyes: normal inspection, EOMI Neck: supple, Trachea midline Respiratory/Chest: Normal breath sounds, CTA, No accessory muscle use Cardiovascular: S1, S2, No murmur Abdomen/GI:Soft, Non tender, Bowel sounds present Extremities/Musculoskeletal:normal inspection, no edema Neurologic/Psych:AAOX3, grossly no focal neurological deficits Skin: normal color, warm Results & Data Results & Data Vital Signs (Past 12 Hours) Vital Signs Temp Pulse Resp BP Pulse Ox O2 Del Method 11/13/24 08:00 Room Air 11/13/24 07:18 36.4 C L 68 16 176/77 H 95 Room Air Laboratory Results [facility] 11/13/24 08:41 Sodium 138 Potassium 3.6 Chloride 103 Carbon Dioxide 30 BUN 17 Creatinine 1.12 Glucose 94 Calcium 9.1 Urine 11/12/24 Range/Units 15:19 Urine Color Yellow Urine Appearance Clear (Clear) Urine pH 8.5 H (4.5-7.5) Ur Specific [place] 1.026 (1.000-1.030) Urine Protein Negative (Negative) Urine Glucose (UA) Negative (Negative)
[2024-11-13] MEDS: cefTRIAXone SODIUM 2,000 MG/50 ML BAG IV SCH (17:27)
[2024-11-13] MEDS: HEPARIN SOD 5,000 UNIT/0.5 ML VIAL SQ SCH (20:35)
[2024-11-14] MEDS ORDERED: hydrALAZINE 10 MG TAB PO PRN (08:15)
[2024-11-14 08:22] LABS: Hematocrit (blood only) 33.4 % (37.0-47.0); Hemoglobin 10.9 g/dl (12.0-16.0); Mean Corpuscular Hemoglobin 29.1 pg (25.0-34.0); Mean Corpuscular Volume 89.3 fL (80.0-100.0); Platelet Count 159 K/uL (130-400); RDW Standard Deviation 49.3 fL (36.4-46.3); Red Blood Count 3.74 M/uL (4.20-5.40); White Blood Count 7.10 K/ul (4.8-10.8)
[2024-11-14 08:45] LABS: Alanine Aminotransferase 12.0 U/L (7-52); Alkaline Phosphatase 56.0 U/L (34-104); Anion Gap 4.0 (3-11); Bilirubin,Total 0.7 mg/dl (0.2-1.0); Blood Urea Nitrogen 20.0 mg/dl (6-23); Calcium 8.6 mg/dl (8.6-10.3); Carbon Dioxide 31.0 mmol/L (21-32); Chloride 105.0 mmol/L (98-107); Creatinine Clr Calc Pharmacy 30.3 ml/min; Glucose 96.0 mg/dl (70-99(Fasting)); Magnesium 1.5 mg/dl (1.7-2.4); Potassium 3.5 mmol/L (3.5-5.1); Sodium 140.0 mmol/L (136-145); Total Protein 5.9 gm/dl (6.0-8.3)
[2024-11-14] MEDS: MAGNESIUM SULFATE / D5W 1 GM/100 ML BAG IV SCH (10:34)
--- NOTE | 2024-11-14 16:42 | Hospitalist Progress Note ---
Date of Service November 14, 2024 Assessment & Plan (1) Acute dehydration: (2) Hypomagnesemia: (3) Metabolic encephalopathy: (4) Carotid arterial disease: (5) HTN (hypertension): (6) DM II (diabetes mellitus, type II), controlled: Plan 83 yo female with pmhx of CKD stage 3b, DM type 2 (on diabetic neuropathy), hx of left hip fracture (04/2024), HTN, HLD, depression presents from home for altered mental status, weakness 2/2 dehydration, ozembic use, possible UTI. Acute Metabolic Encephalopathy Suspected complicated UTI Semaglutide Use Mild Cognitive Impairment Dehydration --CT ABD:No bowel obstruction. No bowel wall thickening. Normal appendix. Colonic diverticulosis. No evidence for acute diverticulitis.Cholelithiasis and mild gallbladder distention. No pericholecystic infiltration. These findings do not show suggest acute cholecystitis. However, if persistent right upper quadrant pain, ultrasound is recommended. -- LFTs within normal limits -Urine culture negative - Empirically on IV Rocephin Received IV fluids Encouraged to increase oral intake Mental status back to baseline Plan to be discontinue semaglutide on discharge as well Continue PT OT while hospitalized Hypomagnesemia Replete and monitor Hypertensive urgency Continue losartan Add amlodipine 2.5 mg daily Hydralazine as needed Monitor blood pressure closely Depression -continue paroxetine DM Type 2 Last HbA1c in May 03: 7.3 Plan to discontinue Ozempic Will consider adding insulin sliding scale if needed No tight glycemic control needed CKD Stage 3b Monitor renal function Avoid nephrotoxic agents as able HLD -continue atorvastatin DVT Px: Heparin SQ Admission and Anticipated Discharge Date Admission Date: November 12, 2024 Subjective Patient is seen and examined at bedside Offers no new complaints Eager to get discharged Blood pressure elevated today Denies any chest pain, dyspnea, nausea, vomiting, abdominal pain, dysuria, hematuria Review of Systems Review of Systems: All systems reviewed & are unremarkable except as noted in Subjective Physical Exam Physical Exam: Physical Exam: Vitals signs as noted above General Appearance:Thin, Elderly, no apparent distress Head: normocephalic, Atraumatic Eyes: normal inspection, EOMI Neck: supple, Trachea midline Respiratory/Chest: Normal breath sounds, CTA, No accessory muscle use Cardiovascular: S1, S2, No murmur Abdomen/GI:Soft, Non tender, Bowel sounds present Extremities/Musculoskeletal:normal inspection, no edema Neurologic/Psych:AAOX3, grossly no focal neurological deficits Skin: normal color, warm Results & Data Results & Data Vital Signs (Past 12 Hours) Vital Signs Temp Pulse Resp BP BP Pulse Ox O2 Del Method 11/14/24 14:20 36.3 C L 80 18 151/70 H 99 Room Air 11/14/24 07:17 36.3 C L 70 18 194/77 H 192/77 H 97 Room Air Laboratory Results Short CBC 11/14/24 Range/Units 07:55 WBC 7.10 (4.8-10.8) K/ul Hgb 10.9 L (12.0-16.0) g/dl Hct 33.4 L (37.0-47.0) % Plt Count 159 (130-400) K/uL BMP 11/14/24 07:55 Sodium 140 Potassium 3.5 Chloride 105 Carbon Dioxide 31 BUN 20 Creatinine 1.29 H Glucose 96 Calcium 8.6 Liver Function 11/14/24 Range/Units 07:55 Total Bilirubin 0.7 D (0.2-1.0) mg/dl Direct Bilirubin 0.2 (0-0.2) mg/dl AST 18 (13-39) U/L ALT 12 (7-52) U/L Alkaline Phosphatase 56 (34-104) U/L Albumin 3.2 L (3.4-5.0) gm/dl
[2024-11-15 07:20] VITALS: RESP 16
[2024-11-15 07:22] LABS: Anion Gap 5.0 (3-11); Blood Urea Nitrogen 22.0 mg/dl (6-23); Calcium 8.9 mg/dl (8.6-10.3); Carbon Dioxide 31.0 mmol/L (21-32); Chloride 102.0 mmol/L (98-107); Creatinine Clr Calc Pharmacy 33.1 ml/min; Glucose 105.0 mg/dl (70-99(Fasting)); Magnesium 1.7 mg/dl (1.7-2.4); Potassium 3.8 mmol/L (3.5-5.1); Sodium 138.0 mmol/L (136-145)
[2024-11-15] MEDS: FOLIC ACID 1 MG TAB PO SCH (09:44)
--- NOTE | 2024-11-15 15:23 | Hospitalist Progress Note ---
Date of Service November 15, 2024 Assessment & Plan (1) Acute dehydration: (2) Hypomagnesemia: (3) Metabolic encephalopathy: (4) Carotid arterial disease: (5) HTN (hypertension): (6) DM II (diabetes mellitus, type II), controlled: Plan 83 yo female with pmhx of CKD stage 3b, DM type 2 (on diabetic neuropathy), hx of left hip fracture (04/2024), HTN, HLD, depression presents from home for altered mental status, weakness 2/2 dehydration, ozembic use, possible UTI. Acute Metabolic Encephalopathy Suspected complicated UTI--less likely Semaglutide Use Mild Cognitive Impairment Dehydration --CT ABD:No bowel obstruction. No bowel wall thickening. Normal appendix. Colonic diverticulosis. No evidence for acute diverticulitis.Cholelithiasis and mild gallbladder distention. No pericholecystic infiltration. These findings do not show suggest acute cholecystitis. However, if persistent right upper quadrant pain, ultrasound is recommended. -- LFTs within normal limits -Urine culture negative - Empirically received IV Rocephin Received IV fluids Encouraged to increase oral intake Mental status back to baseline Plan to be discontinue semaglutide on discharge as well Continue PT OT Hypomagnesemia Replete and monitor Hypertensive urgency Continue losartan Increase amlodipine to 5 mg daily Hydralazine as needed Monitor blood pressure Depression -continue paroxetine DM Type 2 Last HbA1c in May 03: 7.3 Plan to discontinue Ozempic Will consider adding insulin sliding scale if needed No tight glycemic control needed CKD Stage 3b Monitor renal function Avoid nephrotoxic agents as able HLD -continue atorvastatin DVT Px: Heparin SQ Admission and Anticipated Discharge Date Admission Date: November 12, 2024 Subjective Patient is seen and examined at bedside States feeling better today Reports being tired after PT Blood pressure still slightly elevated Denies any chest pain, dyspnea, nausea, vomiting, abdominal pain, dysuria, hematuria No other complaints Review of Systems Review of Systems: All systems reviewed & are unremarkable except as noted in Subjective Physical Exam Physical Exam: Physical Exam: Vitals signs as noted above General Appearance:Thin, Elderly, no apparent distress Head: normocephalic, Atraumatic Eyes: normal inspection, EOMI Neck: supple, Trachea midline Respiratory/Chest: Normal breath sounds, CTA, No accessory muscle use Cardiovascular: S1, S2, No murmur Abdomen/GI:Soft, Non tender, Bowel sounds present Extremities/Musculoskeletal:normal inspection, no edema Neurologic/Psych:AAOX3, grossly no focal neurological deficits Skin: normal color, warm Results & Data Results & Data Vital Signs (Past 12 Hours) Vital Signs Temp Pulse Resp BP Pulse Ox O2 Del Method 11/15/24 07:00 36.3 C L 64 16 174/72 H 94 Room Air Laboratory Results [facility] 11/15/24 06:34 Sodium 138 Potassium 3.8 Chloride 102 Carbon Dioxide 31 BUN 22 Creatinine 1.18 Glucose 105 H Calcium 8.9
[2024-11-15 15:34] VITALS: O2SAT 95
[2024-11-15] MEDS: ACETAMINOPHEN 325 MG TAB PO PRN (20:30)
[2024-11-16 07:34] LABS: Hematocrit (blood only) 32.9 % (37.0-47.0); Hemoglobin 11.0 g/dl (12.0-16.0); Mean Corpuscular Hemoglobin 29.6 pg (25.0-34.0); Mean Corpuscular Volume 88.4 fL (80.0-100.0); Platelet Count 162 K/uL (130-400); RDW Standard Deviation 49.1 fL (36.4-46.3); Red Blood Count 3.72 M/uL (4.20-5.40); White Blood Count 6.02 K/ul (4.8-10.8)
[2024-11-16 07:50] LABS: Anion Gap 4.0 (3-11); Blood Urea Nitrogen 27.0 mg/dl (6-23); Calcium 9.0 mg/dl (8.6-10.3); Carbon Dioxide 30.0 mmol/L (21-32); Chloride 104.0 mmol/L (98-107); Creatinine Clr Calc Pharmacy 28.9 ml/min; Glucose 105.0 mg/dl (70-99(Fasting)); Potassium 4.0 mmol/L (3.5-5.1); Sodium 138.0 mmol/L (136-145)
[2024-11-16 08:04] LABS: Hemoglobin A1C 6.1 % (4.5-5.6)
[2024-11-16 15:06] VITALS: BP 144/83; PULSE 71; TEMP 97.3
--- NOTE | 2024-11-16 15:51 | Discharge Summary ---
Date of Service November 16, 2024 Admission HPI Per Admitting Provider 83 yo female with pmhx of CKD stage 3b, DM type 2 (on diabetic neuropathy), hx of left hip fracture (04/2024), HTN, HLD, depression presents from home for altered mental status, weakness. Last admission on 04/2024 for hip fracture now s/p hip arthroplasty. Patient seen and examined at bedside. Patient orriented to self and location, not time. Per son, who is POA and at bedside, this is slightly below her baseli ne. She has been getting shakes and vomiting over the past few days, also has not been eating much. On ozembic. These events occur occasionally but this is worse than normal. Per son, patient has been declining for past several months, ever since the hip fracture. No chest pain, SOB, weakness on one side or the other, burning with urination. Does have slight abdominal pain, unable to describe. Feels diffusely weak and mildly confused. Denies tobacco use, alcohol use, drug use, DNRDNI per discussion with son. Admission Exam Per Admitting Provider Gen: A&O 2 NAD HEENT: NCAT, EOMI, not icteric. External ears normal. No rhinorrhea. Dry mucous membranes. Neck: Supple, full range of motion, no observable masses, No meningeal sign. Lungs: No Respiratory distress. CV: RRR, no edema. Abdomen: mild epigastric tenderness MSK: No joint swelling, no redness. Skin: No rashes, petechiae, lesions. Normal color per patient. Neuro: Normal Gait, Grossly intact. Psych: Appropriate for situation. Principal Diagnosis Dehydration possibly secondary to GLP-1 use Discharge Exam General Appearance:Thin, Elderly, no apparent distress Head: normocephalic, Atraumatic Eyes: normal inspection, EOMI Neck: supple Respiratory/Chest: Normal breath sounds, CTA, No accessory muscle use Cardiovascular: S1, S2, No murmur Abdomen/GI:Soft, Non tender, Bowel sounds present Extremities/Musculoskeletal:normal inspection, no edema Neurologic/Psych:AAOX3, grossly no focal neurological deficits Skin: normal color, warm Discharge Data Allergies Allergy/AdvReac Type Severity Reaction Status Date / Time No Known Allergies Allergy Mild OTHER Unverified 08/29/24 10:56 Consultations 11/12/24 15:57 ED Decision to Admit Stat Ordered Studies 11/12/24 12:38 CT Abd and Pelvis [CT abd pelvis IV con only] Stat FINDINGS: Visualized portions of the lung bases are unremarkable. Subpleural groundglass opacities within the lower lobes represent atelectasis. No pneumatosis, free air or portal venous gas is present. There are small layering gallstones within the gallbladder. The gallbladder is mildly distended. There is no pericholecystic infiltration. There is no biliary or pancreatic ductal dila tation. Spleen, adrenal glands and pancreas are unremarkable. There is a 3.1 cm left upper pole renal cyst. Numerous subcentimeter bilateral renal lesions are too small to characterize. There is no hydronephrosis. There is colonic diverticulosis without evidence for acute diverticulitis. The appendix is normal. No bowel wall thickening is evident. Images of the pelvis are degraded by streak artifact from a left hip arthroplasty. Major vasculature is patent. There is no lymphadenopathy. IMPRESSION: 1. No bowel obstruction. No bowel wall thickening. Normal appendix. 2. Colonic diverticulosis. No evidence for acute diverticulitis. 3. Cholelithiasis and mild gallbladder distention. No pericholecystic infiltration. These findings do not show suggest acute cholecystitis. However, if persistent right upper quadrant pain, ultrasound is recommended. Hospital Course (1) Acute dehydration: (2) Hypomagnesemia: (3) Metabolic encephalopathy: (4) Carotid arterial disease: (5) HTN (hypertension): (6) DM II (diabetes mellitus, type II), controlled: Plan 83 yo female with pmhx of CKD stage 3b, DM type 2 (on diabetic neuropathy), hx of left hip fracture (04/2024), HTN, HLD, depression presents from home for altered mental status, weakness 2/2 dehydration, ozempic use, possible UTI. Acute Metabolic Encephalopathy Suspected complicated UTI--less likely Semaglutide Use Mild Cognitive Impairment Dehydration --CT ABD:No bowel obstruction. No bowel wall thickening. Normal appendix. Colonic diverticulosis. No evidence for acute diverticulitis.Cholelithiasis and mild gallbladder distention. No pericholecystic infiltration. These findings do not show suggest acute cholecystitis. However, if persistent right upper quadrant pain, ultrasound is recommended. -- LFTs within normal limits -Urine culture negative - Empirically received IV Rocephin Received IV fluids Encouraged to increase oral intake Mental status back to baseline Plan to be discontinue semaglutide on discharge as well Continue PT OT Hypomagnesemia Replete and monitor Hypertensive urgency Continue losartan Increase amlodipine to 5 mg daily Hydralazine as needed Monitor blood pressure Depression -continue paroxetine DM Type 2 Last HbA1c in May 03: 7.3, current A1c 6.1% Plan to discontinue Ozempic No tight glycemic control needed Follow up as outpt for DM CKD Stage 3b Monitor renal function Avoid nephrotoxic agents as able HLD -continue atorvastatin Total Time Total Time Spent Total Time Spent (In Minutes): 40 Discharge Plan Discharge Items Patient Disposition: Home - Self-Care Reason For Visit: DEHYDRATION Discharge Diagnosis: Dehydration possibly secondary to GLP-1 use Condition on Discharge: Fair Activity: Per Instructions section Non-emergency contact: Primary Care Provider Call non-emergency contact if: you have any medication questions and your symptoms worsen Follow-up/Referrals: Wing Briseno DO [Primary Care Provider] - (Date & Time 11/22/2024 2:20 PM Provider: Wing Briseno DO [facility] ) Diet: Carb Consistent or DM2 Addtl Attending Provider Instructions: Follow up with primary care physician within 1 week. The appointment was scheduled for you for November 22, 2024. Stop using ozempic. Start taking following medications for your blood pressure as prescribed : amlo dipine, losartan. In addition, take magnesium supplement, thiamine, and folic acid - discuss this further with your primary care doctor. Make sure to stay well hydrated. Pending Studies at Discharge: No Stand-Alone Forms: My [facility], Smoking Cessation Medications and DC Order Prescriptions: New magnesium chloride [Mag 64] 64 mg Tablet,Delayed Release (Dr/Ec) 64 mg PO BID Qty: 14 0RF thiamine HCl (vitamin B1) 100 mg Tablet 100 mg PO QAM Qty: 30 0RF folic acid 1 mg Tablet 1 mg PO QAM Qty: 30 0RF amlodipine 5 mg Tablet 5 mg PO QAM Qty: 30 0RF Continued (DME) miscellaneous medical supply Misc See Rx Instructions .Route Qty: 1 0RF Rx Instructions: As directed losartan 50 mg tablet 50 mg PO DAILY atorvastatin 40 mg tablet 40 mg PO DAILY allopurinol 100 mg tablet 100 mg PO DAILY levothyroxine 100 mcg tablet 100 mcg PO DAILY potassium citrate 10 mEq (1,080 mg) tablet extended release 20 meq PO DAILY paroxetine HCl 20 mg tablet 20 mg PO DAILY cholecalciferol (vitamin D3) 125 mcg (5,000 unit) Tablet 125 mcg PO QAM Qty: 30 0RF Discontinued Ozempic 0.25 mg or 0.5 mg (2 mg/3 mL) pen injector 1 mg SUBCUT WK Rx Instructions: (1 MG/DOSE)) Inject 1 mg under the skin once a week on sundays. Discharge Orders: Discharge Order (Routine); Ordered 11/16/24 Ordered By: Jose Hernandez/Other Patient Handouts: Managing Type 2 Diabetes Admission Data Admit Date/Time: 11/12/24 17:41 Attending Provider: Jose Ibarra Admit Provider: Obi Chong Primary Care Provider: Wing Briseno Other Providers: Obi Chong; Points,[facility] [place]; Hunter Dixon Other Interventions: Discharge Summary Assessment (RN) Last Done: 11/16/24 15:59
== END 2024-11-16 18:10 | disposition home or self-care (01) ==
LOC: ED 12:19 → SUATTDRO 17:41 → 3W 17:41 → INTOOBSV 17:41 → 3W 21:46